=== PATIENT | male | born 1960 | race Caucasian/White ===

== ENCOUNTER 2017-09-10 21:05 | Emergency (ER) | payer MEDICARE, MEDICAID, SELFPAY ==
[2017-09-10 21:06] VITALS: BP 156/67; PULSE 71; RESP 17; TEMP 37.1; O2SAT 97; BMI 19.0
--- NOTE | 2017-09-10 22:10 | ED.VISSUMM ---
- ER Visit Summary Date of Service: 09/10/17 Chief Complaint: [] Blood in the stool History of Present Illness: The patient is a 57 M stated 2 hours ago he had a bowel movement that was solid and noticed there was some blood in the water. It was bright red. No history of diverticulosis or hemorrhoids. Last year he had a hard stool and had a similar bleeding episode that resolved on its own. His last colonoscopy was 5 years ago and was normal per patient. He does not see a hazardous material specialist. He is on Eliquis for history of coronary artery disease status post remote triple bypass. Denies any symptoms currently. He felt a little bit lightheaded when he saw the blood that went away. Physical Examination: Vital signs reviewed General: Well-nourished well-developed Head: Normocephalic atraumatic Eyes: Pupils equal round and reactive to light extraocular movements intact ENT: TMs clear no hemotympanum no trauma Neck: Nontender full range of motion Cardiovascular: Regular rate rhythm no murmurs normal S1-S2 Respiratory: No distress clear to auscultation bilaterally chest nontender Abdomen: Soft nontender nondistended normal bowel sounds no masses Rectal no external hemorrhoids. Nontender. Gross negative. Back: Nontender no CVA tenderness Extremities: Nontender active range of motion ?4 extremities no trauma. Left [id number] amputation Skin: Normal color no trauma Neuro alert oriented cranial nerves II through XII intact normal strength sensation reflexes Test Results: [] Emergency Department Course and Treatment: [] Patient given IV fluid bolus. Lab work obtained. She is normal except platelets 113. Chemistries normal except chloride 109. Coags negative. Patient given IV fluids and feels asymptomatic. No further bleeding here. The patient is refusing admission. He understands he can return. He does not want to be admitted. He wants to go home and do stool softeners and see if this resolves on its own. I think this is reasonable. He is nontoxic with a normal hemoglobin. He will get be given GI referral. Treatment Plan: [] Disposition: [] Impression: [] Hematochezia This note was generated with [employer] dictation software. It may contain incorrect words, spelling, and punctuation that were not noted in review of the chart prior to signing ED Disposition - Plan for ED Patient: Chief Complaint: GI Bleed Referrals: Marco Sawyer MD [Primary Care Provider] -
[2017-09-10 22:22] LABS: Absolute Lymphocyte Count 2.06 X10^3/ul (0.83-4.51); Absolute Neutrophil Count 7.2 X10^3/uL (2.0-7.7); Basophil# 0.02 X10^3/uL; Basophil% 0.2 % (0-1); Eosinophil# 0.04 X10^3/uL; Eosinophils% 0.4 % (0-5); Hemoglobin 15.3 g/dl (13.0-16.5); Lymphocyte # 2.06 X10^3/ul (4.0); Lymphocyte % 20.7 % (19-41); Mean Corp Hgb Conc 34.8 g/gl (32-36); Mean Corpuscular Volume 94.8 fL (80-94); Mean Platelet Vol. 10.7 fl (6.2-12.0); Monocyte# 0.64 X10^3/uL; Monocyte% 6.4 % (0-10); Neutrophil % 72.2 % (47-70); Platelet Count 113 K/mm3 (150-450); RBC Distribution Width CV 13.7 % (11.6-14.6); RBC Distribution Width SD 47.3 fl (35.1-43.9); Red Blood Count 4.64 M/mm3 (4.6-6.2)
[2017-09-10 22:26] LABS: POSITIVE COUNT NO; POSITIVE DIFFERENTIAL NO; POSITIVE MORPHOLOGY NO
[2017-09-10 22:33] LABS: Anion Gap 4 (5-15); BUN 13 mg/dL (7-18); BUN/Creat Ratio 17.5 RATIO (10-20); Calcium,Total 8.2 mg/dL (8.5-10.1); Chloride 109 mmol/L (98-107); Creatinine, Serum 0.74 mg/dL (0.70-1.30); EST Glomerular Filtration Rate 114 mL/min (>60); Est Glom Filt Rate - Afr Amer 138 mL/min (>60); Glucose 89 mg/dL (74-106); Potassium 3.9 mmol/L (3.5-5.1); Sodium Level 143 mmol/L (136-145)
[2017-09-10 22:43] LABS: International Normalized Ratio 1.1; Prothrombin Time (Protime)PT. 13.8 SECONDS (11.7-14.9)
--- NOTE | 2017-09-10 23:28 | ED.DEP ---
ED Disposition - Plan for ED Patient: Disposition: Home or Assisted Living Chief Complaint: GI Bleed Instructions: ED Hematochezia Stable Referrals: Marco Sawyer MD [Primary Care Provider] - Mau Michaud MD [STAFF PHYSICIAN] -
[2017-09-10 23:37] VITALS: PULSE 86; RESP 16; O2SAT 98
== END 2017-09-10 23:38 | disposition home or self-care (01) ==
PROVIDERS: Emergency Provider Emergency Medicine; Family Provider Family Medicine; PCP Family Medicine
DX: K92.1 Melena (principal); I25.10 Atherosclerotic heart disease of native coronary artery without angina pectoris; I10 Essential (primary) hypertension; I73.9 Peripheral vascular disease, unspecified; Z95.1 Presence of aortocoronary bypass graft; Z72.0 Tobacco use; Z79.02 Long term (current) use of antithrombotics/antiplatelets; Z79.891 Long term (current) use of opiate analgesic; Z79.899 Other long term (current) drug therapy
CPT/HCPCS: 80048; 85025; 85610; 85730; 96360; 99285; J7040; A4216

== ENCOUNTER 2017-09-11 13:00 | Outpatient (RCR) | payer MEDICARE, MEDICAID, SELFPAY ==
--- NOTE | 2017-03-29 12:57 | HP.PTEVAL ---
Patient's Visit Information CANDI NAVA is a 57 year old M referred to Physical Therapy by Marco Sawyer with a diagnosis of L AKA neuroma. Date of Evaluation: 03/29/17 Physical Therapist: SLY HurleyT, OC - Visit Plan Frequency: 3x /Week Duration: 4-6 Weeks Plan: 3x/week for 3-6. Stretch L hip flexors with roll out. Management of stump and sleeves as needed. Gradual increae WB and gait training, pregait and balance exercises. Progression to wh walker and without AD, cane as needed. Steps. 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 Had more bone cut off about three months ago and got new prosthesis last week. Just started walking on it and i using walker. Hasn't walked without AD in years. Did not WB prior to this surgery through stump. Sleep is OK. On meds for pain pecoset 10 and lyrica. 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 Has steps to enter house, scoots up steps on bottom. Hs posts but no railing. Walker will not fit on them but can get up them without scooting. No layers today because it is swollen. Lives with girlfirend, Basic AdLs I but in . Disability from arm. 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 - Pain L stump Pain Intensity (Out of 10): 7 Pain Intensity Range: 0 Comment: Ok sitting. - Objective L AKA, no drainage, healed well, one spot more laterally of scarring sticking but no redness or excessive swelling today, tissue is patent and of appropriate color. Strength in stump is 4-/5 in all direction, R LE strength 4+/5. One step with R LE easily with walker. AROM L stump flexion 110, abd 20, ext 6 degreee, ext on R LE is 8 degrees. Transfers to and fro sit and supine are I with UE. Don and doff prosthesis I with appropriate layers today(just pad and sleeve). Stand at walker I, without walker favors L but able to stand eo and ec 30 sec with mild perturbations. Ambulate with wh walker mod I, but L LE is out to side slightly, can correct with VC. Min WB through L. Ambulate 2 steps without wh walker but very cautious and hesitant. Needs Min A for balance and safety. Very short stance time on L. - Goals Goal 1:: Stand and shift weight without hesitation or assist Goal Time Frame: 4-6 Weeks Goal 2:: Ambualte with Wh walker as main mobility method without pain. Goal Time Frame: 4-6 Weeks Goal 3:: Ambulate without AD 20 steps without assist Goal 4:: Up and down one flight steps with one rail I Goal Time Frame: 4-6 Weeks - Rehabilitation Potential Physical Therapy Diagnosis: L AKA Rehabilitation Potential: Fair - Anticipated Interventions Patient/Client Instruction: Educate patient on: Condition For the Purpose of:: To decrease pain, To improve ability of physical actions for home/community/work/leisure, To improve gait and locomotor functions Therapeutic Exercise to Include: Strength training, Balance training, Flexibilty training, Gait and locomotor training For the Purpose of:: To decrease pain, To improve ability of physical actions for home/community/work/leisure, To improve gait and locomotor functions Thank you for the opportunity to evaluate your patient. For Medicare and Medicare HMO plans, please review the plan of care and approve it. It will need to be FAXED BACK to us at [phone] for Medicare purposes. Please let me know if there are questions or concerns regarding this plan of care. Physician Signature: Date:
--- NOTE | 2017-04-23 12:52 | HP.PTREVAL_ITS ---
Marco Sawyer, It has been my pleasure to treat CANDI NAVA over the last 10 visits for Yani VILLALPANDO neuroma. Please see the progress note below for an update on the physical therapy plan of care! Subjective: Getting better but not able to walk on own yet. Getting better at about 5% use of walker and the rest is WC. Still not ready to commit to more than that. Objective/Function: Walks in and out of PT with wh walker Mod I. Don prosthesis I and appropriately. Walks with wh walker Mod I, catches toe one time in 80 feet corrected byswinging stump forward more powerfully. Able to stand without holding on I. Plan Plan: 3x/week for 3 weeks for. 1. Gait with decreasing AD. 2. Standing weight shifts. 3. Wean weight adn volume onto prosthesis via home progression verbal education.(Get up to 50% at home with Wh walker. Steps. Goals Goal 1:: Stand and shift weight without hesitation or assist Goal Time Frame: 4-6 Weeks Goal Progress: Goal Met Goal 2:: Ambualte with Wh walker as main mobility method without pain. Goal Time Frame: 4-6 Weeks Goal Progress: Progressing Goal 3:: Ambulate without AD 20 steps without assist Goal Time Frame: 6-8 Weeks Goal 4:: Up and down one flight steps with one rail I Goal Time Frame: 4-6 Weeks Goal 5:: Wh walker and prosthesis at least 50% of mobility volume vs WC Goal Time Frame: 4-6 Weeks Goal Progress: NWE GOAL Anticipated Interventions Patient/Client Instruction: Educate patient on: Condition For the Purpose of:: To decrease pain, To improve ability of physical actions for home/community/work/leisure, To improve gait and locomotor functions Therapeutic Exercise to Include: Strength training, Balance training, Flexibilty training, Gait and locomotor training For the Purpose of:: To decrease pain, To improve ability of physical actions for home/community/work/leisure, To improve gait and locomotor functions Please do not hesitate to contact me at [phone] by phone or Fax: if you have questions or concerns regarding this new plan of care! Sincerely, Chaka Hunt, DPT, OC
--- NOTE | 2017-06-26 13:21 | HP.PTREVAL_ITS ---
Marco Sawyer, It has been my pleasure to treat CANDI NAVA over the last 17 visits for L AKA neuroma. Please see the progress note below for an update on the physical therapy plan of care! Subjective: Ging to lose R LE in a year or two due to PAD. That is what they found at the hospital. Got new orthotic for L and it works better. Old one was worn out. Doc does not want us to take prsothetic off, just work on gait.No scheduled doctor f/u. Prosthetic on all day except bed. Uses walker sometimes at home. Has fallen a few times. Pt was busy at the holidays and now ready to resume. Objective/Function: Needs VC and assist to trasnfer off floor with and without support of chair via R half kneel. Walks with wide BETO with wh walker I, getting good prosthetic knee bend today. Without AD is hesitant and turns slowly. steps are reciprocal with one rail using R LE. See FGA. OVERALL DOING WELL AND SEEMS TO HAVE RENEWED ATTITUDE OF MOTIVATION AFTER POOR MOTIVATION AND NO ATTENDANCE THE LAST 4 + WEEKS. Plan Plan: 3x/week for 3-6 weeks to work on steps with R with decreasing support, gait without AD(decreasing ) with narrow BETO, and transfer off floor via half kneel. WE ARE RESUMING PT AFTER A PERIOD OF ABSENCE DUE TO HOLIDAYS AND LACK OF MOTIVATION FROM PATIENT. THIS SEEMS BETTER NOW WITH NEW PROSTHESIS Goals Goal 1:: Stand and shift weight without hesitation or assist Goal Time Frame: 4-6 Weeks Goal Progress: Goal Met Goal 2:: Ambualte with Wh walker as main mobility method without pain. Goal Time Frame: 4-6 Weeks Goal Progress: Goal Met Goal 3:: Ambulate into and out of PT without AD with good gait pattern I. Goal Time Frame: 6-8 Weeks Goal Progress: NEW GOAL Goal 4:: up and down 6 steps without rail I Goal Time Frame: 4-6 Weeks Goal Progress: NEW GOAL Goal 5:: Wh walker and prosthesis at least 50% of mobility volume vs WC Goal Time Frame: 4-6 Weeks Goal Progress: NEW GOAL Goal 6:: Transfer off floor without chair support UE I easily Goal Time Frame: 4-6 Weeks Goal Progress: NEW GOAL Anticipated Interventions Patient/Client Instruction: Educate patient on: Condition For the Purpose of:: To decrease pain, To improve ability of physical actions for home/community/work/leisure, To improve gait and locomotor functions Therapeutic Exercise to Include: Strength training, Balance training, Flexibilty training, Gait and locomotor training For the Purpose of:: To decrease pain, To improve ability of physical actions for home/community/work/leisure, To improve gait and locomotor functions Please do not hesitate to contact me at [phone] by phone or Fax: if you have questions or concerns regarding this new plan of care! Sincerely, Chaka Hunt, DPT, OC
--- NOTE | 2017-07-24 17:38 | HP.PTREVAL_ITS ---
Marco Sawyer, It has been my pleasure to treat CANDI NAVA over the last 24 visits for L AKA neuroma. Please see the progress note below for an update on the physical therapy plan of care! Subjective: Had the flu for a week. Was not pretty. Did not get much of anything in. Walking at home with walk and without holding onto furniture. R calf has been painful most of the time and worse with walking. May have to have that amputated at some point. L phantom pain daily, stump is not bad. No exercises being done at home. No falls . Always feels like needs to have a hold of something at home to walk, doesn't trust legs. Wants more confidence with walker and R calf pain to get better. Objective/Function: Needs VC to ambulate with toe off on L to get prosthetic flexion, needs vc 33% of time...corrects immediately.Walks Mod I with walker but R leg tends to abd and cause wide BETO, can correct with VC. Makes same gait pattern without AD and is sBA for 200 feet today. Does 100 feet at a time limited by L calf pain and cramping. More safe without cane as he cannot use it in R hand due to dysfucntion there from previous injury. Able to ambulate ec , head turns but less stable and CGA needed. OVERALL, THE FLU HAS SET HIM BACK SOME. PT LACKS CONFIDENCE TO GET RID OF AD AND LEFT LEG ARTERIAL PROBLEMS LIMIT HIS DISTANCE. APPROPRIATE FOR CONTINUED PT FOR GAIT TRAINING. Plan Plan: 2x/week for 4 weeks... focus on narrow BETO confidence withotu AD and increasing distances as L leg pain allows. 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 Continue floor transfer. Goals Goal 1:: Tolerate FGA Goal Time Frame: 4-6 Weeks Goal Progress: NEW GOAL Goal 2:: Ambualte with Wh walker as main mobility method without pain. Goal Time Frame: 4-6 Weeks Goal Progress: Goal Met Goal 3:: Ambulate into and out of PT without AD with good gait pattern I. Goal Time Frame: 6-8 Weeks Goal Progress: Progressing Goal 4:: up and down 6 steps without rail I Goal Time Frame: 4-6 Weeks Goal Progress: Progressing Goal 5:: Wh walker and prosthesis at least 50% of mobility volume vs WC Goal Time Frame: 4-6 Weeks Goal Progress: Goal Met Goal 6:: Transfer off floor without chair support UE I easily Goal Time Frame: 4-6 Weeks Goal Progress: Progressing Anticipated Interventions Patient/Client Instruction: Educate patient on: Condition For the Purpose of:: To decrease pain, To improve ability of physical actions for home/community/work/leisure, To improve gait and locomotor functions Therapeutic Exercise to Include: Strength training, Balance training, Flexibilty training, Gait and locomotor training For the Purpose of:: To decrease pain, To improve ability of physical actions for home/community/work/leisure, To improve gait and locomotor functions Please do not hesitate to contact me at [phone] by phone or Fax: if you have questions or concerns regarding this new plan of care! Sincerely, Chaka uHnt, DPT, OC
--- NOTE | 2017-08-24 16:06 | HP.PTREVAL_ITS ---
Marco Sawyer, It has been my pleasure to treat CANDI NAVA over the last 32 visits for Yani matos. Please see the progress note below for an update on the physical therapy plan of care! Subjective: Thinks he is getting better. Did two full laps without stopping. Can slowly pick things up off floor. R leg still hurts but stretching helps. Walking short distances without AD. Need more PT for grades and outside walking. Avoids shopping. 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 Has some balance work to do as he is wobbly. Has not had any falls to the ground but feels wobbly. Sleep is good. Objective/Function: Transfer to and from floor I without chair to push on. Tolerated FGA today for the first time. Up and dwn steps with R with ail and cane Mod I. Walks with cane mod I on firm surfaces. Without AD needs SBA as he is wobbly. Plan Plan: 2x/week for 4 weeks for gait on irregular surfaces, incline/decline as able and balance with turns and challengess. Goals Goal 1:: Tolerate FGA Goal Time Frame: 4-6 Weeks Goal Progress: Goal Met Goal 2:: Ambualte with Wh walker as main mobility method without pain. Goal Time Frame: 4-6 Weeks Goal Progress: - Goal 3:: Ambulate into and out of PT without AD with good gait pattern I. Goal Time Frame: 6-8 Weeks Goal Progress: Progressing Goal 4:: up and down 6 steps without rail I Goal Time Frame: 4-6 Weeks Goal Progress: Will need rail Goal 5:: Walk with cane on grass and incline without assistance 60 feet mod I. Goal Time Frame: 4-6 Weeks Goal Progress: NEW GOAL Goal 6:: FGA to diminish fall risk. Goal Time Frame: 4-6 Weeks Goal Progress: NEW GOAL Anticipated Interventions Patient/Client Instruction: Educate patient on: Condition For the Purpose of:: To decrease pain, To improve ability of physical actions for home/community/work/leisure, To improve gait and locomotor functions Therapeutic Exercise to Include: Strength training, Balance training, Flexibilty training, Gait and locomotor training For the Purpose of:: To decrease pain, To improve ability of physical actions for home/community/work/leisure, To improve gait and locomotor functions Please do not hesitate to contact me at [phone] by phone or Fax: if you have questions or concerns regarding this new plan of care! Sincerely, Chaka Hunt, SLYT, OC
== END 2017-09-11 19:00 | disposition home or self-care (01) ==
LOC: PT 13:00
PROVIDERS: Family Provider Family Medicine; PCP Family Medicine; Visit Provider Family Medicine
DX: T87.34 Neuroma of amputation stump, left lower extremity (principal)
CPT/HCPCS: 97110; 97116; 97140; 97162; 97164; 97530; G8978; G8979

== ENCOUNTER 2017-09-23 18:25 | Emergency (ER) | payer MEDICARE, MEDICAID, SELFPAY ==
[2017-09-23 18:26] VITALS: BP 148/64; PULSE 71; RESP 16; TEMP 36.9; O2SAT 99; BMI 22.8
--- NOTE | 2017-09-23 19:39 | ED.VISSUMM ---
- ER Visit Summary Date of Service: 09/23/17 Chief Complaint: Left stump pain History of Present Illness: The patient is a 57 M 2 day history worsening left stump pain. History of AKA. States has vascular disease with this tobacco history. No history of diabetes. Had infection with initial surgery 1-1/2 years ago. Additional surgery 4 months ago at [facility]. Followed by Dr. Angelique Grijalva. Has been using a prosthesis starting 3 months ago. Saw therapy on Sunday. Denies any injuries. No fevers. No drainage. He is also on oxycodone and Lyrica states he ran out today with last dose 10 hours ago. 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 He states he takes his medications when he has pain. He lost pain management privileges last year due to being positive for marijuana. States there is redness to the area when he stands, goes away when he sits down. Physical Examination: General: Alert and oriented ?3, no acute distress HEENT: Normocephalic, atraumatic. Moist mucosa membranes Neck: supple, nontender. Cardiovascular: Regular rate and rhythm, no murmurs Respiratory: Normal breath sounds, symmetric, no distress Abdomen: Soft, nontender, nondistended Extremities: Left lower extremity: AKA. There is scarring distally, there is no drainage from the site. There is no fluctuance. There is no erythema or streaking. There is tenderness at the distal stump region around the scar. Neuro: no focal neurological deficits. Test Results: [] Emergency Department Course and Treatment: [] Treatment Plan: [] Disposition: [] Impression: [] This note was generated with [employer] dictation software. It may contain incorrect words, spelling, and punctuation that were not noted in review of the chart prior to signing ED Disposition - Plan for ED Patient: Disposition: Home or Assisted Living Chief Complaint: Lower Extremity Injury Diagnosis: Pain of left lower extremity Prescriptions: Cephalexin [Keflex] 500 mg PO Q6 #40 capsule Referrals: Marco Sawyer MD [Primary Care Provider] - 3-5 Days Additional Instructions: Discussed with your prosthesis company for reevaluation. Will cover for infection for your concerns with antibiotics. Follow-up with your doctor for continued prescriptions for pain medications.
--- NOTE | 2017-09-23 19:40 | RAD_ITS ---
STUDY: X-RAY - LEFT FEMUR REASON FOR STUDY: Male, 57 years old. Pain. TECHNIQUE: Radiological exam, femur, minimum 2 views COMPARISON: None. FINDINGS: No acute fracture or dislocation. No significant degenerative changes. 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 There is no definite focal destructive process of the bones. There are heavily calcified vascular structures and a stent in the upper medial thigh. IMPRESSION: There is no definite acute abnormality. Electronically Signed: Alcides Centeno MD at 20:02 EDT , Service support , RAD/Femur Min 2 Views
[2017-09-23] MEDS: oxyCODONE 5 MG Tablet 10 MG PO (19:42)
--- NOTE | 2017-09-23 19:47 | ED.RN ---
CALLED TO PHARMACY FOR MEDICATION.
[2017-09-23] MEDS: Pregabalin 75 MG Capsule 150 MG PO (20:05)
[2017-09-23] MEDS: Cephalexin 250 MG Capsule 500 MG PO (20:46)
== END 2017-09-23 20:46 | disposition home or self-care (01) ==
PROVIDERS: Emergency Provider Emergency Medicine; Family Provider Family Medicine; PCP Family Medicine
DX: M79.652 Pain in left thigh (principal); Z89.612 Acquired absence of left leg above knee; Z72.0 Tobacco use; Z79.02 Long term (current) use of antithrombotics/antiplatelets; Z79.891 Long term (current) use of opiate analgesic; Z79.899 Other long term (current) drug therapy
CPT/HCPCS: 73552; 99283

== ENCOUNTER 2017-12-19 14:00 | Outpatient (RCR) | payer MEDICARE, MEDICAID, SELFPAY ==
--- NOTE | 2017-10-08 12:48 | HP.PTREVAL_ITS ---
Marco Sawyer, It has been my pleasure to treat CANDI NAVA over the last 39 visits for L AKA neuroma. Please see the progress note below for an update on the physical therapy plan of care! Subjective: A couple weeks ago, wheel of wheel chair hit him on L stump. It swelled up and ggot sensitive. Given pills 2x/day. Has other medical concerns with bleeding in the rectum and is being doctor for that. Had ear infection. R leg is up and down with pain as he walks on it more. distal end of stump very sensitive and cannot bear weight. Hasn't used prosthesis in two weeks because it is too painful. Saw doctor after bumped stump and thought he had a sensitive nerve. Has been using WC or crawling on floor for last two weeks. Doctor took x ray and no infection but took meds anyway. It is slowly improving as he can move his leg better.Comfortable at rest. Objective/Function: Stump ROM is good with 10 degrees of ext hip and others WFL. Strength in stump 4+/5 abd, ext, flexion. Stump is very tender distally and very little soft tissue present at distal end of femur. Maximally tender here buit better than last week according to patient. Walks with walker 10 feet today but very difficult to BW R wrist due to fusion and pain. Did not bring prosthesis or walker today. has platform for R UE at home but did not like it so took it off his walker and has not been ambulating.No isgns of excessive redness heat or swelling in stump. OVERALL, HAS HAD A SETBACK WITH PAIN TO STUMP AND DOCTORED ACCORDINGLY BUT HAS LIMITED AND CONTINUES TO LIMIT HIS VERTICAL MOBILITY. PT APPROPRIATE TO WORK BACK TO WALKING PAIN ALLOWS. Plan Plan: 1-3x/week for 4-6 weeks to work on enusring diminishing pain to stump with proper number of layers in prosthesis and WB through walker(with platform) and weaning back to less AD. Pt feels comfortable trying more layers at home while stump continues to heal but will call if problems. Will bring layers, walker, platform and prosthesis next visit forf management and when he can walk upright for any distance will increase to 2-3x/week for gait training. Goals Goal 1:: Walk into and out of PT with cane or walker Mod I without pain Goal Time Frame: 4-6 Weeks Goal Progress: NEW GOAL Goal 2:: Ambulate in and out of PT without AD and with good gait pattern I. Goal Time Frame: 4-6 Weeks Goal Progress: setback, still approp. Goal 3:: Up and down 6 stepswithout rail I Goal Time Frame: 4-6 Weeks Goal Progress: Not apporp now Goal 4:: Walk with cane on grass and incline without AD mod I 60 feet Goal Time Frame: 4-6 Weeks Goal Progress: not prgoress, not approp Goal 5:: FGA to diminish fall risk Goal Time Frame: 4-6 Weeks Goal Progress: not progress, not approp Anticipated Interventions Patient/Client Instruction: Educate patient on: Condition For the Purpose of:: To improve ability of physical actions for home/community/ work/leisure, To improve gait and locomotor functions Functional Training to Include: Gait training Comments: transfer For the Purpose of:: To improve safety Please do not hesitate to contact me at [phone] by phone or Fax: if you have questions or concerns regarding this new plan of care! Sincerely, Chaka Hunt, DPT, OC
--- NOTE | 2017-11-20 13:30 | HP.PTREVAL_ITS ---
Marco Sawyer, It has been my pleasure to treat CANDI NAVA over the last 46 visits for Yani VILLALPANDO neuroma. Please see the progress note below for an update on the physical therapy plan of care! Subjective: Walking better. Made a full lap without stopping. Not walking much at home outside in yard. Walking at home holding onto childs with prosthesis. Will call prosthetitian to tweak and make prsothesis tighter. May need to have R foot amputated. Not sure when. Getting better with prosthesis but wants to walk outside. Currently in prosthesis all day. No AD needed in house, uses cane to get to shop. Did fall one time last night trying to sit in chair when could not see really well. Objective/Function: Walks with cane with decent gait pattern 200 feet without assistance. Walks without AD 100 feet with SBA. Not overly confident without AD and has wider BETO. Prosthesis fitting well and no pain with ambulation today. Ascends steps withotu rail but weak on R LE and Needs rail for functional safety. Saul raise on R I. Overall much better walking than initially at last recheck. In prosthesis most of day and starting to get around shop although has fallen in the shop. still appropriate to continue for gait in upper level situations dark, outdoors and dynamic balance on prosthesis. Plan Plan: 2x/week for 4 weeks for outdoor irregular surface gait, dynamic balance without AD, steps. Goals Goal 1:: Walk into and out of PT with cane or walker Mod I without pain Goal Time Frame: 4-6 Weeks Goal Progress: Goal Met Goal 2:: Ambulate in and out of PT without AD and with good gait pattern I. Goal Time Frame: 4-6 Weeks Goal Progress: 100 feet. Goal 3:: Up and down 6 stepswithout rail I Goal Time Frame: 4-6 Weeks Goal Progress: Min A Goal 4:: Walk with cane on grass and incline without AD mod I 60 feet Goal Time Frame: 4-6 Weeks Goal Progress: not yet, still approp. Goal 5:: FGA to diminish fall risk Goal Time Frame: 4-6 Weeks Goal Progress: progressing, still approp Anticipated Interventions Patient/Client Instruction: Educate patient on: Condition For the Purpose of:: To improve ability of physical actions for home/community/ work/leisure, To improve gait and locomotor functions Functional Training to Include: Gait training Comments: transfer For the Purpose of:: To improve safety Please do not hesitate to contact me at [phone] by phone or Fax: if you have questions or concerns regarding this new plan of care! Sincerely, SLY HurleyT, OC
--- NOTE | 2017-12-19 14:27 | HP.PTDCSUM_ITS ---
HP - PT D/C Summary It has been my pleasure to treat CANDI NAVA under orders from Marco Sawyer , for the diagnosis of L AKA neuroma for a total of 52 visit(s). Discharge Date: 12/19/17 Please see the following information for a summary of their discharge status. - Subjective Subjective: Slowly improving with distance. No pain really after walking. Butt gets tight at times. Gets meds this weekend adn will be good. Using cane as he does not trust R leg as it gives out at times. Circulation is poor in R foot but doc wants to leave it on as long as he can to avoid WC for the rest of his life. Prosthetic is on all day and uses cane (or furniture) at home but walker in yard. - Pain Left LE Pain Intensity (Out of 10): 0 - Overall Improvement % Improvement: 50 - Objective Objective/Function: Overall walking very well with cane R UE, R LE limits more than prosthesis. Needs to emphasize swing phase on grass but is safe. steps are with rail on L and cane adn using R LE which is very weak. - Goals Goal 1:: Walk into and out of PT with cane or walker Mod I without pain Goal Progress: Goal Met Goal 2:: Ambulate in and out of PT without AD and with good gait pattern I. Goal Progress: needs cane Goal 3:: Up and down 6 stepswithout rail I Goal Progress: needs rail 2 to R wekanes Goal 4:: Walk with cane on grass and incline without AD mod I 60 feet Goal Progress: needs rail 2 R LE weak Goal 5:: FGA to diminish fall risk Goal Progress: Progressing - Plan Plan: D/C - D/C Information Discharge Comments: Pt doing well at home adn likely at maximum functional level. R LE holds him back due to weakness adn pain from poor circulation. If there are questions or concerns regarding this patient's physical therapy, please feel free to call me at [phone]. Thank you for the referral of this patient. Sincerely, Chaka Hunt, DPT, OC
== END 2017-12-19 19:00 | disposition home or self-care (01) ==
LOC: PT 14:00
PROVIDERS: Family Provider Family Medicine; PCP Family Medicine; Visit Provider Family Medicine
DX: T87.34 Neuroma of amputation stump, left lower extremity (principal); Z98.890 Other specified postprocedural states
CPT/HCPCS: 97110; 97116; 97164; 97530

== ENCOUNTER → 2018-03-06 06:23 | Outpatient (CLI) | payer MEDICARE, MEDICAID, SELFPAY ==
--- NOTE | 2018-03-06 06:25 | ECHOD_ITS ---
Reason For Study: CAD-CABG Procedure This was a 2D Doppler, Color Flow transthoracic echocardiogram. Exam performed in department. Left Ventricle Normal LV size. Left ventricular systolic function is normal. The estimated ejection fraction is 60 %. No evidence for diastolic dysfunction. The global longitudinal strain is normal. The global longitudinal strain = -18 % (normal). No regional wall motion abnormalities noted. Right Ventricle Normal RV size. Normal systolic function. Atria Normal left atrium. Normal right atrium. Mitral Valve Mild diffuse mitral valve thickening. Mild (1+) eccentric mitral valve insufficiency. Tricuspid Valve Normal tricuspid valve. Mild tricuspid valve insufficiency. Pulmonary artery systolic pressure is 22 mmHg. Aortic Valve Mild (1+) eccentric aortic valve insufficiency. Great Vessels Normal aortic root. The pulmonary artery is normal size. Normal inferior vena cava. Pericardium/Pleural No pericardial effusion. MMode/2D Measurements & Calculations LVIDd: 4.7 cm IVSd: 1.0 cm Ao root diam: 3.3 cm LVIDs: 3.3 cm LVPWd: 1.1 cm LA dimension: 3.5 cm RVDd: 3.4 cm FS: 30.1 % LAV(MOD-bp): 55.0 ml EDV(MOD-sp4): 114.1 ml EDV(MOD-sp2): 93.2 ml LAV(MOD-bp) Indexed: 30.6 ml/m2 ESV(MOD-sp4): 44.6 ml EF(MOD-sp2): 52.7 % LAV(MOD-sp2): 56.1 ml EF(MOD-sp4): 60.9 % LAV(MOD-sp4): 50.7 ml SV(MOD-sp4): 69.5 ml SV(MOD-sp2): 49.1 ml LA A4 area: 17.8 cm2 RA A4 area: 13.9 cm2 Doppler Measurements & Calculations MV E max roberto: 82.0 cm/sec Lat Peak E' Roberto: 8.0 cm/sec Med Peak E' Robetro: 8.7 cm/sec MV A max roberto: 82.4 cm/sec E/E' lat: 10.3 E/E' med: 9.5 MV E/A: 1.00 Ao V2 max: 162.9 cm/sec AI max roberto: 407.9 cm/sec LV V1 max: 123.0 cm/sec Ao max P.6 mmHg AI max P.6 mmHg LV V1 max P.0 mmHg AI dec slope: 264.3 cm/sec2 AI P1/2t: 452.1 msec PA V2 max: 95.7 cm/sec TR max roberto: 221.5 cm/sec TR max P.6 mmHg Interpretation Summary Normal LV size. Left ventricular systolic function is normal. The estimated ejection fraction is 60 %. No evidence for diastolic dysfunction. Mild (1+) eccentric mitral valve insufficiency. Ordering Physician: Narendra Garcia MD Referring Physician: MD Silverio Marco Performed By: Mari Verma ANGELA
--- NOTE | 2018-03-06 08:55 | STRESSREP ---
Stress Test Report Pharmacologic myocardial perfusion stress test. 58-year-old man for preoperative cardiac evaluation. Patient with known coronary artery disease. Stress protocol: Resting EKG demonstrates normal sinus rhythm with a rate of 57 bpm. 0.4 mg of regadenoson was infused per usual protocol followed by rapid intravenous saline flush injection continuous EKG monitoring was performed. The patient maintained sinus rhythm throughout the recording occasional premature ventricular complex was noted. The maximum heart rate attained was 67 bpm which was 41% of maximum predicted heart rate the maximum workload was 1 metabolic equivalent. At rest there were no ST or T-wave changes noted to suggest abnormal flow reserve at peak infusion no ST or T-wave changes were noted suggest abnormal flow reserve. No clinical angina was noted. The resting blood pressure is 142/60 with a final blood pressure 140/60 mmHg. Myocardial perfusion protocol. 11.1 mCi of technetium 99m sestamibi was injected at rest. 0.4 mg of regadenoson was infused per usual protocol. At peak infusion 32.2 mCi of technetium 99 sestamibi was injected stress images were obtained stress and rest images were reconstructed and compared in the short axis vertical long horizontal long axis. Gated images were also obtained Perfusion SPECT analysis: Review of the stress images demonstrate normal uptake of tracer noted in the septum anterior wall and lateral wall. The basal inferior wall has mildly reduced perfusion on the stress images which also is persistent on the resting images. No obvious changes of reversibility are noted suggest obvious ischemia. Previous infarct is noted. Gated SPECT analysis: The gated ejection fraction is noted to be 63%. Conclusion: Normal pharmacologic myocardial perfusion stress test. Preserved ejection fraction.
== END ==
PROVIDERS: Family Provider Family Medicine; PCP Family Medicine; Referring Provider Internal Medicine Cardiovascular Disease; Visit Provider Internal Medicine Cardiovascular Disease
DX: Z01.810 Encounter for preprocedural cardiovascular examination (principal); I25.10 Atherosclerotic heart disease of native coronary artery without angina pectoris; Z95.1 Presence of aortocoronary bypass graft
CPT/HCPCS: 78452; 93017; 93306; A9500; A4216; J2785

== ENCOUNTER 2018-03-19 09:11 | Day surgery (SDC) | payer MEDICARE, MEDICAID, SELFPAY ==
--- NOTE | 2018-03-11 11:27 | RAD_ITS ---
STUDY: X-RAY CHEST REASON FOR EXAM: Male, 58 years old. Preoperative evaluation. TECHNIQUE: PA and lateral views of the chest. COMPARISON: Comparison is made with prior study dated May 11, 2017. FINDINGS: Hyperinflation. There is no demonstrated pleural abnormality. Sternal cerclage wires and vascular clips are present from a prior sternotomy and coronary artery bypass graft procedure (CABG). Normal mediastinum and jefry. Normal visualized pulmonary arteries. There is atherosclerotic calcification of the aortic arch with tortuosity. There are degenerative changes of the visualized thoracic spine. Normal visualized ribs, clavicles, and shoulders. There is no demonstrated abnormality of the visualized soft tissue structures of the upper abdomen. RAD/Chest PA and Lateral IMPRESSION: Hyperinflation. No acute abnormalities. Electronically Signed: Fer Motta MD at 12:31 EDT Tel [phone], Service support ,
[2018-03-11 12:12] LABS: Hemoglobin 15.7 g/dl (13.0-16.5); Mean Corp Hgb Conc 34.9 g/gl (32-36); Mean Corpuscular Hgb 33.1 pg (27.0-32.0); Mean Corpuscular Volume 94.9 fL (80-94); Mean Platelet Vol. 11.7 fl (6.2-12.0); Platelet Count 137 K/mm3 (150-450); RBC Distribution Width CV 14.3 % (11.6-14.6); RBC Distribution Width SD 48.1 fl (35.1-43.9); Red Blood Count 4.74 M/mm3 (4.6-6.2); White Blood Count 16.6 K/mm3 (4.4-11.0)
[2018-03-11 12:22] LABS: Scan Indicated on CBC? Y/N NO
[2018-03-11 12:36] LABS: Anion Gap 7 (5-15); BUN 13 mg/dL (7-18); BUN/Creat Ratio 16.4 RATIO (10-20); Calcium,Total 8.4 mg/dL (8.5-10.1); Chloride 108 mmol/L (98-107); Creatinine, Serum 0.79 mg/dL (0.70-1.30); EST Glomerular Filtration Rate 106 mL/min (>60); Est Glom Filt Rate - Afr Amer 128 mL/min (>60); Glucose 93 mg/dL (74-106); Potassium 4.1 mmol/L (3.5-5.1); Sodium Level 137 mmol/L (136-145)
[2018-03-19] VITALS (8 sets, daily range): BP systolic 124–161; BP diastolic 45–58; PULSE 60–85; RESP 14–16; TEMP 36.2–36.8; O2SAT 93–98; BMI 22.4
--- NOTE | 2018-03-19 11:01 | DCINST_ITS ---
You will use the following diet at home:: No restrictions Discharge Activity: May not drive while taking narcotic pain medications. Call your doctor if your incision/area has: Increased Pain/ Swelling Additional Dressing/Incision Instructions:: do not get the bridge of your nose wet. however, the day of your follow up appointment, get your nose very wet in the shower. nasal saline to both nostrils 5 times daily. sleep with head of bed elevated for several days. Allergies/Adverse Reactions: Allergies No Known Allergies Allergy (Verified 03/08/18 15:15) Medications to take at Discharge Citalopram [Celexa] 40 mg PO DAILY 09/28/14 Lisinopril [Zestril] 10 mg PO DAILY 09/28/14 Apixaban [Eliquis] 5 mg PO BID #60 tab 11/10/15 Gabapentin [Neurontin] 600 mg PO 4X/DAY #120 tab 11/10/15 Oxycodone HCl/Acetaminophen [Percocet 10-325 mg Tablet] 1 - 2 tab PO Q6H PRN PRN 09/23/17 Pregabalin [Lyrica] 150 mg PO TID 09/23/17 duloxetine 60 mg capsule,delayed release 60 mg PO QDAY 12/03/17 simvastatin 20 mg tablet 20 mg PO QPM 12/03/17 Hydrocodone/Acetaminophen [Constable 5-325 Tablet] 1 ea PO Q6H #20 tab 03/19/18 Sulfamethoxazole/Trimethoprim [Bactrim 400-80 mg Tablet] 1 ea PO BID #12 tab 03/19/18 The following prescriptions were given: Sulfamethoxazole/Trimethoprim [Bactrim 400-80 mg Tablet] 1 ea PO BID #12 tab Hydrocodone/Acetaminophen [Constable 5-325 Tablet] 1 ea PO Q6H #20 tab Primary Care Physician: Marco Sawyer MD [Primary Care Provider] - Test Results: Test results from this visit will be discussed in further detail at your follow- up appointment, if applicable. Please Follow Up With: Rodrigo Thomason MD When: sunday 03/25 - call to make appt
--- NOTE | 2018-03-19 11:03 | PCM.OPRPT ---
Problem List (1) Nasal congestion Status: Chronic (2) Hypertrophy of nasal turbinates Status: Chronic (3) Nasal septal deviation Status: Chronic (4) Nasal deformity Status: Chronic Report of Operation Date of Procedure: 03/19/18 Pre-Operative Diagnosis: 1. nasal congestion. 2. turbinate hypertrophy. 3. nasal septal deviation. 4. nasal deformity Post-Operative Diagnosis: 1. nasal congestion. 2. turbinate hypertrophy. 3. nasal septal deviation. 4. nasal deformity Surgery/Procedure Performed:: 1. open septorhinoplasty. 2. anterior nasal septal reconstruction. 3. submucous resection inferior turbinates. 4. correction internal nasal valve collapse, right and left Type of Anesthesia:: General Description of Procedure: on the day of the procedure, after appropriate informed consent was obtained, the patient was brought to the operating room and placed in supine position on the operating table. he was placed under general endotracheal anesthesia by the anesthesiologist. the endotracheal tube was secured, the eyes were taped. the table was rotated 90 degrees toward the surgeon. the nose was injected with lidocaine/epinephrine. the bilateral nasal cavities were decongested with oxymetazoline-soaked pledgets. the nose was prepped and draped in sterile fashion. an inverted V columellar incision was made with a [place] blade. these were extended to right then left marginal incisions. the left then right lower lateral cartilages were skeletonized with three point retraction and an iris scizzor. the scroll region was located on the right then left and the upper lateral cartilages were skeletonized with an iris scizzor. the medial crura were lateralized and the anterior septal angle was found. this was dissected with the bovie and a left submucoperichondrial plane was developed in the septum posteriorly to the bony/cartilaginous junction, and inferiorly to the maxillary crest. a right submucoperichondrial plane was developed in the septum posteriorly to the bony/cartilaginous junction, and inferiorly to the maxillary crest. the right and left upper lateral cartilages were disarticulated with the nasal septum using a #15 blade. a 1cm strut was maintained off of the keystone area and the remainder of the cartilaginous septum was excised with a D knife and a stacie elevator. this was harvested for future use. the head of the right and left inferior turbinates were injected with lidocaine/epinephrine. the head of the right inferior turbinate was incised with a #15 blade, dissected submucosally with a stacie elevator, reduced using the suction bovie and outfractured using a boies elevator. the head of the left inferior turbinate was incised with a #15 blade, dissected submucosally with a stacie elevator, reduced using the suction bovie and outfractured using a boies elevator. the harvested cartilage was reshapen to form an anterior septal reconstruction. this was anchored between the right upper lateral cartilage and nasal septum with 4-0 PDS suture. this was anchored to the maxillary crest with 4-0 PDS. a 1cm x 2mm internal care transition mgr graft was used between the left upper lateral cartilage and the nasal septum; this was anchored with 4-0 PDS. numerous quilting sutures were placed reapproximating the septal mucoperichondrium; several incorporate the anterior septal reconstruction. the columellar incision was closed with 7-0 vicryl and the marginal incisions with 4-0 chromic. paiz splints and a dorsal nasal splint was placed. a nasogastric tube was inserted transnasally and contents were evacuated. the table was rotated 90 degrees toward the anesthesiologist where the patient was extubated uneventfully.
[2018-03-19] MEDS: Oxymetazoline 0.05% 1 SPRAY SPRAY.BTL 15 SPRAY (11:30)
[2018-03-19] MEDS: Mupirocin Ointment 22gm Tube 1 APPLIC (12:39)
[2018-03-19] MEDS: HYDROcodone Bitartrate/Apap 5/325 Tablet PO (14:47)
== END 2018-03-19 15:19 | disposition home or self-care (01) ==
LOC: SDC 09:12 → AC 09:12
PROVIDERS: Family Provider Family Medicine; PCP Family Medicine; Referring Provider Otolaryngology; Visit Provider Otolaryngology
PROC: (CPT 20912; principal; 2018-03-19 10:30)
DX: J34.2 Deviated nasal septum (principal); J34.3 Hypertrophy of nasal turbinates; M95.0 Acquired deformity of nose; R09.81 Nasal congestion; I10 Essential (primary) hypertension; E78.5 Hyperlipidemia, unspecified; I73.9 Peripheral vascular disease, unspecified; I65.23 Occlusion and stenosis of bilateral carotid arteries; I25.10 Atherosclerotic heart disease of native coronary artery without angina pectoris; J44.9 Chronic obstructive pulmonary disease, unspecified; F41.9 Anxiety disorder, unspecified; F32.9 Major depressive disorder, single episode, unspecified; M46.96 Unspecified inflammatory spondylopathy, lumbar region; F17.200 Nicotine dependence, unspecified, uncomplicated; Z95.1 Presence of aortocoronary bypass graft; Z86.718 Personal history of other venous thrombosis and embolism; Z89.612 Acquired absence of left leg above knee; Z79.02 Long term (current) use of antithrombotics/antiplatelets; Z79.891 Long term (current) use of opiate analgesic; Z79.899 Other long term (current) drug therapy
CPT/HCPCS: 20912; 30140; 30420; 30520; 36415; 71046; 80048; 85027; J7120; J2405

== ENCOUNTER → 2018-04-12 14:09 | Outpatient (CLI) | payer MEDICARE, MEDICAID, SELFPAY ==
--- NOTE | 2018-04-12 14:16 | CT_ITS ---
HISTORY: NASAL ABSCESS TECHNIQUE: Helically acquired images were obtained of the paranasal sinuses. A radiation dose optimization technique was used for this scan. IV Contrast dosage and agent: None. COMPARISON: 02/19/2014 FINDINGS: There is symmetrical soft tissue thickening of the anterior and lower nasal septum toward the tip of the nose and this correlates with the provided history of infection. No findings of abscess by CT. Specifically, no soft tissue gas or fluid component seen. Noncontrast exam part limits evaluation. No bone destruction or osteomyelitis identified. No fracture or significant septal deviation. The nasal turbinates appear normal. The paranasal sinuses are normally developed. Minor mucosal thickening of the floor of the left maxillary sinus. The ostiomeatal units are patent bilaterally. The right side unit is more narrow than the left. The remaining paranasal sinuses appear clear. No associated orbital disease. As visualized, the mastoids and middle ear cavities are clear. CT/Sinus/Facial Bone IMPRESSION: 1. Symmetrical soft tissue thickening of the anterior and lower nasal septum which correlates with the provided history of infection and compatible with cellulitis. 2. By CT, no abscess or suspicious fluid collections 3. Left maxillary sinus minor mucosal thickening with patency of the ostiomeatal units. Individualized dose optimization techniques were used for this CT. at 0143 Reported and signed by: Raul Vines MD Electronically Signed: Raul Vines, at 1:41 EDT Tel , Service support ,
== END ==
PROVIDERS: Family Provider Family Medicine; PCP Family Medicine; Referring Provider Otolaryngology; Visit Provider Otolaryngology
DX: J32.9 Chronic sinusitis, unspecified (principal)
CPT/HCPCS: 70486

== ENCOUNTER 2018-07-01 10:41 | Inpatient (IN) | payer MEDICARE, MEDICAID, SELFPAY ==
[2018-07-01] VITALS (26 sets, daily range): BP systolic 147–192; BP diastolic 38–77; PULSE 73–98; RESP 13–34; TEMP 36.4–38.4; O2SAT 91–97; BMI 21.7; BMI 20.4
--- NOTE | 2018-07-01 11:09 | EKG12_ITS ---
Test Reason : COUGH Blood Pressure : / mmHG Vent. Rate : 078 BPM Atrial Rate : 078 BPM P-R Int : 158 ms QRS Dur : 092 ms QT Int : 388 ms P-R-T Axes : 056 066 069 degrees QTc Int : 442 ms Normal sinus rhythm Normal ECG Confirmed by VEE OVIEDO, WAI ([id number]), non linear editor RUBENS ERNST ([id number]) on 07/03/2018 1:43:49 PM Referred By: RANDY/FELIX Confirmed By:WAI BAXTER MD
--- NOTE | 2018-07-01 11:30 | ED.VISSUMM ---
- ER Visit Summary Date of Service: 07/01/18 Chief Complaint: Cough and shortness of breath History of Present Illness: The patient is a 58 M who is not a good informant. He responded no to questions asked by the nurse; he responds yes when I asked him. He endorses subjective fever with chills. He endorses palpitations. He endorses shortness of breath, productive cough. He does not know the color of the sputum. He also endorses generalized weakness. Per review of old records he has history of CVA, hypertension, hypercholesterolemia, cellulitis, bilateral carotid stenosis, peripheral arterial disease and left AKA secondary to PAD. He is status post tonsillectomy. He is scheduled for rhinoplasty. He is a smoker and admits to 1/2 pack/day. He started smoking was a teenager. Physical Examination: Vital signs are noted and blood pressure is elevated 152/57. Vital signs are otherwise unremarkable. He has not well groomed. Head is atraumatic normocephalic. Pupils are equal round reactive. Extraocular muscles are intact. TMs are pearly white with landmarks noted. Nares patent with no drainage. Posterior pharynx without erythema or exudate. Uvula is midline. There is no dysphonia or dysphasia. Trachea is midline. There is no stridor with auscultation of the neck. Heart is regular. Patient has diminished to absent breath sounds left side with fine expiratory wheezing on forced expiration only. Expiratory phase is increased. Abdomen is soft nontender. PT pulse is absent right side. Patient is status post AKA left side. Neuro exam is nonfocal. Test Results: EKG reveals a normal sinus rhythm rate 78 and the EKG is normal. GA interval normal, QRS duration normal, QT interval normal and axis normal. Chest x-ray reveals left lower lobe infiltrate. White count is 18.4 thousand with shift. There is 7% bands and 5% metamyelocytes. Electronic panel is normal. Lactate is 4.7. Light of the elevated lactate blood cultures were obtained and he was given a fluid bolus; however, by definition he does not meet sepsis criteria since he only has 1 SIRS criteria. Emergency Department Course and Treatment: Chest x-ray was obtained to assess abnormal auscultatory findings. He was treated with DuoNeb and albuterol for his wheezing. Appropriate blood work was obtained as well to evaluate for sepsis etc. Treatment Plan: Even though patient does not meet sepsis criteria since the only Sirs criteria he meets his elevated white count he was treated with fluid bolus, antibiotics and blood cultures were ordered. Patient appears ill. He is still wheezing after aerosol treatments. Will administer a dose of Solu-Medrol. Disposition: Admit to stepdown unit Impression: 1. Community-acquired pneumonia, left lower lobe 2. Lactic acidosis 3. Exacerbation of COPD with bronchospasm 4. History of CVA 5. History of hypertension 6. History of peripheral arterial disease status post left AKA This note was generated with [employer] software. It may contain incorrect words, spelling, and punctuation that were not noted in review of the chart prior to signing ED Disposition - Plan for ED Patient: Chief Complaint: Cough Referrals: Marco Sawyer MD [Primary Care Provider] -
--- NOTE | 2018-07-01 11:33 | ED.DCSUM_ITS ---
- ER Visit Summary Date of Service: 07/01/18 Chief Complaint: Cough and shortness of breath History of Present Illness: The patient is a 58 M who is not a good informant. He responded no to questions asked by the nurse; he responds yes when I asked him. He endorses subjective fever with chills. He endorses palpitations. He endorses shortness of breath, productive cough. He does not know the color of the sputum. He also endorses generalized weakness. Per review of old records he has history of CVA, hypertension, hypercholesterolemia, cellulitis, bilateral carotid stenosis, peripheral arterial disease and left AKA secondary to PAD. He is status post tonsillectomy. He is scheduled for rhinoplasty. He is a smoker and admits to 1/2 pack/day. He started smoking was a teenager. Physical Examination: Vital signs are noted and blood pressure is elevated 152/57. Vital signs are otherwise unremarkable. He has not well groomed. Head is atraumatic normocephalic. Pupils are equal round reactive. Extraocular muscles are intact. TMs are pearly white with landmarks noted. Nares patent with no drainage. Posterior pharynx without erythema or exudate. Uvula is midline. There is no dysphonia or dysphasia. Trachea is midline. There is no stridor with auscultation of the neck. Heart is regular. Patient has diminished to absent breath sounds left side with fine expiratory wheezing on forced expiration only. Expiratory phase is increased. Abdomen is soft nonte nder. PT pulse is absent right side. Patient is status post AKA left side. Neuro exam is nonfocal. Test Results: EKG reveals a normal sinus rhythm rate 78 and the EKG is normal. OH interval normal, QRS duration normal, QT interval normal and axis normal. Chest x-ray reveals left lower lobe infiltrate. White count is 18.4 thousand with shift. There is 7% bands and 5% metamyelocytes. Electronic panel is normal. Lactate is 4.7. Light of the elevated lactate blood cultures were obtained and he was given a fluid bolus; however, by definition he does not meet sepsis criteria since he only has 1 SIRS criteria. Emergency Department Course and Treatment: Chest x-ray was obtained to assess abnormal auscultatory findings. He was treated with DuoNeb and albuterol for his wheezing. Appropriate blood work was obtained as well to evaluate for sepsis etc. Treatment Plan: Even though patient does not meet sepsis criteria since the only Sirs criteria he meets his elevated white count he was treated with fluid bolus, antibiotics and blood cultures were ordered. Patient appears ill. He is still wheezing after aerosol treatments. Will administer a dose of Solu-Medrol. Disposition: Admit to stepdown unit Impression: 1. Community-acquired pneumonia, left lower lobe 2. Lactic acidosis 3. Exacerbation of COPD with bronchospasm 4. History of CVA 5. History of hypertension 6. History of peripheral arterial disease status post left AKA This note was generated with [employer] software. It may contain incorrect words, spelling, and punctuation that were not noted in review of the chart prior to signing ED Disposition - Plan for ED Patient: Chief Complaint: Cough Referrals: Marco Sawyer MD [Primary Care Provider] -
[2018-07-01] MEDS: Albuterol 2.5 MG/3 ML VIAL.NEB. INHALATION ×2 (11:46→15:50)
[2018-07-01] MEDS: Ipratropium/Albuterol Sulfate 3 ML AMPUL.NEB INHALATION ×2 (11:46→18:43)
[2018-07-01 12:23] LABS: Hematocrit 43.8 % (40-54); Hemoglobin 14.5 g/dl (13.0-16.5); Mean Corp Hgb Conc 33.1 g/gl (32-36); Mean Corpuscular Hgb 31.9 pg (27.0-32.0); Mean Corpuscular Volume 96.3 fL (80-94); Mean Platelet Vol. 11.3 fl (6.2-12.0); Platelet Count 102 K/mm3 (150-450); RBC Distribution Width CV 14.7 % (11.6-14.6); RBC Distribution Width SD 51.4 fl (35.1-43.9); Red Blood Count 4.55 M/mm3 (4.6-6.2); White Blood Count 18.4 K/mm3 (4.4-11.0)
[2018-07-01 12:25] LABS: Differential Indicated MANUAL DIFF; POSITIVE COUNT YES; POSITIVE DIFFERENTIAL NO; POSITIVE MORPHOLOGY YES
[2018-07-01 12:28] LABS: Anion Gap 9 (5-15); BUN 17 mg/dL (7-18); BUN/Creat Ratio 19.1 RATIO (10-20); Calcium,Total 8.8 mg/dL (8.5-10.1); Chloride 101 mmol/L (98-107); Creatinine, Serum 0.89 mg/dL (0.70-1.30); EST Glomerular Filtration Rate 93 mL/min (>60); Est Glom Filt Rate - Afr Amer 112 mL/min (>60); Estimated Creatinine Clearance 80.77 ml/min; Glucose 131 mg/dL (74-106); Potassium 4.1 mmol/L (3.5-5.1); Sodium Level 135 mmol/L (136-145)
--- NOTE | 2018-07-01 12:38 | RAD_ITS ---
STUDY: X-RAY CHEST REASON FOR EXAM: Male, 58 years old. Dyspnea and productive cough. TECHNIQUE: AP and lateral views of the chest. COMPARISON: Comparison is made with prior study dated March 11, 2018. FINDINGS: There is evidence of a consolidation in the posterior medial segment of the left lower lobe. Small left pleural effusion. Increased markings are also seen in the lingular segment of the left upper lobe. Sternal cerclage wires and vascular clips are present from a prior sternotomy and coronary artery bypass graft procedure (CABG). Normal mediastinum and jefry. Normal visualized pulmonary arteries. There is atherosclerotic calcification of the aortic arch with tortuosity. There is demineralization of the osseous structures. Normal visualized ribs, clavicles, and shoulders. There is no demonstrated abnormality of the visualized soft tissue structures of the upper abdomen. RAD/Chest PA and Lateral IMPRESSION: Consolidation in the posterior medial segment of the left lower lobe with a small left pleural effusion. Increased markings in the lingular segment of the left upper lobe. Electronically Signed: Fer Motta MD at 12:58 EST Tel [phone], Service support ,
[2018-07-01 12:49] LABS: Lymphocyte 7 % (19-41); Metamyelocyte 5 % (0-1); Monocyte 15 % (0-10); Neutrophil-Band 7 % (0-5); Neutrophil-Segmented 66 % (47-70); Total Cells Counted 100 (MANUAL DIFF)
[2018-07-01 12:50] LABS: Platelet Estimate SLT DEC (ADEQ); Red Cell Morphology NORM C+C NORMAL (NORM C&C)
[2018-07-01 12:51] LABS: Absolute Lymphocyte Count 1.29 X10^3/ul (0.83-4.51); Absolute Neutrophil Count 13.4 X10^3/uL (2.0-7.7)
[2018-07-01] MEDS: levoFLOXacin IV 750 MG/150 ML BAG 100 MG IV (13:12)
--- NOTE | 2018-07-01 13:36 | ED.RN ---
LACTIC 4.[address] LAB. DR PADILLA AWARE
[2018-07-01 13:37] LABS: Lactic Acid 4.2 mmol/L (0.4-2.0)
--- NOTE | 2018-07-01 13:42 | NURSING ---
DR CARR FOR DR PADILLA
--- NOTE | 2018-07-01 13:48 | NURSING ---
PCU CAP LLL, LACTIC ACIDOSIS, COPD EXAC ASHELFAH
--- NOTE | 2018-07-01 14:06 | PCM.HP.STD ---
Problem List (1) Nasal septal deviation Status: Chronic (2) Nasal deformity Status: Chronic (3) Bilateral carotid artery stenosis Status: Chronic Comment: Right > Left (4) Ischemia of right lower extremity Status: Chronic (5) Hyperlipidemia Status: Chronic (6) Peripheral vascular occlusive disease Status: Chronic (7) Atherosclerosis of coronary artery of [place] heart without angina pectoris Status: Chronic Comment: CABG x 4 UMANZOR Sequential -D1 and D2, SVG-Cx, SVG-RCA 06/17/2001 (8) H/O coronary artery bypass surgery Status: Chronic Comment: CABG x 4 UMANZOR Sequential -D1 and D2, SVG-Cx, SVG-RCA 06/17/2001 @ [facility] (9) Hypertension Status: Chronic (10) Tobacco dependence syndrome Status: Chronic History of Present Illness Date of Admission: 07/01/18 Chief Complaint: Chills, shortness of breath and cough. The patient is a 58 year old M with past medical history as mentioned above presented to the emergency room because of cough, shortness of breath and chills. According to the patient, he mentioned that his symptoms started 2 days ago with shortness of breath on minimal exertion, aggravated by minimal activity, not significantly relieved with rest, associated with cough with minimal sputum and difficulty expectorating sputum as well as chills. Also, he complained of left lateral chest pain, sharp pain, intermittent pain, 10 out of 10 severity, goes to the left back, aggravated by taking a deep breath and coughing and no relieving factors. He denied anterior chest pain, palpitation or dizziness. He denied nausea, vomiting or sweating. He denies syncope or presyncope. In the emergency department, patient was tachypneic but he was afebrile, blood pressure and heart rate are stable and his pulse ox was 96% on room air. His routine blood work was remarkable for leukocytosis with neutrophilia, otherwise normal. Lactic acid was 4.2. Chest x-ray showed left lower lobe consolidation and small pleural effusion. EKG revealed sinus rhythm without evidence of acute ischemic changes or cardiac arrhythmias. Patient started on IV fluids bolus, blood cultures to be drawn and started on IV antibiotics. He is being admitted for septic shock secondary to community-acquired pneumonia. Past Medical History Past Medical History (Chronic Problems): Chronic Problems (Last Reviewed 02/20/18 @ 14:17 by Narendra Garcia MD) Hypertrophy of nasal turbinates (Chronic) Nasal septal deviation (Chronic) Nasal deformity (Chronic) Bilateral carotid artery stenosis (Chronic) Right > Left Ischemia of right lower extremity (Chronic) Hyperlipidemia (Chronic) Peripheral vascular occlusive disease (Chronic) Atherosclerosis of coronary artery of [place] heart without angina pectoris (Chronic) CABG x 4 UMANZOR Sequential -D1 and D2, SVG-Cx, SVG-RCA 06/17/2001 H/O coronary artery bypass surgery (Chronic 06/17/01) CABG x 4 UMANZOR Sequential -D1 and D2, SVG-Cx, SVG-RCA 06/17/2001 @ [facility] Hypertension (Chronic) Tobacco dependence syndrome (Chronic) Medical History: Medical History (Last Reviewed 02/20/18 @ 14:17 by Narendra Garcia MD) Bilateral carotid artery stenosis (Chronic) I65.23 Right > Left Ischemia of right lower extremity (Chronic) I99.8 Hyperlipidemia (Chronic) E78.5 Peripheral vascular occlusive disease (Chronic) I73.9 Atherosclerosis of coronary artery of [place] heart without angina pectoris (Chronic) I25.10 CABG x 4 UMANZOR Sequential -D1 and D2, SVG-Cx, SVG-RCA 06/17/2001 Hypertension (Chronic) I10 Tobacco dependence syndrome (Chronic) F17.200 COPD (chronic obstructive pulmonary disease) J44.9 Crushing injury of arm, right S47.1XXA Crushing injury (Inactive) T14.8 Infected open wound (Inactive) T14.8XXA, L08.9 Superficial bacterial infection of skin (Inactive) L08.9, B96.89 Allergies No Known Allergies Allergy (Verified 06/25/18 13:07) Home Medications: Ambulatory Orders Medication Instructions Recorded Citalopram [Celexa] 40 mg PO DAILY 09/28/14 Lisinopril [Zestril] 10 mg PO DAILY 09/28/14 Gabapentin [Neurontin] 600 mg PO 4X/DAY #120 tab 11/10/15 Oxycodone HCl/Acetaminophen 1 - 2 tab PO Q6H PRN PRN 09/23/17 [Percocet 10-325 mg Tablet] Pregabalin [Lyrica] 150 mg PO TID 09/23/17 duloxetine 60 mg capsule,delayed 60 mg PO QDAY 12/03/17 release Apixaban [Eliquis] 5 mg PO BID 07/01/18 Aspirin [Aspir 81] 81 mg PO DAILY 07/01/18 Hydrocodone/Acetaminophen 1 each PO Q6H PRN PRN 07/01/18 [Hydrocodon-Acetaminophen 5-325] Metoprolol Tartrate [Lopressor 50 mg PO BID 07/01/18 (beta nanette)] Simvastatin 20 mg PO DAILY 07/01/18 Surgical History: Surgical History (Last Updated 07/01/18 @ 13:46 by Antoni De Santiago MD) H/O coronary artery bypass surgery (Chronic) Onset Date: 06/17/01 Z95.1 CABG x 4 UMANZOR Sequential -D1 and D2, SVG-Cx, SVG-RCA 06/17/2001 @ [facility] History of angioplasty of peripheral vessel Z98.62 History of femoropopliteal bypass Onset Date: 06/2001 Z98.890 History of left lower extremity amputation Onset Date: 11/01/15 Z89.612 Above the knee Hx of tonsillectomy (Inactive) Z90.89 hx of APLL (Inactive) Right leg Surgical History: coronary bypass surgery, - - Left above-knee amputation. Psychiatric History: Depression Lives: Spouse/ Significant Other Smoking Status: Current every day smoker Tobacco Use: Cigarettes Alcohol: None Drugs: None - *Family History Maternal Family History: Family History (Last Reviewed 02/20/18 @ 14:17 by Narendra Garcia MD) Mother Breast cancer History Items: Cancer Paternal Family History: Family History (Last Reviewed 02/20/18 @ 14:17 by Narendra Garcia MD) Mother Breast cancer History Items: No pertinent history Review of Systems Constitutional: Reports: Chills, Malaise, Weakness. Denies: Anorexia, Fever Eyes: Denies: Blurred vision, Double vision, Drainage, Redness HEENT: Denies: Difficulty Hearing, Ear Pain, Eye Pain, Nasal Congestion, Sore Throat Cardiovascular: Reports: Chest Pain. Denies: Chest Pressure, Heaviness, Light Headedness, Orthopnea, Palpitations, Syncope Respiratory: Reports: Cough, Pleuritic Pain, Shortness of Breath, Shortness of breath upon exertion, Sputum production. Denies: Hemoptysis, Wheezing Gastrointestinal: Denies: Abdominal Pain, Constipation, Diarrhea, Nausea, Vomiting Genitourinary: Denies: Dysuria, Frequency, Hematuria Musculoskeletal: Denies: Arm Pain, Back Pain, Foot Pain Skin: Denies: Dryness, Rash Neurological: Denies: Balance problems, Change in Speech, Slurred speech, Confusion, Incoordination, Numbness Psychiatric: Reports: Depression. Denies: Anxiety Endocrine: Denies: Change in Body Habitus, Polydipsia VTE Information - Inpt Only VTE Present on Admission: No VTE Mechan Device Prophylaxis: None VTE Pharm Prophylaxis ordered?: No - Physical Exam General: Alert, Oriented x3, Cooperative, - - He is in moderate pain. HEENT: Atraumatic, PERRLA, EOMI, Normocephalic Oral: Moist Mucosa, No Gingival or Mucosal Lesions/ Ulcerations Neck: Supple, No JVD, Negative Carotid Bruits, Trachea Midline, Thyroid Normal Size and Texture Lungs: No wheeze, Diminished, Rales, Rhonchi, - - Decreased breath sounds bilateral, more on the left base, coarse crackleson the left base, bilateral rhonchi. Cardiovascular: Regular rate, Regular Rhythm, Normal S1, Normal S2, No murmurs, PMI Normal Abdomen: Bowel Sounds Present, Soft, Non Tender, Non-Distended, No Hepato-splenomegaly Extremities: No clubbing, No cyanosis, No edema, - - Above left knee amputation. Skin: No rashes, No breakdown Lymphatic: No Cervical, Supraclavicular, or Inguinal Adenopathy Neurological: Cranial nerves II-XII grossly intact, Motor Exam 5/5 strength throughout Psych/Mental Status: Normal Affect, Appropriate, Alert and oriented to time, place, person, mood and affect Vital Signs Temp Pulse Resp BP Pulse Ox 98.2 F 91 24 H 152/47 H 91 07/01/18 13:44 07/01/18 13:44 07/01/18 13:44 07/01/18 13:44 07/01/18 13:44 Oxygen Delivery Method Room Air Weight: 142 lb 10.225 oz Body Mass Index (BMI) 21.7 Laboratory Tests Past 24 Hrs 07/01/18 07/01/18 07/01/18 12:00 12:00 12:55 WBC 18.4 H RBC 4.55 L Hgb 14.5 Hct 43.8 MCV 96.3 H MCH 31.9 MCHC 33.1 RDW 14.7 H RDW Differential 51.4 H Plt Count 102 L MPV 11.3 Neut % (Auto) Not Reportable Absolute Neuts (auto) 13.4 H Absolute Lymphs (auto) 1.29 Total Counted 100 Neutrophils % (Manual) 66 Band Neutrophils % 7 H Lymphocytes % (Manual) 7 L Monocytes % (Manual) 15 H Metamyelocytes % 5 H Diff Path Review May foll Platelet Estimate SLT DEC RBC Morphology NORM C+C Sodium 135 L Potassium 4.1 Chloride 101 Carbon Dioxide 25.0 Anion Gap 9 BUN 17 Creatinine 0.89 Estim Creat Clear Calc 80.77 Est GFR (MDRD) Af Amer 112 Est GFR (MDRD) Non-Af 93 BUN/Creatinine Ratio 19.1 Glucose 131 H Lactic Acid 4.2 H* Calcium 8.8 Clinical Impression(s) from Imaging Studies Chest X-Ray 07/01/18 12:38 IMPRESSION: Consolidation in the posterior medial segment of the left lower lobe with a small left pleural effusion. Increased markings in the lingular segment of the left upper lobe. Electronically Signed: Fer Motta MD at 12:58 EST Tel [phone], Service support , Assessment/Plan This is a 58 years old male patient presented to the ED because of chills, left lateral pleuritic chest pain, cough and shortness of breath and he was found to have left lower lobe consolidation and small pleural effusion likely parapneumonic effusion as well as elevated lactic acid consistent with septic shock secondary to community acquired pneumonia. #1 septic shock: It is by criteria based on elevated lactic acid above 4. Patient is afebrile but he is tachypneic and he has leukocytosis with neutrophilia. At this time, blood pressure and heart rate are stable. EKG reviewed, no acute changes. Plan: Admit to intensive care unit, critical care monitoring, blood culture, sputum culture, urinalysis, urine culture, bolus IV fluids based on protocol, repeat lactic acid in 3 hours, start IV Levaquin for pneumonia, bronchodilators, chest physiotherapy, incentive spirometer, IV morphine as needed for pleuritic chest pain, repeat CBC and BMP tomorrow morning, PT OT evaluation and treatment. #2 acute left lower lobe probably bacterial community acquired pneumonia: Chest x-ray reviewed as above. Plan: Pancultures, IV antibiotics, bronchodilators, chest physiotherapy, sputum culture, IV fluids, IV morphine as needed for pain. #3 CAD status post CABG: EKG reviewed, no acute ischemic changes. Patient denied any anterior chest pain. His pain is likely due to pleuritic chest pain. Plan to continue aspirin, statins, metoprolol and lisinopril. #4 peripheral vascular disease/status post above left knee amputation: Stable, continue aspirin, statins and Eliquis. #5 hypertension: Blood pressure stable, continue lisinopril and metoprolol. #6 hyperlipidemia: Continue statins. #7 DVT prophylaxis: Continue Eliquis. This note was generated with [employer] dictation software. It may contain incorrect words, spelling, and punctuation that were not noted in checking the note before signing. Code Visit Inpatient E&M: 44475 Init Hosp L3
--- NOTE | 2018-07-01 14:10 | HP.PCM_ITS ---
Problem List (1) Nasal septal deviation Status: Chronic (2) Nasal deformity Status: Chronic (3) Bilateral carotid artery stenosis Status: Chronic Comment: Right > Left (4) Ischemia of right lower extremity Status: Chronic (5) Hyperlipidemia Status: Chronic (6) Peripheral vascular occlusive disease Status: Chronic (7) Atherosclerosis of coronary artery of [place] heart without angina pectoris Status: Chronic Comment: CABG x 4 UMANZOR Sequential -D1 and D2, SVG-Cx, SVG-RCA 06/17/2001 (8) H/O coronary artery bypass surgery Status: Chronic Comment: CABG x 4 UMANZOR Sequential -D1 and D2, SVG-Cx, SVG-RCA 06/17/2001 @ [facility] (9) Hypertension Status: Chronic (10) Tobacco dependence syndrome Status: Chronic History of Present Illness Date of Admission: 07/01/18 Chief Complaint: Chills, shortness of breath and cough. The patient is a 58 year old M with past medical history as mentioned above presented to the emergency room because of cough, shortness of breath and chills. According to the patient, he mentioned that his symptoms started 2 days ago with shortness of breath on minimal exertion, aggravated by minimal activity, not significantly relieved with rest, associated with cough with minimal sputum and difficulty expectorating sputum as well as chills. Also, he complained of left lateral chest pain, sharp pain, intermittent pain, 10 out of 10 severity, goes to the left back, aggravated by taking a deep breath and coughing and no relieving factors. He denied anterior chest pain, palpitation or dizziness. He denied nausea, vomiting or sweating. He denies syncope or presyncope. In the emergency department, patient was tachypneic but he was afebrile, blood pressure and heart rate are stable and his pulse ox was 96% on room air. His routine blood work was remarkable for leukocytosis with neutrophilia, otherwise normal. Lactic acid was 4.2. Chest x-ray showed left lower lobe consolidation and small pleural effusion. EKG revealed sinus rhythm without evidence of acute ischemic changes or cardiac arrhythmias. Patient started on IV fluids bolus, blood cultures to be drawn and started on IV antibiotics. He is being admitted for septic shock secondary to community- acquired pneumonia. Past Medical History Past Medical History (Chronic Problems): Chronic Problems (Last Reviewed 02/20/18 @ 14:17 by Narendra Garcia MD) Hypertrophy of nasal turbinates (Chronic) Nasal septal deviation (Chronic) Nasal deformity (Chronic) Bilateral carotid artery stenosis (Chronic) Right > Left Ischemia of right lower extremity (Chronic) Hyperlipidemia (Chronic) Peripheral vascular occlusive disease (Chronic) Atherosclerosis of coronary artery of [place] heart without angina pectoris (Chronic) CABG x 4 UMANZOR Sequential -D1 and D2, SVG-Cx, SVG-RCA 06/17/2001 H/O coronary artery bypass surgery (Chronic 06/17/01) CABG x 4 UMANZOR Sequential -D1 and D2, SVG-Cx, SVG-RCA 06/17/2001 @ [facility] Hypertension (Chronic) Tobacco dependence syndrome (Chronic) Medical History: Medical History (Last Reviewed 02/20/18 @ 14:17 by Narendra Garcia MD) Bilateral carotid artery stenosis (Chronic) I65.23 Right > Left Ischemia of right lower extremity (Chronic) I99.8 Hyperlipidemia (Chronic) E78.5 Peripheral vascular occlusive disease (Chronic) I73.9 Atherosclerosis of coronary artery of [place] heart without angina pectoris (Chronic) I25.10 CABG x 4 UMANZOR Sequential -D1 and D2, SVG-Cx, SVG-RCA 06/17/2001 Hypertension (Chronic) I10 Tobacco dependence syndrome (Chronic) F17.200 COPD (chronic obstructive pulmonary disease) J44.9 Crushing injury of arm, right S47.1XXA Crushing injury (Inactive) T14.8 Infected open wound (Inactive) T14.8XXA, L08.9 Superficial bacterial infection of skin (Inactive) L08.9, B96.89 Allergies No Known Allergies Allergy (Verified 06/25/18 13:07) Home Medications: Ambulatory Orders Medication Instructions Recorded Citalopram [Celexa] 40 mg PO DAILY 09/28/14 Lisinopril [Zestril] 10 mg PO DAILY 09/28/14 Gabapentin [Neurontin] 600 mg PO 4X/DAY #120 tab 11/10/15 Oxycodone HCl/Acetaminophen 1 - 2 tab PO Q6H PRN PRN 09/23/17 [Percocet 10-325 mg Tablet] Pregabalin [Lyrica] 150 mg PO TID 09/23/17 duloxetine 60 mg capsule,delayed 60 mg PO QDAY 12/03/17 release Apixaban [Eliquis] 5 mg PO BID 07/01/18 Aspirin [Aspir 81] 81 mg PO DAILY 07/01/18 Hydrocodone/Acetaminophen 1 each PO Q6H PRN PRN 07/01/18 [Hydrocodon-Acetaminophen 5-325] Metoprolol Tartrate [Lopressor 50 mg PO BID 07/01/18 (beta nanette)] Simvastatin 20 mg PO DAILY 07/01/18 Surgical History: Surgical History (Last Updated 07/01/18 @ 13:46 by Antoni De Santiago MD) H/O coronary artery bypass surgery (Chronic) Onset Date: 06/17/01 Z95.1 CABG x 4 UMANZOR Sequential -D1 and D2, SVG-Cx, SVG-RCA 06/17/2001 @ [facility] History of angioplasty of peripheral vessel Z98.62 History of femoropopliteal bypass Onset Date: 06/2001 Z98.890 History of left lower extremity amputation Onset Date: 11/01/15 Z89.612 Above the knee Hx of tonsillectomy (Inactive) Z90.89 hx of APLL (Inactive) Right leg Surgical History: coronary bypass surgery, - - Left above-knee amputation. Psychiatric History: Depression Lives: Spouse/ Significant Other Smoking Status: Current every day smoker Tobacco Use: Cigarettes Alcohol: None Drugs: None - *Family History Maternal Family History: Family History (Last Reviewed 02/20/18 @ 14:17 by Narendra Garcia MD) Mother Breast cancer History Items: Cancer Paternal Family History: Family History (Last Reviewed 02/20/18 @ 14:17 by Narendra Garcia MD) Mother Breast cancer History Items: No pertinent history Review of Systems Constitutional: Reports: Chills, Malaise, Weakness. Denies: Anorexia, Fever Eyes: Denies: Blurred vision, Double vision, Drainage, Redness HEENT: Denies: Difficulty Hearing, Ear Pain, Eye Pain, Nasal Congestion, Sore Throat Cardiovascular: Reports: Chest Pain. Denies: Chest Pressure, Heaviness, Light Headedness, Orthopnea, Palpitations, Syncope Respiratory: Reports: Cough, Pleuritic Pain, Shortness of Breath, Shortness of breath upon exertion, Sputum production. Denies: Hemoptysis, Wheezing Gastrointestinal: Denies: Abdominal Pain, Constipation, Diarrhea, Nausea, Vomiting Genitourinary: Denies: Dysuria, Frequency, Hematuria Musculoskeletal: Denies: Arm Pain, Back Pain, Foot Pain Skin: Denies: Dryness, Rash Neurological: Denies: Balance problems, Change in Speech, Slurred speech, Confusion, Incoordination, Numbness Psychiatric: Reports: Depression. Denies: Anxiety Endocrine: Denies: Change in Body Habitus, Polydipsia VTE Information - Inpt Only VTE Present on Admission: No VTE Mechan Device Prophylaxis: None VTE Pharm Prophylaxis ordered?: No - Physical Exam General: Alert, Oriented x3, Cooperative, - - He is in moderate pain. HEENT: Atraumatic, PERRLA, EOMI, Normocephalic Oral: Moist Mucosa, No Gingival or Mucosal Lesions/ Ulcerations Neck: Supple, No JVD, Negative Carotid Bruits, Trachea Midline, Thyroid Normal Size and Texture Lungs: No wheeze, Diminished, Rales, Rhonchi, - - Decreased breath sounds bilateral, more on the left base, coarse crackleson the left base, bilateral rhonchi. Cardiovascular: Regular rate, Regular Rhythm, Normal S1, Normal S2, No murmurs, PMI Normal Abdomen: Bowel Sounds Present, Soft, Non Tender, Non-Distended, No Hepato- splenomegaly Extremities: No clubbing, No cyanosis, No edema, - - Above left knee amputation. Skin: No rashes, No breakdown Lymphatic: No Cervical, Supraclavicular, or Inguinal Adenopathy Neurological: Cranial nerves II-XII grossly intact, Motor Exam 5/5 strength throughout Psych/Mental Status: Normal Affect, Appropriate, Alert and oriented to time, place, person, mood and affect Vital Signs Temp Pulse Resp BP Pulse Ox 98.2 F 91 24 H 152/47 H 91 07/01/18 13:44 07/01/18 13:44 07/01/18 13:44 07/01/18 13:44 07/01/18 13:44 Oxygen Delivery Method Room Air Weight: 142 lb 10.225 oz Body Mass Index (BMI) 21.7 Laboratory Tests Past 24 Hrs 07/01/18 07/01/18 07/01/18 12:00 12:00 12:55 WBC 18.4 H RBC 4.55 L Hgb 14.5 Hct 43.8 MCV 96.3 H MCH 31.9 MCHC 33.1 RDW 14.7 H RDW Differential 51.4 H Plt Count 102 L MPV 11.3 Neut % (Auto) Not Reportable Absolute Neuts (auto) 13.4 H Absolute Lymphs (auto) 1.29 Total Counted 100 Neutrophils % (Manual) 66 Band Neutrophils % 7 H Lymphocytes % (Manual) 7 L Monocytes % (Manual) 15 H Metamyelocytes % 5 H Diff Path Review May foll Platelet Estimate SLT DEC RBC Morphology NORM C+C Sodium 135 L Potassium 4.1 Chloride 101 Carbon Dioxide 25.0 Anion Gap 9 BUN 17 Creatinine 0.89 Estim Creat Clear Calc 80.77 Est GFR (MDRD) Af Amer 112 Est GFR (MDRD) Non-Af 93 BUN/Creatinine Ratio 19.1 Glucose 131 H Lactic Acid 4.2 H* Calcium 8.8 Clinical Impression(s) from Imaging Studies Chest X-Ray 07/01/18 12:38 IMPRESSION: Consolidation in the posterior medial segment of the left lower lobe with a small left pleural effusion. Increased markings in the lingular segment of the left upper lobe. Electronically Signed: Fer Motta MD at 12:58 EST Tel [phone], Service support , Assessment/Plan This is a 58 years old male patient presented to the ED because of chills, left lateral pleuritic chest pain, cough and shortness of breath and he was found to have left lower lobe consolidation and small pleural effusion likely parapneumonic effusion as well as elevated lactic acid consistent with septic shock secondary to community acquired pneumonia. #1 septic shock: It is by criteria based on elevated lactic acid above 4. Patient is afebrile but he is tachypneic and he has leukocytosis with neutrophilia. At this time, blood pressure and heart rate are stable. EKG reviewed, no acute changes. Plan: Admit to intensive care unit, critical care monitoring, blood culture, sputum culture, urinalysis, urine culture, bolus IV fluids based on protocol, repeat lactic acid in 3 hours, start IV Levaquin for pneumonia, bronchodilators, chest physiotherapy, incentive spirometer, IV morphine as needed for pleuritic chest pain, repeat CBC and BMP tomorrow morning, PT OT evaluation and treatment. #2 acute left lower lobe probably bacterial community acquired pneumonia: Chest x-ray reviewed as above. Plan: Pancultures, IV antibiotics, bronchodilators, chest physiotherapy, sputum culture, IV fluids, IV morphine as needed for pain. #3 CAD status post CABG: EKG reviewed, no acute ischemic changes. Patient denied any anterior chest pain. His pain is likely due to pleuritic chest pain. Plan to continue aspirin, statins, metoprolol and lisinopril. #4 peripheral vascular disease/status post above left knee amputation: Stable, continue aspirin, statins and Eliquis. #5 hypertension: Blood pressure stable, continue lisinopril and metoprolol. #6 hyperlipidemia: Continue statins. #7 DVT prophylaxis: Continue Eliquis. This note was generated with [employer] dictation software. It may contain incorrect words, spelling, and punctuation that were not noted in checking the note before signing. Code Visit Inpatient E&M: 10123 Init Hosp L3
[2018-07-01] MEDS: MethylPREDNISolone 125 MG/2 ML Vial IV (14:12)
--- NOTE | 2018-07-01 14:12 | NURSING ---
ICU 7
[2018-07-01] MEDS: 0.9% Normal Saline 1,000 ML 1000 ML IV ×2 (14:15)
--- NOTE | 2018-07-01 15:00 | NURSING ---
Pt with large IV infiltrate CADEN upon admission to room. IV DCd.
--- NOTE | 2018-07-01 15:42 | PCM.CON.CC ---
Problem List (1) Hypertrophy of nasal turbinates Status: Chronic (2) Nasal septal deviation Status: Chronic (3) Nasal deformity Status: Chronic (4) Bilateral carotid artery stenosis Status: Chronic Comment: Right > Left (5) Ischemia of right lower extremity Status: Chronic (6) Hyperlipidemia Status: Chronic (7) Peripheral vascular occlusive disease Status: Chronic (8) Atherosclerosis of coronary artery of [place] heart without angina pectoris Status: Chronic Comment: CABG x 4 UMANZOR Sequential -D1 and D2, SVG-Cx, SVG-RCA 06/17/2001 (9) H/O coronary artery bypass surgery Status: Chronic Comment: CABG x 4 UMANZOR Sequential -D1 and D2, SVG-Cx, SVG-RCA 06/17/2001 @ [facility] (10) Hypertension Status: Chronic (11) Tobacco dependence syndrome Status: Chronic Reason for Consult Date of Consultation: 07/01/18 Reason for Consultation: Severe sepsis History of Present Illness: The patient is a 58 year old M, with past medical history listed below, who presented to [facility] on 07/01/2018 secondary to a 2-day history of cough, shortness of breath, chills and left-sided chest pain. Patient reports shortness of breath with minimal activity that is not improved significantly with rest. Patient does have a cough productive of minimal sputum and believes he has had chills over the last 24 hours. Patient states he has a sharp 10 out of 10 intermittent pain located to the left chest with radiation to the front. This is aggravated with taking a deep breath and coughing and to this point has had no relief. Patient denies any nausea, vomiting, sweating or aspiration events. On presentation to the emergency room, patient was noted to be tachypneic, but afebrile. Blood pressure and heart rate were acceptable and patient was 96% on room air. Laboratory workup showed a neutrophilia, elevated lactate at 4.2 and chest x-ray showed a left lower lobe consolidation. Patient was given IV fluids, blood cultures and initiated on IV antibiotics. Patient was admitted to the intensive care unit for further monitoring. Patient is very nondescript on his past medical history. Patient does report a long history of smoking, but to his report has never been diagnosed with COPD or asthma. Patient denies ever being admitted for breathing issues previously. Patient does not have a history of pneumonias that he is aware of. 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 Patient does have a history of a quadruple bypass and is on blood thinner secondary to hypercoagulation per his response. Patient does suffer from chronic pain at baseline. Review of systems otherwise negative x10 systems. Past Medical History Past Medical History (Chronic Problems): Chronic Problems (Last Updated 07/01/18 @ 14:13 by Antoni De Santiago MD) Hypertrophy of nasal turbinates (Chronic) Nasal septal deviation (Chronic) Nasal deformity (Chronic) Bilateral carotid artery stenosis (Chronic) Right > Left Ischemia of right lower extremity (Chronic) Hyperlipidemia (Chronic) Peripheral vascular occlusive disease (Chronic) Atherosclerosis of coronary artery of [place] heart without angina pectoris (Chronic) CABG x 4 UMANZOR Sequential -D1 and D2, SVG-Cx, SVG-RCA 06/17/2001 H/O coronary artery bypass surgery (Chronic 06/17/01) CABG x 4 UMANZOR Sequential -D1 and D2, SVG-Cx, SVG-RCA 06/17/2001 @ [facility] Hypertension (Chronic) Tobacco dependence syndrome (Chronic) Medical History: Medical History (Last Updated 07/01/18 @ 14:13 by Antoni De Santiago MD) Bilateral carotid artery stenosis (Chronic) I65.23 Right > Left Ischemia of right lower extremity (Chronic) I99.8 Hyperlipidemia (Chronic) E78.5 Peripheral vascular occlusive disease (Chronic) I73.9 Atherosclerosis of coronary artery of [place] heart without angina pectoris (Chronic) I25.10 CABG x 4 UMANZOR Sequential -D1 and D2, SVG-Cx, SVG-RCA 06/17/2001 Hypertension (Chronic) I10 Tobacco dependence syndrome (Chronic) F17.200 COPD (chronic obstructive pulmonary disease) J44.9 Crushing injury of arm, right S47.1XXA Crushing injury (Inactive) T14.8 Infected open wound (Inactive) T14.8XXA, L08.9 Superficial bacterial infection of skin (Inactive) L08.9, B96.89 Allergies No Known Allergies Allergy (Verified 06/25/18 13:07) Home Medications: Ambulatory Orders Medication Instructions Recorded Citalopram [Celexa] 40 mg PO DAILY 09/28/14 Lisinopril [Zestril] 10 mg PO DAILY 09/28/14 Gabapentin [Neurontin] 600 mg PO 4X/DAY #120 tab 11/10/15 Oxycodone HCl/Acetaminophen 1 - 2 tab PO Q6H PRN PRN 09/23/17 [Percocet 10-325 mg Tablet] Pregabalin [Lyrica] 150 mg PO TID 09/23/17 duloxetine 60 mg capsule,delayed 60 mg PO DAILY 12/03/17 release Apixaban [Eliquis] 5 mg PO BID 07/01/18 Aspirin [Aspir 81] 81 mg PO DAILY 07/01/18 Hydrocodone/Acetaminophen 1 each PO Q6H PRN PRN 07/01/18 [Hydrocodon-Acetaminophen 5-325] Metoprolol Tartrate [Lopressor 50 mg PO BID 07/01/18 (beta nanette)] Simvastatin 20 mg PO DAILY 07/01/18 Surgical History: Surgical History (Last Updated 07/01/18 @ 14:13 by Antoni De Santiago MD) H/O coronary artery bypass surgery (Chronic) Onset Date: 06/17/01 Z95.1 CABG x 4 UMANZOR Sequential -D1 and D2, SVG-Cx, SVG-RCA 06/17/2001 @ [facility] History of angioplasty of peripheral vessel Z98.62 History of femoropopliteal bypass Onset Date: 06/2001 Z98.890 History of left lower extremity amputation Onset Date: 11/01/15 Z89.612 Above the knee Hx of tonsillectomy (Inactive) Z90.89 hx of APLL (Inactive) Right leg Surgical History: coronary bypass surgery, - - Left above-knee amputation. Psychiatric History: Depression Lives: Spouse/ Significant Other Smoking Status: Current every day smoker Tobacco Use: Cigarettes Alcohol: None Drugs: None - *Family History Maternal Family History: Family History (Last Reviewed 02/20/18 @ 14:17 by Narendra Garcia MD) Mother Breast cancer History Items: Cancer Paternal Family History: Family History (Last Reviewed 02/20/18 @ 14:17 by Narendra Garcia MD) Mother Breast cancer History Items: No pertinent history Review of Systems Comment: See HPI, otherwise negative x10 systems. Objective: Chest x-ray was personally reviewed and shows a left lower lobe posterior infiltrate. - Physical Exam General: Alert, Oriented x3, Cooperative, - - Mild to moderate respiratory distress. Appears older than stated age. HEENT: Atraumatic, PERRLA, EOMI, Normocephalic, - - No scleral icterus or injection noted. Significant hamilton noted. Oral: No Gingival or Mucosal Lesions/ Ulcerations, Dry Mucosa, - - Poor dentition. Neck: Supple, No JVD, No Nodes, Trachea Midline Lungs: No rales, Diminished, Rhonchi - Left base, Wheezes - End exhalation, - - Some splinting appreciated Cardiovascular: Normal S1, Normal S2, No murmurs, Irregular Rate, No rub noted, No Gallop Abdomen: Bowel Sounds Present, Soft, Non Tender, Non-Distended Extremities: No cyanosis, No edema, Capillary Refill Less than 3 Seconds, Clubbing, - - Left AKA Skin: - - Multiple superficial ulcers and excoriations noted Musculoskeletal: No Tenderness to Palpation of Joints or Extremities Lymphatic: No Cervical, Supraclavicular, or Inguinal Adenopathy Neurological: Cranial nerves II-XII grossly intact, Neuro grossly intact Psych/Mental Status: Appropriate, Restless Vital Signs Temp Pulse Resp BP Pulse Ox 38.4 C H 88 31 H 164/51 H 95 07/01/18 14:58 07/01/18 15:15 07/01/18 15:15 07/01/18 15:15 07/01/18 15:15 Oxygen Delivery Method Room Air Weight: 60.9 kg Body Mass Index (BMI) 20.4 Laboratory Tests Past 24 Hrs 07/01/18 07/01/18 07/01/18 12:00 12:00 12:00 WBC 18.4 H RBC 4.55 L Hgb 14.5 Hct 43.8 MCV 96.3 H MCH 31.9 MCHC 33.1 RDW 14.7 H RDW Differential 51.4 H Plt Count 102 L MPV 11.3 Neut % (Auto) Not Reportable Absolute Neuts (auto) 13.4 H Absolute Lymphs (auto) 1.29 Total Counted 100 Neutrophils % (Manual) 66 Band Neutrophils % 7 H Lymphocytes % (Manual) 7 L Monocytes % (Manual) 15 H Metamyelocytes % 5 H Diff Path Review May foll Platelet Estimate SLT DEC RBC Morphology NORM C+C PT Cancelled INR Cancelled Sodium 135 L Potassium 4.1 Chloride 101 Carbon Dioxide 25.0 Anion Gap 9 BUN 17 Creatinine 0.89 Estim Creat Clear Calc 80.77 Est GFR (MDRD) Af Amer 112 Est GFR (MDRD) Non-Af 93 BUN/Creatinine Ratio 19.1 Glucose 131 H Lactic Acid Calcium 8.8 07/01/18 12:55 WBC RBC Hgb Hct MCV MCH MCHC RDW RDW Differential Plt Count MPV Neut % (Auto) Absolute Neuts (auto) Absolute Lymphs (auto) Total Counted Neutrophils % (Manual) Band Neutrophils % Lymphocytes % (Manual) Monocytes % (Manual) Metamyelocytes % Diff Path Review Platelet Estimate RBC Morphology PT INR Sodium Potassium Chloride Carbon Dioxide Anion Gap BUN Creatinine Estim Creat Clear Calc Est GFR (MDRD) Af Amer Est GFR (MDRD) Non-Af BUN/Creatinine Ratio Glucose Lactic Acid 4.2 H* Calcium Clinical Impression(s) from Imaging Studies Chest X-Ray 07/01/18 12:38 IMPRESSION: Consolidation in the posterior medial segment of the left lower lobe with a small left pleural effusion. Increased markings in the lingular segment of the left upper lobe. Electronically Signed: Fer Motta MD at 12:58 EST Tel [phone], Service support , Assessment/Plan RECOMMENDATIONS: 1. Continue bronchodilators, initiate steroid therapy 2. Aggressive pain control with pulmonary toileting 3. Agree with empiric antibiotics 4. Aggressive fluid resuscitation, repeat lactate per sepsis protocol 5. Initiate BiPAP rescue if signs of respiratory muscle fatigue 6. Possible transfer out of the intensive care unit later today IMPRESSIONS: 1. Severe sepsis secondary to left lower lobe infiltrate, presumed community-acquired pneumonia Vision with elevated lactate, but otherwise endorgan damage is minimal. Patient has been given fluid boluses. Initiated on IV Levaquin and bronchodilators. Will initiate steroid therapy for presumed COPD 2. Pleurisy Likely secondary to #1. Patient will benefit from steroid therapy. NSAIDs would be another option. Patient also has morphine for breakthrough pain. Encourage the patient for incentive spirometer to avoid other complications. Aggressive pulmonary toileting. 3. CAD status post CABG/peripheral vascular disease/left AKA/hypertension/hyperlipidemia Complicates care, management, recovery and prognosis. Likely okay to continue with baseline medications. Code Visit Inpatient E&M: 52662 Init Hosp L3
--- NOTE | 2018-07-01 15:47 | CON.PCM_ITS ---
Problem List (1) Hypertrophy of nasal turbinates Status: Chronic (2) Nasal septal deviation Status: Chronic (3) Nasal deformity Status: Chronic (4) Bilateral carotid artery stenosis Status: Chronic Comment: Right > Left (5) Ischemia of right lower extremity Status: Chronic (6) Hyperlipidemia Status: Chronic (7) Peripheral vascular occlusive disease Status: Chronic (8) Atherosclerosis of coronary artery of [place] heart without angina pectoris Status: Chronic Comment: CABG x 4 UMANZOR Sequential -D1 and D2, SVG-Cx, SVG-RCA 06/17/2001 (9) H/O coronary artery bypass surgery Status: Chronic Comment: CABG x 4 UMANZOR Sequential -D1 and D2, SVG-Cx, SVG-RCA 06/17/2001 @ [facility] (10) Hypertension Status: Chronic (11) Tobacco dependence syndrome Status: Chronic Reason for Consult Date of Consultation: 07/01/18 Reason for Consultation: Severe sepsis History of Present Illness: The patient is a 58 year old M, with past medical history listed below, who presented to [facility] on 07/01/2018 secondary to a 2-day history of cough, shortness of breath, chills and left-sided chest pain. Patient reports shortness of breath with minimal activity that is not improved significantly with rest. Patient does have a cough productive of minimal sputum and believes he has had chills over the last 24 hours. Patient states he has a sharp 10 out of 10 intermittent pain located to the left chest with radiation to the front. This is aggravated with taking a deep breath and coughing and to this point has had no relief. Patient denies any nausea, vomiting, sweating or aspiration events. On presentation to the emergency room, patient was noted to be tachypneic, but afebrile. Blood pressure and heart rate were acceptable and patient was 96% on room air. Laboratory workup showed a neutrophilia, elevated lactate at 4.2 and chest x-ray showed a left lower lobe consolidation. Patient was given IV fluids, blood cultures and initiated on IV antibiotics. Patient was admitted to the intensive care unit for further monitoring. Patient is very nondescript on his past medical history. Patient does report a long history of smoking, but to his report has never been diagnosed with COPD or asthma. Patient denies ever being admitted for breathing issues previously. Patient does not have a history of pneumonias that he is aware of. 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 Patient does have a history of a quadruple bypass and is on blood thinner secondary to hypercoagulation per his response. Patient does suffer from chronic pain at baseline. Review of systems otherwise negative x10 systems. Past Medical History Past Medical History (Chronic Problems): Chronic Problems (Last Updated 07/01/18 @ 14:13 by Antoni De Santiago MD) Hypertrophy of nasal turbinates (Chronic) Nasal septal deviation (Chronic) Nasal deformity (Chronic) Bilateral carotid artery stenosis (Chronic) Right > Left Ischemia of right lower extremity (Chronic) Hyperlipidemia (Chronic) Peripheral vascular occlusive disease (Chronic) Atherosclerosis of coronary artery of [place] heart without angina pectoris (Chronic) CABG x 4 UMANZOR Sequential -D1 and D2, SVG-Cx, SVG-RCA 06/17/2001 H/O coronary artery bypass surgery (Chronic 06/17/01) CABG x 4 UMANZOR Sequential -D1 and D2, SVG-Cx, SVG-RCA 06/17/2001 @ [facility] Hypertension (Chronic) Tobacco dependence syndrome (Chronic) Medical History: Medical History (Last Updated 07/01/18 @ 14:13 by Antoni De Santiago MD) Bilateral carotid artery stenosis (Chronic) I65.23 Right > Left Ischemia of right lower extremity (Chronic) I99.8 Hyperlipidemia (Chronic) E78.5 Peripheral vascular occlusive disease (Chronic) I73.9 Atherosclerosis of coronary artery of [place] heart without angina pectoris (Chronic) I25.10 CABG x 4 UMANZOR Sequential -D1 and D2, SVG-Cx, SVG-RCA 06/17/2001 Hypertension (Chronic) I10 Tobacco dependence syndrome (Chronic) F17.200 COPD (chronic obstructive pulmonary disease) J44.9 Crushing injury of arm, right S47.1XXA Crushing injury (Inactive) T14.8 Infected open wound (Inactive) T14.8XXA, L08.9 Superficial bacterial infection of skin (Inactive) L08.9, B96.89 Allergies No Known Allergies Allergy (Verified 06/25/18 13:07) Home Medications: Ambulatory Orders Medication Instructions Recorded Citalopram [Celexa] 40 mg PO DAILY 09/28/14 Lisinopril [Zestril] 10 mg PO DAILY 09/28/14 Gabapentin [Neurontin] 600 mg PO 4X/DAY #120 tab 11/10/15 Oxycodone HCl/Acetaminophen 1 - 2 tab PO Q6H PRN PRN 09/23/17 [Percocet 10-325 mg Tablet] Pregabalin [Lyrica] 150 mg PO TID 09/23/17 duloxetine 60 mg capsule,delayed 60 mg PO DAILY 12/03/17 release Apixaban [Eliquis] 5 mg PO BID 07/01/18 Aspirin [Aspir 81] 81 mg PO DAILY 07/01/18 Hydrocodone/Acetaminophen 1 each PO Q6H PRN PRN 07/01/18 [Hydrocodon-Acetaminophen 5-325] Metoprolol Tartrate [Lopressor 50 mg PO BID 07/01/18 (beta nanette)] Simvastatin 20 mg PO DAILY 07/01/18 Surgical History: Surgical History (Last Updated 07/01/18 @ 14:13 by Antoni De Santiago MD) H/O coronary artery bypass surgery (Chronic) Onset Date: 06/17/01 Z95.1 CABG x 4 UMANZOR Sequential -D1 and D2, SVG-Cx, SVG-RCA 06/17/2001 @ [facility] History of angioplasty of peripheral vessel Z98.62 History of femoropopliteal bypass Onset Date: 06/2001 Z98.890 History of left lower extremity amputation Onset Date: 11/01/15 Z89.612 Above the knee Hx of tonsillectomy (Inactive) Z90.89 hx of APLL (Inactive) Right leg Surgical History: coronary bypass surgery, - - Left above-knee amputation. Psychiatric History: Depression Lives: Spouse/ Significant Other Smoking Status: Current every day smoker Tobacco Use: Cigarettes Alcohol: None Drugs: None - *Family History Maternal Family History: Family History (Last Reviewed 02/20/18 @ 14:17 by Narendra Garcia MD) Mother Breast cancer History Items: Cancer Paternal Family History: Family History (Last Reviewed 02/20/18 @ 14:17 by Narendra Garcia MD) Mother Breast cancer History Items: No pertinent history Review of Systems Comment: See HPI, otherwise negative x10 systems. Objective: Chest x-ray was personally reviewed and shows a left lower lobe posterior infiltrate. - Physical Exam General: Alert, Oriented x3, Cooperative, - - Mild to moderate respiratory distress. Appears older than stated age. HEENT: Atraumatic, PERRLA, EOMI, Normocephalic, - - No scleral icterus or injection noted. Significant hamilton noted. Oral: No Gingival or Mucosal Lesions/ Ulcerations, Dry Mucosa, - - Poor dentition. Neck: Supple, No JVD, No Nodes, Trachea Midline Lungs: No rales, Diminished, Rhonchi - Left base, Wheezes - End exhalation, - - Some splinting appreciated Cardiovascular: Normal S1, Normal S2, No murmurs, Irregular Rate, No rub noted, No Gallop Abdomen: Bowel Sounds Present, Soft, Non Tender, Non-Distended Extremities: No cyanosis, No edema, Capillary Refill Less than 3 Seconds, Clubbing, - - Left AKA Skin: - - Multiple superficial ulcers and excoriations noted Musculoskeletal: No Tenderness to Palpation of Joints or Extremities Lymphatic: No Cervical, Supraclavicular, or Inguinal Adenopathy Neurological: Cranial nerves II-XII grossly intact, Neuro grossly intact Psych/Mental Status: Appropriate, Restless Vital Signs Temp Pulse Resp BP Pulse Ox 38.4 C H 88 31 H 164/51 H 95 07/01/18 14:58 07/01/18 15:15 07/01/18 15:15 07/01/18 15:15 07/01/18 15:15 Oxygen Delivery Method Room Air Weight: 60.9 kg Body Mass Index (BMI) 20.4 Laboratory Tests Past 24 Hrs 07/01/18 07/01/18 07/01/18 12:00 12:00 12:00 WBC 18.4 H RBC 4.55 L Hgb 14.5 Hct 43.8 MCV 96.3 H MCH 31.9 MCHC 33.1 RDW 14.7 H RDW Differential 51.4 H Plt Count 102 L MPV 11.3 Neut % (Auto) Not Reportable Absolute Neuts (auto) 13.4 H Absolute Lymphs (auto) 1.29 Total Counted 100 Neutrophils % (Manual) 66 Band Neutrophils % 7 H Lymphocytes % (Manual) 7 L Monocytes % (Manual) 15 H Metamyelocytes % 5 H Diff Path Review May foll Platelet Estimate SLT DEC RBC Morphology NORM C+C PT Cancelled INR Cancelled Sodium 135 L Potassium 4.1 Chloride 101 Carbon Dioxide 25.0 Anion Gap 9 BUN 17 Creatinine 0.89 Estim Creat Clear Calc 80.77 Est GFR (MDRD) Af Amer 112 Est GFR (MDRD) Non-Af 93 BUN/Creatinine Ratio 19.1 Glucose 131 H Lactic Acid Calcium 8.8 07/01/18 12:55 WBC RBC Hgb Hct MCV MCH MCHC RDW RDW Differential Plt Count MPV Neut % (Auto) Absolute Neuts (auto) Absolute Lymphs (auto) Total Counted Neutrophils % (Manual) Band Neutrophils % Lymphocytes % (Manual) Monocytes % (Manual) Metamyelocytes % Diff Path Review Platelet Estimate RBC Morphology PT INR Sodium Potassium Chloride Carbon Dioxide Anion Gap BUN Creatinine Estim Creat Clear Calc Est GFR (MDRD) Af Amer Est GFR (MDRD) Non-Af BUN/Creatinine Ratio Glucose Lactic Acid 4.2 H* Calcium Clinical Impression(s) from Imaging Studies Chest X-Ray 07/01/18 12:38 IMPRESSION: Consolidation in the posterior medial segment of the left lower lobe with a small left pleural effusion. Increased markings in the lingular segment of the left upper lobe. Electronically Signed: Fer Motta MD at 12:58 EST Tel [phone], Service support , Assessment/Plan RECOMMENDATIONS: 1. Continue bronchodilators, initiate steroid therapy 2. Aggressive pain control with pulmonary toileting 3. Agree with empiric antibiotics 4. Aggressive fluid resuscitation, repeat lactate per sepsis protocol 5. Initiate BiPAP rescue if signs of respiratory muscle fatigue 6. Possible transfer out of the intensive care unit later today IMPRESSIONS: 1. Severe sepsis secondary to left lower lobe infiltrate, presumed community-acquired pneumonia Vision with elevated lactate, but otherwise endorgan damage is minimal. Patient has been given fluid boluses. Initiated on IV Levaquin and bronchodilators. Will initiate steroid therapy for presumed COPD 2. Pleurisy Likely secondary to #1. Patient will benefit from steroid therapy. NSAIDs would be another option. Patient also has morphine for breakthrough pain. Encourage the patient for incentive spirometer to avoid other complications. Aggressive pulmonary toileting. 3. CAD status post CABG/peripheral vascular disease/left AKA/hypertension/hyperlipidemia Complicates care, management, recovery and prognosis. Likely okay to continue with baseline medications. Code Visit Inpatient E&M: 17359 Init Hosp L3
[2018-07-01] MEDS: Morphine 2 MG/ML Syringe 1 MG IV ×2 (15:51→19:46)
[2018-07-01] MEDS: 0.9% NaCl Peripheral Flush Adult/Peds IV ×2 (15:52→19:50)
[2018-07-01 16:14] LABS: International Normalized Ratio 1.6; Prothrombin Time (Protime)PT. 18.6 SECONDS (11.7-14.9)
[2018-07-01] MEDS: 0.9% Normal Saline 1,000 ML 100 ML IV ×2 (16:25→22:44)
[2018-07-01] MEDS: oxyCODONE 5 MG Tablet PO ×2 (16:28→22:43)
[2018-07-01] MEDS: Acetaminophen 325 MG Tablet 650 MG PO (16:28)
[2018-07-01 16:30] LABS: Lactic Acid 3.9 mmol/L (0.4-2.0)
[2018-07-01] MEDS: Labetalol 20 MG/4 ML Vial 10 MG IV (16:33)
[2018-07-01] MEDS: predniSONE 20 MG Tablet 40 MG PO (16:41)
[2018-07-01] MEDS: Gabapentin 600 MG Tablet PO ×2 (16:41→22:43)
[2018-07-01 17:06] LABS: Reflex Lactate? Y
[2018-07-01 19:03] LABS: Lactic Acid 4.7 mmol/L (0.4-2.0)
[2018-07-01 19:45] LABS: Reflex Lactate? Y
[2018-07-01 19:48] LABS: Bacteria 0 SEEN /hpf (None Seen); Mucous, Urine 0 SEEN /hpf (<or=2+)
[2018-07-01 20:07] LABS: Color, Urine Yellow (Yellow); Glucose, Dipstick Normal (Normal); Ketone-Dipstick Negative (Negative); Leukocyte Esterase-Dipstick Negative /ul (Negative); Nitrite-Dipstick Negative (Negative); Occult Blood-Urine 10 /ul (Negative); Protein-Dipstick 15 mg/dl (Negative); Urine Bilirubin Dipstick Negative (Negative); Urine Clarity Clear (Clear); Urine Urobilinogen Normal (Normal)
[2018-07-01 20:13] LABS: Hyaline Cast 0-5 SEEN /lpf (0-5)
[2018-07-01 20:14] LABS: Squamous Epithelial Cells - UA 0-5 SEEN /hpf (0-5)
[2018-07-01 20:16] LABS: Red Blood Cells-Urine 0-5 SEEN /hpf (0-5); White Blood Cells 0-5 SEEN /hpf (0-5)
[2018-07-01 22:17] LABS: Reflex Lactate? N
[2018-07-01] MEDS: guaiFENesin 1,200 MG Tablet 1200 MG PO (22:44)
[2018-07-01] MEDS: APIXABAN 5 MG TABLET PO (22:44)
[2018-07-01] MEDS: Pregabalin 75 MG Capsule 150 MG PO (22:44)
[2018-07-01] MEDS: Metoprolol Tartrate 50 MG Tablet PO (22:44)
[2018-07-01] MEDS: Atorvastatin Calcium 10 MG Tablet PO (22:44)
[2018-07-02] VITALS (29 sets, daily range): BP systolic 114–182; BP diastolic 34–83; PULSE 66–100; RESP 14–25; TEMP 36.2–36.6; O2SAT 94–100
[2018-07-02] MEDS: Ipratropium/Albuterol Sulfate 3 ML AMPUL.NEB INHALATION ×4 (00:40→19:06)
[2018-07-02] MEDS: oxyCODONE 5 MG Tablet PO ×3 (04:33→17:54)
[2018-07-02] MEDS: 0.9% NaCl Peripheral Flush Adult/Peds IV ×2 (04:35→18:01)
[2018-07-02 05:06] LABS: Absolute Lymphocyte Count 0.58 X10^3/ul (0.83-4.51); Absolute Neutrophil Count 8.9 X10^3/uL (2.0-7.7); Basophil# 0.01 X10^3/uL; Basophil% 0.1 % (0-1); Hematocrit 34.7 % (40-54); Hemoglobin 11.8 g/dl (13.0-16.5); Lymphocyte # 0.58 X10^3/ul (4.0); Lymphocyte % 5.8 % (19-41); Mean Corpuscular Hgb 32.3 pg (27.0-32.0); Mean Corpuscular Volume 95.1 fL (80-94); Mean Platelet Vol. 11.7 fl (6.2-12.0); Monocyte# 0.38 X10^3/uL; Monocyte% 3.8 % (0-10); Neutrophil % 89.7 % (47-70); Platelet Count 104 K/mm3 (150-450); RBC Distribution Width CV 14.7 % (11.6-14.6); RBC Distribution Width SD 48.6 fl (35.1-43.9); Red Blood Count 3.65 M/mm3 (4.6-6.2); White Blood Count 9.9 K/mm3 (4.4-11.0)
[2018-07-02 05:11] LABS: Anion Gap 7 (5-15); BUN 12 mg/dL (7-18); BUN/Creat Ratio 17.3 RATIO (10-20); Chloride 110 mmol/L (98-107); EST Glomerular Filtration Rate 123 mL/min (>60); Est Glom Filt Rate - Afr Amer 149 mL/min (>60); Estimated Creatinine Clearance 96.67 ml/min; Glucose 143 mg/dL (74-106); Potassium 5.1 mmol/L (3.5-5.1); Sodium Level 141 mmol/L (136-145)
[2018-07-02] MEDS: Pregabalin 75 MG Capsule 150 MG PO ×3 (05:14→21:09)
[2018-07-02 05:38] LABS: Differential Indicated SCAN CRITERIA MET; POSITIVE COUNT NO; POSITIVE DIFFERENTIAL YES; POSITIVE MORPHOLOGY YES
--- NOTE | 2018-07-02 07:48 | PCM.PN.INT ---
Subjective: Patient did okay overnight. Patient is requiring nasal cannula oxygen for desaturations during sleep, which is not typical for him. This morning, patient did have some mild hemoptysis, but states he feels subjectively improved compared to previous. Patient is still having significant pain with any movement, but states the pain is controlled at rest. General: Alert, Oriented x3, Cooperative, No apparent distress, - - Appears older than stated age. No conversational dyspnea noted. HEENT: Atraumatic, PERRLA, EOMI, Normocephalic, - - No scleral icterus or injection noted. Oral: Moist Mucosa, No Gingival or Mucosal Lesions/ Ulcerations, - - Poor dentition Neck: Supple, No JVD, No Nodes, Trachea Midline Lungs: No wheeze, No rales, Diminished, Rhonchi - Left posterior, - - Symmetric expansion. Cardiovascular: Regular rate, Regular Rhythm, Normal S1, Normal S2, No murmurs, No rub noted, No Gallop Abdomen: Bowel Sounds Present, Soft, Non Tender, Non-Distended Extremities: No clubbing, No cyanosis, Edema - Trace, - - AKA noted Skin: No rashes, No breakdown Musculoskeletal: No Tenderness to Palpation of Joints or Extremities Lymphatic: No Cervical, Supraclavicular, or Inguinal Adenopathy Neurological: Cranial nerves II-XII grossly intact, Neuro grossly intact, Motor Exam 5/5 strength throughout Psych/Mental Status: Alert and oriented to time, place, person, mood and affect Vital Signs Temp Pulse Resp BP Pulse Ox 36.6 C 74 19 H 156/51 H 100 07/02/18 04:00 07/02/18 06:00 07/02/18 06:00 07/02/18 06:00 07/02/18 06:00 Oxygen Flow Rate (L/min) 3 Oxygen Delivery Method Room Air Weight: 61.1 kg Body Mass Index (BMI) 20.4 Intake and Output for Last 24 Hours 06/30/18 07/01/18 07/02/18 23:59 23:59 23:59 Intake Total 3584 / 3584 1083 / 1083 Output Total 1500 / 1500 1200 / 1200 Balance 2084 / 2084 -117 / -117 Labs (Last 48 Hours) 07/01/18 07/01/18 07/01/18 12:00 12:00 12:00 WBC 18.4 H RBC 4.55 L Hgb 14.5 Hct 43.8 MCV 96.3 H MCH 31.9 MCHC 33.1 RDW 14.7 H RDW Differential 51.4 H Plt Count 102 L MPV 11.3 Immature Gran % (Auto) Neut % (Auto) Not Reportable Lymph % (Auto) [place] % (Auto) Eos % (Auto) Baso % (Auto) Absolute Neuts (auto) 13.4 H Absolute Lymphs (auto) 1.29 Total Counted 100 Neutrophils % (Manual) 66 Band Neutrophils % 7 H Lymphocytes % (Manual) 7 L Monocytes % (Manual) 15 H Metamyelocytes % 5 H Diff Path Review May foll Platelet Estimate SLT DEC RBC Morphology NORM C+C PT Cancelled INR Cancelled Sodium 135 L Potassium 4.1 Chloride 101 Carbon Dioxide 25.0 Anion Gap 9 BUN 17 Creatinine 0.89 Estim Creat Clear Calc 80.77 Est GFR (MDRD) Af Amer 112 Est GFR (MDRD) Non-Af 93 BUN/Creatinine Ratio 19.1 Glucose 131 H Lactic Acid Calcium 8.8 Urine Color Urine Clarity Urine pH Ur Specific [place] Urine Protein Urine Glucose (UA) Urine Ketones Urine Occult Blood Urine Nitrite Urine Bilirubin Urine Urobilinogen Ur Leukocyte Esterase Urine RBC Urine WBC Ur Squamous Epith Cells Urine Bacteria Hyaline Casts Urine Mucus 07/01/18 07/01/18 07/01/18 12:55 15:40 15:40 WBC RBC Hgb Hct MCV MCH MCHC RDW RDW Differential Plt Count MPV Immature Gran % (Auto) Neut % (Auto) Lymph % (Auto) [place] % (Auto) Eos % (Auto) Baso % (Auto) Absolute Neuts (auto) Absolute Lymphs (auto) Total Counted Neutrophils % (Manual) Band Neutrophils % Lymphocytes % (Manual) Monocytes % (Manual) Metamyelocytes % Diff Path Review Platelet Estimate RBC Morphology PT 18.6 H INR 1.6 Sodium Potassium Chloride Carbon Dioxide Anion Gap BUN Creatinine Estim Creat Clear Calc Est GFR (MDRD) Af Amer Est GFR (MDRD) Non-Af BUN/Creatinine Ratio Glucose Lactic Acid 4.2 H* 3.9 H Calcium Urine Color Urine Clarity Urine pH Ur Specific [place] Urine Protein Urine Glucose (UA) Urine Ketones Urine Occult Blood Urine Nitrite Urine Bilirubin Urine Urobilinogen Ur Leukocyte Esterase Urine RBC Urine WBC Ur Squamous Epith Cells Urine Bacteria Hyaline Casts Urine Mucus 07/01/18 07/01/18 07/02/18 18:25 19:30 04:25 WBC 9.9 RBC 3.65 L Hgb 11.8 L Hct 34.7 L MCV 95.1 H MCH 32.3 H MCHC 34.0 RDW 14.7 H RDW Differential 48.6 H Plt Count 104 L MPV 11.7 Immature Gran % (Auto) 0.600 Neut % (Auto) 89.7 H Lymph % (Auto) 5.8 L [place] % (Auto) 3.8 Eos % (Auto) 0.0 Baso % (Auto) 0.1 Absolute Neuts (auto) 8.9 H Absolute Lymphs (auto) 0.58 L Total Counted Not Reportable Neutrophils % (Manual) Band Neutrophils % Lymphocytes % (Manual) Monocytes % (Manual) Metamyelocytes % Diff Path Review Platelet Estimate RBC Morphology PT INR Sodium Potassium Chloride Carbon Dioxide Anion Gap BUN Creatinine Estim Creat Clear Calc Est GFR (MDRD) Af Amer Est GFR (MDRD) Non-Af BUN/Creatinine Ratio Glucose Lactic Acid 4.7 H* Calcium Urine Color Yellow Urine Clarity Clear Urine pH 6.0 Ur Specific [place] 1.010 Urine Protein 15 H Urine Glucose (UA) Normal Urine Ketones Negative Urine Occult Blood 10 H Urine Nitrite Negative Urine Bilirubin Negative Urine Urobilinogen Normal Ur Leukocyte Esterase Negative Urine RBC 0-5 SEEN Urine WBC 0-5 SEEN Ur Squamous Epith Cells 0-5 SEEN Urine Bacteria 0 SEEN Hyaline Casts 0-5 SEEN Urine Mucus 0 SEEN 07/02/18 04:25 WBC RBC Hgb Hct MCV MCH MCHC RDW RDW Differential Plt Count MPV Immature Gran % (Auto) Neut % (Auto) Lymph % (Auto) [place] % (Auto) Eos % (Auto) Baso % (Auto) Absolute Neuts (auto) Absolute Lymphs (auto) Total Counted Neutrophils % (Manual) Band Neutrophils % Lymphocytes % (Manual) Monocytes % (Manual) Metamyelocytes % Diff Path Review Platelet Estimate RBC Morphology PT INR Sodium 141 Potassium 5.1 Chloride 110 H Carbon Dioxide 24.0 Anion Gap 7 BUN 12 Creatinine 0.70 Estim Creat Clear Calc 96.67 Est GFR (MDRD) Af Amer 149 Est GFR (MDRD) Non-Af 123 BUN/Creatinine Ratio 17.3 Glucose 143 H Lactic Acid Calcium 8.0 L Urine Color Urine Clarity Urine pH Ur Specific [place] Urine Protein Urine Glucose (UA) Urine Ketones Urine Occult Blood Urine Nitrite Urine Bilirubin Urine Urobilinogen Ur Leukocyte Esterase Urine RBC Urine WBC Ur Squamous Epith Cells Urine Bacteria Hyaline Casts Urine Mucus Microbiology 07/01/18 16:00 Sputum, Expectorated/Coughed Gram Stain - Preliminary Clinical Impression(s) from Imaging Studies Chest X-Ray 07/01/18 12:38 IMPRESSION: Consolidation in the posterior medial segment of the left lower lobe with a small left pleural effusion. Increased markings in the lingular segment of the left upper lobe. Electronically Signed: Fer Motta MD at 12:58 EST Tel [phone], Service support , Medical Necessity - Tobacco Use Smoking Status: Current every day smoker Tobacco Use: Cigarettes Assessment/Plan RECOMMENDATIONS: 1. Continue bronchodilators and steroid therapy 2. Aggressive pain control with pulmonary toileting 3. Agree with empiric antibiotics 4. Aggressive fluid resuscitation 5. Initiate BiPAP rescue if signs of respiratory muscle fatigue 6. Possible transfer out of the intensive care unit later today IMPRESSIONS: 1. Severe sepsis secondary to left lower lobe infiltrate, presumed community-acquired pneumonia Patient with elevated lactate, but otherwise endorgan damage is minimal. Patient has been given fluid boluses. Initiated on IV Levaquin, steroids and bronchodilators. Patient has had some mild hemoptysis this morning, but this would be expected given anticoagulation and dense infiltrate. Will attempt to continue with anticoagulation for now as long as hemoptysis is minimal. Wean oxygen as tolerated. 2. Pleurisy Likely secondary to #1. Patient will benefit from steroid therapy. NSAIDs would be another option. Patient also has morphine for breakthrough pain. Encourage the patient for incentive spirometer to avoid other complications. Aggressive pulmonary toileting. 3. CAD status post CABG/peripheral vascular disease/left AKA/hypertension/hyperlipidemia Complicates care, management, recovery and prognosis. Likely okay to continue with baseline medications. Code Visit Inpatient E&M: 79807 [facility] Hosp L3
[2018-07-02] MEDS: 0.9% Normal Saline 1,000 ML 100 ML IV ×2 (08:38→18:03)
[2018-07-02] MEDS: predniSONE 20 MG Tablet 40 MG PO (08:39)
[2018-07-02] MEDS: Aspirin E.C. 81 MG Tablet PO (08:39)
--- NOTE | 2018-07-02 09:19 | PCM.PN.HOSP ---
Subjective: Patient seen and examined. He was admitted with a complaint of cough, shortness of breath and chills of 2 days duration with associated mild sputum production. He had assisted left-sided chest pain which was pleuritic in nature. Chest x-ray done showed left lower lobe consolidation lactic acid was 12.2. He was admitted and is being managed for septic shock due to community-acquired pneumonia. Patient has no complaints and feels well. He still coughing and had mild hemoptysis this morning. He denies any fever or chills still admits to pleuritic chest pain. He denies any abdominal pain, nausea vomiting or diarrhea. Review of systems otherwise negative. Labs and vitals reviewed. Vitals/I&O's: Vital Signs Temp Pulse Resp BP Pulse Ox 98 F 80 19 H 156/51 H 100 07/02/18 04:00 07/02/18 07:16 07/02/18 06:00 07/02/18 06:00 07/02/18 06:00 Oxygen Flow Rate (L/min) 3 Oxygen Delivery Method Room Air Weight: 134 lb 11.239 oz Body Mass Index (BMI) 20.4 Intake and Output for Last 24 Hours 06/30/18 07/01/18 07/02/18 23:59 23:59 23:59 Intake Total 3584 / 3584 1083 / 1083 Output Total 1500 / 1500 1200 / 1200 Balance 2083 / 2083 -117 / -117 General: Alert, Oriented x3, Cooperative, No apparent distress HEENT: Atraumatic, PERRLA, EOMI, Normocephalic Oral: Moist Mucosa Neck: Supple, No JVD, Negative Carotid Bruits Lungs: - - Harsh, Bronchial breath sounds in the left lower lung field with few crackles in the right lower lung field. Cardiovascular: Regular rate, Regular Rhythm, Normal S1, Normal S2, No murmurs Abdomen: Bowel Sounds Present, Soft, Non Tender, Non-Distended, No Hepato-splenomegaly Extremities: No clubbing, No cyanosis, No edema, Capillary Refill Less than 3 Seconds, - - Left above-knee amputation. Skin: No rashes, No breakdown Musculoskeletal: No Tenderness to Palpation of Joints or Extremities Lymphatic: No Cervical, Supraclavicular, or Inguinal Adenopathy Neurological: Cranial nerves II-XII grossly intact, Neuro grossly intact, Motor Exam 5/5 strength throughout Psych/Mental Status: Normal Affect, Appropriate, Alert and oriented to time, place, person, mood and affect Microbiology Past 72 Hours 07/01/18 16:00 Sputum, Expectorated/Coughed Gram Stain - Final Laboratory Results 07/01/18 12:00: WBC 18.4 H, RBC 4.55 L, Hgb 14.5, Hct 43.8, MCV 96.3 H, MCH 31.9, MCHC 33.1, RDW 14.7 H, RDW Differential 51.4 H, Plt Count 102 L, MPV 11.3, Neut % (Auto) Not Reportable, Absolute Neuts (auto) 13.4 H, Absolute Lymphs (auto) 1.29, Total Counted 100, Neutrophils % (Manual) 66, Band Neutrophils % 7 H, Lymphocytes % (Manual) 7 L, Monocytes % (Manual) 15 H, Metamyelocytes % 5 H, Diff Path Review October, Platelet Estimate SLT DEC, RBC Morphology NORM C+C 07/01/18 12:00: Sodium 135 L, Potassium 4.1, Chloride 101, Carbon Dioxide 25.0, Anion Gap 9, BUN 17, Creatinine 0.89, Estim Creat Clear Calc 80.77, Est GFR (MDRD) Af Amer 112, Est GFR (MDRD) Non-Af 93, BUN/Creatinine Ratio 19.1, Glucose 131 H, Calcium 8.8 07/01/18 12:00: PT Cancelled, INR Cancelled 07/01/18 12:55: Lactic Acid 4.2 H* 07/01/18 15:40: Lactic Acid 3.9 H 07/01/18 15:40: PT 18.6 H, INR 1.6 07/01/18 18:25: Lactic Acid 4.7 H* 07/01/18 19:30: Urine Color Yellow, Urine Clarity Clear, Urine pH 6.0, Ur Specific [place] 1.010, Urine Protein 15 H, Urine Glucose (UA) Normal, Urine Ketones Negative, Urine Occult Blood 10 H, Urine Nitrite Negative, Urine Bilirubin Negative, Urine Urobilinogen Normal, Ur Leukocyte Esterase Negative, Urine RBC 0-5 SEEN, Urine WBC 0-5 SEEN, Ur Squamous Epith Cells 0-5 SEEN, Urine Bacteria 0 SEEN, Hyaline Casts 0-5 SEEN, Urine Mucus 0 SEEN 07/02/18 04:25: WBC 9.9, RBC 3.65 L, Hgb 11.8 L, Hct 34.7 L, MCV 95.1 H, MCH 32.3 H, MCHC 34.0, RDW 14.7 H, RDW Differential 48.6 H, Plt Count 104 L, MPV 11.7, Immature Gran % (Auto) 0.600, Neut % (Auto) 89.7 H, Lymph % (Auto) 5.8 L, [place] % (Auto) 3.8, Eos % (Auto) 0.0, Baso % (Auto) 0.1, Absolute Neuts (auto) 8.9 H, Absolute Lymphs (auto) 0.58 L, Total Counted Not Reportable 07/02/18 04:25: Sodium 141, Potassium 5.1, Chloride 110 H, Carbon Dioxide 24.0, Anion Gap 7, BUN 12, Creatinine 0.70, Estim Creat Clear Calc 96.67, Est GFR (MDRD) Af Amer 149, Est GFR (MDRD) Non-Af 123, BUN/Creatinine Ratio 17.3, Glucose 143 H, Calcium 8.0 L Current Medications Acetaminophen (Tylenol) 650 mg PO Q6H PRN PRN PRN Reason: Fever, headache, pain Last Admin: 07/01/18 16:28 Dose: 650 mg Albuterol Sulfate (Ventolin Aerosols) 2.5 mg INHALATION Q2H PRN PRN PRN Reason: SOB &/OR WHEEZING Last Admin: 07/01/18 15:50 Dose: 2.5 mg Albuterol/Ipratropium (Duoneb) 3 ml INHALATION Q6H.RT [facility] Last Admin: 07/02/18 07:25 Dose: 3 ml Apixaban (Eliquis) 5 mg PO BID [facility] Last Admin: 07/01/18 22:44 Dose: 5 mg Aspirin (Ecotrin) 81 mg PO DAILY@0800 [facility] Last Admin: 07/02/18 08:39 Dose: 81 mg Atorvastatin Calcium (Lipitor) 10 mg PO QHS [facility] Last Admin: 07/01/18 22:44 Dose: 10 mg Citalopram Hydrobromide (Celexa) 40 mg PO DAILY [facility] Duloxetine HCl (Cymbalta) 60 mg PO DAILY [facility] Gabapentin (Neurontin) 600 mg PO 4X/DAY [facility] Last Admin: 07/01/18 22:43 Dose: 600 mg Guaifenesin (Mucinex) 1,200 mg PO BID [facility] Last Admin: 07/01/18 22:44 Dose: 1,200 mg Sodium Chloride () 1,000 mls @ 100 mls/hr IV .Q10H [facility] Last Admin: 07/02/18 08:38 Dose: 100 mls/hr Levofloxacin (Levaquin Iv) 750 mg in 150 mls @ 100 mls/hr IV Q24 [facility] Lisinopril (Zestril) 10 mg PO DAILY [facility] Magnesium Hydroxide (Milk Of Magnesia) 30 ml PO DAILY PRN PRN PRN Reason: Constipation Metoprolol Tartrate (Lopressor (Beta Kayla)) 50 mg PO BID [facility] Last Admin: 07/01/18 22:44 Dose: 50 mg Morphine Sulfate () 1 mg IV Q3H PRN PRN PRN Reason: SEVERE PAIN (6-10/10) Last Admin: 07/01/18 19:46 Dose: 1 mg Nicotine (Nicoderm Cq (Pbkc)) 21 mg TRANSDERM. DAILY [facility] Ondansetron HCl (Zofran) 4 mg IV Q6H PRN PRN PRN Reason: NAUSEA/VOMITING Oxycodone HCl (Oxyir) 5 mg PO Q6H PRN PRN PRN Reason: SEVERE PAIN (6-10/10) Last Admin: 07/02/18 04:33 Dose: 5 mg Prednisone () 40 mg PO DAILY@0800 [facility] Last Admin: 07/02/18 08:39 Dose: 40 mg Pregabalin (Lyrica) 150 mg PO TID [facility] Last Admin: 07/02/18 05:14 Dose: 150 mg Sodium Chloride () 5 - 15 ml IV UD PRN PRN Reason: SALINE FLUSH Last Admin: 07/02/18 04:35 Dose: 15 ml Medical Necessity - Tobacco Use Smoking Status: Current every day smoker Tobacco Use: Cigarettes Assessment/Plan 1. Severe sepsis due to community acquired pneumonia Criteria for severe sepsis on admission was tachypnea and elevated white cell count as well as lactic acid of 4.2 on admission. He feels much better today. Shortness of breath is improving though he still has left-sided pleuritic chest pain. Chest x-ray showed left lower lobe consolidation and small pleural effusion. Cell count is trended down to 9.9. On IV Levaquin and breathing treatments. Blood cultures pending. Sputum Gram stain showed 4+ gram-positive cocci and 1+ gram-positive rods with 2+ white blood cells. Respiratory cultures pending. Medical Center Representative on board. 2. Community-acquired pneumonia: As under 1. 3. Lactic acidosis: Lactic acid was 4.2 on admission, initially trended down slightly but trended up again to 4.7. Likely due to severe sepsis from community-acquired pneumonia. Will hydrate with IV fluids and trend lactic acid. 4. CAD status post CABG: On aspirin, statin, metoprolol and lisinopril. 5. PAD: Status post left above-knee amputation. On aspirin, statins and Eliquis. 6. Hypertension: Lisinopril and metoprolol. Blood pressure controlled for age. 7. Hyperlipidemia: Statins. DVT prophylaxis: On Eliquis Code Visit Inpatient E&M: 64980 [facility] Hosp L3
--- NOTE | 2018-07-02 09:23 | PN_ITS ---
Subjective: Patient seen and examined. He was admitted with a complaint of cough, shortness of breath and chills of 2 days duration with associated mild sputum production. He had assisted left-sided chest pain which was pleuritic in nature. Chest x- ray done showed left lower lobe consolidation lactic acid was 12.2. He was admitted and is being managed for septic shock due to community-acquired pneumonia. Patient has no complaints and feels well. He still coughing and had mild hemoptysis this morning. He denies any fever or chills still admits to pl euritic chest pain. He denies any abdominal pain, nausea vomiting or diarrhea. Review of systems otherwise negative. Labs and vitals reviewed. Vitals/I&O's: Vital Signs Temp Pulse Resp BP Pulse Ox 98 F 80 19 H 156/51 H 100 07/02/18 04:00 07/02/18 07:16 07/02/18 06:00 07/02/18 06:00 07/02/18 06:00 Oxygen Flow Rate (L/min) 3 Oxygen Delivery Method Room Air Weight: 134 lb 11.239 oz Body Mass Index (BMI) 20.4 Intake and Output for Last 24 Hours 06/30/18 07/01/18 07/02/18 23:59 23:59 23:59 Intake Total 3584 / 3584 1083 / 1083 Output Total 1500 / 1500 1200 / 1200 Balance 2083 / 2083 -117 / -117 General: Alert, Oriented x3, Cooperative, No apparent distress HEENT: Atraumatic, PERRLA, EOMI, Normocephalic Oral: Moist Mucosa Neck: Supple, No JVD, Negative Carotid Bruits Lungs: - - Harsh, Bronchial breath sounds in the left lower lung field with few crackles in the right lower lung field. Cardiovascular: Regular rate, Regular Rhythm, Normal S1, Normal S2, No murmurs Abdomen: Bowel Sounds Present, Soft, Non Tender, Non-Distended, No Hepato- splenomegaly Extremities: No clubbing, No cyanosis, No edema, Capillary Refill Less than 3 Seconds, - - Left above-knee amputation. Skin: No rashes, No breakdown Musculoskeletal: No Tenderness to Palpation of Joints or Extremities Lymphatic: No Cervical, Supraclavicular, or Inguinal Adenopathy Neurological: Cranial nerves II-XII grossly intact, Neuro grossly intact, Motor Exam 5/5 strength throughout Psych/Mental Status: Normal Affect, Appropriate, Alert and oriented to time, place, person, mood and affect Microbiology Past 72 Hours 07/01/18 16:00 Sputum, Expectorated/Coughed Gram Stain - Final Laboratory Results 07/01/18 12:00: WBC 18.4 H, RBC 4.55 L, Hgb 14.5, Hct 43.8, MCV 96.3 H, MCH 31.9, MCHC 33.1, RDW 14.7 H, RDW Differential 51.4 H, Plt Count 102 L, MPV 11.3, Neut % (Auto) Not Reportable, Absolute Neuts (auto) 13.4 H, Absolute Lymphs (auto) 1.29, Total Counted 100, Neutrophils % (Manual) 66, Band Neutrophils % 7 H, Lymphocytes % (Manual) 7 L, Monocytes % (Manual) 15 H, Metamyelocytes % 5 H, Diff Path Review October, Platelet Estimate SLT DEC, RBC Morphology NORM C+C 07/01/18 12:00: Sodium 135 L, Potassium 4.1, Chloride 101, Carbon Dioxide 25.0, Anion Gap 9, BUN 17, Creatinine 0.89, Estim Creat Clear Calc 80.77, Est GFR (MDRD) Af Amer 112, Est GFR (MDRD) Non-Af 93, BUN/Creatinine Ratio 19.1, Glucose 131 H, Calcium 8.8 07/01/18 12:00: PT Cancelled, INR Cancelled 07/01/18 12:55: Lactic Acid 4.2 H* 07/01/18 15:40: Lactic Acid 3.9 H 07/01/18 15:40: PT 18.6 H, INR 1.6 07/01/18 18:25: Lactic Acid 4.7 H* 07/01/18 19:30: Urine Color Yellow, Urine Clarity Clear, Urine pH 6.0, Ur Specific [place] 1.010, Urine Protein 15 H, Urine Glucose (UA) Normal, Urine K etones Negative, Urine Occult Blood 10 H, Urine Nitrite Negative, Urine Bilirubin Negative, Urine Urobilinogen Normal, Ur Leukocyte Esterase Negative, Urine RBC 0-5 SEEN, Urine WBC 0-5 SEEN, Ur Squamous Epith Cells 0-5 SEEN, Urine Bacteria 0 SEEN, Hyaline Casts 0-5 SEEN, Urine Mucus 0 SEEN 07/02/18 04:25: WBC 9.9, RBC 3.65 L, Hgb 11.8 L, Hct 34.7 L, MCV 95.1 H, MCH 32.3 H, MCHC 34.0, RDW 14.7 H, RDW Differential 48.6 H, Plt Count 104 L, MPV 11.7, Immature Gran % (Auto) 0.600, Neut % (Auto) 89.7 H, Lymph % (Auto) 5.8 L, [place] % (Auto) 3.8, Eos % (Auto) 0.0, Baso % (Auto) 0.1, Absolute Neuts (auto) 8.9 H, Absolute Lymphs (auto) 0.58 L, Total Counted Not Reportable 07/02/18 04:25: Sodium 141, Potassium 5.1, Chloride 110 H, Carbon Dioxide 24.0, Anion Gap 7, BUN 12, Creatinine 0.70, Estim Creat Clear Calc 96.67, Est GFR (MDRD) Af Amer 149, Est GFR (MDRD) Non-Af 123, BUN/Creatinine Ratio 17.3, Glucose 143 H, Calcium 8.0 L Current Medications Acetaminophen (Tylenol) 650 mg PO Q6H PRN PRN PRN Reason: Fever, headache, pain Last Admin: 07/01/18 16:28 Dose: 650 mg Albuterol Sulfate (Ventolin Aerosols) 2.5 mg INHALATION Q2H PRN PRN PRN Reason: SOB &/OR WHEEZING Last Admin: 07/01/18 15:50 Dose: 2.5 mg Albuterol/Ipratropium (Duoneb) 3 ml INHALATION Q6H.RT [facility] Last Admin: 07/02/18 07:25 Dose: 3 ml Apixaban (Eliquis) 5 mg PO BID [facility] Last Admin: 07/01/18 22:44 Dose: 5 mg Aspirin (Ecotrin) 81 mg PO DAILY@0800 [facility] Last Admin: 07/02/18 08:39 Dose: 81 mg Atorvastatin Calcium (Lipitor) 10 mg PO QHS [facility] Last Admin: 07/01/18 22:44 Dose: 10 mg Citalopram Hydrobromide (Celexa) 40 mg PO DAILY [facility] Duloxetine HCl (Cymbalta) 60 mg PO DAILY [facility] Gabapentin (Neurontin) 600 mg PO 4X/DAY [facility] Last Admin: 07/01/18 22:43 Dose: 600 mg Guaifenesin (Mucinex) 1,200 mg PO BID [facility] Last Admin: 07/01/18 22:44 Dose: 1,200 mg Sodium Chloride () 1,000 mls @ 100 mls/hr IV .Q10H [facility] Last Admin: 07/02/18 08:38 Dose: 100 mls/hr Levofloxacin (Levaquin Iv) 750 mg in 150 mls @ 100 mls/hr IV Q24 [facility] Lisinopril (Zestril) 10 mg PO DAILY [facility] Magnesium Hydroxide (Milk Of Magnesia) 30 ml PO DAILY PRN PRN PRN Reason: Constipation Metoprolol Tartrate (Lopressor (Beta Kayla)) 50 mg PO BID [facility] Last Admin: 07/01/18 22:44 Dose: 50 mg Morphine Sulfate () 1 mg IV Q3H PRN PRN PRN Reason: SEVERE PAIN (6-10/10) Last Admin: 07/01/18 19:46 Dose: 1 mg Nicotine (Nicoderm Cq (Pbkc)) 21 mg TRANSDERM. DAILY [facility] Ondansetron HCl (Zofran) 4 mg IV Q6H PRN PRN PRN Reason: NAUSEA/VOMITING Oxycodone HCl (Oxyir) 5 mg PO Q6H PRN PRN PRN Reason: SEVERE PAIN (6-10/10) Last Admin: 07/02/18 04:33 Dose: 5 mg Prednisone () 40 mg PO DAILY@0800 [facility] Last Admin: 07/02/18 08:39 Dose: 40 mg Pregabalin (Lyrica) 150 mg PO TID [facility] Last Admin: 07/02/18 05:14 Dose: 150 mg Sodium Chloride () 5 - 15 ml IV UD PRN PRN Reason: SALINE FLUSH Last Admin: 07/02/18 04:35 Dose: 15 ml Medical Necessity - Tobacco Use Smoking Status: Current every day smoker Tobacco Use: Cigarettes Assessment/Plan 1. Severe sepsis due to community acquired pneumonia * Criteria for severe sepsis on admission was tachypnea and elevated white cell count as well as lactic acid of 4.2 on admission. * He feels much better today. Shortness of breath is improving though he still has left-sided pleuritic chest pain. * Chest x-ray showed left lower lobe consolidation and small pleural effusion. * Cell count is trended down to 9.9. * On IV Levaquin and breathing treatments. * Blood cultures pending. * Sputum Gram stain showed 4+ gram-positive cocci and 1+ gram-positive rods with 2+ white blood cells. Respiratory cultures pending. * [employer] on board. 2. Community-acquired pneumonia: As under 1. 3. Lactic acidosis: * Lactic acid was 4.2 on admission, initially trended down slightly but trended up again to 4.7. * Likely due to severe sepsis from community-acquired pneumonia. * Will hydrate with IV fluids and trend lactic acid. * 4. CAD status post CABG: On aspirin, statin, metoprolol and lisinopril. 5. PAD: Status post left above-knee amputation. On aspirin, statins and Eliquis. 6. Hypertension: Lisinopril and metoprolol. Blood pressure controlled for age. 7. Hyperlipidemia: Statins. DVT prophylaxis: On Eliquis Code Visit Inpatient E&M: 74909 Subs Hosp L3
[2018-07-02] MEDS: Citalopram 20 MG Tablet 40 MG PO (09:53)
[2018-07-02] MEDS: DULoxetine Hcl 60 MG Capsule PO (09:53)
[2018-07-02] MEDS: Gabapentin 600 MG Tablet PO ×4 (09:53→21:09)
[2018-07-02] MEDS: guaiFENesin 1,200 MG Tablet 1200 MG PO ×2 (09:53→21:09)
[2018-07-02] MEDS: Lisinopril 10 MG Tablet PO (09:53)
[2018-07-02] MEDS: Metoprolol Tartrate 50 MG Tablet PO ×2 (09:53→21:09)
[2018-07-02] MEDS: APIXABAN 5 MG TABLET PO ×2 (09:54→21:10)
[2018-07-02] MEDS: levoFLOXacin IV 750 MG/150 ML BAG 100 MG IV (09:55)
[2018-07-02 10:40] LABS: Pathologist Review Reviewed
--- NOTE | 2018-07-02 14:12 | CHAPLAIN ---
Type of Pastoral Visit _x__ Initial Visit ___ Follow-up Visit ___ On-call Visit ___ General Patient Visit ___ Spiritual Assessment ___ Family Conference ___ Bereavement ___ Rapid Response ___ Code Blue ___ Other (describe below) Pastoral Care Referral From _x__ Patient ___ Family ___ Nurse ___ Physician ___ Paving Machine Operator ___ Brim Pouncing Machine Operator ___ Other (describe below) Sacrament/Intervention _x__ Active listening ___ Anointing ___ Islam ___ Bereavement ___ Communion _x__ [place] exploration ___ _x__ Life review _x__ Prayer ___ Reconciliation ___ Sacrament of Sick _x__ Supportive presence ___ Wedding ___ Other (describe below) Pastoral Comments comment by patient God is not listening
--- NOTE | 2018-07-02 14:18 | CASEMGMT ---
RN CM Assessment Presentation: presented to ER with shortness of breath and chills. CAP. PCP: Dr. Sawyer Preferred Pharmacy: [facility] Insurance: [facility] Prescription Benefit: yes LNOK: Komal Ibrahim, SO Living Arrangements: lives in one story home independently. Transportation: Drives intermittently. DME/HHC: cane, prosthetic leg. DC PLAN: Home on discharge
[2018-07-02 15:01] LABS: Lactic Acid 1.8 mmol/L (0.4-2.0)
[2018-07-02] MEDS: Labetalol 20 MG/4 ML Vial 10 MG IV (16:17)
[2018-07-02] MEDS: Acetaminophen 325 MG Tablet 650 MG PO (17:54)
[2018-07-02] MEDS: Atorvastatin Calcium 10 MG Tablet PO (21:09)
[2018-07-03] VITALS (15 sets, daily range): BP systolic 140–179; BP diastolic 64–76; PULSE 62–83; RESP 16–18; TEMP 36.2–36.6; O2SAT 93–97
[2018-07-03] MEDS: oxyCODONE 5 MG Tablet PO ×3 (03:27→21:15)
[2018-07-03] MEDS: 0.9% Normal Saline 1,000 ML 100 ML IV (04:35)
[2018-07-03] MEDS: Pregabalin 75 MG Capsule 150 MG PO ×3 (05:05→21:14)
[2018-07-03 06:24] LABS: Absolute Lymphocyte Count 1.03 X10^3/ul (0.83-4.51); Absolute Neutrophil Count 9.7 X10^3/uL (2.0-7.7); Basophil# 0.01 X10^3/uL; Basophil% 0.1 % (0-1); Hematocrit 31.6 % (40-54); Lymphocyte # 1.03 X10^3/ul (4.0); Lymphocyte % 9.1 % (19-41); Mean Corp Hgb Conc 34.8 g/gl (32-36); Mean Corpuscular Hgb 32.4 pg (27.0-32.0); Mean Corpuscular Volume 92.9 fL (80-94); Mean Platelet Vol. 11.2 fl (6.2-12.0); Monocyte# 0.62 X10^3/uL; Monocyte% 5.5 % (0-10); Neutrophil # 9.67 X10^3/uL (2.7-7.7); Neutrophil % 84.9 % (47-70); Platelet Count 83 K/mm3 (150-450); White Blood Count 11.4 K/mm3 (4.4-11.0)
[2018-07-03 06:33] LABS: Anion Gap 8 (5-15); BUN 13 mg/dL (7-18); BUN/Creat Ratio 25.5 RATIO (10-20); Calcium,Total 7.9 mg/dL (8.5-10.1); Chloride 112 mmol/L (98-107); Creatinine, Serum 0.51 mg/dL (0.70-1.30); EST Glomerular Filtration Rate 176 mL/min (>60); Est Glom Filt Rate - Afr Amer 213 mL/min (>60); Estimated Creatinine Clearance 134.42 ml/min; Glucose 82 mg/dL (74-106); Potassium 3.4 mmol/L (3.5-5.1); Sodium Level 143 mmol/L (136-145)
[2018-07-03 06:36] LABS: POSITIVE COUNT NO; POSITIVE DIFFERENTIAL NO; POSITIVE MORPHOLOGY NO
[2018-07-03] MEDS: Ipratropium/Albuterol Sulfate 3 ML AMPUL.NEB INHALATION ×3 (07:36→19:53)
--- NOTE | 2018-07-03 10:43 | PCM.PROGNOTE ---
Subjective: Patient transferred out of the intensive care unit yesterday. Patient appears to be doing well. Patient reports chest pain is improved compared to previous. Patient saturating 97% on room air. Patient does continue to report dyspnea on exertion. - Physical Exam General: Alert, Oriented x3, Cooperative, No apparent distress, - - No conversational dyspnea. Appears older than stated age. HEENT: Atraumatic, PERRLA, EOMI, Normocephalic Oral: Moist Mucosa, No Gingival or Mucosal Lesions/ Ulcerations, - - Poor dentition Neck: Supple, No JVD, No Nodes, Trachea Midline Lungs: No rhonchi, Diminished - Left base, Wheezes - Sporadic Cardiovascular: Regular rate, Regular Rhythm, Normal S1, Normal S2, No murmurs, No rub noted, No Gallop Abdomen: Bowel Sounds Present, Soft, Non Tender, Non-Distended Extremities: No cyanosis, No edema, Capillary Refill Less than 3 Seconds, Clubbing Skin: No rashes, No breakdown Musculoskeletal: No Tenderness to Palpation of Joints or Extremities Lymphatic: No Cervical, Supraclavicular, or Inguinal Adenopathy Neurological: Cranial nerves II-XII grossly intact, Neuro grossly intact, Motor Exam 5/5 strength throughout Psych/Mental Status: Alert and oriented to time, place, person, mood and affect Vital Signs Temp Pulse Resp BP Pulse Ox 36.6 C 78 18 179/76 H 96 07/03/18 10:41 07/03/18 10:41 07/03/18 10:41 07/03/18 10:41 07/03/18 10:41 Oxygen Flow Rate (L/min) 3 Oxygen Delivery Method Room Air Weight: 61.7 kg Body Mass Index (BMI) 20.4 Intake and Output for Last 24 Hours 07/01/18 07/02/18 07/03/18 23:59 23:59 23:59 Intake Total 3584 / 3584 2715 / 2715 1441 / 1441 Output Total 1500 / 1500 2625 / 2625 1400 / 1400 Balance 2084 / 2084 90 / 90 41 / 41 Microbiology Past 72 Hours 07/01/18 19:30 Urine Culture - Final Urine, Clean Catch Mixed Gram Positive Organisms 07/01/18 16:00 Gram Stain - Final Sputum, Expectorated/Coughed Respiratory Culture - Final Streptococcus pneumoniae Laboratory Tests Past 24 Hrs 07/02/18 07/03/1807/03/19 14:20 05:45 05:45 WBC 11.4 H RBC 3.40 L Hgb 11.0 L Hct 31.6 L MCV 92.9 MCH 32.4 H MCHC 34.8 RDW 14.0 RDW Differential 46.0 H Plt Count 83 L MPV 11.2 Immature Gran % (Auto) 0.400 Neut % (Auto) 84.9 H Lymph % (Auto) 9.1 L [place] % (Auto) 5.5 Eos % (Auto) 0.0 Baso % (Auto) 0.1 Absolute Neuts (auto) 9.7 H Absolute Lymphs (auto) 1.03 Total Counted Not Reportable Sodium 143 Potassium 3.4 L Chloride 112 H Carbon Dioxide 23.0 Anion Gap 8 BUN 13 Creatinine 0.51 L Estim Creat Clear Calc 134.42 Est GFR (MDRD) Af Amer 213 Est GFR (MDRD) Non-Af 176 BUN/Creatinine Ratio 25.5 H Glucose 82 Lactic Acid 1.8 Calcium 7.9 L Medical Necessity - Tobacco Use Smoking Status: Current every day smoker Tobacco Use: Cigarettes Assessment/Plan RECOMMENDATIONS: 1. Continue bronchodilators and steroid therapy 2. Aggressive pain control with pulmonary toileting 3. Transition to amoxicillin, okay to wean steroids over the next 12-14 days. 4. Walking oximetry prior to discharge 5. Follow-up with nurse practitioner 2 weeks after discharge 6. Potential discharge later today IMPRESSIONS: 1. Severe sepsis secondary to left lower lobe infiltrate, presumed community-acquired pneumonia Patient responding very well to current therapy. Patient saturating well on room air. Patient's mobility is somewhat limited secondary to history of AKA, but would require a walking oximetry prior to discharge. Patient should have an outpatient pulmonary function test and repeat imaging to evaluate for possible mass underneath the dense pneumonia. Defer to hospitalist, but patient may be able to be discharged later today. 2. Pleurisy Likely secondary to #1. Patient will benefit from steroid therapy. NSAIDs would be another option. Patient also has morphine for breakthrough pain. Encourage the patient for incentive spirometer to avoid other complications. Aggressive pulmonary toileting. 3. CAD status post CABG/peripheral vascular disease/left AKA/hypertension/hyperlipidemia Complicates care, management, recovery and prognosis. Likely okay to continue with baseline medications. Code Visit Inpatient E&M: 56960 Subs Hosp L2
[2018-07-03] MEDS: Citalopram 20 MG Tablet 40 MG PO (10:44)
[2018-07-03] MEDS: Aspirin E.C. 81 MG Tablet PO (10:44)
[2018-07-03] MEDS: AMOXICILLIN 500 MG CAPSULE PO ×3 (10:44→21:14)
[2018-07-03] MEDS: Metoprolol Tartrate 50 MG Tablet PO ×2 (10:44→21:14)
[2018-07-03] MEDS: Gabapentin 600 MG Tablet PO ×4 (10:44→21:14)
[2018-07-03] MEDS: DULoxetine Hcl 60 MG Capsule PO (10:44)
[2018-07-03] MEDS: Lisinopril 10 MG Tablet PO ×2 (10:44→13:31)
[2018-07-03] MEDS: APIXABAN 5 MG TABLET PO ×2 (10:45→21:15)
[2018-07-03] MEDS: guaiFENesin 1,200 MG Tablet 1200 MG PO ×2 (10:45→21:14)
[2018-07-03] MEDS: predniSONE 20 MG Tablet 40 MG PO (10:47)
--- NOTE | 2018-07-03 13:07 | PCM.PN.HOSP ---
Subjective: Patient seen and examined. He feels much better today. Shortness of breath has improved significantly though he states he does feel a bit short of breath when he ambulates. He has been weaned off of oxygen. He states cough is improving and he is coughing up more sputum which makes his chest feel better. Left-sided pleuritic chest pain is also improved. Review of systems otherwise negative. Labs and vitals reviewed. Patient does not want to go home today because he states his girlfriend who he lives with is going to pull out her teeth in [place] and so she would not be able to pick him up as he does not know what time her appointment will be over. Vitals/I&O's: Vital Signs Temp Pulse Resp BP Pulse Ox 97.8 F 74 18 179/76 H 96 07/03/18 10:41 07/03/18 10:44 07/03/18 10:41 07/03/18 10:41 07/03/18 10:41 Oxygen Flow Rate (L/min) 3 Oxygen Delivery Method Room Air Weight: 136 lb 0.403 oz Body Mass Index (BMI) 20.4 Intake and Output for Last 24 Hours 07/01/18 07/02/18 07/03/18 23:59 23:59 23:59 Intake Total 3584 / 3584 2715 / 2715 1441 / 1441 Output Total 1500 / 1500 2625 / 2625 1400 / 1400 Balance 2084 / 2084 90 / 90 41 / 41 General: Alert, Oriented x3, Cooperative, No apparent distress HEENT: Atraumatic, PERRLA, EOMI, Normocephalic Oral: Moist Mucosa Neck: Supple, No JVD, Negative Carotid Bruits Lungs: - - lungs are clear to auscultation. on room air and saturating well Cardiovascular: Regular rate, Regular Rhythm, Normal S1, Normal S2, No murmurs Abdomen: Bowel Sounds Present, Soft, Non Tender, Non-Distended, No Hepato-splenomegaly Extremities: No clubbing, No cyanosis, No edema, Capillary Refill Less than 3 Seconds, - - Left above-knee amputation. Skin: No rashes, No breakdown Musculoskeletal: No Tenderness to Palpation of Joints or Extremities Lymphatic: No Cervical, Supraclavicular, or Inguinal Adenopathy Neurological: Cranial nerves II-XII grossly intact, Neuro grossly intact, Motor Exam 5/5 strength throughout Psych/Mental Status: Normal Affect, Appropriate, Alert and oriented to time, place, person, mood and affect Microbiology Past 72 Hours 07/01/18 19:30 Urine, Clean Catch Urine Culture - Final Mixed Gram Positive Organisms 07/01/18 16:00 Sputum, Expectorated/Coughed Gram Stain - Final 07/01/18 16:00 Sputum, Expectorated/Coughed Respiratory Culture - Final Streptococcus pneumoniae Laboratory Results 07/02/18 14:20: Lactic Acid 1.8 07/03/18 05:45: WBC 11.4 H, RBC 3.40 L, Hgb 11.0 L, Hct 31.6 L, MCV 92.9, MCH 32.4 H, MCHC 34.8, RDW 14.0, RDW Differential 46.0 H, Plt Count 83 L, MPV 11.2, Immature Gran % (Auto) 0.400, Neut % (Auto) 84.9 H, Lymph % (Auto) 9.1 L, [place] % (Auto) 5.5, Eos % (Auto) 0.0, Baso % (Auto) 0.1, Absolute Neuts (auto) 9.7 H, Absolute Lymphs (auto) 1.03, Total Counted Not Reportable 07/03/18 05:45: Sodium 143, Potassium 3.4 L, Chloride 112 H, Carbon Dioxide 23.0, Anion Gap 8, BUN 13, Creatinine 0.51 L, Estim Creat Clear Calc 134.42, Est GFR (MDRD) Af Amer 213, Est GFR (MDRD) Non-Af 176, BUN/Creatinine Ratio 25.5 H, Glucose 82, Calcium 7.9 L Diagnostic Data Chest X-Ray 07/01/18 12:38 IMPRESSION: Consolidation in the posterior medial segment of the left lower lobe with a small left pleural effusion. Increased markings in the lingular segment of the left upper lobe. Electronically Signed: Fer Motta MD at 12:58 EST Tel [phone], Service support , Current Medications Acetaminophen (Tylenol) 650 mg PO Q6H PRN PRN PRN Reason: Fever, headache, pain Last Admin: 07/02/18 17:54 Dose: 650 mg Albuterol Sulfate (Ventolin Aerosols) 2.5 mg INHALATION Q2H PRN PRN PRN Reason: SOB &/OR WHEEZING Last Admin: 07/01/18 15:50 Dose: 2.5 mg Albuterol/Ipratropium (Duoneb) 3 ml INHALATION Q6H.RT [facility] Last Admin: 07/03/18 07:36 Dose: 3 ml Amoxicillin (Amoxil) 500 mg PO Q8 [facility] Stop: 07/10/18 22:01 Apixaban (Eliquis) 5 mg PO BID [facility] Last Admin: 07/03/18 10:45 Dose: 5 mg Aspirin (Ecotrin) 81 mg PO DAILY@0800 [facility] Last Admin: 07/03/18 10:44 Dose: 81 mg Atorvastatin Calcium (Lipitor) 10 mg PO QHS [facility] Last Admin: 07/02/18 21:09 Dose: 10 mg Citalopram Hydrobromide (Celexa) 40 mg PO DAILY [facility] Last Admin: 07/03/18 10:44 Dose: 40 mg Duloxetine HCl (Cymbalta) 60 mg PO DAILY [facility] Last Admin: 07/03/18 10:44 Dose: 60 mg Gabapentin (Neurontin) 600 mg PO 4X/DAY [facility] Last Admin: 07/03/18 10:44 Dose: 600 mg Guaifenesin (Mucinex) 1,200 mg PO BID [facility] Last Admin: 07/03/18 10:45 Dose: 1,200 mg Labetalol HCl (Trandate) 10 mg IV Q6H PRN PRN PRN Reason: BLOOD PRESSURE ELEVATION Last Admin: 07/02/18 16:17 Dose: 10 mg Lisinopril (Zestril) 10 mg PO DAILY [facility] Last Admin: 07/03/18 10:44 Dose: 10 mg Magnesium Hydroxide (Milk Of Magnesia) 30 ml PO DAILY PRN PRN PRN Reason: Constipation Metoprolol Tartrate (Lopressor (Beta Kayla)) 50 mg PO BID [facility] Last Admin: 07/03/18 10:44 Dose: 50 mg Morphine Sulfate () 1 mg IV Q3H PRN PRN PRN Reason: SEVERE PAIN (6-10/10) Last Admin: 07/01/18 19:46 Dose: 1 mg Nicotine (Nicoderm Cq (Pbkc)) 21 mg TRANSDERM. DAILY [facility] Last Admin: 07/02/18 09:53 Dose: 21 mg Ondansetron HCl (Zofran) 4 mg IV Q6H PRN PRN PRN Reason: NAUSEA/VOMITING Oxycodone HCl (Oxyir) 5 mg PO Q6H PRN PRN PRN Reason: SEVERE PAIN (6-10/10) Last Admin: 07/03/18 03:27 Dose: 5 mg Prednisone () 40 mg PO DAILY@0800 [facility] Last Admin: 07/03/18 10:47 Dose: 40 mg Pregabalin (Lyrica) 150 mg PO TID [facility] Last Admin: 07/03/18 05:05 Dose: 150 mg Sodium Chloride () 5 - 15 ml IV UD PRN PRN Reason: SALINE FLUSH Last Admin: 07/02/18 18:01 Dose: 10 ml Medical Necessity - Tobacco Use Smoking Status: Current every day smoker Tobacco Use: Cigarettes Assessment/Plan 1. Severe sepsis due to community acquired pneumonia resolving. leucocytosis is 11.4 today IV levaquin transitioned to PO augmentin. sputum cultured strep pneumoniae blood culture still pending. on PO steroids, which are likely contributing to the elevated white cell count 2. Community-acquired pneumonia: As under 1. 3. Lactic acidosis: resolved. peaked at 4.7, but came down to 1.8. 4. Hypokalemia: K is 3.4. Will replace and monitor 5. CAD status post CABG: On aspirin, statin, metoprolol and lisinopril. 6. PAD: Status post left above-knee amputation. On aspirin, statins and Eliquis. 7. Hypertension: BP poorly controlled. BP in 170s and 180s systolic. Will increase lisinopril from 10mg daily to 20mg daily. Will continue metoprolol 50mg bid. IV hydralazine prn. 8. Hyperlipidemia: on statins. DVT prophylaxis: On Eliquis Code Visit Inpatient E&M: 60300 Subs Hosp L2
--- NOTE | 2018-07-03 13:17 | PN_ITS ---
Subjective: Patient seen and examined. He feels much better today. Shortness of breath has improved significantly though he states he does feel a bit short of breath when he ambulates. He has been weaned off of oxygen. He states cough is improving and he is coughing up more sputum which makes his chest feel better. Left-sided pleuritic chest pain is also improved. Review of systems otherwise negative. Labs and vitals reviewed. Patient does not want to go home today because he states his girlfriend who he lives with is going to pull out her teeth in [place] and so she would not be able to pick him up as he does not know what time her appointment will be over. Vitals/I&O's: Vital Signs Temp Pulse Resp BP Pulse Ox 97.8 F 74 18 179/76 H 96 07/03/18 10:41 07/03/18 10:44 07/03/18 10:41 07/03/18 10:41 07/03/18 10:41 Oxygen Flow Rate (L/min) 3 Oxygen Delivery Method Room Air Weight: 136 lb 0.403 oz Body Mass Index (BMI) 20.4 Intake and Output for Last 24 Hours 07/01/18 07/02/18 07/03/18 23:59 23:59 23:59 Intake Total 3584 / 3584 2715 / 2715 1441 / 1441 Output Total 1500 / 1500 2625 / 2625 1400 / 1400 Balance 2084 / 2084 90 / 90 41 / 41 General: Alert, Oriented x3, Cooperative, No apparent distress HEENT: Atraumatic, PERRLA, EOMI, Normocephalic Oral: Moist Mucosa Neck: Supple, No JVD, Negative Carotid Bruits Lungs: - - lungs are clear to auscultation. on room air and saturating well Cardiovascular: Regular rate, Regular Rhythm, Normal S1, Normal S2, No murmurs Abdomen: Bowel Sounds Present, Soft, Non Tender, Non-Distended, No Hepato- splenomegaly Extremities: No clubbing, No cyanosis, No edema, Capillary Refill Less than 3 Seconds, - - Left above-knee amputation. Skin: No rashes, No breakdown Musculoskeletal: No Tenderness to Palpation of Joints or Extremities Lymphatic: No Cervical, Supraclavicular, or Inguinal Adenopathy Neurological: Cranial nerves II-XII grossly intact, Neuro grossly intact, Motor Exam 5/5 strength throughout Psych/Mental Status: Normal Affect, Appropriate, Alert and oriented to time, place, person, mood and affect Microbiology Past 72 Hours 07/01/18 19:30 Urine, Clean Catch Urine Culture - Final Mixed Gram Positive Organisms 07/01/18 16:00 Sputum, Expectorated/Coughed Gram Stain - Final 07/01/18 16:00 Sputum, Expectorated/Coughed Respiratory Culture - Final Streptococcus pneumoniae Laboratory Results 07/02/18 14:20: Lactic Acid 1.8 07/03/18 05:45: WBC 11.4 H, RBC 3.40 L, Hgb 11.0 L, Hct 31.6 L, MCV 92.9, MCH 32.4 H, MCHC 34.8, RDW 14.0, RDW Differential 46.0 H, Plt Count 83 L, MPV 11.2, Immature Gran % (Auto) 0.400, Neut % (Auto) 84.9 H, Lymph % (Auto) 9.1 L, [place] % (Auto) 5.5, Eos % (Auto) 0.0, Baso % (Auto) 0.1, Absolute Neuts (auto) 9.7 H, Absolute Lymphs (auto) 1.03, Total Counted Not Reportable 07/03/18 05:45: Sodium 143, Potassium 3.4 L, Chloride 112 H, Carbon Dioxide 23.0, Anion Gap 8, BUN 13, Creatinine 0.51 L, Estim Creat Clear Calc 134.42, Est GFR (MDRD) Af Amer 213, Est GFR (MDRD) Non-Af 176, BUN/Creatinine Ratio 25.5 H, Glucose 82, Calcium 7.9 L Diagnostic Data Chest X-Ray 07/01/18 12:38 IMPRESSION: Consolidation in the posterior medial segment of the left lower lobe with a small left pleural effusion. Increased markings in the lingular segment of the left upper lobe. Electronically Signed: Fer Motta MD at 12:58 EST Tel [phone], Service support , Current Medications Acetaminophen (Tylenol) 650 mg PO Q6H PRN PRN PRN Reason: Fever, headache, pain Last Admin: 07/02/18 17:54 Dose: 650 mg Albuterol Sulfate (Ventolin Aerosols) 2.5 mg INHALATION Q2H PRN PRN PRN Reason: SOB &/OR WHEEZING Last Admin: 07/01/18 15:50 Dose: 2.5 mg Albuterol/Ipratropium (Duoneb) 3 ml INHALATION Q6H.RT [facility] Last Admin: 07/03/18 07:36 Dose: 3 ml Amoxicillin (Amoxil) 500 mg PO Q8 [facility] Stop: 07/10/18 22:01 Apixaban (Eliquis) 5 mg PO BID [facility] Last Admin: 07/03/18 10:45 Dose: 5 mg Aspirin (Ecotrin) 81 mg PO DAILY@0800 [facility] Last Admin: 07/03/18 10:44 Dose: 81 mg Atorvastatin Calcium (Lipitor) 10 mg PO QHS [facility] Last Admin: 07/02/18 21:09 Dose: 10 mg Citalopram Hydrobromide (Celexa) 40 mg PO DAILY [facility] Last Admin: 07/03/18 10:44 Dose: 40 mg Duloxetine HCl (Cymbalta) 60 mg PO DAILY [facility] Last Admin: 07/03/18 10:44 Dose: 60 mg Gabapentin (Neurontin) 600 mg PO 4X/DAY [facility] Last Admin: 07/03/18 10:44 Dose: 600 mg Guaifenesin (Mucinex) 1,200 mg PO BID [facility] Last Admin: 07/03/18 10:45 Dose: 1,200 mg Labetalol HCl (Trandate) 10 mg IV Q6H PRN PRN PRN Reason: BLOOD PRESSURE ELEVATION Last Admin: 07/02/18 16:17 Dose: 10 mg Lisinopril (Zestril) 10 mg PO DAILY [facility] Last Admin: 07/03/18 10:44 Dose: 10 mg Magnesium Hydroxide (Milk Of Magnesia) 30 ml PO DAILY PRN PRN PRN Reason: Constipation Metoprolol Tartrate (Lopressor (Beta Kayla)) 50 mg PO BID [facility] Last Admin: 07/03/18 10:44 Dose: 50 mg Morphine Sulfate () 1 mg IV Q3H PRN PRN PRN Reason: SEVERE PAIN (6-10/10) Last Admin: 07/01/18 19:46 Dose: 1 mg Nicotine (Nicoderm Cq (Pbkc)) 21 mg TRANSDERM. DAILY [facility] Last Admin: 07/02/18 09:53 Dose: 21 mg Ondansetron HCl (Zofran) 4 mg IV Q6H PRN PRN PRN Reason: NAUSEA/VOMITING Oxycodone HCl (Oxyir) 5 mg PO Q6H PRN PRN PRN Reason: SEVERE PAIN (6-10/10) Last Admin: 07/03/18 03:27 Dose: 5 mg Prednisone () 40 mg PO DAILY@0800 [facility] Last Admin: 07/03/18 10:47 Dose: 40 mg Pregabalin (Lyrica) 150 mg PO TID [facility] Last Admin: 07/03/18 05:05 Dose: 150 mg Sodium Chloride () 5 - 15 ml IV UD PRN PRN Reason: SALINE FLUSH Last Admin: 07/02/18 18:01 Dose: 10 ml Medical Necessity - Tobacco Use Smoking Status: Current every day smoker Tobacco Use: Cigarettes Assessment/Plan 1. Severe sepsis due to community acquired pneumonia * resolving. * leucocytosis is 11.4 today * IV levaquin transitioned to PO augmentin. * sputum cultured strep pneumoniae * blood culture still pending. * on PO steroids, which are likely contributing to the elevated white cell count * 2. Community-acquired pneumonia: As under 1. 3. Lactic acidosis: resolved. peaked at 4.7, but came down to 1.8. * 4. Hypokalemia: K is 3.4. Will replace and monitor 5. CAD status post CABG: On aspirin, statin, metoprolol and lisinopril. 6. PAD: Status post left above-knee amputation. On aspirin, statins and Eliquis. 7. Hypertension: * BP poorly controlled. * BP in 170s and 180s systolic. * Will increase lisinopril from 10mg daily to 20mg daily. * Will continue metoprolol 50mg bid. IV hydralazine prn. * 8. Hyperlipidemia: on statins. DVT prophylaxis: On Eliquis Code Visit Inpatient E&M: 05472 Subs Hosp L2
[2018-07-03] MEDS: Atorvastatin Calcium 10 MG Tablet PO (21:15)
[2018-07-04] VITALS (14 sets, daily range): BP systolic 152–176; BP diastolic 49–70; PULSE 62–78; RESP 16–20; TEMP 36.6–36.8; O2SAT 78–98
[2018-07-04] MEDS: Ipratropium/Albuterol Sulfate 3 ML AMPUL.NEB INHALATION ×2 (00:58→07:20)
[2018-07-04] MEDS: Labetalol 20 MG/4 ML Vial 10 MG IV (02:59)
[2018-07-04] MEDS: 0.9% NaCl Peripheral Flush Adult/Peds IV ×2 (03:01→05:24)
[2018-07-04] MEDS: AMOXICILLIN 500 MG CAPSULE PO ×2 (05:15→12:48)
[2018-07-04] MEDS: Pregabalin 75 MG Capsule 150 MG PO ×2 (05:15→12:48)
[2018-07-04] MEDS: hydrALAZINE 20 MG/ML Vial 10 MG IV (05:24)
[2018-07-04 06:14] LABS: Absolute Lymphocyte Count 1.51 X10^3/ul (0.83-4.51); Absolute Neutrophil Count 9.4 X10^3/uL (2.0-7.7); Basophil# 0.01 X10^3/uL; Basophil% 0.1 % (0-1); Eosinophil# 0.01 X10^3/uL; Eosinophils% 0.1 % (0-5); Hematocrit 34.2 % (40-54); Hemoglobin 11.8 g/dl (13.0-16.5); Lymphocyte # 1.51 X10^3/ul (4.0); Lymphocyte % 12.9 % (19-41); Mean Corp Hgb Conc 34.5 g/gl (32-36); Mean Corpuscular Hgb 32.4 pg (27.0-32.0); Mean Platelet Vol. 11.1 fl (6.2-12.0); Neutrophil # 9.39 X10^3/uL (2.7-7.7); Neutrophil % 80.5 % (47-70); Platelet Count 96 K/mm3 (150-450); RBC Distribution Width CV 14.4 % (11.6-14.6); RBC Distribution Width SD 47.3 fl (35.1-43.9); Red Blood Count 3.64 M/mm3 (4.6-6.2); White Blood Count 11.7 K/mm3 (4.4-11.0)
[2018-07-04 06:21] LABS: POSITIVE COUNT NO; POSITIVE DIFFERENTIAL NO; POSITIVE MORPHOLOGY NO
[2018-07-04 06:40] LABS: Anion Gap 9 (5-15); BUN 11 mg/dL (7-18); Calcium,Total 8.1 mg/dL (8.5-10.1); Chloride 112 mmol/L (98-107); Creatinine, Serum 0.58 mg/dL (0.70-1.30); EST Glomerular Filtration Rate 152 mL/min (>60); Est Glom Filt Rate - Afr Amer 184 mL/min (>60); Estimated Creatinine Clearance 117.43 ml/min; Glucose 84 mg/dL (74-106); Potassium 3.2 mmol/L (3.5-5.1); Sodium Level 144 mmol/L (136-145)
--- NOTE | 2018-07-04 07:45 | PN_ITS ---
Subjective: Patient did well overnight. Patient feels subjectively improved compared to previous. Patient states the chest pain continues to improve. Patient still had some dyspnea on exertion with therapy yesterday, but overall feels that it is improving. No hemoptysis has been reported. - Physical Exam General: Alert, Oriented x3, Cooperative, No apparent distress, - - Appears older than stated age. Speaking in full sentences. HEENT: Atraumatic, PERRLA, EOMI, Normocephalic, - - No scleral icterus or injection noted. Oral: Moist Mucosa, No Gingival or Mucosal Lesions/ Ulcerations Neck: Supple, No JVD, No Nodes, Trachea Midline Lungs: No rhonchi, No wheeze, No rales, Diminished - Left base, - - Symmetric expansion. No dullness to percussion. Cardiovascular: Regular rate, Regular Rhythm, Normal S1, Normal S2, No murmurs, No rub noted, No Gallop Abdomen: Bowel Sounds Present, Soft, Non Tender, Non-Distended Extremities: No cyanosis, No edema, Capillary Refill Less than 3 Seconds, Clubbing Skin: No rashes, No breakdown Musculoskeletal: No Tenderness to Palpation of Joints or Extremities Lymphatic: No Cervical, Supraclavicular, or Inguinal Adenopathy Neurological: Cranial nerves II-XII grossly intact, Neuro grossly intact, Motor Exam 5/5 strength throughout Psych/Mental Status: Alert and oriented to time, place, person, mood and affect Vital Signs Temp Pulse Resp BP Pulse Ox 36.8 C 72 18 172/49 H 95 07/04/18 05:11 07/04/18 05:24 07/04/18 05:11 07/04/18 05:24 07/04/18 05:11 Oxygen Flow Rate (L/min) 3 Oxygen Delivery Method Room Air Weight: 61.3 kg Body Mass Index (BMI) 20.4 Intake and Output for Last 24 Hours 07/02/18 07/03/18 07/04/18 23:59 23:59 23:59 Intake Total 2715 / 2715 3898 / 3898 480 / 480 Output Total 2625 / 2625 3425 / 3425 2700 / 2700 Balance 90 / 90 473 / 473 -2220 / -2220 Microbiology Past 72 Hours 07/01/18 14:05 Blood Culture - Preliminary Blood Culture (Wb) - Anticubital Left No growth in 48 hours. 01/21/19 14:00 Blood Culture - Preliminary Blood Culture (Wb) - Left Wrist No growth in 48 hours. 07/01/18 19:30 Urine Culture - Final Urine, Clean Catch Mixed Gram Positive Organisms 07/01/18 16:00 Gram Stain - Final Sputum, Expectorated/Coughed Respiratory Culture - Final Streptococcus pneumoniae Laboratory Tests Past 24 Hrs 07/04/18 07/04/18 05:50 05:50 WBC 11.7 H RBC 3.64 L Hgb 11.8 L Hct 34.2 L MCV 94.0 MCH 32.4 H MCHC 34.5 RDW 14.4 RDW Differential 47.3 H Plt Count 96 L MPV 11.1 Immature Gran % (Auto) 0.400 Neut % (Auto) 80.5 H Lymph % (Auto) 12.9 L [place] % (Auto) 6.0 Eos % (Auto) 0.1 Baso % (Auto) 0.1 Absolute Neuts (auto) 9.4 H Absolute Lymphs (auto) 1.51 Total Counted Not Reportable Sodium 144 Potassium 3.2 L Chloride 112 H Carbon Dioxide 23.0 Anion Gap 9 BUN 11 Creatinine 0.58 L Estim Creat Clear Calc 117.43 Est GFR (MDRD) Af Amer 184 Est GFR (MDRD) Non-Af 152 BUN/Creatinine Ratio 19.0 Glucose 84 Calcium 8.1 L Medical Necessity - Tobacco Use Smoking Status: Current every day smoker Tobacco Use: Cigarettes Assessment/Plan RECOMMENDATIONS: 1. Continue bronchodilators and steroid therapy 2. Aggressive pain control with pulmonary toileting 3. Transition to amoxicillin, okay to wean steroids over the next 12-14 days. 4. Walking oximetry prior to discharge 5. Follow-up with nurse practitioner 2 weeks after discharge 6. Potential discharge later today IMPRESSIONS: 1. Severe sepsis secondary to left lower lobe infiltrate, presumed community-acquired pneumonia Patient responding very well to current therapy. Patient saturating well on room air. Patient's mobility is somewhat limited secondary to history of AKA, but patient does have a prosthesis that he uses at baseline. Will obtain a walking oximetry prior to discharge. Patient should have an outpatient pulmonary function test and repeat imaging to evaluate for possible mass underneath the dense pneumonia. Defer to hospitalist, but patient may be able to be discharged later today. 2. Pleurisy Continues to improve. Likely secondary to #1. Patient will benefit from steroid therapy. NSAIDs would be another option. Encourage the patient for incentive spirometer to avoid other complications. Aggressive pulmonary toileting. 3. CAD status post CABG/peripheral vascular disease/left AKA/hypertension/hyperlipidemia Complicates care, management, recovery and prognosis. Likely okay to continue with baseline medications. Code Visit Inpatient E&M: 53140 Subs Hosp L2
[2018-07-04] MEDS: guaiFENesin 1,200 MG Tablet 1200 MG PO (08:27)
[2018-07-04] MEDS: Metoprolol Tartrate 50 MG Tablet PO (08:27)
[2018-07-04] MEDS: Lisinopril 20 MG Tablet PO (08:27)
[2018-07-04] MEDS: Gabapentin 600 MG Tablet PO ×2 (08:28→12:48)
[2018-07-04] MEDS: Citalopram 20 MG Tablet 40 MG PO (08:28)
[2018-07-04] MEDS: DULoxetine Hcl 60 MG Capsule PO (08:28)
[2018-07-04] MEDS: predniSONE 20 MG Tablet 40 MG PO (08:28)
[2018-07-04] MEDS: Aspirin E.C. 81 MG Tablet PO (08:28)
[2018-07-04] MEDS: APIXABAN 5 MG TABLET PO (08:28)
[2018-07-04] MEDS: oxyCODONE 5 MG Tablet PO (08:37)
[2018-07-04] MEDS: Acetaminophen 325 MG Tablet 650 MG PO (08:38)
--- NOTE | 2018-07-04 10:33 | DCINST_ITS ---
You will use the following diet at home:: Cardiac Your food should be the consistency of: Regular Your liquids should be the consistency of: Regular/Thin Discharge Activity: Return to Normal Activity Weight Bearing Status: Weight bearing as tolerated Call your doctor if you observe: Fever of 101 or Higher, Shortness of breath Instructions: Discharge Instructions for Pneumonia Additional Instructions: use oxygen for shortness of breath. Allergies/Adverse Reactions: Allergies No Known Allergies Allergy (Verified 06/25/18 13:07) Medications to take at Discharge Citalopram [Celexa] 40 mg PO DAILY 09/28/14 Lisinopril [Zestril] 10 mg PO DAILY 09/28/14 Gabapentin [Neurontin] 600 mg PO 4X/DAY #120 tab 11/10/15 Oxycodone HCl/Acetaminophen [Percocet 10-325 mg Tablet] 1 - 2 tab PO Q6H PRN PRN 09/23/17 Pregabalin [Lyrica] 150 mg PO TID 09/23/17 duloxetine 60 mg capsule,delayed release 60 mg PO DAILY 12/03/17 Apixaban [Eliquis] 5 mg PO BID 07/01/18 Aspirin [Aspir 81] 81 mg PO DAILY 07/01/18 Hydrocodone/Acetaminophen [Hydrocodon-Acetaminophen 5-325] 1 each PO Q6H PRN PRN 07/01/18 Metoprolol Tartrate [Lopressor (beta nanette)] 50 mg PO BID 07/01/18 Simvastatin 20 mg PO DAILY 07/01/18 Albuterol IH (ProAir) [Proair Hfa] 1 - 2 puff INHALATION Q4H PRN PRN #1 inhaler 07/04/18 Amoxicillin [Amoxil] 500 mg PO Q8 #21 capsule 07/04/18 Guaifenesin [Mucinex] 1,200 mg PO BID #30 tablet 07/04/18 MethylPREDNISolone DosePak [Medrol DosePak] 4 mg PO UD #1 box 07/04/18 The following prescriptions were given: Albuterol IH (ProAir) [Proair Hfa] 1 - 2 puff INHALATION Q4H PRN PRN #1 inhaler PRN Reason: Shortness Of Breath Amoxicillin [Amoxil] 500 mg PO Q8 #21 capsule MethylPREDNISolone DosePak [Medrol DosePak] 4 mg PO UD #1 box Guaifenesin [Mucinex] 1,200 mg PO BID #30 tablet Primary Care Physician: Marco Sawyer MD [Primary Care Provider] - Test Results: Test results from this visit will be discussed in further detail at your follow- up appointment, if applicable.
--- NOTE | 2018-07-04 10:33 | DS.PCM_ITS ---
Discharge Date and Diagnosis Date of Admission: 07/01/18 Date of Discharge: 07/04/18 - Primary Discharge Diagnosis severe sepsis community acquired pneumonia lactic acidosis hypokalemia - Secondary Discharge Diagnosis Chronic Problems (Last Updated 07/01/18 @ 14:13 by Antoni De Santiago MD) Hypertrophy of nasal turbinates (Chronic) Nasal septal deviation (Chronic) Nasal deformity (Chronic) Bilateral carotid artery stenosis (Chronic) Right > Left Ischemia of right lower extremity (Chronic) Hyperlipidemia (Chronic) Peripheral vascular occlusive disease (Chronic) Atherosclerosis of coronary artery of [place] heart without angina pectoris (Chronic) CABG x 4 UMAZNOR Sequential -D1 and D2, SVG-Cx, SVG-RCA 06/17/2001 H/O coronary artery bypass surgery (Chronic 06/17/01) CABG x 4 UMANZOR Sequential -D1 and D2, SVG-Cx, SVG-RCA 06/17/2001 @ [facility] Hypertension (Chronic) Tobacco dependence syndrome (Chronic) Hospital Course and Treatment Imaging Results: Diagnostic Data Chest X-Ray 07/01/18 12:38 IMPRESSION: Consolidation in the posterior medial segment of the left lower lobe with a small left pleural effusion. Increased markings in the lingular segment of the left upper lobe. Electronically Signed: Fer Motta MD at 12:58 EST Tel [phone], Service support , critical care- Dr Collier Operations: None Procedures: None Summary of Care Provided: The patient is a 58 year old M with a PMH of CAD s/p CABG, hypertension, PAD, s/p LLE AKA. He was admitted with a complaint of cough, shortness of breath and chills of 2 days duration. Cough was productive, with associated left sided pleuritic chest pain. Lactic acid was 4.2. CXR showed left lower lobe consolidation and small pleural effusion. EKG showed no acute ST changes. He was admitted initially managed for septic shock due to community-acquired pneumonia. However he was not hypotensive and so did not meet the criteria for septic shock; he was managed for severe sepsis due to community-acquired pneumonia. He was started on IV Levaquin. He was initially admitted to the ICU and critical care was consulted. Leukocytosis resolved and sputum cultured strep pneumonia. He was transitioned to p.o. Augmentin. Lactic acidosis resolved and hyperkalemia also resolved. Patient remained stable. He was discharged home on 07/04/2018 with a prescription for p.o. Augmentin. He was also given a prescription for Medrol Dosepak and albuterol inhaler. Ambulatory pulse ox prior to discharge showed the patient desaturated to 78% on room air and therefore qualified for oxygen. He was discharged home with home oxygen of 2L. He is to follow-up with his primary care doctor. Patient seen and examined prior to discharge. He had no complaints and felt well. He did say that he felt mildly short of breath with exertion. He denied any fever chills, cough or chest pain, abdominal pain, diarrhea or vomiting. Review of systems was otherwise negative. Labs and vitals reviewed. Home meds reviewed and reconciled. o/e: Vital Signs Height 5 ft 8 in Weight: 135 lb 2.294 oz Weight in Pounds 135.1 lbs Pulse Ox [AMBULATION with 96 Oxygen] Pulse Ox [AMBULATING on Room 78 Air] Pulse Ox [At REST on Room Air] 95 Pulse Ox 96 Temperature 97.9 F Pulse Rate 78 Respiratory Rate 18 Blood Pressure [BP] 148/55 Blood Pressure 152/68 Blood Pressure Position [BP] Semi-Fowlers Blood Pressure Position Sitting [] General: Alert, Oriented x3, Cooperative, No apparent distress HEENT: Atraumatic, PERRLA, EOMI, Normocephalic Oral: Moist Mucosa Neck: Supple, No JVD, Negative Carotid Bruits Lungs: - - lungs are clear to auscultation. Cardiovascular: Regular rate, Regular Rhythm, Normal S1, Normal S2, No murmurs Abdomen: Bowel Sounds Present, Soft, Non Tender, Non-Distended, No Hepato- splenomegaly Extremities: No clubbing, No cyanosis, No edema, Capillary Refill Less than 3 Seconds, - - Left above-knee amputation. Skin: No rashes, No breakdown Musculoskeletal: No Tenderness to Palpation of Joints or Extremities Lymphatic: No Cervical, Supraclavicular, or Inguinal Adenopathy Neurological: Cranial nerves II-XII grossly intact, Neuro grossly intact, Motor Exam 5/5 strength throughout Psych/Mental Status: Normal Affect, Appropriate, Alert and oriented to time, place, person, mood and affect Plan as described above. - Physical Exam Vital Signs Temp Pulse Resp BP Pulse Ox 97.9 F 73 18 155/70 H 95 07/04/18 08:25 07/04/18 08:27 07/04/18 08:25 07/04/18 08:27 07/04/18 10:16 Oxygen Flow Rate (L/min) 3 Oxygen Delivery Method Room Air Weight: 135 lb 2.294 oz Body Mass Index (BMI) 20.4 Intake and Output for Last 24 Hours 07/02/18 07/03/18 07/04/18 23:59 23:59 23:59 Intake Total 2715 / 2715 3898 / 3898 480 / 480 Output Total 2625 / 2625 3425 / 3425 2700 / 2700 Balance 90 / 90 473 / 473 -2220 / -2220 Microbiology Past 72 Hours 07/01/18 14:05 Blood Culture - Preliminary Blood Culture (Wb) - Anticubital Left No growth in 48 hours. 07/01/18 14:00 Blood Culture - Preliminary Blood Culture (Wb) - Left Wrist No growth in 48 hours. 07/01/18 19:30 Urine Culture - Final Urine, Clean Catch Mixed Gram Positive Organisms 07/01/18 16:00 Gram Stain - Final Sputum, Expectorated/Coughed Respiratory Culture - Final Streptococcus pneumoniae Laboratory Tests Past 24 Hrs 07/04/18 07/04/18 05:50 05:50 WBC 11.7 H RBC 3.64 L Hgb 11.8 L Hct 34.2 L MCV 94.0 MCH 32.4 H MCHC 34.5 RDW 14.4 RDW Differential 47.3 H Plt Count 96 L MPV 11.1 Immature Gran % (Auto) 0.400 Neut % (Auto) 80.5 H Lymph % (Auto) 12.9 L Cottle % (Auto) 6.0 Eos % (Auto) 0.1 Baso % (Auto) 0.1 Absolute Neuts (auto) 9.4 H Absolute Lymphs (auto) 1.51 Total Counted Not Reportable Sodium 144 Potassium 3.2 L Chloride 112 H Carbon Dioxide 23.0 Anion Gap 9 BUN 11 Creatinine 0.58 L Estim Creat Clear Calc 117.43 Est GFR (MDRD) Af Amer 184 Est GFR (MDRD) Non-Af 152 BUN/Creatinine Ratio 19.0 Glucose 84 Calcium 8.1 L Discharge Diet: Low fat/ Low Cholesterol Discharge Activity: Return to Normal Activity Weight Bearing Status: Weight bearing as tolerated Call your doctor if you observe: Fever of 101 or Higher, Shortness of breath Home Medications: Medications to take at Discharge Citalopram [Celexa] 40 mg PO DAILY 09/28/14 Lisinopril [Zestril] 10 mg PO DAILY 09/28/14 Gabapentin [Neurontin] 600 mg PO 4X/DAY #120 tab 11/10/15 Oxycodone HCl/Acetaminophen [Percocet 10-325 mg Tablet] 1 - 2 tab PO Q6H PRN PRN 09/23/17 Pregabalin [Lyrica] 150 mg PO TID 09/23/17 duloxetine 60 mg capsule,delayed release 60 mg PO DAILY 12/03/17 Apixaban [Eliquis] 5 mg PO BID 07/01/18 Aspirin [Aspir 81] 81 mg PO DAILY 07/01/18 Hydrocodone/Acetaminophen [Hydrocodon-Acetaminophen 5-325] 1 each PO Q6H PRN PRN 07/01/18 Metoprolol Tartrate [Lopressor (beta nanette)] 50 mg PO BID 07/01/18 Simvastatin 20 mg PO DAILY 07/01/18 Albuterol IH (ProAir) [Proair Hfa] 1 - 2 puff INHALATION Q4H PRN PRN #1 inhaler 07/04/18 Amoxicillin [Amoxil] 500 mg PO Q8 #21 capsule 07/04/18 Guaifenesin [Mucinex] 1,200 mg PO BID #30 tablet 07/04/18 MethylPREDNISolone DosePak [Medrol DosePak] 4 mg PO UD #1 box 07/04/18 Following Prescrptions Were Given to Patient: Albuterol IH (ProAir) [Proair Hfa] 1 - 2 puff INHALATION Q4H PRN PRN #1 inhaler PRN Reason: Shortness Of Breath Amoxicillin [Amoxil] 500 mg PO Q8 #21 capsule MethylPREDNISolone DosePak [Medrol DosePak] 4 mg PO UD #1 box Guaifenesin [Mucinex] 1,200 mg PO BID #30 tablet Primary Care Physician: Marco Sawyer MD [Primary Care Provider] - Please follow up with your Primary Care Physician in: one week Patient Instructions: Discharge Instructions for Pneumonia Disposition: Home Minutes spent on discharge:: 40 Patient Condition:: Stable Medical Necessity - Tobacco Use Smoking Status: Current every day smoker Tobacco Use: Cigarettes Meaningful Use Info Meaningful Use Diagnoses (Choose all that apply): None applicable Code Visit Inpatient E&M: 62012 Disch Hosp
--- NOTE | 2018-07-04 11:05 | CASEMGMT ---
Addendum entered by Azalea Fuentes 07/04/18 11:17: Per April pharmacist, pt states he is unable to cover any amount of co-pay for meds at this time. Call to [facility] to verify if there are any co-pays for pt's meds at this time. Per April at [facility], the Mucinex is not covered and cost is $26.49. She also states that the medrol pack is $3.40, amoxicillin is $2.17, and the the albuterol has no co-pay. Per April, the Rx coverage they have for pt is [employer] [facility]. She states that pt does not have Rx coverage through his [facility]. Brown KENNEDY aware of all, voices understanding. Pt also informed April ALEXANDER that he needs a ride home and Mallika, lightning rod erector, aware, voices understanding. Julia ALEXANDER CM Original Note: Per April ALEXANDER, pt does qualify for home oxygen at this time. Pt states no preference for DME company at this time and referral faxed to [facility] at this time. Pt is informed about home oxygen set up and voices understanding. Pt voices no further questions/concerns at this time. Call to [facility] to notify of referral sent, voice understanding. Julia ALEXANDER CM
--- NOTE | 2018-07-04 11:07 | PHA.DC.COU ---
Pharmacy Services has performed discharge medication counseling for this patient. The patient was counseled on the following discharge medications and changes in medications for homegoing review. AMOXICILLIN 500M CAPSULE PO TID X21 DOSES MEDROL DOSEPAK: USE DIRECTED The Reason for Use, instructions for use, and potential side effects were reviewed for all new medications. The patient's questions regarding all of their medications were answered. The patient demonstrated some understanding but would benefit from further education and reinforcement.
--- NOTE | 2018-07-05 14:55 | CASEMGMT ---
CATHERINE CM DC PHONE CALL DC DATE: 07/04/18 DC Disposition: Home LACE/STRATA: 04/13 Attempted call to home, no answer. Rita WINNN RN ACM
--- OUTSIDE RECORDS SUMMARY | 2018-09-02 22:38 | XMS RPT_ITS ---
:1960 Author Organization OHIP Support Name Relationship Address Phone D Unavailable Unavailable Unavailable NEGIN FAUSTO Unavailable [address] + [place] [address] D Unavailable Unavailable Unavailable NEGIN FAUSTO Unavailable [address] + [place] [address] D Unavailable Unavailable Unavailable NEGIN FAUSTO Unavailable [address] + [place] [address] D Unavailable Unavailable Unavailable NEGIN, FAUSTO Unavailable [address] + [place] [address] D Unavailable Unavailable Unavailable NEGNI FAUSTO Unavailable [address] + [place] [address] D Unavailable Unavailable Unavailable NEGIN, FAUSTO Unavailable [address] + [place] [address] D Unavailable Unavailable Unavailable NEGIN, FAUSTO Unavailable [address] + [place] [address] D Unavailable Unavailable Unavailable NEGIN, FAUSTO Unavailable [address] + [place] [address] D Unavailable Unavailable Unavailable NEGIN FAUSTO Unavailable [address] + [place] [address] D Unavailable Unavailable Unavailable NEGIN FAUSTO Unavailable [address] + [place] [address] D Unavailable Unavailable Unavailable NEGIN, FAUSTO Unavailable [address] + [place] [address] D Unavailable Unavailable Unavailable NEGIN, FAUSTO Unavailable [address] + [place] [address] NONE Unavailable Unavailable Unavailable NONE Unavailable Unavailable Unavailable D Unavailable Unavailable Unavailable NEGIN, FAUSTO Unavailable [address] + [place] [address] D Unavailable Unavailable Unavailable FAUSTO KAM Unavailable [address] + [place] [address] D Unavailable Unavailable Unavailable FAUSTO KAM Unavailable [address] + [place] [address] [address] + [place] [address] D Unavailable Unavailable Unavailable D Unavailable Unavailable Unavailable FAUSTO KAM Unavailable [address] + [place] [address] D Unavailable Unavailable Unavailable FAUSTO KAM Unavailable [address] + [place] [address] [address] Un[address] + [place] [address] D Unavailable Unavailable Unavailable FAUSTO KAM Unavailable [address] + [place] [address] [address] Un[address] + [place] [address] D Unavailable Unavailable Unavailable FAUSTO KAM Unavailable [address] + [place] [address] CA[address] REN Un[address] + [place] [address] D Unavailable Unavailable Unavailable FAUSTO KAM Unavailable [address] + [place] [address] [address] + [place] [address] D Unavailable Unavailable Unavailable FAUSTO KAM Unavailable [address] + [place] [address] [address] + [place] [address] D Unavailable Unavailable Unavailable SARABIAENA Unavailable [address] + [place] [address] [address] + [place] [address] D Unavailable Unavailable Unavailable SARABIAENA Unavailable [address] + [place] [address] [address] + [place] [address] D Unavailable Unavailable Unavailable NEGIN FAUSTO Unavailable [address] + [place] [address] [address] Un[address] + [place] [address] D Unavailable Unavailable Unavailable NEGIN, FAUSTO Unavailable [address] + [place] [address] CA[address] REN Un[address] + [place] [address] Care Team Providers Name Role Phone SILVERIO GUALLPA, DR. ESPOSITO Primary Care Unavailable LORI MOHAMUD DO Attending Unavailable Rodrigo Thomason Attending Unavailable Rodrigo Thomason Referring Unavailable [facility] Vaibhav Primary Care Unavailable [facility] Primary Care Unavailable Ashelfah, Ghasem Admitting Unavailable Nando, Kamaljit Consulting Unavailable Koram, Sheba Akua Attending Unavailable Ashelfah, Ghasem Admitting Unavailable Ashelfah, Ghasem Attending Unavailable [facility] Primary Care Unavailable Ashelfah, Ghasem Consulting Unavailable Ashelfah, Ghasem Admitting Unavailable Kamaljit Collier Attending Unavailable [facility] Primary Care Unavailable Nando, Kamaljit Consulting Unavailable Ashelfah, Ghasem Consulting Unavailable Ashelfah, Ghasem Admitting Unavailable Koram, Sheba Akua Attending Unavailable [facility] Care Unavailable Kamaljit Collier Consulting Unavailable Koram, Sheba Akua Consulting Unavailable Vaibhav Sawyer Attending Unavailable [facility] Care Unavailable [facility] Primary Care Unavailable Gera Bergeron Attending Unavailable Vaibhav Sawyer Attending Unavailable Vaibhav Sawyer Referring Unavailable [facility] Primary Care Unavailable Ashelfah, Ghasem Admitting Unavailable Kamaljit Collier Attending Unavailable [facility] Unavailable Nando, Kamaljit Consulting Unavailable Koram, Sheba Akua Consulting Unavailable Ashelfah, Ghasem Admitting Unavailable Koram, Sheba Akua Attending Unavailable [facility] Unavailable Nando, Kamaljit Consulting Unavailable Koram, Sheba Akua Consulting Unavailable Ashelfah, Ghasem Admitting Unavailable Nando Kamaljit Attending Unavailable [facility] Primary Care Unavailable Nando, Kamaljit Consulting Unavailable Koram, Sheba Akua Consulting Unavailable Ashelfah, Ghasem Admitting Unavailable Koram, Sheba Akua Attending Unavailable [place], Vaibhav Primary Care Unavailable Nando, Kamaljit Consulting Unavailable Koram, Sheba Akua Consulting Unavailable Ashelfbonifacio, Ghasem Admitting Unavailable Nando, Kamaljit Attending Unavailable [place], Vaibhav Primary Care Unavailable Nando, Kamaljit Consulting Unavailable Koram, Sheba Akua Consulting Unavailable [place], Vaibhav Primary Care Unavailable Goldy Cline Attending Unavailable Cebul, Jose Carlos Attending Unavailable THORPE, YADIRA Referring Unavailable Cebul Jose Carlos Attending Unavailable Elderbro[place], Vaibhav Referring Unavailable [place], Vaibhav Primary Care Unavailable Jose, Narendra Attending Unavailable [place], Vaibhav Referring Unavailable Jose, [place] Attending Unavailable [place], Vaibhav Referring Unavailable KilnerJamesYadi Attending Unavailable Kilner Yadi Attending Unavailable Jose, [place] Attending Unavailable Elderbrock, Vaibhav Referring Unavailable [place], Vaibhav Primary Care Unavailable Jose, [place] Attending Unavailable Jose, Narendra Referring Unavailable [place], Vaibhav Primary Care Unavailable Jayden Thomasone Attending Unavailable Solitarioann, Rodrigo Referring Unavailable [place], Vaibhav Primary Care Unavailable Jose, [place] Attending Unavailable Jose, Narendra Referring Unavailable Elder[place], Vaibhav Primary Care Unavailable Jose, Narendra Consulting Unavailable Wartmann, Rodrigo Attending Unavailable Warwinsomeann, Rodrigo Referring Unavailable [place], Vaibhav Primary Care Unavailable ELDERVAIBHAV WATSON D Attending Unavailable VAIBHAV SAWYER Attending Unavailable PODLOGARIRASEMA (WIRE STRAIGHTENING MACHINE OPERATOR) Attending Unavailable PODLOGAR, IRASEMA (WIRE STRAIGHTENING MACHINE OPERATOR) Referring Unavailable THORPEYADIRA (FIELD RADIO TECHNICIAN) Attending Unavailable PODLOGAR, IRASEMA (WIRE STRAIGHTENING MACHINE OPERATOR) Referring Unavailable THORPEYADIRA (FIELD RADIO TECHNICIAN) Referring Unavailable YANNI GIBSON (FIELD RADIO TECHNICIAN) Attending Unavailable ELDERVAIBHAV WATSON Referring Unavailable MERRILL CALZADA (WIRE STRAIGHTENING MACHINE OPERATOR) Attending Unavailable YANNI GIBSON (FIELD RADIO TECHNICIAN) Referring Unavailable ELDERBROCKVAIBHAV Referring Unavailable ELDERBROCKVAIBHAV Attending Unavailable GENOVEVA MORILLO Attending Unavailable Vaibhav Sawyer Referring Unavailable EldergirmackVaibhav Primary Care Unavailable PROBLEMS PROBLEMS DATE TYPE CONDITION / CODE ATTENDING STATUS SOURCE 03/19/2018 Unknown R09.81 - Nasal Wartmann, Active [place] congestion / [facility] Community R09.81(ICD-10) Hospital Repository 06/02/2015 Active Hyperlipidemia, NA Active [facility] unspecified / Clinic Main E78.5(ICD-10) [place] Repository 03/11/2018 Active Elevated white blood NA Active [facility] cell count, Clinic Main unspecified / [place] D72.829(ICD-10) Repository 04/19/2018 Unknown I65.23 - Occlusion Jose, Narendra Active [place] and stenosis of Community bilateral carotid Hospital arteries / Repository I65.23(ICD-10) 04/19/2018 Unknown Z01.810 - Encounter Jose, [place] Active [place] for preprocedural [facility] cardiovascular Hospital examination / Repository Z01.810(ICD-10) 04/19/2018 Unknown I99.8 - Other Jose, [place] Active [place] disorder of [facility] circulatory system / Hospital I99.8(ICD-10) Repository 04/19/2018 Unknown E78.5 - Jose, Narendra Active [place] Hyperlipidemia, Community unspecified / Hospital E78.5(ICD-10) Repository 04/19/2018 Unknown I73.9 - Peripheral Jose, [place] Active [place] vascular disease, Community unspecified / Hospital I73.9(ICD-10) Repository 04/19/2018 Unknown I25.10 - Jose, Narendra Active [place] Atherosclerotic heart Community disease of [facility] coronary artery Repository without angina pectoris / I25.10(ICD-10) 04/19/2018 Unknown Z95.1 - Presence of Jose, [place] Active [place] aortocoronary bypass Community graft / Z95.1(ICD-10) Hospital Repository 04/19/2018 Unknown F17.200 - Nicotine Jose, Narendra Active [place] dependence, Community unspecified, Hospital uncomplicated / Repository F17.200(ICD-10) 04/19/2018 Unknown I10 - Essential Jose, [place] Active [place] (primary) Community hypertension / Hospital I10(ICD-10) Repository 01/19/2018 Active Hemorrhage of anus NA Active [facility] and rectum / Clinic Main K62.5(ICD-10) [place] Repository 12/20/2017 Unknown T87.34 - Neuroma of [place], Active [place] amputation stump, Vaibhav [facility] left lower extremity Hospital / T87.34(ICD-10) Repository 11/02/2017 Active Right upper quadrant NA Active [facility] pain / R10.11(ICD-10) Clinic Main [place] Repository 11/02/2017 Active Left upper quadrant NA Active [facility] pain / R10.12(ICD-10) [facility] Main [place] Repository 11/02/2017 Active Change in bowel habit NA Active [facility] / R19.4(ICD-10) [facility] Main [place] Repository 10/08/2017 Active Melena / NA Active [facility] K92.1(ICD-10) [facility] Main [place] Repository 09/14/2017 Unknown K92.1 - Melena / Shundry, Active [place] K92.1(ICD-10) [facility] Repository PROCEDURES PROCEDURES No Procedure Records FoundRESULTS RESULTS DISCHARGE SUMMARY Observed: 07/04/2018 Status: F Source: [place] 2:42 PM [facility] REPOSITORY [facility] Medical Records Department [address] [place] [address] Discharge Summary 07/04/18 1033 MR#: [id number] Acct: [id number] Name: HANNAH NAVA Rep #: [id number] : 1960 58 From: Sheba Shafer MD PCP: Silverio OVIEDO,Vaibhav Status: DIS IN Y Location: [place] [address] Discharge Date and Diagnosis Date of Admission: 07/01/18 Date of Discharge: 07/04/18 - Primary Discharge Diagnosis severe sepsis community acquired pneumonia lactic acidosis hypokalemia - Secondary Discharge Diagnosis Chronic Problems (Last Updated 07/01/18 @ 14:13 by Antoni De Santiago MD) Hypertrophy of nasal turbinates (Chronic) Nasal septal deviation (Chronic) Nasal deformity (Chronic) Bilateral carotid artery stenosis (Chronic) Right > Left Ischemia of right lower extremity (Chronic) Hyperlipidemia (Chronic) Peripheral vascular occlusive disease (Chronic) Atherosclerosis of coronary artery of [place] heart without angina pectoris (Chronic) CABG x 4 UMANZOR Sequential -D1 and D2, SVG-Cx, SVG-RCA 06/17/2001 H/O coronary artery bypass surgery (Chronic 06/17/01) CABG x 4 UMANZOR Sequential -D1 and D2, SVG-Cx, SVG-RCA 06/17/2001 @ [facility] Hypertension (Chronic) Tobacco dependence syndrome (Chronic) Hospital Course and Treatment Imaging Results: Diagnostic Data Chest X-Ray 07/01/18 12:38 IMPRESSION: Consolidation in the posterior medial segment of the left lower lobe with a small left pleural effusion. Increased markings in the lingular segment of the left upper lobe. Electronically Signed: Fer Motta MD at 12:58 EST Tel [phone], Service support , critical care- Dr Collier Operations: None Procedures: None Summary of Care Provided: The patient is a 58 year old M with a PMH of CAD s/p CABG, hypertension, PAD, s/p LLE AKA. He was admitted with a complaint of cough, shortness of breath and chills of 2 days duration. Cough was productive, with associated left sided pleuritic chest pain. Lactic acid was 4.2. CXR showed left lower lobe consolidation and small pleural effusion. EKG showed no acute ST changes. He was admitted initially managed for septic shock due to community-acquired pneumonia. However he was not hypotensive and so did not meet the criteria for septic shock; he was managed for severe sepsis due to community-acquired pneumonia. He was started on IV Levaquin. He was initially admitted to the ICU and critical care was consulted. Leukocytosis resolved and sputum cultured strep pneumonia. He was transitioned to p.o. Augmentin. Lactic acidosis resolved and hyperkalemia also resolved. Patient remained stable. He was discharged home on 07/04/2018 with a prescription for p.o. Augmentin. He was also given a prescription for Medrol Dosepak and albuterol inhaler. Ambulatory pulse ox prior to discharge showed the patient desaturated to 78% on room air and therefore qualified for oxygen. He was discharged home with home oxygen of 2L. He is to follow-up with his primary care doctor. Patient seen and examined prior to discharge. He had no complaints and felt well. He did say that he felt mildly short of breath with exertion. He denied any fever chills, cough or chest pain, abdominal pain, diarrhea or vomiting. Review of systems was otherwise negative. Labs and vitals reviewed. Home meds reviewed and reconciled. o/e: Vital Signs Height 5 ft 8 in [] General: Alert, Oriented x3, Cooperative, No apparent distress HEENT: Atraumatic, PERRLA, EOMI, Normocephalic Oral: Moist Mucosa Neck: Supple, No JVD, Negative Carotid Bruits Lungs: - - lungs are clear to auscultation. Cardiovascular: Regular rate, Regular Rhythm, Normal S1, Normal S2, No murmurs Abdomen: Bowel Sounds Present, Soft, Non Tender, Non-Distended, No Hepato-splenomegaly Extremities: No clubbing, No cyanosis, No edema, Capillary Refill Less than 3 Seconds, - - Left above-knee amputation. Skin: No rashes, No breakdown Musculoskeletal: No Tenderness to Palpation of Joints or Extremities Lymphatic: No Cervical, Supraclavicular, or Inguinal Adenopathy Neurological: Cranial nerves II-XII grossly intact, Neuro grossly intact, Motor Exam 5/5 strength throughout Psych/Mental Status: Normal Affect, Appropriate, Alert and oriented to time, place, person, mood and affect Plan as described above. - Physical Exam Vital Signs Temp Pulse Resp BP Pulse Ox 97.9 F 73 18 155/70 H 95 07/04/18 08:25 07/04/18 08:27 07/04/18 08:25 07/04/18 08:27 07/04/18 10:16 Oxygen Flow Rate (L/min) 3 Oxygen Delivery Method Room Air Weight: 135 lb 2.294 oz Body Mass Index (BMI) 20.4 Intake and Output for Last 24 Hours Intake Total 2715 / 2715 3898 / 3898 480 / 480 Output Total 2625 / 2625 3425 / 3425 2700 / 2700 Balance 90 / 90 473 / 473 -2220 / -2220 Microbiology Past 72 Hours 07/01/18 14:05 Blood Culture - Preliminary Laboratory Tests Past 24 Hrs WBC 11.7 H RBC 3.64 L Hgb 11.8 L Hct 34.2 L MCV 94.0 MCH 32.4 H MCHC 34.5 RDW 14.4 Discharge Diet: Low fat/ Low Cholesterol Discharge Activity: Return to Normal Activity Weight Bearing Status: Weight bearing as tolerated Call your doctor if you observe: Fever of 101 or Higher, Shortness of breath Home Medications: Medications to take at Discharge Citalopram [Celexa] 40 mg PO DAILY 09/28/14 Lisinopril [Zestril] 10 mg PO DAILY 09/28/14 Gabapentin [Neurontin] 600 mg PO 4X/DAY #120 tab 11/10/15 Oxycodone HCl/Acetaminophen [Percocet 10-325 mg Tablet] 1 - 2 tab PO Q6H PRN PRN 09/23/17 Pregabalin [Lyrica] 150 mg PO TID 09/23/17 duloxetine 60 mg capsule,delayed release 60 mg PO DAILY 12/03/17 Apixaban [Eliquis] 5 mg PO BID 07/01/18 Aspirin [Aspir 81] 81 mg PO DAILY 07/01/18 Hydrocodone/Acetaminophen [Hydrocodon-Acetaminophen 5-325] 1 each PO Q6H PRN PRN 07/01/18 Metoprolol Tartrate [Lopressor (beta nanette)] 50 mg PO BID 07/01/18 Simvastatin 20 mg PO DAILY 07/01/18 Albuterol IH (ProAir) [Proair Hfa] 1 - 2 puff INHALATION Q4H PRN PRN #1 inhaler 07/04/18 Amoxicillin [Amoxil] 500 mg PO Q8 #21 capsule 07/04/18 Guaifenesin [Mucinex] 1,200 mg PO BID #30 tablet 07/04/18 MethylPREDNISolone DosePak [Medrol DosePak] 4 mg PO UD #1 box 07/04/18 Following Prescrptions Were Given to Patient: Albuterol IH (ProAir) [Proair Hfa] 1 - 2 puff INHALATION Q4H PRN PRN #1 inhaler PRN Reason: Shortness Of Breath Amoxicillin [Amoxil] 500 mg PO Q8 #21 capsule MethylPREDNISolone DosePak [Medrol DosePak] 4 mg PO UD #1 box Guaifenesin [Mucinex] 1,200 mg PO BID #30 tablet Primary Care Physician: Vaibhav Sawyer MD [Primary Care Provider] - Please follow up with your Primary Care Physician in: one week Patient Instructions: Discharge Instructions for Pneumonia Disposition: Home Minutes spent on discharge:: 40 Patient Condition:: Stable Medical Necessity - Tobacco Use Smoking Status: Current every day smoker Tobacco Use: Cigarettes Meaningful Use Info Meaningful Use Diagnoses (Choose all that apply): None applicable Code Visit Inpatient E AND M: 23503 Disch Hosp 07/04/18 1442 <Electronically signed by Sheba Shafer MD> Date Sheba Shafer MD Cosigner Signature (if applicable): Date CC: Vaibhav Sawyer MD; Sheba Shafer MD Signed DISCHARGE INSTRUCTION Observed: 07/04/2018 Status: F Source: [place] 2:41 PM [facility] REPOSITORY [facility] Medical Records Department [address] [place] [address] Instructions for Home/Discharge Instructions 07/04/18 1031 MR#: [id number] Acct: [id number] Name: HANNAH NAVA Rep #: [id number] : 1960 58 From: Sheba Shafer MD PCP: Vaibhav Sawyer MD Status: DIS IN ADDENDUM by Sheba Shafer MD on 07/04/18 at 1441 follow up with PCP in 1-2 weeks 07/04/18 1441 Date Sheba Shafer MD cc: Kamaljit Collier MD; Vaibhav Sawyer MD * Signed You will use the following diet at home:: Cardiac Your food should be the consistency of: Regular Your liquids should be the consistency of: Regular/Thin Discharge Activity: Return to Normal Activity Weight Bearing Status: Weight bearing as tolerated Call your doctor if you observe: Fever of 101 or Higher, Shortness of breath Instructions: Discharge Instructions for Pneumonia Additional Instructions: use oxygen for shortness of breath. Allergies/Adverse Reactions: Allergies No Known Allergies Allergy (Verified 06/25/18 13:07) Medications to take at Discharge Citalopram [Celexa] 40 mg PO DAILY 09/28/14 Lisinopril [Zestril] 10 mg PO DAILY 09/28/14 Gabapentin [Neurontin] 600 mg PO 4X/DAY #120 tab 11/10/15 Oxycodone HCl/Acetaminophen [Percocet 10-325 mg Tablet] 1 - 2 tab PO Q6H PRN PRN 09/23/17 Pregabalin [Lyrica] 150 mg PO TID 09/23/17 duloxetine 60 mg capsule,delayed release 60 mg PO DAILY 12/03/17 Apixaban [Eliquis] 5 mg PO BID 07/01/18 Aspirin [Aspir 81] 81 mg PO DAILY 07/01/18 Hydrocodone/Acetaminophen [Hydrocodon-Acetaminophen 5-325] 1 each PO Q6H PRN PRN 07/01/18 Metoprolol Tartrate [Lopressor (beta nanette)] 50 mg PO BID 07/01/18 Simvastatin 20 mg PO DAILY 07/01/18 Albuterol IH (ProAir) [Proair Hfa] 1 - 2 puff INHALATION Q4H PRN PRN #1 inhaler 07/04/18 Amoxicillin [Amoxil] 500 mg PO Q8 #21 capsule 07/04/18 Guaifenesin [Mucinex] 1,200 mg PO BID #30 tablet 07/04/18 MethylPREDNISolone DosePak [Medrol DosePak] 4 mg PO UD #1 box 07/04/18 The following prescriptions were given: Albuterol IH (ProAir) [Proair Hfa] 1 - 2 puff INHALATION Q4H PRN PRN #1 inhaler PRN Reason: Shortness Of Breath Amoxicillin [Amoxil] 500 mg PO Q8 #21 capsule MethylPREDNISolone DosePak [Medrol DosePak] 4 mg PO UD #1 box Guaifenesin [Mucinex] 1,200 mg PO BID #30 tablet Primary Care Physician: Vaibhav Sawyer MD [Primary Care Provider] - Test Results: Test results from this visit will be discussed in further detail at your follow-up appointment, if applicable. 07/04/18 1033 <Electronically signed by Sheba Shafer MD> Date Sheba Shafer MD CC: Kamaljit Collier MD; Vaibhav Sawyer MD Signed CBC W/DIFF, AUTOMATED Collected: 07/04/2018 Status: F Source: [place] 5:50 AM [facility] REPOSITORY TYPE CODE TESTS RESULT OUT OF RANGE REFERENCE UNITS LAB L100.1000 4.4-11.0 K/mm3 High WBC 11.7 LAB L100.1200 4.6-6.2 M/mm3 Low RBC 3.64 LAB L100.1300 13.0-16.5 g/dl Low HGB 11.8 LAB L100.1400 40-54 % Low HCT 34.2 LAB L100.1500 80-94 fL Normal MCV 94.0 LAB L100.1600 27.0-32.0 pg High MCH 32.4 LAB L100.1700 32-36 g/gl Normal MCHC 34.5 LAB L100.1810 11.6-14.6 % Normal RDW CV 14.4 LAB L100.1820 35.1-43.9 fl High RDW SD 47.3 LAB L100.1900 150-450 K/mm3 Low PLT 96 LAB L100.2000 6.2-12.0 fl Normal MPV 11.1 LAB L100.2100 47-70 % High NEUT% 80.5 LAB L100.2200 19-41 % Low LY% 12.9 LAB L100.2300 0-10 % Normal MONO% 6.0 LAB L100.2400 0-5 % Normal EO% 0.1 LAB L100.2500 0-1 % Normal BASO% 0.1 LAB L100.2550 0.0-0.9 % Normal IM GRAN % 0.400 Result Comment: IG% - Immature Granulocytes (promyelocytes, myelocytes and metamyelocytes) > 1% indicates that a LEFT SHIFT is Present. LAB L100.2620 2.0-7.7 X10 3/uL High Absolute Neut 9.4 LAB L100.2720 0.83-4.51 X10 3/ul Normal Absolute Lymph 1.51 Performed By: #### L100.0100 #### [facility] [address] [facility] [place], [address] BASIC METABOLIC Collected: 07/04/2018 Status: F Source: [place] PROFILE ([facility]) 5:50 AM [facility] REPOSITORY TYPE CODE TESTS RESULT OUT OF RANGE REFERENCE UNITS LAB L501.0100 74-106 mg/dL Normal GLU 84 Result Comment: Please note revised GLUCOSE reference range effective 2017. LAB L501.1000 7-18 mg/dL Normal BUN 11 LAB L501.1100 0.70-1.30 mg/dL Low CREAT,SERUM 0.58 Result Comment: The validity of the calculated GFR AND GFRAA in patients over 70 years has not been determined. Clinical correlation is essential. LAB L501.1110 >60 mL/min Normal EST GFR 152 Result Comment: Non- GFR Calc LAB L501.1115 >60 mL/min Normal EST GFR - AA 184 Result Comment: GFR Calc LAB L501.1255 ml/min Normal Estimated CRCL 117.43 LAB L501.1300 10-20 RATIO BUN/CRE Normal 19.0 LAB L501.2200 8.5-10 mg/dL Low .1 CA 8.1 LAB L501.5300 136-14 mmol/L 5 NA Normal 144 LAB L501.5600 3.5-5. mmol/L Low 1 K 3.2 LAB L501.5900 98-107 mmol/L High CL 112 LAB L501.6100 21.0-3 mmol/L 2.0 CO2 Normal 23.0 LAB L501.6200 5-15 GAP Normal 9 Performed By: #### L500.2500 #### [facility] [address] [facility] [place], [address] 12 LEAD ELECTROCARDIOGRAM Observed: 07/03/2018 Status: F Source: [place] 1:44 PM [facility] REPOSITORY [facility] Cardiovascular Services [address] [place] [address] 12 Lead EKG 07/01/18 1143 MR#: [id number] Acct: [id number] Name: HANNAH NAVA Rep #: [id number] : 1960 58 From: Miguelito Her MD Attending Dr: Sheba Shafer MD Status: ADM IN Ordering Dr: Neo Saldivar MD Date: 07/01/18 Location: [facility] Sex: M C Admitted: 07/01/18 Test Reason : COUGH Blood Pressure : / mmHG Vent. Rate : 078 BPM Atrial Rate : 078 BPM P-R Int : 158 ms QRS Dur : 092 ms QT Int : 388 ms P-R-T Axes : 056 066 069 degrees QTc Int : 442 ms Normal sinus rhythm Normal ECG Confirmed by VEE OVIEDO, MIGUELITO ([id number]), art editor RUBENS ERNST ([id number]) on 07/03/2018 1:43:49 PM Referred By: RANDY/FELIX Confirmed By:MIGUELITO HER MD 07/03/18 1343 Date Miguelito Her MD CC: Vaibhav Sawyer MD; Sheba Shafer MD; Neo Saldivar MD Signed BASIC METABOLIC Collected: 07/03/2018 Status: F Source: [place] PROFILE (BMP) 5:45 AM [facility] REPOSITORY TYPE CODE TESTS RESULT OUT OF RANGE REFERENCE UNITS LAB L501.0100 74-106 mg/dL Normal GLU 82 Result Comment: Please note revised GLUCOSE reference range effective 2017. LAB L501.1000 7-18 mg/dL Normal BUN 13 LAB L501.1100 0.70-1.30 mg/dL Low CREAT,SERUM 0.51 Result Comment: The validity of the calculated GFR AND GFRAA in patients over 70 years has not been determined. Clinical correlation is essential. LAB L501.1110 >60 mL/min Normal EST GFR 176 Result Comment: Non- GFR Calc LAB L501.1115 >60 mL/min Normal EST GFR - AA 213 Result Comment: GFR Calc LAB L501.1255 ml/min Normal Estimated CRCL 134.42 LAB L501.1300 10-20 RATIO High BUN/CRE 25.5 LAB L501.2200 8.5-10 mg/dL Low .1 CA 7.9 LAB L501.5300 136-14 mmol/L 5 NA Normal 143 LAB L501.5600 3.5-5. mmol/L Low 1 K 3.4 LAB L501.5900 98-107 mmol/L High CL 112 LAB L501.6100 21.0-3 mmol/L 2.0 CO2 Normal 23.0 LAB L501.6200 5-15 GAP Normal 8 Performed By: #### L500.2500 #### [facility] [address] [place] [place], [address] CBC W/DIFF, AUTOMATED Collected: 07/03/2018 Status: F Source: RICKI 5:45 AM [facility] REPOSITORY TYPE CODE TESTS RESULT OUT OF RANGE REFERENCE UNITS LAB L100.1000 4.4-11.0 K/mm3 High WBC 11.4 LAB L100.1200 4.6-6.2 M/mm3 Low RBC 3.40 LAB L100.1300 13.0-16.5 g/dl Low HGB 11.0 LAB L100.1400 40-54 % Low HCT 31.6 LAB L100.1500 80-94 fL Normal MCV 92.9 LAB L100.1600 27.0-32.0 pg High MCH 32.4 LAB L100.1700 32-36 g/gl Normal MCHC 34.8 LAB L100.1810 11.6-14.6 % Normal RDW CV 14.0 LAB L100.1820 35.1-43.9 fl High RDW SD 46.0 LAB L100.1900 150-450 K/mm3 Low PLT 83 LAB L100.2000 6.2-12.0 fl Normal MPV 11.2 LAB L100.2100 47-70 % High NEUT% 84.9 LAB L100.2200 19-41 % Low LY% 9.1 LAB L100.2300 0-10 % Normal MONO% 5.5 LAB L100.2400 0-5 % Normal EO% 0.0 LAB L100.2500 0-1 % Normal BASO% 0.1 LAB L100.2550 0.0-0.9 % Normal IM GRAN % 0.400 Result Comment: IG% - Immature Granulocytes (promyelocytes, myelocytes and metamyelocytes) > 1% indicates that a LEFT SHIFT is Present. LAB L100.2620 2.0-7.7 X10 3/uL High Absolute Neut 9.7 LAB L100.2720 0.83-4.51 X10 3/ul Normal Absolute Lymph 1.03 Performed By: #### L100.0100 #### [facility] [address], [place], [id number] LACTIC ACID Collected: 07/02/2018 Status: F Source: RICKI 2:20 PM [facility] REPOSITORY Order Comment: Yes/No query for Sepsis Lactate Rule Y TYPE CODE TESTS RESULT OUT OF RANGE REFERENCE UNITS LAB L503.6005 0.4-2.0 mmol/L Normal LACTIC ACID 1.8 Performed By: #### L503.6005 #### [facility] [address] [place], [address] CONSULTATION Observed: 07/02/2018 Status: F Source: [place] 5:57 AM [facility] REPOSITORY [facility] Medical Records Department [address] [place] [address] Consultation 07/01/18 1542 MR#: [id number] Acct: [id number] Name: HANNAH NAVA Rep #: [id number] : 1960 58 From: Kamaljit Collier MD PCP: Vaibhav Sawyer MD Status: ADM IN Y Location: ICU ICU-1 Problem List (1) Hypertrophy of nasal turbinates Status: Chronic (2) Nasal septal deviation Status: Chronic (3) Nasal deformity Status: Chronic (4) Bilateral carotid artery stenosis Status: Chronic Comment: Right > Left (5) Ischemia of right lower extremity Status: Chronic (6) Hyperlipidemia Status: Chronic (7) Peripheral vascular occlusive disease Status: Chronic (8) Atherosclerosis of coronary artery of [place] heart without angina pectoris Status: Chronic Comment: CABG x 4 UMANZOR Sequential -D1 and D2, SVG-Cx, SVG-RCA 06/17/2001 (9) H/O coronary artery bypass surgery Status: Chronic Comment: CABG x 4 UMANZOR Sequential -D1 and D2, SVG-Cx, SVG-RCA 06/17/2001 @ [facility] (10) Hypertension Status: Chronic (11) Tobacco dependence syndrome Status: Chronic Reason for Consult Date of Consultation: 07/01/18 Reason for Consultation: Severe sepsis History of Present Illness: The patient is a 58 year old M, with past medical history listed below, who presented to [facility] on 07/01/2018 secondary to a 2-day history of cough, shortness of breath, chills and left-sided chest pain. Patient reports shortness of breath with minimal activity that is not improved significantly with rest. Patient does have a cough productive of minimal sputum and believes he has had chills over the last 24 hours. Patient states he has a sharp 10 out of 10 intermittent pain located to the left chest with radiation to the front. This is aggravated with taking a deep breath and coughing and to this point has had no relief. Patient denies any nausea, vomiting, sweating or aspiration events. On presentation to the emergency room, patient was noted to be tachypneic, but afebrile. Blood pressure and heart rate were acceptable and patient was 96% on room air. Laboratory workup showed a neutrophilia, elevated lactate at 4.2 and chest x- ray showed a left lower lobe consolidation. Patient was given IV fluids, blood cultures and initiated on IV antibiotics. Patient was admitted to the intensive care unit for further monitoring. Patient is very nondescript on his past medical history. Patient does report a long history of smoking, but to his report has never been diagnosed with COPD or asthma. Patient denies ever being admitted for breathing issues previously. Patient does not have a history of pneumonias that he is aware of. 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 Patient does have a history of a quadruple bypass and is on blood thinner secondary to hypercoagulation per his response. Patient does suffer from chronic pain at baseline. Review of systems otherwise negative x10 systems. Past Medical History Past Medical History (Chronic Problems): Chronic Problems (Last Updated 07/01/18 @ 14:13 by Antoni De Santiago MD) Hypertrophy of nasal turbinates (Chronic) Nasal septal deviation (Chronic) Nasal deformity (Chronic) Bilateral carotid artery stenosis (Chronic) Right > Left Ischemia of right lower extremity (Chronic) Hyperlipidemia (Chronic) Peripheral vascular occlusive disease (Chronic) Atherosclerosis of coronary artery of [place] heart without angina pectoris (Chronic) CABG x 4 UMAZNOR Sequential -D1 and D2, SVG-Cx, SVG-RCA 06/17/2001 H/O coronary artery bypass surgery (Chronic 06/17/01) CABG x 4 UMANZOR Sequential -D1 and D2, SVG-Cx, SVG-RCA 06/17/2001 @ [facility] Hypertension (Chronic) Tobacco dependence syndrome (Chronic) Medical History: Medical History (Last Updated 07/01/18 @ 14:13 by Antoni De Santiago MD) Bilateral carotid artery stenosis (Chronic) I65.23 Right > Left Ischemia of right lower extremity (Chronic) I99.8 Hyperlipidemia (Chronic) E78.5 Peripheral vascular occlusive disease (Chronic) I73.9 Atherosclerosis of coronary artery of [place] heart without angina pectoris (Chronic) I25.10 CABG x 4 UMANZOR Sequential -D1 and D2, SVG-Cx, SVG-RCA 06/17/2001 Hypertension (Chronic) I10 Tobacco dependence syndrome (Chronic) F17.200 COPD (chronic obstructive pulmonary disease) J44.9 Crushing injury of arm, right S47.1XXA Crushing injury (Inactive) T14.8 Infected open wound (Inactive) T14.8XXA, L08.9 Superficial bacterial infection of skin (Inactive) L08.9, B96.89 Allergies No Known Allergies Allergy (Verified 06/25/18 13:07) Home Medications: Ambulatory Orders Medication Instructions Recorded Citalopram [Celexa] 40 mg PO DAILY 09/28/14 Lisinopril [Zestril] 10 mg PO DAILY 09/28/14 Surgical History: Surgical History (Last Updated 07/01/18 @ 14:13 by Antoni De Santiago MD) H/O coronary artery bypass surgery (Chronic) Onset Date: 06/17/01 Z95.1 CABG x 4 UMANZOR Sequential -D1 and D2, SVG-Cx, SVG-RCA 06/17/2001 @ [facility] History of angioplasty of peripheral vessel Z98.62 History of femoropopliteal bypass Onset Date: 06/2001 Z98.890 History of left lower extremity amputation Onset Date: 11/01/15 Z89.612 Above the knee Hx of tonsillectomy (Inactive) Z90.89 hx of APLL (Inactive) Right leg Surgical History: coronary bypass surgery, - - Left above- knee amputation. Psychiatric History: Depression Lives: Spouse/ Significant Other Smoking Status: Current every day smoker Tobacco Use: Cigarettes Alcohol: None Drugs: None - *Family History Maternal Family History: Family History (Last Reviewed 02/20/18 @ 14:17 by Narendra Garcia MD) Mother Breast cancer History Items: Cancer Paternal Family History: Family History (Last Reviewed 02/20/18 @ 14:17 by Narendra Garcia MD) Mother Breast cancer History Items: No pertinent history Review of Systems Comment: See HPI, otherwise negative x10 systems. Objective: Chest x-ray was personally reviewed and shows a left lower lobe posterior infiltrate. - Physical Exam General: Alert, Oriented x3, Cooperative, - - Mild to moderate respiratory distress. Appears older than stated age. HEENT: Atraumatic, PERRLA, EOMI, Normocephalic, - - No scleral icterus or injection noted. Significant hamilton noted. Oral: No Gingival or Mucosal Lesions/ Ulcerations, Dry Mucosa, - - Poor dentition. Neck: Supple, No JVD, No Nodes, Trachea Midline Lungs: No rales, Diminished, Rhonchi - Left base, Wheezes - End exhalation, - - Some splinting appreciated Cardiovascular: Normal S1, Normal S2, No murmurs, Irregular Rate, No rub noted, No Gallop Abdomen: Bowel Sounds Present, Soft, Non Tender, Non-Distended Extremities: No cyanosis, No edema, Capillary Refill Less than 3 Seconds, Clubbing, - - Left AKA Skin: - - Multiple superficial ulcers and excoriations noted Musculoskeletal: No Tenderness to Palpation of Joints or Extremities Lymphatic: No Cervical, Supraclavicular, or Inguinal Adenopathy Neurological: Cranial nerves II-XII grossly intact, Neuro grossly intact Psych/Mental Status: Appropriate, Restless Vital Signs Temp Pulse Resp BP Pulse Ox 38.4 C H 88 31 H 164/51 H 95 07/01/18 14:58 07/01/18 15:15 07/01/18 15:15 07/01/18 15:15 07/01/18 15:15 Oxygen Delivery Method Room Air Weight: 60.9 kg Body Mass Index (BMI) 20.4 Laboratory Tests Past 24 Hrs WBC 18.4 H RBC 4.55 L Hgb 14.5 Hct 43.8 MCV 96.3 H MCH 31.9 MCHC 33.1 WBC Clinical Impression(s) from Imaging Studies Chest X-Ray 07/01/18 12:38 IMPRESSION: Consolidation in the posterior medial segment of the left lower lobe with a small left pleural effusion. Increased markings in the lingular segment of the left upper lobe. Electronically Signed: Fer Motta MD at 12:58 EST Tel [phone], Service support , Assessment/Plan RECOMMENDATIONS: 1. Continue bronchodilators, initiate steroid therapy 2. Aggressive pain control with pulmonary toileting 3. Agree with empiric antibiotics 4. Aggressive fluid resuscitation, repeat lactate per sepsis protocol 5. Initiate BiPAP rescue if signs of respiratory muscle fatigue 6. Possible transfer out of the intensive care unit later today IMPRESSIONS: 1. Severe sepsis secondary to left lower lobe infiltrate, presumed community-acquired pneumonia Vision with elevated lactate, but otherwise endorgan damage is minimal. Patient has been given fluid boluses. Initiated on IV Levaquin and bronchodilators. Will initiate steroid therapy for presumed COPD 2. Pleurisy Likely secondary to #1. Patient will benefit from steroid therapy. NSAIDs would be another option. Patient also has morphine for breakthrough pain. Encourage the patient for incentive spirometer to avoid other complications. Aggressive pulmonary toileting. 3. CAD status post CABG/peripheral vascular disease/left AKA/hypertension/hyperlipidemia Complicates care, management, recovery and prognosis. Likely okay to continue with baseline medications. Code Visit Inpatient E AND M: 10068 Init Hosp L3 07/02/18 0557 <Electronically signed by Kamaljit Collier MD> Date Kamaljit Collier MD Cosigner Signature (if applicable): Date CC: Kamaljit Collier MD; Vaibhav Sawyer MD Signed BASIC METABOLIC Collected: 07/02/2018 Status: F Source: RICKI PROFILE (BMP) 4:25 AM [facility] REPOSITORY TYPE CODE TESTS RESULT OUT OF RANGE REFERENCE UNITS LAB L501.0100 74-106 mg/dL High GLU 143 Result Comment: Fasting Glucose result greater than or equal to 126 mg/dL suggests DIABETES MELLITUS per A.D.A. criteria. Please note revised GLUCOSE reference range effective 2017. LAB L501.1000 7-18 mg/dL Normal BUN 12 LAB L501.1100 0.70-1.30 mg/dL Normal CREAT,SERUM 0.70 Result Comment: The validity of the calculated GFR AND GFRAA in patients over 70 years has not been determined. Clinical correlation is essential. LAB L501.1110 >60 mL/min Normal EST GFR 123 Result Comment: Non- GFR Calc LAB L501.1115 >60 mL/min Normal EST GFR - AA 149 Result Comment: GFR Calc LAB L501.1255 ml/min Normal Estimated CRCL 96.67 LAB L501.1300 10-20 RATIO Normal BUN/CRE 17.3 LAB L501.2200 8.5-10 mg/dL Low .1 CA 8.0 LAB L501.5300 136-14 mmol/L Normal 5 NA 141 LAB L501.5600 3.5-5. mmol/L Normal 1 K 5.1 Result Comment: Moderate Hemolysis, Result may be falsely increased. LAB L501.5900 98-107 mmol/L High CL 110 LAB L501.6100 21.0-32.0 mmol/L Normal CO2 24.0 LAB L501.6200 5-15 Normal 7 GAP Performed By: #### L500.2500 #### [facility] [address] [place], [address] CBC W/DIFF, AUTOMATED Collected: 07/02/2018 Status: F Source: [place] 4:25 AM [facility] [place] REPOSITORY TYPE CODE TESTS RESULT OUT OF RANGE REFERENCE UNITS LAB L100.1000 4.4-11.0 K/mm3 Normal WBC 9.9 LAB L100.1200 4.6-6.2 M/mm3 Low RBC 3.65 LAB L100.1300 13.0-16.5 g/dl Low HGB 11.8 LAB L100.1400 40-54 % Low HCT 34.7 LAB L100.1500 80-94 fL High MCV 95.1 LAB L100.1600 27.0-32.0 pg High MCH 32.3 LAB L100.1700 32-36 g/gl Normal MCHC 34.0 LAB L100.1810 11.6-14.6 % High RDW CV 14.7 LAB L100.1820 35.1-43.9 fl High RDW SD 48.6 LAB L100.1900 150-450 K/mm3 Low PLT 104 LAB L100.2000 6.2-12.0 fl Normal MPV 11.7 LAB L100.2100 47-70 % High NEUT% 89.7 LAB L100.2200 19-41 % Low LY% 5.8 LAB L100.2300 0-10 % Normal MONO% 3.8 LAB L100.2400 0-5 % Normal EO% 0.0 LAB L100.2500 0-1 % Normal BASO% 0.1 LAB L100.2550 0.0-0.9 % Normal IM GRAN % 0.600 Result Comment: IG% - Immature Granulocytes (promyelocytes, myelocytes and metamyelocytes) > 1% indicates that a LEFT SHIFT is Present. LAB L100.2620 2.0-7.7 X10 3/uL High Absolute Neut 8.9 LAB L100.2720 0.83-4.51 X10 3/ul Low Absolute Lymph 0.58 Performed By: #### L100.0100 #### [facility] [address] [place], [place], [address] URINALYSIS, COMPLETE Collected: 07/01/2018 Status: F Source: [place] 7:30 PM [facility] REPOSITORY Order Comment: How was Urine Obtained? CLEAN CATCH TYPE CODE TESTS RESULT OUT OF RANGE REFERENCE UNITS LAB L400.3000 Yellow COLOR Normal Yellow LAB L400.3050 Clear Normal CLARITY Clear LAB L400.3200 Normal mg/dl Normal GLUCOSE, UR Normal LAB L400.3300 Negative mg/dL Normal BILIRUBIN URINE Negative LAB L400.3400 Negative mg/dl Normal KETONE UR Negative LAB L400.3465 1.002-1.030 Normal SP.GR. DIPSTX 1.010 LAB L400.3550 5.0 - 8.0 pH UR Normal 6.0 LAB L400.3600 Negative mg/dl High PROT 15 DIPSTX LAB L400.3700 Normal mg/dl Normal UROBILI Normal LAB L400.3750 Negative Normal NITRITE UR Negative LAB L400.3780 Negative /ul High 10 OCCULT BLOOD-UR LAB L400.3800 Negative /ul LEUK Normal ESTERASE Negative LAB L400.4050 0-5 /hpf WBC Normal 0-5 SEEN LAB L400.4100 0-5 /hpf Normal RBC-UA 0-5 SEEN LAB L400.4150 0-5 /hpf SQUAM Normal EPI 0-5 SEEN LAB L400.4300 None Seen /hpf 0 Normal BACTERIA SEEN LAB L400.4350 <or=2+ /hpf 0 Normal MUCUS, URINE SEEN LAB L400.4400 0-5 /lpf Normal HYALINE CAST 0-5 SEEN Performed By: #### L400.0001 #### [facility] [address] [place], [address] Observed: 07/01/2018 Status: F Source: RICKI CULTURE, URINE 7:30 PM [facility] REPOSITORY Urine Culture Below infection level. ORGANISM 1: Mixed Gram Positive Organisms [place] Count <1000 MIX CULTURE Mixed contaminants. Submit a new specimen if indicated. Performed By: #### M100.0650 #### [facility] [address] [facility] [place], [address] LACTIC ACID Collected: 07/01/2018 Status: F Source: RICKI 6:25 PM [facility] REPOSITORY Order Comment: Yes/No query for Sepsis Lactate Rule Y TYPE CODE TESTS RESULT OUT OF REFERENCE UNITS RANGE LAB L503.6005 0.4-2.0 mmol/L High alert LACTIC ACID 4.7 Result Comment: Critical Result(s) Called Don SPENCER at: 19:03:50 07/01/2018 by: SUSIE CARLTON Performed By: #### L503.6005 #### [facility] [address] [place], [address] Observed: 07/01/2018 Status: F Source: RICKI CULTURE, SPUTUM 4:00 PM [facility] REPOSITORY Gram Stain Acceptable Specimen? Yes (<25 Epithelial cells per/lpf) Gram Stain 4+ Gram positive cocci 1+ Gram positive rods 2+ White Blood Cells Resp. Culture ORGANISM 1: Streptococcus pneumoniae Amount Growth 3+ Streptococcus pneumoniae: REACTION Cefotaxime (MENINGITIS) $ <=0.12 S (meningitis)Ceftriaxone $ <=0.12 S Clindamycin $$ <=0.25 S Erythromycin $ <=0.12 S Levofloxacin $ 1 S Moxifloxicin *NF 0.12 S Tetracycline NF <=0.25 S Trimethoprim/Sulfametho $ <=10 S Vancomycin $ 0.5 S (NF) indicates non-formulary drug at [facility]. Approval by Infectious Disease Specialist required before non-formulary drugs may be ordered and/or dispensed. * CLSI guidelines does not recommend testing of cephalosporins. This interpretation is deduced from Beta-lactam/penicillin results. Performed By: #### M100.0800 #### [facility] [address] [place], [address] PROTHROMBIN TIME W/INR Collected: 07/01/2018 Status: F Source: [place] 3:40 PM [facility] REPOSITORY Order Comment: REDRAW. PREVIOUS SPECIMEN REJECTED DUE TO HEMOLYSIS. 07/01/18 1534 TYPE CODE TESTS RESULT OUT OF RANGE REFERENCE UNITS LAB L300.4150 11.7-14.9 SECONDS High PROTIME 18.6 LAB L300.4200 Normal INR 1.6 Performed By: #### L300.3900 #### [facility] [address] [place], [address] LACTIC ACID Collected: 07/01/2018 Status: F Source: [place] 3:40 PM [facility] REPOSITORY Order Comment: Yes/No query for Sepsis Lactate Rule Y TYPE CODE TESTS RESULT OUT OF REFERENCE UNITS RANGE LAB L503.6005 0.4-2.0 mmol/L High LACTIC ACID 3.9 Result Comment: Critical Result(s) Called Becka MCKEON at: 16:30:45 07/01/2018 by: SUSIE CARLTON Performed By: #### L503.6005 #### [facility] [address] [facility] [place], [address] HISTORY AND PHYSICAL Observed: 07/01/2018 Status: F Source: [place] EXAM 2:18 PM [facility] REPOSITORY [facility] Medical Records Department [address] [place] [address] History and Physical 07/01/18 1406 MR#: [id number] Acct: [id number] Name: HANNAH NAVA Rep #: [id number] : 1960 58 From: Antoni De Santiago MD PCP: Vaibhav Sawyer MD Status: ADM IN Y Location: ICU ICU07-1 Problem List (1) Nasal septal deviation Status: Chronic (2) Nasal deformity Status: Chronic (3) Bilateral carotid artery stenosis Status: Chronic Comment: Right > Left (4) Ischemia of right lower extremity Status: Chronic (5) Hyperlipidemia Status: Chronic (6) Peripheral vascular occlusive disease Status: Chronic (7) Atherosclerosis of coronary artery of [place] heart without angina pectoris Status: Chronic Comment: CABG x 4 UMANZOR Sequential -D1 and D2, SVG-Cx, SVG-RCA 06/17/2001 (8) H/O coronary artery bypass surgery Status: Chronic Comment: CABG x 4 UMANZOR Sequential -D1 and D2, SVG-Cx, SVG-RCA 06/17/2001 @ [facility] (9) Hypertension Status: Chronic (10) Tobacco dependence syndrome Status: Chronic History of Present Illness Date of Admission: 07/01/18 Chief Complaint: Chills, shortness of breath and cough. The patient is a 58 year old M with past medical history as mentioned above presented to the emergency room because of cough, shortness of breath and chills. According to the patient, he mentioned that his symptoms started 2 days ago with shortness of breath on minimal exertion, aggravated by minimal activity, not significantly relieved with rest, associated with cough with minimal sputum and difficulty expectorating sputum as well as chills. Also, he complained of left lateral chest pain, sharp pain, intermittent pain, 10 out of 10 severity, goes to the left back, aggravated by taking a deep breath and coughing and no relieving factors. He denied anterior chest pain, palpitation or dizziness. He denied nausea, vomiting or sweating. He denies syncope or presyncope. In the emergency department, patient was tachypneic but he was afebrile, blood pressure and heart rate are stable and his pulse ox was 96% on room air. His routine blood work was remarkable for leukocytosis with neutrophilia, otherwise normal. Lactic acid was 4.2. Chest x-ray showed left lower lobe consolidation and small pleural effusion. EKG revealed sinus rhythm without evidence of acute ischemic changes or cardiac arrhythmias. Patient started on IV fluids bolus, blood cultures to be drawn and started on IV antibiotics. He is being admitted for septic shock secondary to community- acquired pneumonia. Past Medical History Past Medical History (Chronic Problems): Chronic Problems (Last Reviewed 02/20/18 @ 14:17 by Narendra Garcia MD) Hypertrophy of nasal turbinates (Chronic) Nasal septal deviation (Chronic) Nasal deformity (Chronic) Bilateral carotid artery stenosis (Chronic) Right > Left Ischemia of right lower extremity (Chronic) Hyperlipidemia (Chronic) Peripheral vascular occlusive disease (Chronic) Atherosclerosis of coronary artery of [place] heart without angina pectoris (Chronic) CABG x 4 UMANZOR Sequential -D1 and D2, SVG-Cx, SVG-RCA 06/17/2001 H/O coronary artery bypass surgery (Chronic 06/17/01) CABG x 4 UMANZOR Sequential -D1 and D2, SVG-Cx, SVG-RCA 06/17/2001 @ [facility] Hypertension (Chronic) Tobacco dependence syndrome (Chronic) Medical History: Medical History (Last Reviewed 02/20/18 @ 14:17 by Narendra Garcia MD) Bilateral carotid artery stenosis (Chronic) I65.23 Right > Left Ischemia of right lower extremity (Chronic) I99.8 Hyperlipidemia (Chronic) E78.5 Peripheral vascular occlusive disease (Chronic) I73.9 Atherosclerosis of coronary artery of [place] heart without angina pectoris (Chronic) I25.10 CABG x 4 UMANZOR Sequential -D1 and D2, SVG-Cx, SVG-RCA 06/17/2001 Hypertension (Chronic) I10 Tobacco dependence syndrome (Chronic) F17.200 COPD (chronic obstructive pulmonary disease) J44.9 Crushing injury of arm, right S47.1XXA Crushing injury (Inactive) T14.8 Infected open wound (Inactive) T14.8XXA, L08.9 Superficial bacterial infection of skin (Inactive) L08.9, B96.89 Allergies No Known Allergies Allergy (Verified 06/25/18 13:07) Home Medications: Ambulatory Orders Medication Instructions Recorded Citalopram [Celexa] 40 mg PO DAILY 09/28/14 Lisinopril [Zestril] 10 mg PO DAILY 09/28/14 Surgical History: Surgical History (Last Updated 07/01/18 @ 13:46 by Antoni De Santiago MD) H/O coronary artery bypass surgery (Chronic) Onset Date: 06/17/01 Z95.1 CABG x 4 UMANZOR Sequential -D1 and D2, SVG-Cx, SVG-RCA 06/17/2001 @ [facility] History of angioplasty of peripheral vessel Z98.62 History of femoropopliteal bypass Onset Date: 06/2001 Z98.890 History of left lower extremity amputation Onset Date: 11/01/15 Z89.612 Above the knee Hx of tonsillectomy (Inactive) Z90.89 hx of APLL (Inactive) Right leg Surgical History: coronary bypass surgery, - - Left above- knee amputation. Psychiatric History: Depression Lives: Spouse/ Significant Other Smoking Status: Current every day smoker Tobacco Use: Cigarettes Alcohol: None Drugs: None - *Family History Maternal Family History: Family History (Last Reviewed 02/20/18 @ 14:17 by Narendra Garcia MD) Mother Breast cancer History Items: Cancer Paternal Family History: Family History (Last Reviewed 02/20/18 @ 14:17 by Narendra Garcia MD) Mother Breast cancer History Items: No pertinent history Review of Systems Constitutional: Reports: Chills, Malaise, Weakness. Denies: Anorexia, Fever Eyes: Denies: Blurred vision, Double vision, Drainage, Redness HEENT: Denies: Difficulty Hearing, Ear Pain, Eye Pain, Nasal Congestion, Sore Throat Cardiovascular: Reports: Chest Pain. Denies: Chest Pressure, Heaviness, Light Headedness, Orthopnea, Palpitations, Syncope Respiratory: Reports: Cough, Pleuritic Pain, Shortness of Breath, Shortness of breath upon exertion, Sputum production. Denies: Hemoptysis, Wheezing Gastrointestinal: Denies: Abdominal Pain, Constipation, Diarrhea, Nausea, Vomiting Genitourinary: Denies: Dysuria, Frequency, Hematuria Musculoskeletal: Denies: Arm Pain, Back Pain, Foot Pain Skin: Denies: Dryness, Rash Neurological: Denies: Balance problems, Change in Speech, Slurred speech, Confusion, Incoordination, Numbness Psychiatric: Reports: Depression. Denies: Anxiety Endocrine: Denies: Change in Body Habitus, Polydipsia VTE Information - Inpt Only VTE Present on Admission: No VTE Mechan Device Prophylaxis: None VTE Pharm Prophylaxis ordered?: No - Physical Exam General: Alert, Oriented x3, Cooperative, - - He is in moderate pain. HEENT: Atraumatic, PERRLA, EOMI, Normocephalic Oral: Moist Mucosa, No Gingival or Mucosal Lesions/ Ulcerations Neck: Supple, No JVD, Negative Carotid Bruits, Trachea Midline, Thyroid Normal Size and Texture Lungs: No wheeze, Diminished, Rales, Rhonchi, - - Decreased breath sounds bilateral, more on the left base, coarse crackleson the left base, bilateral rhonchi. Cardiovascular: Regular rate, Regular Rhythm, Normal S1, Normal S2, No murmurs, PMI Normal Abdomen: Bowel Sounds Present, Soft, Non Tender, Non-Distended, No Hepato-splenomegaly Extremities: No clubbing, No cyanosis, No edema, - - Above left knee amputation. Skin: No rashes, No breakdown Lymphatic: No Cervical, Supraclavicular, or Inguinal Adenopathy Neurological: Cranial nerves II-XII grossly intact, Motor Exam 5/5 strength throughout Psych/Mental Status: Normal Affect, Appropriate, Alert and oriented to time, place, person, mood and affect Vital Signs Temp Pulse Resp BP Pulse Ox 98.2 F 91 24 H 152/47 H 91 07/01/18 13:44 07/01/18 13:44 07/01/18 13:44 07/01/18 13:44 07/01/18 13:44 Oxygen Delivery Method Room Air Weight: 142 lb 10.225 oz Body Mass Index (BMI) 21.7 Laboratory Tests Past 24 Hrs WBC 18.4 H RBC 4.55 L Hgb 14.5 Hct 43.8 MCV 96.3 H Clinical Impression(s) from Imaging Studies Chest X-Ray 07/01/18 12:38 IMPRESSION: Consolidation in the posterior medial segment of the left lower lobe with a small left pleural effusion. Increased markings in the lingular segment of the left upper lobe. Electronically Signed: Fer Motta MD at 12:58 EST Tel [phone], Service support , Assessment/Plan This is a 58 years old male patient presented to the ED because of chills, left lateral pleuritic chest pain, cough and shortness of breath and he was found to have left lower lobe consolidation and small pleural effusion likely parapneumonic effusion as well as elevated lactic acid consistent with septic shock secondary to community acquired pneumonia. #1 septic shock: It is by criteria based on elevated lactic acid above 4. Patient is afebrile but he is tachypneic and he has leukocytosis with neutrophilia. At this time, blood pressure and heart rate are stable. EKG reviewed, no acute changes. Plan: Admit to intensive care unit, critical care monitoring, blood culture, sputum culture, urinalysis, urine culture, bolus IV fluids based on protocol, repeat lactic acid in 3 hours, start IV Levaquin for pneumonia, bronchodilators, chest physiotherapy, incentive spirometer, IV morphine as needed for pleuritic chest pain, repeat CBC and BMP tomorrow morning, PT OT evaluation and treatment. #2 acute left lower lobe probably bacterial community acquired pneumonia: Chest x-ray reviewed as above. Plan: Pancultures, IV antibiotics, bronchodilators, chest physiotherapy, sputum culture, IV fluids, IV morphine as needed for pain. #3 CAD status post CABG: EKG reviewed, no acute ischemic changes. Patient denied any anterior chest pain. His pain is likely due to pleuritic chest pain. Plan to continue aspirin, statins, metoprolol and lisinopril. #4 peripheral vascular disease/status post above left knee amputation: Stable, continue aspirin, statins and Eliquis. #5 hypertension: Blood pressure stable, continue lisinopril and metoprolol. #6 hyperlipidemia: Continue statins. #7 DVT prophylaxis: Continue Eliquis. This note was generated with [employer] software. It may contain incorrect words, spelling, and punctuation that were not noted in checking the note before signing. Code Visit Inpatient E AND M: [id number] Init Hosp L3 07/01/18 1418 <Electronically signed by Antoni De Santiago MD> Date Antoni De Santiago MD Cosigner Signature: Date (if applicable) CC: Antoni De Santiago; Vaibhav Sawyer MD Signed Observed: 07/01/2018 Status: F Source: [place] CULTURE, BLOOD (WB) 2:05 PM [facility] REPOSITORY BC No growth in 5 days. Performed By: #### M200.1000 #### [facility] [place], [address] Observed: 07/01/2018 Status: F Source: [place]ICK[place] CULTURE, BLOOD (WB) 2:00 PM [facility] REPOSITORY No growth in 5 days. Performed By: #### M200.1000 #### [facility] [address] [place], [address] EMERGENCY DEPARTMENT Observed: 07/01/2018 Status: F Source: [place] SUMMARY 1:50 PM [facility] REPOSITORY [facility] Medical Records Department [address] [place] [address] Emergency Department Summary 07/01/18 1130 MR#: [id number] Acct: [id number] Name: HANNAH NAVA Rep #: [id number] : 1960 58 From: Neo Saldivar MD PCP: Vaibhav Sawyer MD Status: REG ER ADDENDUM by Neo Saldivar MD on 07/01/18 at 1349 I was informed by nurse that he is now breathing greater than 20 times a minute. I personally reexamined the patient at 1345 and his respiratory rate is 34. Since he now has 2 Sirs criteria and a lactate of 4.7 he has septic shock. Patient will be admitted to ICU and not stepdown unit. CC time: 33 minutes 07/01/18 1350 Date Neo Saldivar MD cc: Vaibhav Sawyer MD * Signed - ER Visit Summary Date of Service: 07/01/18 Chief Complaint: Cough and shortness of breath History of Present Illness: The patient is a 58 M who is not a good informant. He responded no to questions asked by the nurse; he responds yes when I asked him. He endorses subjective fever with chills. He endorses palpitations. He endorses shortness of breath, productive cough. He does not know the color of the sputum. He also endorses generalized weakness. Per review of old records he has history of CVA, hypertension, hypercholesterolemia, cellulitis, bilateral carotid stenosis, peripheral arterial disease and left AKA secondary to PAD. He is status post tonsillectomy. He is scheduled for rhinoplasty. He is a smoker and admits to 1/2 pack/day. He started smoking was a teenager. Physical Examination: Vital signs are noted and blood pressure is elevated 152/57. Vital signs are otherwise unremarkable. He has not well groomed. Head is atraumatic normocephalic. Pupils are equal round reactive. Extraocular muscles are intact. TMs are pearly white with landmarks noted. Nares patent with no drainage. Posterior pharynx without erythema or exudate. Uvula is midline. There is no dysphonia or dysphasia. Trachea is midline. There is no stridor with auscultation of the neck. Heart is regular. Patient has diminished to absent breath sounds left side with fine expiratory wheezing on forced expiration only. Expiratory phase is increased. Abdomen is soft nontender. PT pulse is absent right side. Patient is status post AKA left side. Neuro exam is nonfocal. Test Results: EKG reveals a normal sinus rhythm rate 78 and the EKG is normal. SD interval normal, QRS duration normal, QT interval normal and axis normal. Chest x-ray reveals left lower lobe infiltrate. White count is 18.4 thousand with shift. There is 7% bands and 5% metamyelocytes. Electronic panel is normal. Lactate is 4.7. Light of the elevated lactate blood cultures were obtained and he was given a fluid bolus; however, by definition he does not meet sepsis criteria since he only has 1 SIRS criteria. Emergency Department Course and Treatment: Chest x-ray was obtained to assess abnormal auscultatory findings. He was treated with DuoNeb and albuterol for his wheezing. Appropriate blood work was obtained as well to evaluate for sepsis etc. Treatment Plan: Even though patient does not meet sepsis criteria since the only Sirs criteria he meets his elevated white count he was treated with fluid bolus, antibiotics and blood cultures were ordered. Patient appears ill. He is still wheezing after aerosol treatments. Will administer a dose of Solu-Medrol. Disposition: Admit to stepdown unit Impression: 1. Community-acquired pneumonia, left lower lobe 2. Lactic acidosis 3. Exacerbation of COPD with bronchospasm 4. History of CVA 5. History of hypertension 6. History of peripheral arterial disease status post left AKA This note was generated with [employer] software. It may contain incorrect words, spelling, and punctuation that were not noted in review of the chart prior to signing ED Disposition - Plan for ED Patient: Chief Complaint: Cough Referrals: Vaibhav Sawyer MD [Primary Care Provider] - What to do if you have Problems For any increased pain, shortness of breath, bleeding, nausea or vomiting, chest pain, or any unexpected problems, contact your Primary Care Provider. Call [facility] ([phone]) or report to the closest Emergency Room. Call 911 if necessary. 07/01/18 1344 <Electronically signed by Neo Saldivar MD> Date Neo Saldivar MD Cosigner Signature (If Indicated): Date CC: Vaibhav Sawyer MD LACTIC ACID Collected: 07/01/2018 Status: F Source: [place] 12:55 PM [facility] REPOSITORY Order Comment: Yes/No query for Sepsis Lactate Rule Y TYPE CODE TESTS RESULT OUT OF REFERENCE UNITS RANGE LAB L503.6005 0.4-2.0 mmol/L High alert LACTIC ACID 4.2 Result Comment: Critical Result(s) Called at: 13:38:11 07/01/2018 by: Jessica Gambino to Patricia Performed By: #### L503.6005 #### [facility] [address] [place], [address] CBC W/DIFF, AUTOMATED Collected: 07/01/2018 Status: C Source: [place] 12:00 PM [facility] REPOSITORY TYPE CODE TESTS RESULT OUT OF RANGE REFERENCE UNITS LAB L100.1000 4.4-11.0 K/mm3 High WBC 18.4 LAB L100.1200 4.6-6.2 M/mm3 Low RBC 4.55 LAB L100.1300 13.0-16.5 g/dl Normal HGB 14.5 LAB L100.1400 40-54 % Normal HCT 43.8 LAB L100.1500 80-94 fL High MCV 96.3 LAB L100.1600 27.0-32.0 pg Normal MCH 31.9 LAB L100.1700 32-36 g/gl Normal MCHC 33.1 LAB L100.1810 11.6-14.6 % High RDW CV 14.7 LAB L100.1820 35.1-43.9 fl High RDW SD 51.4 LAB L100.1900 150-450 K/mm3 Low PLT 102 LAB L100.2000 6.2-12.0 fl Normal MPV 11.3 LAB L100.3100 MANUAL DIFF Normal CELLS COUNTED 100 LAB L100.3200 47-70 % 66 Normal SEGS LAB L100.3300 0-5 % High 7 BAND LAB L100.3400 0-1 % High 5 META LAB L100.3800 19-41 % Low 7 LYMPH LAB L100.3900 0-10 % High 15 MONOCYTE LAB L100.5500 ADEQ Normal PLT EST SLT DEC LAB L100.7000 NORM C AND C NORMAL Normal RED CELL MORPH NORM C+C LAB L100.2620 2.0-7.7 X10 3/uL High Absolute Neut 13.4 LAB L100.2720 0.83-4.51 X10 3/ul Normal Absolute Lymph 1.29 LAB L100.9900 Normal PATH REV Reviewed Result Comment: Mild Thrombocytopenia. Neutrophilic leukocytosis with slight left shift. Clinical correlation suggested. Danie Jasso D.O. 07/02/18 AMENDED REPORT 07/02/18 1039 PATH REV previously reported as: October mike Performed By: #### L100.0100 #### [facility] [address] [place], [address] BASIC METABOLIC Collected: 07/01/2018 Status: F Source: [place] PROFILE ([facility]) 12:00 PM [facility] REPOSITORY TYPE CODE TESTS RESULT OUT OF RANGE REFERENCE UNITS LAB L501.0100 74-106 mg/dL High GLU 131 Result Comment: Fasting Glucose result greater than or equal to 126 mg/dL suggests DIABETES MELLITUS per A.D.A. criteria. Please note revised GLUCOSE reference range effective 2017. LAB L501.1000 7-18 mg/dL Normal BUN 17 LAB L501.1100 0.70-1.30 mg/dL Normal CREAT,SERUM 0.89 Result Comment: The validity of the calculated GFR AND GFRAA in patients over 70 years has not been determined. Clinical correlation is essential. LAB L501.1110 >60 mL/min Normal EST GFR 93 Result Comment: Non- GFR Calc LAB L501.1115 >60 mL/min Normal EST GFR - AA 112 Result Comment: GFR Calc LAB L501.1255 ml/min Normal Estimated CRCL 80.77 LAB L501.1300 10-20 RATIO Normal BUN/CRE 19.1 LAB L501.2200 8.5-10 mg/dL Normal .1 CA 8.8 LAB L501.5300 136-14 mmol/L Low 5 NA 135 LAB L501.5600 3.5-5. mmol/L Normal 1 K 4.1 Result Comment: Moderate Hemolysis, Result may be falsely increased. LAB L501.5900 98-107 mmol/L Normal CL 101 LAB L501.6100 21.0-32.0 mmol/L Normal CO2 25.0 LAB L501.6200 5-15 Normal 9 GAP Performed By: #### L500.2500 #### [facility] [address] [place], [address] CHEST PA AND LATERAL Observed: 07/01/2018 Status: F Source: [place] 11:10 AM [facility] REPOSITORY [facility] Imaging Services [address] [place] [address] Chest PA and Lateral MR#: [id number] Acct: [id number] Name: HANNAH NAVA Rep #: [id number] : 1960 M 58 From: Fer Motta MD PCP: Silverio OVIEDO,Vaibhav Status: REG ER Study: Chest PA and Lateral Date of Exam: 07/01/18 Exam# [id number] Ordering Dr: Neo Saldivar MD STUDY: X-RAY CHEST REASON FOR EXAM: Male, 58 years old. Dyspnea and productive cough. TECHNIQUE: AP and lateral views of the chest. COMPARISON: Comparison is made with prior study dated March 11, 2018. FINDINGS: There is evidence of a consolidation in the posterior medial segment of the left lower lobe. Small left pleural effusion. Increased markings are also seen in the lingular segment of the left upper lobe. Sternal cerclage wires and vascular clips are present from a prior sternotomy and coronary artery bypass graft procedure (CABG). Normal mediastinum and jefry. Normal visualized pulmonary arteries. There is atherosclerotic calcification of the aortic arch with tortuosity. There is demineralization of the osseous structures. Normal visualized ribs, clavicles, and shoulders. There is no demonstrated abnormality of the visualized soft tissue structures of the upper abdomen. RAD/Chest PA and Lateral IMPRESSION: Consolidation in the posterior medial segment of the left lower lobe with a small left pleural effusion. Increased markings in the lingular segment of the left upper lobe. Electronically Signed: Fer Motta MD at 12:58 EST Tel [phone], Service support , CC: Vaibhav Sawyer MD; Neo Saldivar MD Clerk: Signed SINUS/FACIAL BONE Observed: 04/12/2018 Status: F Source: [place] 2:16 PM [facility] REPOSITORY [facility] Imaging Services [address] [place] [address] Sinus/Facial Bone MR#: [id number] Acct: [id number] Name: HANNAH NAVA Rep #: [id number] : 1960 M 58 From: Raul Vines MD PCP: Vaibhav Sawyer MD Status: REG CLI Study: Sinus/Facial Bone Date of Exam: 04/12/18 Exam# [id number] Ordering Dr: Rodrigo Thomason MD HISTORY: NASAL ABSCESS TECHNIQUE: Helically acquired images were obtained of the paranasal sinuses. A radiation dose optimization technique was used for this scan. IV Contrast dosage and agent: None. COMPARISON: 02/19/2014 FINDINGS: There is symmetrical soft tissue thickening of the anterior and lower nasal septum toward the tip of the nose and this correlates with the provided history of infection. No findings of abscess by CT. Specifically, no soft tissue gas or fluid component seen. Noncontrast exam part limits evaluation. No bone destruction or osteomyelitis identified. No fracture or significant septal deviation. The nasal turbinates appear normal. The paranasal sinuses are normally developed. Minor mucosal thickening of the floor of the left maxillary sinus. The ostiomeatal units are patent bilaterally. The right side unit is more narrow than the left. The remaining paranasal sinuses appear clear. No associated orbital disease. As visualized, the mastoids and middle ear cavities are clear. CT/Sinus/Facial Bone IMPRESSION: 1. Symmetrical soft tissue thickening of the anterior and lower nasal septum which correlates with the provided history of infection and compatible with cellulitis. 2. By CT, no abscess or suspicious fluid collections 3. Left maxillary sinus minor mucosal thickening with patency of the ostiomeatal units. Individualized dose optimization techniques were used for this CT. at 0143 Reported and signed by: Raul Vines MD Electronically Signed: Raul Vines, at 1:41 EDT Tel , Service support , CC: Jeet Thomason MD; Vaibhav Sawyer MD Clerk: Signed PROGRESS Observed: 04/10/2018 Status: COMPLETED Source: [place] 8:06 AM [facility] REPOSITORY HNO ID: [id number] Author: Vaibhav Sawyer Service: (none) Author Type: Physician Type: Progress Notes Filed: 04/10/2018 9:37 AM Note Text: Chief Complaint Patient presents with: Recheck HPI Todd Nava is a 58 year old male who presents here today for a medication follow up. Pt needs refills on controlled medications. Pain - Continues to have phantom pain from amputation below the knee. Notes that weather makes his arthritis pain worse and uncontrolled. Wishes it was warm outside. During OV pt states he needs refills on pain medications. Admits that he takes his medication when he feels his pain, notes that the pharmacy doesn't like that. Currently taking Percocet 10-325 mg, written for 1 tab po every 6 hours and Lyrica 150 mg 2 caps po bid. Feels that the Lyrica is changing and he will weigh the powder and its never the same and feels that he he's getting ripped off, the Pharmacy and the insurance companies. Has days where the medication works and other times he will take it and it doesn't work. Depression - Currently taking Cymbalta 60 mg once daily and Celexa 20 mg 2 tabs po once daily. HTN - Denies checking BP at home. Denies any symptoms of chest pain, sob or dizziness. On regimen of Lisinopril 10 mg once daily. Nose - Had nasal surgery done few weeks ago at [facility] by Rciki CHOI. Looks better, but still has discomfort and not able to breathe out of it. Setup to have an US done. Would like to have a flu shot. Past medical history, appointments, medications, allergies reviewed. Previous Medical History PAST MEDICAL HISTORY Diagnosis Date - Above knee amputation of left lower extremity (HCC) - Atherosclerosis of coronary artery 10/30/2008 4 V CABG in 2000: done at [facility] Seeing Dr. Garcia as of 12-17 - Atherosclerotic heart disease of [place] coronary artery without angina pectoris 10/27/2015 - Chronic obstructive pulmonary disease, unspecified ([facility]) 10/27/2015 - Coronary atherosclerosis of unspecified type of vessel, [place] or graft CABG 2000; follows with Dr Garcia - Crushing injury of right hand 1992 - Embolism and thrombosis of arteries of lower extremity ([facility]) 08/04/2009 444.22 EMBOLISM AND THROMBOSIS OF ARTERIES OF L - HTN (hypertension) - Hyperlipidemia 10/30/2008 - Lower limb ischemia 05/11/2017 - Marijuana use NO CONTROLLED SUBSTANCES See visit 09/27. - Neuropathic pain 04/25/2016 - Nicotine dependence, cigarettes, uncomplicated 10/27/2015 - Other peripheral vascular disease(443.89) Multiple bypass procedures - Peripheral vascular disease ([facility]) 04/17/2005 - Phantom limb syndrome ([facility]) 04/25/2016 - Premature atrial contractions 05/12/2017 - Presence of aortocoronary bypass graft 10/27/2015 - Pure hypercholesterolemia - Status post above knee amputation of left lower extremity (HCC) 01/26/2016 - Tobacco dependence syndrome 01/17/2017 - Tobacco use disorder 10/30/2008 Half a pack a day as of 12-17 Previous Surgical History PAST SURGICAL HISTORY Procedure Laterality Date - ARTERY X-RAYS, ARM/LEG 05/17/05 - BALLN ANGIOPLASTY PERC,FEM-POP 11/02/05 - BALLN ANGIOPLASTY PERC,FEM-POP 11/02/05 - BALLN ANGIOPLASTY PERC,FEM-POP 06/12/06 - BALLN ANGIOPLASTY PERC,ILIAC 06/12/06 - CABG, ARTERY-VEIN, FOUR 2000 CABG, quadruple grafts - CONTRAST X-RAY EXAM OF AORTA 05/17/05 - Left vqxsp-pug-kifa to enpaj-aer-pftd popliteal artery bypass with arm vein. 08/02/2009 - PAST SURGICAL HISTORY OF Left 01/2017 Revision left leg amputation - PAST SURGICAL HISTORY OF N/A 03/2018 Nasal surgery - PLACE CATH SUBSUBSELECT ART,ABD/PEL 05/17/05 - PLACE CATH SUBSUBSELECT ART,ABD/PEL 11/02/05 - PLACE CATH SUBSUBSELECT ART,ABD/PEL 06/12/06 - REVASCULARIZATION ILIAC ARTERY ANGIOP 1ST VSL 07-21-10 BILAT LEGS - REVASCULARIZATION ILIAC ARTERY ANGIOP 1ST VSL 07/05/12 R-EIA - REVASCULARIZATION ILIAC ARTERY ANGIOP 1ST VSL 11-18-14 LEFT - REVSC OPN/PRG FEM/POP W/ANGIOPLASTY [facility] 07-21-10 LEFT LEG - REVSC OPN/PRG FEM/POP W/ANGIOPLASTY [facility] 07/05/12 L-SFA - REVSC OPN/PRQ FEM/POP W/STNT/ANGIOP VS 07-30-12 left - REVSC OPN/PRQ FEM/POP W/STNT/ANGIOP VSL 11-18-14 RIGHT - REVSC OPN/PRQ TIB/[place] W/ANGIOPLASTY [facility] 08-03-10 LEFT - REVSC OPN/PRQ TIB/[place] W/ANGIOPLASTY [facility] 07-30-12 left - REVSC OPN/PRQ TIB/[place] W/ANGIOPLASTY [facility] 08-03-10 LEFT - REVSC OPN/PRQ TIB/MAR[place] W/ANGIOPLASTY [facility] 07-30-12 left Family History FAMILY HISTORY Problem Relation Age of Onset - Breast Cancer Mother - Stroke Maternal Grandfather - Coronary Artery Disease Maternal Uncle - Stroke Paternal Grandfather - other (Other) Brother crib - Heart Paternal Grandmother heart attacks - other (pneumonia) Brother as an infant Patient Allergies ALLERGIES Allergen Reactions - Morphine Hives Pt states that he's not allergic to Morphine Current Medications Current Outpatient Prescriptions on File Prior to Visit: oxyCODONE-acetaminophen (PERCOCET 10) 10-325 mg tablet Take 1 tablet by mouth every 6 hours as needed for up to 30 days.Earliest Fill Date: 03/20/18 pregabalin (LYRICA) 150 mg capsule Take 2 capsules by mouth twice daily for 90 days. ELIQUIS 5 mg tab(s) Take 1 tablet by mouth twice daily. polyethylene glycol 3350 (MIRALAX, GLYCOLAX) 17 gram/dose powder Take 17 g by mouth once daily. Take one (1) capful in 8oz of liquid each day. DULoxetine (CYMBALTA) 60 mg capsule Take 1 capsule by mouth once daily. fluticasone (FLONASE) 50 mcg/actuation nasal spray Use 2 Sprays in each nostril once daily. Rinse mouth after use. lisinopril (ZESTRIL, PRINIVIL) 10 mg tablet Take 1 tablet by mouth once daily. simvastatin (ZOCOR) 20 mg tablet Take 1 tablet by mouth once daily. citalopram (CELEXA) 20 mg tablet Take 2 tablets by mouth once daily. ASPIRIN 81 MG TAB Take one(1) tablet daily. No current facility-administered medications on file prior to visit. Social History Social History Marital status: Spouse name: Years of education: Number of children: Social History Main Topics Smoking status: Current Every Day Smoker Packs/day: 0.50 Years: 20.00 Types: Cigarettes Start date: 12/06/1975 Smokeless tobacco: Former User Types: Snuff Alcohol use: Yes 6.0 oz/week Comment: previously heavy drinker Drug use: No Sexual activity: No Other Topics Concern No BLOOD TRANSFUSIONS No CAFFEINE No OCCUPATIONAL EXPOSURE No HOBBY HAZARD No SLEEP CONCERN No STRESS CONCERN No WEIGHT CONCERN No DIET No BACK CARE No EXERCISE No BIKE HELMET No SEAT BELT No SELF EXAMS No EXAM: BP 138/68 (BP Site: Left Arm, BP Position: Sitting, BP Cuff Size: Regular Adult) Pulse 68 Resp 16 Wt 65 kg (143 lb 3.2 oz) BMI 21.77 kg/m? General Appearance: Well appearing, alert, in no acute distress, well-hydrated, well nourished.. Lungs: Lungs clear to auscultation. No wheezing, rhonchi, rales. Heart: RRR without murmur, gallop, or rubs. No ectopy. Health Maintenance List HEPATITIS C SCREENING due on 2002 INFLUENZA(1) due on 02/09/2018 STATIN MED ADHERENCE due on 04/11/2018 ANNUAL PCP TEAM CHRONIC DISEASE VISIT due on 01/23/2019 BP CONTROLLED (<130/80) due on 01/23/2019 LDL CHOLESTEROL due on 03/11/2019 DIABETES SCREEN due on 03/11/2021 COLORECTAL CANCER SCREENING,SEE MODIFIER due on 11/09/2021 LIPID SCREEN due on 03/11/2023 DTAP,TDAP,TD(2 - Td) due on 10/09/2027 PROSTATE CANCER SCREENING DISCUSSION Completed ONE PNEUMOVAX PRIOR TO AGE 65 Completed Data reviewed Appointment on 03/11/2018 Component Date Value - Protein, Total 03/11/2018 6.5 - Albumin 03/11/2018 4.1 - Calcium 03/11/2018 9.0 - Bilirubin, Total 03/11/2018 0.3 - Alkaline Phosphatase 03/11/2018 70 - AST 03/11/2018 18 - Glucose 03/11/2018 101* - BUN 03/11/2018 14 - Creatinine 03/11/2018 0.66* - Sodium 03/11/2018 139 - Potassium 03/11/2018 4.1 - Chloride 03/11/2018 104 - CO2 03/11/2018 20* - Anion Gap 03/11/2018 15 - ALT 03/11/2018 13 - eGFR- 03/11/2018 >60 - eGFR-All Other Races 03/11/2018 >60 - Cholesterol, Total 03/11/2018 114 - Triglyceride 03/11/2018 121 - HDL Cholesterol 03/11/2018 32* - LDL Cholesterol 03/11/2018 58 - Non HDL Cholesterol 03/11/2018 82 - Fasting Time 03/11/2018 12 - VLDL Cholesterol 03/11/2018 24 - TC:HDL Ratio 03/11/2018 3.56 - LDL:HDL Ratio 03/11/2018 1.81 - WBC 03/11/2018 15.40* - RBC 03/11/2018 4.48 - Hemoglobin 03/11/2018 14.7 - Hematocrit 03/11/2018 44.0 - MCV 03/11/2018 98.2 - MCH 03/11/2018 32.8 - MCHC 03/11/2018 33.4 - RDW-CV 03/11/2018 14.3 - Platelet Count 03/11/2018 138* - MPV 03/11/2018 12.1 - Neut% 03/11/2018 81.2 - Abs Neut (ANC) 03/11/2018 12.49* - Lymph% 03/11/2018 11.2 - Abs Lymph 03/11/2018 1.73 - Cochran% 03/11/2018 7.0 - Abs Cochran 03/11/2018 1.08* - Eosin% 03/11/2018 0.3 - Abs Eosin 03/11/2018 0.05 - Baso% 03/11/2018 0.3 - Abs Baso 03/11/2018 0.05 - Nucleated Reds 03/11/2018 0.0 - Absolute nRBC 03/11/2018 <0.01 - Diff Type 03/11/2018 Auto Diff ASSESSMENT/PLAN: 1. Phantom limb syndrome (HCC) - ICD9: 353.6, ICD10: G54.7 (primary diagnosis) - Continue current medication regimen. 2. Status post above knee amputation of left lower extremity (HCC) - ICD9: V49.76, ICD10: Z89.612 - Continue current medication regimen. 3. Neuroma of amputation stump, left lower extremity (HCC) - ICD9: 997.61, ICD10: T87.34 - Continue current medication regimen. - OXYCODONE-ACETAMINOPHEN 10 MG-325 MG TABLET - PREGABALIN 150 MG CAPSULE 4. Neuropathic pain - ICD9: 729.2, ICD10: M79.2 - Continue current medication regimen. 5. Hyperlipidemia, unspecified hyperlipidemia type - ICD9: 272.4, ICD10: E78.5 - good control - Continue current medication. 6. Embolism and thrombosis of arteries of lower extremity (HCC) - ICD9: 444.22, ICD10: I74.3 - Continue current medication regimen. 7. Depression, unspecified depression type - ICD9: 311, ICD10: F32.9 - Stable - Continue current medication regimen. 8. Need for vaccination - ICD9: V05.9, ICD10: Z23 - INFLUENZA VACCINE QUADRIVALENT AGE 3 YRS PLUS + IM 3 mo f/u I agree with the Chief Complaint, ROS, and Past Histories independently gathered by the clinical operator command support systems and the remaining scribed note accurately describes my personal service to the patient. Vaibhav Sawyer MD The documentation for this note was completed by Olga Newberry Ma acting as scribe for Vaibhav Sawyer MD. April 10, 2018 8:24 AM. 58 year old male here for INACTIVATED INFLUENZA VACCINE. [id number] Season Patient is identified by name and date of : Yes [] CONTRAINDICATIONS color enhanced section Age less than 6 months? No Allergy to eggs, chicken, chicken feathers, or chicken dander? No Allergy to thimerosal (a preservative) or formaldehyde, gelatin? No History of severe reaction to any vaccine component or a previous dose of influenza vaccination? No History of Guillain-Trenton Syndrome within 6 weeks after a previous influenza vaccine? No Patient is not moderately or severely ill? No Current temperature greater or equal to 100.4F? No History of Bone Marrow Transplant prior 6 months or solid organ transplant in the past 3 months ? No History of fainting after a prior injection or medical procedure? No- ? If patient has fainted in the past, the CDC recommends sitting or lying down for 15 minutes after the vaccination. [] VERIFICATION color enhanced section Was the answer Yes for any of the above contraindications? No contraindications present. Acceptable to proceed with vaccine. Patient/guardian agrees the above answers are true to the best of their knowledge? Yes Flu vaccine information sheet given? Yes See immunization activity in [facility] for details of immunizations adminstered today. Patient age: [age] year old For The Flu Season 6-35 months old: Fluzone 0.25 ml - IM (Preservative Free) 3 years of age: Fluzone 0.5 ml - IM (Preservative Free) 3 years and older: Fluzone 0.5 ml- IM-(with Preservatives) 65+ years old: 2-49 years old Fluzone High-Dose 0.5 ml - IM (Preservative Free) FLUMIST- intranasal REMEMBER: If patient is less than 9 years of age and this is the first vaccine of Influenza to be received in any flu season, they should receive a second dose in one months time. CNOV Observed: 04/10/2018 Status: COMPLETED Source: [place] 8:00 AM [facility] REPOSITORY Office Visit (FAMPWS) TODD NAVA ([id number]) 1960 M Date Time Provider Department 04/10/18 8:00 AM [facility] During your visit today, we recorded the following information about you: Pulse Respiration Blood pressure Weight 68/minute 16/minute 138/68 65 kg Vaibhav Sawyer MD 04/10/2018 9:37 AM Signed Chief Complaint Patient presents with: Recheck HPI Todd Nava is a 58 year old male who presents here today for a medication follow up. Pt needs refills on controlled medications. Pain - Continues to have phantom pain from amputation below the knee. Notes that weather makes his arthritis pain worse and uncontrolled. Wishes it was warm outside. During OV pt states he needs refills on pain medications. Admits that he takes his medication when he feels his pain, notes that the pharmacy doesn't like that. Currently taking Percocet 10-325 mg, written for 1 tab po every 6 hours and Lyrica 150 mg 2 caps po bid. Feels that the Lyrica is changing and he will weigh the powder and its never the same and feels that he he's getting ripped off, the Pharmacy and the insurance companies. Has days where the medication works and other times he will take it and it doesn't work. Depression - Currently taking Cymbalta 60 mg once daily and Celexa 20 mg 2 tabs po once daily. HTN - Denies checking BP at home. Denies any symptoms of chest pain, sob or dizziness. On regimen of Lisinopril 10 mg once daily. Nose - Had nasal surgery done few weeks ago at [facility] by [facility]. Looks better, but still has discomfort and not able to breathe out of it. Setup to have an US done. Would like to have a flu shot. Past medical history, appointments, medications, allergies reviewed. Previous Medical History PAST MEDICAL HISTORY Diagnosis Date - Above knee amputation of left lower extremity (HCC) - Atherosclerosis of coronary artery 10/30/2008 4 V CABG in 2000: done at [facility] Seeing Dr. Garcia as of 12-17 - Atherosclerotic heart disease of [place] coronary artery without angina pectoris 10/27/2015 - Chronic obstructive pulmonary disease, unspecified (HCC) 10/27/2015 - Coronary atherosclerosis of unspecified type of vessel, [place] or graft CABG 2000; follows with Dr Garcia - Crushing injury of right hand 1992 - Embolism and thrombosis of arteries of lower extremity (HCC) 08/04/2009 444.22 EMBOLISM AND THROMBOSIS OF ARTERIES OF L - HTN (hypertension) - Hyperlipidemia 10/30/2008 - Lower limb ischemia 05/11/2017 - Marijuana use NO CONTROLLED SUBSTANCES See visit 09/27. 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 08/02/2009 - PAST SURGICAL HISTORY OF Left 01/2017 Revision left leg amputation - PAST SURGICAL HISTORY OF N/A 03/2018 Nasal surgery - PLACE CATH SUBSUBSELECT ART,ABD/PEL 05/17/05 - PLACE CATH SUBSUBSELECT ART,ABD/PEL 11/02/05 - PLACE CATH SUBSUBSELECT ART,ABD/PEL 06/12/06 - REVASCULARIZATION ILIAC ARTERY ANGIOP 1ST VSL 07-21-10 BILAT LEGS - REVASCULARIZATION ILIAC ARTERY ANGIOP 1ST VSL 07/05/12 R-EIA - REVASCULARIZATION ILIAC ARTERY ANGIOP 1ST VSL 11-18-14 LEFT - REVSC OPN/PRG FEM/POP W/ANGIOPLASTY UNI 07-21-10 LEFT LEG - REVSC OPN/PRG FEM/POP W/ANGIOPLASTY UNI 07/05/12 L-SFA - REVSC OPN/PRQ FEM/POP W/STNT/ANGIOP VSL 07-30-12 left - REVSC OPN/PRQ FEM/POP W/STNT/ANGIOP VSL 11-18-14 RIGHT - REVSC OPN/PRQ TIB/MARLEY W/ANGIOPLASTY UNI 08-03-10 LEFT - REVSC OPN/PRQ TIB/MARLEY W/ANGIOPLASTY UNI 07-30-12 left - REVSC OPN/PRQ TIB/MARLEY W/ANGIOPLASTY UNI EA VSL 08-03-10 LEFT - REVSC OPN/PRQ TIB/MARLEY W/ANGIOPLASTY UNI EA VSL 07-30-12 left Family History FAMILY HISTORY Problem Relation Age of Onset - Breast Cancer Mother - Stroke Maternal Grandfather - Coronary Artery Disease Maternal Uncle - Stroke Paternal Grandfather - other (Other) Brother crib - Heart Paternal Grandmother heart attacks - other (pneumonia) Brother as an infant Patient Allergies ALLERGIES Allergen Reactions - Morphine Hives Pt states that he's not allergic to Morphine Current Medications Current Outpatient Prescriptions on File Prior to Visit: oxyCODONE-acetaminophen (PERCOCET 10) 10-325 mg tablet Take 1 tablet by mouth every 6 hours as needed for up to 30 days.Earliest Fill Date: 03/20/18 pregabalin (LYRICA) 150 mg capsule Take 2 capsules by mouth twice daily for 90 days. ELIQUIS 5 mg tab(s) Take 1 tablet by mouth twice daily. polyethylene glycol 3350 (MIRALAX, GLYCOLAX) 17 gram/dose powder Take 17 g by mouth once daily. Take one (1) capful in 8oz of liquid each day. DULoxetine (CYMBALTA) 60 mg capsule Take 1 capsule by mouth once daily. fluticasone (FLONASE) 50 mcg/actuation nasal spray Use 2 Sprays in each nostril once daily. Rinse mouth after use. lisinopril (ZESTRIL, PRINIVIL) 10 mg tablet Take 1 tablet by mouth once daily. simvastatin (ZOCOR) 20 mg tablet Take 1 tablet by mouth once daily. citalopram (CELEXA) 20 mg tablet Take 2 tablets by mouth once daily. ASPIRIN 81 MG TAB Take one(1) tablet daily. No current facility-administered medications on file prior to visit. Social History Social History Marital status: Spouse name: Years of education: Number of children: Social History Main Topics Smoking status: Current Every Day Smoker Packs/day: 0.50 Years: 20.00 Types: Cigarettes Start date: 12/06/1975 Smokeless tobacco: Former User Types: Snuff Alcohol use: Yes 6.0 oz/week Comment: previously heavy drinker Drug use: No Sexual activity: No Other Topics Concern No BLOOD TRANSFUSIONS No CAFFEINE No OCCUPATIONAL EXPOSURE No HOBBY HAZARD No SLEEP CONCERN No STRESS CONCERN No WEIGHT CONCERN No DIET No BACK CARE No EXERCISE No BIKE HELMET No SEAT BELT No SELF EXAMS No EXAM: BP 138/68 (BP Site: Left Arm, BP Position: Sitting, BP Cuff Size: Regular Adult) Pulse 68 Resp 16 Wt 65 kg (143 lb 3.2 oz) BMI 21.77 kg/m? General Appearance: Well appearing, alert, in no acute distress, well-hydrated, well nourished.. Lungs: Lungs clear to auscultation. No wheezing, rhonchi, rales. Heart: RRR without murmur, gallop, or rubs. No ectopy. Health Maintenance List HEPATITIS C SCREENING due on 2002 INFLUENZA(1) due on 02/09/2018 STATIN MED ADHERENCE due on 04/11/2018 ANNUAL PCP TEAM CHRONIC DISEASE VISIT due on 01/23/2019 BP CONTROLLED (<130/80) due on 01/23/2019 LDL CHOLESTEROL due on 03/11/2019 DIABETES SCREEN due on 03/11/2021 COLORECTAL CANCER SCREENING,SEE MODIFIER due on 11/09/2021 LIPID SCREEN due on 03/11/2023 DTAP,TDAP,TD(2 - Td) due on 10/09/2027 PROSTATE CANCER SCREENING DISCUSSION Completed ONE PNEUMOVAX PRIOR TO AGE 65 Completed Data reviewed Appointment on 03/11/2018 Component Date Value - Protein, Total 03/11/2018 6.5 - Albumin 03/11/2018 4.1 - Calcium 03/11/2018 9.0 - Bilirubin, Total 03/11/2018 0.3 - Alkaline Phosphatase 03/11/2018 70 - AST 03/11/2018 18 - Glucose 03/11/2018 101* - BUN 03/11/2018 14 - Creatinine 03/11/2018 0.66* - Sodium 03/11/2018 139 - Potassium 03/11/2018 4.1 - Chloride 03/11/2018 104 - CO2 03/11/2018 20* - Anion Gap 03/11/2018 15 - ALT 03/11/2018 13 - eGFR- 03/11/2018 >60 - eGFR-All Other Races 03/11/2018 >60 - Cholesterol, Total 03/11/2018 114 - Triglyceride 03/11/2018 121 - HDL Cholesterol 03/11/2018 32* - LDL Cholesterol 03/11/2018 58 - Non HDL Cholesterol 03/11/2018 82 - Fasting Time 03/11/2018 12 - VLDL Cholesterol 03/11/2018 24 - TC:HDL Ratio 03/11/2018 3.56 - LDL:HDL Ratio 03/11/2018 1.81 - WBC 03/11/2018 15.40* - RBC 03/11/2018 4.48 - Hemoglobin 03/11/2018 14.7 - Hematocrit 03/11/2018 44.0 - MCV 03/11/2018 98.2 - MCH 03/11/2018 32.8 - MCHC 03/11/2018 33.4 - RDW-CV 03/11/2018 14.3 - Platelet Count 03/11/2018 138* - MPV 03/11/2018 12.1 - Neut% 03/11/2018 81.2 - Abs Neut (ANC) 03/11/2018 12.49* - Lymph% 03/11/2018 11.2 - Abs Lymph 03/11/2018 1.73 - Cochran% 03/11/2018 7.0 - Abs Cochran 03/11/2018 1.08* - Eosin% 03/11/2018 0.3 - Abs Eosin 03/11/2018 0.05 - Baso% 03/11/2018 0.3 - Abs Baso 03/11/2018 0.05 - Nucleated Reds 03/11/2018 0.0 - Absolute nRBC 03/11/2018 <0.01 - Diff Type 03/11/2018 Auto Diff ASSESSMENT/PLAN: 1. Phantom limb syndrome (HCC) - ICD9: 353.6, ICD10: G54.7 (primary diagnosis) - Continue current medication regimen. 2. Status post above knee amputation of left lower extremity (HCC) - ICD9: V49.76, ICD10: Z89.612 - Continue current medication regimen. 3. Neuroma of amputation stump, left lower extremity (HCC) - ICD9: 997.61, ICD10: T87.34 - Continue current medication regimen. - OXYCODONE-ACETAMINOPHEN 10 MG-325 MG TABLET - PREGABALIN 150 MG CAPSULE 4. Neuropathic pain - ICD9: 729.2, ICD10: M79.2 - Continue current medication regimen. 5. Hyperlipidemia, unspecified hyperlipidemia type - ICD9: 272.4, ICD10: E78.5 - good control - Continue current medication. 6. Embolism and thrombosis of arteries of lower extremity (HCC) - ICD9: 444.22, ICD10: I74.3 - Continue current medication regimen. 7. Depression, unspecified depression type - ICD9: 311, ICD10: F32.9 - Stable - Continue current medication regimen. 8. Need for vaccination - ICD9: V05.9, ICD10: Z23 - INFLUENZA VACCINE QUADRIVALENT AGE 3 YRS PLUS + IM 3 mo f/u I agree with the Chief Complaint, ROS, and Past Histories independently gathered by the clinical operator command support systems and the remaining scribed note accurately describes my personal service to the patient. Vaibhav Sawyer MD The documentation for this note was completed by Olga Newberry Ma acting as scribe for Vaibhav Sawyer MD. April 10, 2018 8:24 AM. 58 year old male here for INACTIVATED INFLUENZA VACCINE. [id number] Season Patient is identified by name and date of : Yes [] CONTRAINDICATIONS color enhanced section Age less than 6 months? No Allergy to eggs, chicken, chicken feathers, or chicken dander? No Allergy to thimerosal (a preservative) or formaldehyde, gelatin? No History of severe reaction to any vaccine component or a previous dose of influenza vaccination? No History of Guillain-Trenton Syndrome within 6 weeks after a previous influenza vaccine? No Patient is not moderately or severely ill? No Current temperature greater or equal to 100.4F? No History of Bone Marrow Transplant prior 6 months or solid organ transplant in the past 3 months ? No History of fainting after a prior injection or medical procedure? No- ? If patient has fainted in the past, the CDC recommends sitting or lying down for 15 minutes after the vaccination. [] VERIFICATION color enhanced section Was the answer Yes for any of the above contraindications? No contraindications present. Acceptable to proceed with vaccine. Patient/guardian agrees the above answers are true to the best of their knowledge? Yes Flu vaccine information sheet given? Yes See immunization activity in [facility] for details of immunizations adminstered today. Patient age: [age] year old For The [id number] Flu Season 6-35 months old: Fluzone 0.25 ml - IM (Preservative Free) 3 years of age: Fluzone 0.5 ml - IM (Preservative Free) 3 years and older: Fluzone 0.5 ml- IM-(with Preservatives) 65+ years old: 2-49 years old Fluzone High-Dose 0.5 ml - IM (Preservative Free) FLUMIST- intranasal REMEMBER: If patient is less than 9 years of age and this is the first vaccine of Influenza to be received in any flu season, they should receive a second dose in one months time. Referring Provider: SELF [[id number]] Allergies As of Date: 04/10/2018 Noted Allergy Reaction MORPHINE 11/18/2014 4 - Hives Comments: Pt states that he's not allergic to Morphine Date Reviewed: 04/10/2018 Reviewed by: Olga Newberry Ma - Fully Assessed Reason for Visit: Recheck [92] Imm/Inj [58] Cmt: Flu Vaccine Reason For Visit History Recorded Primary Visit Diagnosis:Phantom limb syndrome (HCC) [G54.7] Other Visit Diagnoses:Status post above knee amputation of left lower extremity (HCC) [Z89.612] Neuroma of amputation stump, left lower extremity (HCC) [T87.34] Neuropathic pain [M79.2] Hyperlipidemia, unspecified hyperlipidemia type [E78.5] Embolism and thrombosis of arteries of lower extremity (HCC) [I74.3] Depression, unspecified depression type [F32.9] Need for vaccination [Z23] Hypertension, unspecified type [I10] Order(s):[START ON 04/19/2018] oxyCODONE-acetaminophen (PERCOCET 10) 10-325 mg tabletTake 1 tablet by mouth every 6 hours as needed for up to 30 days. Earliest Fill Date: 04/19/18Disp: 120 tabletRfl: 0 [START ON 04/17/2018] pregabalin (LYRICA) 150 mg capsuleTake 2 capsules by mouth twice daily for 90 days.Disp: 120 capsuleRfl: 2 INFLUENZA VACCINE QUADRIVALENT AGE 3 YRS PLUS + IM [[id number]] Order #: [id number] Prescriptions as of 04/10/2018 Sig: OXYCODONE-ACETAMINOPHEN 10 MG* Take 1 tablet by mouth every * PREGABALIN 150 MG CAPSULE Take 2 capsules by mouth twic* ELIQUIS 5 MG TABLET Take 1 tablet by mouth twice * POLYETHYLENE GLYCOL 3350 17 G* Take 17 g by mouth once daily* DULOXETINE 60 MG CAPSULE,ANA* Take 1 capsule by mouth once * FLUTICASONE 50 MCG/ACTUATION * Use 2 Sprays in each nostril * LISINOPRIL 10 MG TABLET Take 1 tablet by mouth once d* SIMVASTATIN 20 MG TABLET Take 1 tablet by mouth once d* CITALOPRAM 20 MG TABLET Take 2 tablets by mouth once * ASPIRIN 81 MG TABLET Take one(1) tablet daily. Problem List As Of Date 04/10/2018 Noted Resolved Peripheral vascular disease (HCC) [I73.9] INVALID FOR* Tobacco Use Disorder [F17.200] INVALID FOR* More... Atherosclerosis of coronary artery [I25.10] INVALID FOR* More... Hyperlipidemia [E78.5] INVALID FOR* Embolism and Thrombosis of Arteries of Lower Ex*INVALID FOR* More... 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] INVALID FOR* Multiple excoriations [T07.XXXA] INVALID FOR* Neurodermatitis [L28.0] INVALID FOR* Neurotic excoriations [L98.1] INVALID FOR* Pruritus [L29.9] INVALID FOR* Folliculitis [L73.9] INVALID FOR* R/O Insect bites [W57.XXXA] INVALID FOR* Mite infestation [B88.9] INVALID FOR* Postinflammatory skin changes [R23.4] INVALID FOR* Dizzy [R42] INVALID FOR* Occlusion and stenosis of carotid artery withou*INVALID FOR* Depression [F32.9] INVALID FOR* Status post above knee amputation of left lower*INVALID FOR* Phantom limb syndrome (HCC) [G54.7] INVALID FOR* Neuropathic pain [M79.2] INVALID FOR* Neuroma of amputation stump, left lower extremi*INVALID FOR* Atherosclerosis of other type of bypass graft(s*INVALID FOR* Atherosclerotic heart disease of [place] coronar*INVALID FOR* Benign hypertension [I10] INVALID FOR* Chronic obstructive pulmonary disease, unspecif*INVALID FOR* Chronic total occlusion of artery of the extrem*INVALID FOR* CAFL (chronic airflow limitation) (HCC) [J44.9] INVALID FOR* Crushing injury [T14.8XXA] INVALID FOR* Dyslipidemia [E78.5] INVALID FOR* Enlarged prostate without lower urinary tract s*INVALID FOR* Nicotine dependence, cigarettes, uncomplicated *INVALID FOR* Paresthesia of skin [R20.2] INVALID FOR* Personal history of other venous thrombosis and*INVALID FOR* Presence of aortocoronary bypass graft [Z95.1] INVALID FOR* Tobacco dependence syndrome [F17.200] INVALID FOR* Lower limb ischemia [I99.8] INVALID FOR* Premature atrial contractions [I49.1] INVALID FOR* Ischemia of extremity [I99.8] INVALID FOR* More... Prescriptions ordered this encounter Disp Refills Start End OXYCODONE-ACETAMINOPHEN 10 MG-325 MG* 120 * 0 04/19/2018 05/19/2018 Class: Print RX Route: ORAL Sig: Take 1 tablet by mouth every 6 hours as needed for up to 30 days. Earliest Fill Date: 04/19/18 PREGABALIN 150 MG CAPSULE 120 * 2 04/17/2018 07/16/2018 Class: Print RX Route: ORAL Sig: Take 2 capsules by mouth twice daily for 90 days. Medications Discontinued During This Encounter oxyCODONE-acetaminophen (PERCOCET 10* 120 * 0 03/20/2018 04/10/2018 Class: Print RX Route: ORAL Sig: Take 1 tablet by mouth every 6 hours as needed for up to 30 days. Earliest Fill Date: 03/20/18 Disc: Reason for discontinue is not on file. pregabalin (LYRICA) 150 mg capsule 120 * 2 02/18/2018 04/10/2018 Class: Call Rx Route: ORAL Sig: Take 2 capsules by mouth twice daily for 90 days. Disc: Reason for discontinue is not on file. Disposition: Return in about 3 months (around 07/11/2018). Follow-up and Disposition History Recorded Encounter Status:Closed by VAIBHAV SAWYER MD on 04/10/18 OPERATIVE REPORT Observed: 03/19/2018 Status: F Source: [place] 1:14 PM [facility] [place] REPOSITORY [facility] Medical Records Department [address] [place] [id number] Operative Report 03/19/18 1103 MR#: [id number] Acct: [id number] Name: HANNAH NAVA Rep #: [id number] : [id number] 58 From: Rodrigo Thomason MD PCP: Vaibhav Sawyer MD Status: [facility] Y Location: [place] [address] Problem List (1) Nasal congestion Status: Chronic (2) Hypertrophy of nasal turbinates Status: Chronic (3) Nasal septal deviation Status: Chronic (4) Nasal deformity Status: Chronic Report of Operation Date of Procedure: 03/19/18 Pre-Operative Diagnosis: 1. nasal congestion. 2. turbinate hypertrophy. 3. nasal septal deviation. 4. nasal deformity Post-Operative Diagnosis: 1. nasal congestion. 2. turbinate hypertrophy. 3. nasal septal deviation. 4. nasal deformity Surgery/Procedure Performed:: 1. open septorhinoplasty. 2. anterior nasal septal reconstruction. 3. submucous resection inferior turbinates. 4. correction internal nasal valve collapse, right and left Type of Anesthesia:: General Description of Procedure: on the day of the procedure, after appropriate informed consent was obtained, the patient was brought to the operating room and placed in supine position on the operating table. he was placed under general endotracheal anesthesia by the anesthesiologist. the endotracheal tube was secured, the eyes were taped. the table was rotated 90 degrees toward the surgeon. the nose was injected with lidocaine/epinephrine. the bilateral nasal cavities were decongested with oxymetazoline-soaked pledgets. the nose was prepped and draped in sterile fashion. an inverted V columellar incision was made with a stillaguamish blade. these were extended to right then left marginal incisions. the left then right lower lateral cartilages were skeletonized with three point retraction and an iris scizzor. the scroll region was located on the right then left and the upper lateral cartilages were skeletonized with an iris scizzor. the medial crura were lateralized and the anterior septal angle was found. this was dissected with the bovie and a left submucoperichondrial plane was developed in the septum posteriorly to the bony/cartilaginous junction, and inferiorly to the maxillary crest. a right submucoperichondrial plane was developed in the septum posteriorly to the bony/cartilaginous junction, and inferiorly to the maxillary crest. the right and left upper lateral cartilages were disarticulated with the nasal septum using a #15 blade. a 1cm strut was maintained off of the keystone area and the remainder of the cartilaginous septum was excised with a D knife and a stacie elevator. this was harvested for future use. the head of the right and left inferior turbinates were injected with lidocaine/epinephrine. the head of the right inferior turbinate was incised with a #15 blade, dissected submucosally with a stacie elevator, reduced using the suction bovie and outfractured using a boies elevator. the head of the left inferior turbinate was incised with a #15 blade, dissected submucosally with a stacie elevator, reduced using the suction bovie and outfractured using a boies elevator. the harvested cartilage was reshapen to form an anterior septal reconstruction. this was anchored between the right upper lateral cartilage and nasal septum with 4-0 PDS suture. this was anchored to the maxillary crest with 4-0 PDS. a 1cm x 2mm internal electrical prospecting supervisor graft was used between the left upper lateral cartilage and the nasal septum; this was anchored with 4-0 PDS. numerous quilting sutures were placed reapproximating the septal mucoperichondrium; several incorporate the anterior septal reconstruction. the columellar incision was closed with 7-0 vicryl and the marginal incisions with 4-0 chromic. paiz splints and a dorsal nasal splint was placed. a nasogastric tube was inserted transnasally and contents were evacuated. the table was rotated 90 degrees toward the anesthesiologist where the patient was extubated uneventfully. 03/19/18 1314 <Electronically signed by Rodrigo Thomason MD> Date Rodrigo Thomason MD CC: Jeet Thomason MD; Vaibhav Sawyer MD Signed DISCHARGE INSTRUCTION Observed: 03/19/2018 Status: F Source: [place] 11:01 AM [facility] Medical Records Department [address] [place] [address] Instructions for Home/Discharge Instructions 03/19/18 1059 MR#: [id number] Acct: [id number] Name: HANNAH NAVA Rep #: [id number] : 1960 58 From: Rodrigo Thomason MD PCP: Vaibhav Sawyer MD Status: REG [facility] You will use the following diet at home:: No restrictions Discharge Activity: May not drive while taking narcotic pain medications. Call your doctor if your incision/area has: Increased Pain/ Swelling Additional Dressing/Incision Instructions:: do not get the bridge of your nose wet. however, the day of your follow up appointment, get your nose very wet in the shower. nasal saline to both nostrils 5 times daily. sleep with head of bed elevated for several days. Allergies/Adverse Reactions: Allergies No Known Allergies Allergy (Verified 03/08/18 15:15) Medications to take at Discharge Citalopram [Celexa] 40 mg PO DAILY 09/28/14 Lisinopril [Zestril] 10 mg PO DAILY 09/28/14 Apixaban [Eliquis] 5 mg PO BID #60 tab 11/10/15 Gabapentin [Neurontin] 600 mg PO 4X/DAY #120 tab 11/10/15 Oxycodone HCl/Acetaminophen [Percocet 10-325 mg Tablet] 1 - 2 tab PO Q6H PRN PRN 09/23/17 Pregabalin [Lyrica] 150 mg PO TID 09/23/17 duloxetine 60 mg capsule,delayed release 60 mg PO QDAY 12/03/17 simvastatin 20 mg tablet 20 mg PO QPM 12/03/17 Hydrocodone/Acetaminophen [Chelsea 5-325 Tablet] 1 ea PO Q6H #20 tab 03/19/18 Sulfamethoxazole/Trimethoprim [Bactrim 400-80 mg Tablet] 1 ea PO BID #12 tab 03/19/18 The following prescriptions were given: Sulfamethoxazole/Trimethoprim [Bactrim 400-80 mg Tablet] 1 ea PO BID #12 tab Hydrocodone/Acetaminophen [Chelsea 5-325 Tablet] 1 ea PO Q6H #20 tab Primary Care Physician: Vaibhav Sawyer MD [Primary Care Provider] - Test Results: Test results from this visit will be discussed in further detail at your follow-up appointment, if applicable. Please Follow Up With: Rodrigo Thomason MD When: sunday 03/25 - call to make appt 03/19/18 1101 <Electronically signed by Rodrigo Thomason MD> Date Rodrigo Thomason MD CC: Vaibhav Sawyer MD PROGRESS Observed: 03/18/2018 Status: COMPLETED Source: [place] 2:[address] [facility] REPOSITORY O ID: [id number] Author: (Rn) Nayana Smith RN Service: (none) Author Type: Registered Nurse Type: Progress Notes Filed: 03/18/2018 2:25 PM Note Text: PRIMARY CARE COORDINATION DISCHARGE Provider Action/FYI Patient discharged from [facility] Patient met goals of overdue labs PCP follow up scheduled for 04/25/18. No care gaps. Patient has been identified by name and date of : Yes Patient discharged from Primary Care Coordination: YES Goals met Appointment adherence (PCP and specialists) over 6-12 month period Diagnostic/laboratory/screening adherence over 6-12 month period Patient demonstrates ability to set and achieve healthcare self-management goals Demonstrates engagement through active participation in self-care Patient knowledgeable and confident in contacting Health Care Providers for questions or concerns: YES Reinforced with patient and/or caregiver that Primary Care Coordination may be reinitiated if a change in status warrants navigation readmission: Not applicable Disposition: Follow up with PCP Care Team Tab - End: YES Connie Bravo RN., BSN [employer] [place] Observed: 03/18/2018 Status: COMPLETED Source: [place] 12:00 AM [facility] REPOSITORY Patient Outreach (FAMPWS) TODD NAVA ([id number]) 1960 M Date Time Provider Department 03/18/18 PAMELA QUINTANA (RN)ADONISWS During your visit today, we recorded the following information about you: Pamela Smith RN, RN 03/18/2018 2:25 PM Signed PRIMARY CARE COORDINATION DISCHARGE Provider Action/FYI Patient discharged from [facility] Patient met goals of overdue labs PCP follow up scheduled for 04/25/18. No care gaps. Patient has been identified by name and date of : Yes Patient discharged from Primary Care Coordination: YES Goals met Appointment adherence (PCP and specialists) over 6-12 month period Diagnostic/laboratory/screening adherence over 6-12 month period Patient demonstrates ability to set and achieve healthcare self-management goals Demonstrates engagement through active participation in self-care Patient knowledgeable and confident in contacting Health Care Providers for questions or concerns: YES Reinforced with patient and/or caregiver that Primary Care Coordination may be reinitiated if a change in status warrants navigation readmission: Not applicable Disposition: Follow up with PCP Care Team Tab - End: YES Connie Bravo RN., BSN [employer] Assembler Allergies As of Date: 03/18/2018 Noted Allergy Reaction MORPHINE 11/18/2014 4 - Hives Date Reviewed: 01/23/2018 Reviewed by: Merrill Calzada - Fully 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] Prescriptions as of 03/18/2018 Sig: PREGABALIN 150 MG CAPSULE Take 2 capsules by mouth twic* OXYCODONE-ACETAMINOPHEN 10 MG* Take 1 tablet by mouth every * ELIQUIS 5 MG TABLET Take 1 tablet by mouth twice * POLYETHYLENE GLYCOL 3350 17 G* Take 17 g by mouth once daily* DULOXETINE 60 MG CAPSULE,ANA* Take 1 capsule by mouth once * FLUTICASONE 50 MCG/ACTUATION * Use 2 Sprays in each nostril * LISINOPRIL 10 MG TABLET Take 1 tablet by mouth once d* SIMVASTATIN 20 MG TABLET Take 1 tablet by mouth once d* CITALOPRAM 20 MG TABLET Take 2 tablets by mouth once * ASPIRIN 81 MG TABLET Take one(1) tablet daily. Problem List As Of Date 03/18/2018 Noted Resolved Peripheral vascular disease (HCC) [I73.9] INVALID FOR* Tobacco Use Disorder [F17.200] INVALID FOR* More... Atherosclerosis of coronary artery [I25.10] INVALID FOR* More... Hyperlipidemia [E78.5] INVALID FOR* Embolism and Thrombosis of Arteries of Lower Ex*INVALID FOR* More... 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] INVALID FOR* Multiple excoriations [T07.XXXA] INVALID FOR* Neurodermatitis [L28.0] INVALID FOR* Neurotic excoriations [L98.1] INVALID FOR* Pruritus [L29.9] INVALID FOR* Folliculitis [L73.9] INVALID FOR* R/O Insect bites [W57.XXXA] INVALID FOR* Mite infestation [B88.9] INVALID FOR* Postinflammatory skin changes [R23.4] INVALID FOR* Dizzy [R42] INVALID FOR* Occlusion and stenosis of carotid artery withou*INVALID FOR* Depression [F32.9] INVALID FOR* Status post above knee amputation of left lower*INVALID FOR* Phantom limb syndrome (HCC) [G54.7] INVALID FOR* Neuropathic pain [M79.2] INVALID FOR* Neuroma of amputation stump, left lower extremi*INVALID FOR* Atherosclerosis of other type of bypass graft(s*INVALID FOR* Atherosclerotic heart disease of [place] coronar*INVALID FOR* Benign hypertension [I10] INVALID FOR* Chronic obstructive pulmonary disease, unspecif*INVALID FOR* Chronic total occlusion of artery of the extrem*INVALID FOR* CAFL (chronic airflow limitation) (HCC) [J44.9] INVALID FOR* Crushing injury [T14.8XXA] INVALID FOR* Dyslipidemia [E78.5] INVALID FOR* Enlarged prostate without lower urinary tract s*INVALID FOR* Nicotine dependence, cigarettes, uncomplicated *INVALID FOR* Paresthesia of skin [R20.2] INVALID FOR* Personal history of other venous thrombosis and*INVALID FOR* Presence of aortocoronary bypass graft [Z95.1] INVALID FOR* Tobacco dependence syndrome [F17.200] INVALID FOR* Lower limb ischemia [I99.8] INVALID FOR* Premature atrial contractions [I49.1] INVALID FOR* Ischemia of extremity [I99.8] INVALID FOR* More... Encounter Status:Closed by PAMELA QUINTANA on 03/18/18 CHEST PA AND LATERAL Observed: 03/11/2018 Status: F Source: [place] 11:27 AM [facility] REPOSITORY [facility] Imaging Services [address] [place] [address] Chest PA and Lateral MR#: [id number] Acct: [id number] Name: HANNAH NAVA Rep #: [id number] : 1960 M 58 From: Fer Motta MD PCP: Silverio OVIEDO,Vaibhav Status: PRE [facility] Study: Chest PA and Lateral Date of Exam: 03/11/18 Exam# [id number] Ordering Dr: Rodrigo Thomason MD STUDY: X-RAY CHEST REASON FOR EXAM: Male, 58 years old. Preoperative evaluation. TECHNIQUE: PA and lateral views of the chest. COMPARISON: Comparison is made with prior study dated May 11, 2017. FINDINGS: Hyperinflation. There is no demonstrated pleural abnormality. Sternal cerclage wires and vascular clips are present from a prior sternotomy and coronary artery bypass graft procedure (CABG). Normal mediastinum and jefry. Normal visualized pulmonary arteries. There is atherosclerotic calcification of the aortic arch with tortuosity. There are degenerative changes of the visualized thoracic spine. Normal visualized ribs, clavicles, and shoulders. There is no demonstrated abnormality of the visualized soft tissue structures of the upper abdomen. RAD/Chest PA and Lateral IMPRESSION: Hyperinflation. No acute abnormalities. Electronically Signed: Fer Motta MD at 12:31 EDT Tel [phone], Service support , CC: Jeet Thomason MD; Vaibhav Sawyer MD Clerk: Signed CBC-COMPLETE BLOOD CNT Collected: 03/11/2018 Status: F Source: [place] NO DIFF 11:07 AM [facility] REPOSITORY TYPE CODE TESTS RESULT OUT OF RANGE REFERENCE UNITS LAB L100.1000 4.4-11.0 K/mm3 High WBC 16.6 LAB L100.1200 4.6-6.2 M/mm3 Normal RBC 4.74 LAB L100.1300 13.0-16.5 g/dl Normal HGB 15.7 LAB L100.1400 40-54 % Normal HCT 45.0 LAB L100.1500 80-94 fL High MCV 94.9 LAB L100.1600 27.0-32.0 pg High MCH 33.1 LAB L100.1700 32-36 g/gl Normal MCHC 34.9 LAB L100.1810 11.6-14.6 % Normal RDW CV 14.3 LAB L100.1820 35.1-43.9 fl High RDW SD 48.1 LAB L100.1900 150-450 K/mm3 Low PLT 137 LAB L100.2000 6.2-12.0 fl Normal MPV 11.7 Performed By: #### L100.0500 #### [facility] [place], [address] BASIC METABOLIC Collected: 03/11/2018 Status: F Source: [place] PROFILE (BMP) 11:07 AM [facility] REPOSITORY TYPE CODE TESTS RESULT OUT OF RANGE REFERENCE UNITS LAB L501.0100 74-106 mg/dL Normal GLU 93 Result Comment: Please note revised GLUCOSE reference range effective 2017. LAB L501.1000 7-18 mg/dL Normal BUN 13 LAB L501.1100 0.70-1.30 mg/dL Normal CREAT,SERUM 0.79 Result Comment: The validity of the calculated GFR AND GFRAA in patients over 70 years has not been determined. Clinical correlation is essential. LAB L501.1110 >60 mL/min Normal EST GFR 106 Result Comment: Non- GFR Calc LAB L501.1115 >60 mL/min Normal EST GFR - AA 128 Result Comment: GFR Calc LAB L501.1300 10-20 RATIO Normal BUN/CRE 16.4 LAB L501.2200 8.5-10.1 mg/dL Low CA 8.4 LAB L501.5300 136-145 mmol/L NA Normal 137 LAB L501.5600 3.5-5.1 mmol/L K Normal 4.1 LAB L501.5900 98-107 mmol/L High CL 108 LAB L501.6100 21.0-32.0 mmol/L Normal CO2 22.0 LAB L501.6200 5-15 Normal GAP 7 Performed By: #### L500.2500 #### [facility] [address] [place], [address] CBC AND DIFFERENTIAL Collected: 03/11/2018 Status: F Source: [place] 10:40 AM [facility] REPOSITORY TYPE CODE TESTS RESULT OUT OF REFERENCE UNITS RANGE LAB WBC 3.70-11.00 k/uL WBC High 15.40 LAB RBC 4.20-6.00 m/uL RBC 4.48 LAB HGB 13.0-17.0 g/dL Hemoglobin 14.7 LAB HCT 39.0-51.0 % Hematocrit 44.0 LAB MCV 80.0-100.0 fL MCV 98.2 LAB MCH 26.0-34.0 pG MCH 32.8 LAB MCHC 30.5-36.0 g/dL MCHC 33.4 LAB RDWCV 11.5-15.0 % RDW-CV 14.3 LAB PLTCT 150-400 k/uL Low Platelet Count 138 LAB MPV 9.0-12.7 fL MPV 12.1 LAB ANEUT % Neut% 81.2 LAB AANEUT 1.45-7.50 k/uL Abs Neut High 12.49 LAB ALYMP % Lymph% 11.2 LAB AALYMP 1.00-4.00 k/uL Abs Lymph 1.73 LAB AMONO % Cochran% 7.0 LAB AAMONO <0.87 k/uL Abs Cochran High 1.08 LAB AEOS % Eosin% 0.3 LAB AAEOS <0.46 k/uL Abs Eosin 0.05 LAB ABASO % Baso% 0.3 LAB AABASO <0.11 k/uL Abs Baso 0.05 LAB AUNRBC 0 /100 WBC NRBCs 0.0 LAB ABNRBC <0.01 k/uL Absolute nRBC <0.01 LAB DTYP DTYPE Auto Diff Performed By: #### CBCDIF, CMP, LIPB #### [facility] [address] [place], [place] [address] COMP METABOLIC PANEL Collected: 03/11/2018 Status: F Source: [place] 10:[address] [facility] REPOSITORY TYPE CODE TESTS RESULT OUT OF REFERENCE UNITS RANGE LAB TP 6.3-8.0 g/dL Protein, Total 6.5 LAB ALB 3.9-4.9 g/dL Albumin 4.1 LAB CA 8.5-10.2 mg/dL Calcium, Total 9.0 LAB TBIL 0.2-1.3 mg/dL Bilirubin, Total 0.3 LAB ALKP 38-113 U/L Alkaline Phosphatase 70 LAB AST 14-40 U/L AST 18 LAB GLU 74-99 mg/dL Glucose High 101 Result Comment: The [place] Diabetes Association (ADA) provides guidance for cutoff values for fasting glucose and random glucose. The ADA defines fasting as no caloric intake for at least 8 hours. Fas ting plasma glucose results between 100 to 125 mg/dL indicate increased risk for diabetes (prediabetes). Fasting plasma glucose results greater than or equal to 126 mg/dL meet the criteria for diagnosis of diabetes. In the absence of unequivocal hyperglycemia, results should be confirmed by repeat testing. In a patient with classic symptoms of hyperglycemia or hyperglycemic crisis, random plasma glucose results greater than or equal to 200 mg/dL meet the criteria for diagnosis of diabetes. Reference: Standards of Medical Care in Diabetes 2016, [place] Diabetes Association. Diabetes Care. 2016.39(Suppl 1). LAB BUN 9-24 mg/dL BUN 14 LAB CRET 0.73-1.22 mg/dL Creatinine Low 0.66 LAB NA 136-144 mmol/L Sodium 139 LAB K 3.7-5.1 mmol/L Potassium 4.1 LAB CL 97-105 mmol/L Chloride 104 LAB CO2 22-30 mmol/L CO2 Low 20 LAB AGAP 9-18 mmol/L Anion Gap 15 LAB ALT 10-54 U/L ALT 13 LAB GFRAA eGFR- Amer. >60 LAB GFRNAA . eGFR-All Other Races >60 Result Comment: eGFR (Estimated GFR) Units of measure: mL/min/1.73 meters squared eGFR is derived from the reexpressed MDRD Study equation using the following parameters: serum creatinine, age, gender and race. The creatinine assay has been calibrated to be traceable to IDMS. An eGFR <60 mL/min/1.73m2 for >3 months is consistent with chronic kidney disease. Refer to KDOQI guidelines for clinical interpretation. In patients with unstable renal function, e.g. those with acute kidney injury, the eGFR may not accurately reflect actual GFR. Performed By: #### CBCDIF, CMP, LIPB #### [facility] [address] [place], [place] [address] LIPID PANEL, BASIC Collected: 03/11/2018 Status: F Source: [place] 10:[address] [facility] REPOSITORY TYPE CODE TESTS RESULT OUT OF REFERENCE UNITS RANGE LAB CHOL <200 mg/dL Cholesterol 114 Result Comment: <200 mg/dL, Desirable 200-239 mg/dL, Borderline high >239 mg/dL, High LAB TRIGLY <150 mg/dL Triglyceride 121 Result Comment: <150 mg/dL, Normal 150-199 mg/dL, Borderline high 200-499 mg/dL, High >499 mg/dL, Very high LAB HDL >39 mg/dL HDL-Cholesterol Low 32 Result Comment: 40-59 mg/dL, Acceptable >59 mg/dL, High: Negative risk factor for coronary heart disease <40 mg/dL, Low: Positive risk factor for coronary heart disease LAB LDL <100 mg/dL LDL-Cholesterol 58 Result Comment: <100 mg/dL, Optimal 100-129 mg/dL, Near optimal/above optimal 130-159 mg/dL, Borderline high 160-189 mg/dL, High >189 mg/dL, Very high Secondary prevention optimal LDL Cholesterol levels are recommended to be < 70 mg/dL LAB NONHDL <130 mg/dL Non HDL Cholesterol 82 Result Comment: <130 mg/dL, Optimal 130-159 mg/dL, Near optimal/above optimal 160-189 mg/dL, Borderline high 190-219 mg/dL, High >219 mg/dL, Very high Secondary prevention optimal non HDL Cholesterol levels are recommended to be < 100 mg/dL LAB FT hrs Fasting Time 12 LAB VLDL <30 mg/dL VLDL Cholesterol 24 LAB TCHDL <5.10 TC:HDL Ratio 3.56 LAB LDLHDL <2.54 LDL:HDL Ratio 1.81 Result Comment: Reference: 1. National Cholesterol Education Program ATP III Guideline At-A-Glance Quick Desk Reference: National Heart, Lung, and Blood [place]. National Institutes of Health. 2001: NIH Publication No. 01-3305. 2. An International Atherosclerosis Society position paper: global recommendations for the management of dyslipidemia: executive summary, Atherosclerosis. 2014: 232(2):410-413. Performed By: #### CBCDIF, CMP, LIPB #### [facility] [address] [place], [place] [address] ECHOCARDIOGRAM COMPLETE Observed: 03/06/2018 Status: F Source: [place] 1:03 PM [facility] REPOSITORY [facility] Cardiovascular Services [address] [place] [address] Echo Complete 03/06/18 0855 MR#: [id number] Acct: [id number] Name: HANNAH NAVA Rep #: [id number] : 1960 58 From: Narendra Garcia MD Attending Dr: Narendra Garcia MD Status: REG CLI Ordering Dr: Narendra Garcia MD Date: 03/06/18 Location: [facility] Sex: M C Admitted: Reason For Study: CAD-CABG Procedure This was a 2D Doppler, Color Flow transthoracic echocardiogram. Exam performed in department. Left Ventricle Normal LV size. Left ventricular systolic function is normal. The estimated ejection fraction is 60 %. No evidence for diastolic dysfunction. The global longitudinal strain is normal. The global longitudinal strain = -18 % (normal). No regional wall motion abnormalities noted. Right Ventricle Normal RV size. Normal systolic function. Atria Normal left atrium. Normal right atrium. Mitral Valve Mild diffuse mitral valve thickening. Mild (1+) eccentric mitral valve insufficiency. Tricuspid Valve Normal tricuspid valve. Mild tricuspid valve insufficiency. Pulmonary artery systolic pressure is 22 mmHg. Aortic Valve Mild (1+) eccentric aortic valve insufficiency. Great Vessels Normal aortic root. The pulmonary artery is normal size. Normal inferior vena cava. Pericardium/Pleural No pericardial effusion. MMode/2D Measurements AND Calculations LVIDd: 4.7 cm IVSd: 1.0 cm Ao root diam: 3.3 cm LVIDs: 3.3 cm LVPWd: 1.1 cm LA dimension: 3.5 cm RVDd: 3.4 cm FS: 30.1 % LAV(MOD-bp): 55.0 ml EDV(MOD-sp4): 114.1 ml EDV(MOD-sp2): 93.2 ml LAV(MOD-bp) Indexed: 30.6 ml/m2 ESV(MOD-sp4): 44.6 ml EF(MOD-sp2): 52.7 % LAV(MOD-sp2): 56.1 ml EF(MOD-sp4): 60.9 % LAV(MOD-sp4): 50.7 ml SV(MOD-sp4): 69.5 ml SV(MOD-sp2): 49.1 ml LA A4 area: 17.8 cm2 RA A4 area: 13.9 cm2 Doppler Measurements AND Calculations MV E max candice: 82.0 cm/sec Lat Peak E' Candice: 8.0 cm/sec Med Peak E' Candice: 8.7 cm/sec MV A max candice: 82.4 cm/sec E/E' lat: 10.3 E/E' med: 9.5 MV E/A: 1.00 Ao V2 max: 162.9 cm/sec AI max candice: 407.9 cm/sec LV V1 max: 123.0 cm/sec Ao max P.6 mmHg AI max P.6 mmHg LV V1 max P.0 mmHg AI dec slope: 264.3 cm/sec2 AI P1/2t: 452.1 msec PA V2 max: 95.7 cm/sec TR max candice: 221.5 cm/sec TR max P.6 mmHg Interpretation Summary Normal LV size. Left ventricular systolic function is normal. The estimated ejection fraction is 60 %. No evidence for diastolic dysfunction. Mild (1+) eccentric mitral valve insufficiency. Ordering Physician: Narendra Garcia MD Referring Physician: MD Vaibhav Sawyer Performed By: Mari Verma, ANGELA 03/06/18 1302 Date Narendra Garcia MD CC: Narendra Garcia MD; Vaibhav Sawyer MD Date Dictated: 03/06/1855 Date Transcribed: 03/06/181301 Clerk: Signed PROGRESS Observed: 03/06/2018 Status: COMPLETED Source: [place] 9:25 AM [facility] REPOSITORY [facility] ID: [id number] Author: Connie Liang Ma Service: (none) Author Type: (none) Type: Progress Notes Filed: 03/06/2018 9:27 AM Note Text: POPULATION HEALTH RN ADMISSIONS QUICKNOTE Provider Action/FYI: None Patient identified by name and . -Advise patient of fasting labs - Left detailed message on patient's voice mail to have lipid panel and chemistry panel drawn. Thank you, Connie Liang [facility] Population Health Shipmaster O Project [id number] STRESS REPORT Observed: 03/06/2018 Status: F Source: [place] 8:58 AM [facility] REPOSITORY [facility] Cardiovascular Services [address] [place] [address] MR#: [id number] Acct: [id number] Name: BRANDYHANNAH L Rep #: [id number] : 1960 58 From: Narendra Garcia MD Primary Care: Vaibhav Sawyer MD Status: REG CLI Ordering Dr: Sex: M C Stress Test Report Pharmacologic myocardial perfusion stress test. 58-year-old man for preoperative cardiac evaluation. Patient with known coronary artery disease. Stress protocol: Resting EKG demonstrates normal sinus rhythm with a rate of 57 bpm. 0.4 mg of regadenoson was infused per usual protocol followed by rapid intravenous saline flush injection continuous EKG monitoring was performed. The patient maintained sinus rhythm throughout the recording occasional premature ventricular complex was noted. The maximum heart rate attained was 67 bpm which was 41% of maximum predicted heart rate the maximum workload was 1 metabolic equivalent. At rest there were no ST or T-wave changes noted to suggest abnormal flow reserve at peak infusion no ST or T-wave changes were noted suggest abnormal flow reserve. No clinical angina was noted. The resting blood pressure is 142/60 with a final blood pressure 140/60 mmHg. Myocardial perfusion protocol. 11.1 mCi of technetium 99m sestamibi was injected at rest. 0.4 mg of regadenoson was infused per usual protocol. At peak infusion 32.2 mCi of technetium 99 sestamibi was injected stress images were obtained stress and rest images were reconstructed and compared in the short axis vertical long horizontal long axis. Gated images were also obtained Perfusion SPECT analysis: Review of the stress images demonstrate normal uptake of tracer noted in the septum anterior wall and lateral wall. The basal inferior wall has mildly reduced perfusion on the stress images which also is persistent on the resting images. No obvious changes of reversibility are noted suggest obvious ischemia. Previous infarct is noted. Gated SPECT analysis: The gated ejection fraction is noted to be 63%. Conclusion: Normal pharmacologic myocardial perfusion stress test. Preserved ejection fraction. 03/06/18857 <Electronically signed by Narendra Garcia MD> Date Narendra Garcia MD CC: Narendra Garcia MD; Vaibhav Sawyer MD Date Dictated: 03/06/18854 Date Transcribed: 03/06/18854 Clerk: CO Signed PROGRESS Observed: 02/27/2018 Status: COMPLETED Source: [place] 4:06 PM [facility] REPOSITORY HNO ID: [id number] Author: (Rn) Nayana Smith RN Service: (none) Author Type: Registered Nurse Type: Progress Notes Filed: 02/27/2018 4:10 PM Note Text: PRIMARY CARE COORDINATION QUICK NOTE Provider Action/FYI PCC chart review: Care Gap: Overdue LDL Future order in Epic. Last LDL 09/15/14 PHMA; Please have patient have LDL fasting drawn PRIMARY CARE COORDINATION OUTREACH PLAN: [facility] short term to close care gaps Patient identified by name and date . Connie Bravo RN., BSN [employer] PROGRESS Observed: 02/22/2018 Status: COMPLETED Source: [place] 12:52 PM [facility] REPOSITORY HNO ID: [id number] Author: Connie Liang Ma Service: (none) Author Type: (none) Type: Progress Notes Filed: 02/27/2018 4:10 PM Note Text: PRIMARY CARE COORDINATION CHART REVIEW Patient identified for Care Coordination from: [facility] Last PCP office visit: 09/25/2017 Next OV: 04/25/18 Vaibhav Sawyer MD CHRONIC DX: CAD HTN Hyperlipidemia Smoker COPD CARE GAPS: LDL Cholesterol Overdue UTILIZATION WITHIN THE LAST 12 MONTHS: ? ED: None ? HOSPITAL: 05/11/17-05/16/17 [facility] - Ischemia of extremity ? SNF: None PRIMARY CARE COORDINATION OUTREACH PLAN: Will defer to PCC for review. Connie Liang Ma CNPTOUTREACH Observed: 02/22/2018 Status: COMPLETED Source: [place] 12:00 AM [facility] REPOSITORY Patient Outreach (FAMPWS) TODD NAVA ([id number]) 1960 M Date Time Provider Department 02/22/18 CONNIE LIANG (ELISA) FAMPWS During your visit today, we recorded the following information about you: Connie Liang Ma 02/27/2018 4:10 PM Signed PRIMARY CARE COORDINATION CHART REVIEW Patient identified for Care Coordination from: [facility] Last PCP office visit: 09/25/2017 Next OV: 04/25/18 Vaibhav Sawyer MD CHRONIC DX: CAD HTN Hyperlipidemia Smoker COPD CARE GAPS: LDL Cholesterol Overdue UTILIZATION WITHIN THE LAST 12 MONTHS: ? ED: None ? HOSPITAL: 05/11/17-05/16/17 [facility] - Ischemia of extremity ? SNF: None PRIMARY CARE COORDINATION OUTREACH PLAN: Will defer to PCC for review. Connie Smith, RN, RN 02/27/2018 4:10 PM Signed PRIMARY CARE COORDINATION QUICK NOTE Provider Action/FYI PCC chart review: Care Gap: Overdue LDL Future order in Epic. Last LDL 09/15/14 PHDE; Please have patient have LDL fasting drawn PRIMARY CARE COORDINATION OUTREACH PLAN: [facility] short term to close care gaps Patient identified by name and date . Connie Bravo RN., BSN [employer] Connie Liang Ma 03/06/2018 9:27 AM Signed [facility] RN ADMISSIONS QUICKNOTE Provider Action/FYI: None Patient identified by name and . -Advise patient of fasting labs - Left detailed message on patient's voice mail to have lipid panel and chemistry panel drawn. Thank you, Connie Liang [facility] Population Health [employer] [facility] Project [phone] Allergies As of Date: 02/22/2018 Noted Allergy Reaction MORPHINE 11/18/2014 4 - Hives Date Reviewed: 01/23/2018 Reviewed by: Merrill ([facility]) Umer - Fully Assessed Reason for Visit: [employer]- Other [[id number]] Cmt: ACO Prescriptions as of 02/22/2018 Sig: PREGABALIN 150 MG CAPSULE Take 2 capsules by mouth twic* OXYCODONE-ACETAMINOPHEN 10 MG* Take 1 tablet by mouth every * ELIQUIS 5 MG TABLET Take 1 tablet by mouth twice * POLYETHYLENE GLYCOL 3350 17 G* Take 17 g by mouth once daily* DULOXETINE 60 MG CAPSULE,ANA* Take 1 capsule by mouth once * FLUTICASONE 50 MCG/ACTUATION * Use 2 Sprays in each nostril * LISINOPRIL 10 MG TABLET Take 1 tablet by mouth once d* SIMVASTATIN 20 MG TABLET Take 1 tablet by mouth once d* CITALOPRAM 20 MG TABLET Take 2 tablets by mouth once * ASPIRIN 81 MG TABLET Take one(1) tablet daily. Problem List As Of Date 02/22/2018 Noted Resolved Peripheral vascular disease (HCC) [I73.9] INVALID FOR* Tobacco Use Disorder [F17.200] INVALID FOR* More... Atherosclerosis of coronary artery [I25.10] INVALID FOR* More... Hyperlipidemia [E78.5] INVALID FOR* Embolism and Thrombosis of Arteries of Lower Ex*INVALID FOR* More... 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] INVALID FOR* Multiple excoriations [T07.XXXA] INVALID FOR* Neurodermatitis [L28.0] INVALID FOR* Neurotic excoriations [L98.1] INVALID FOR* Pruritus [L29.9] INVALID FOR* Folliculitis [L73.9] INVALID FOR* R/O Insect bites [W57.XXXA] INVALID FOR* Mite infestation [B88.9] INVALID FOR* Postinflammatory skin changes [R23.4] INVALID FOR* Dizzy [R42] INVALID FOR* Occlusion and stenosis of carotid artery withou*INVALID FOR* Depression [F32.9] INVALID FOR* Status post above knee amputation of left lower*INVALID FOR* Phantom limb syndrome (HCC) [G54.7] INVALID FOR* Neuropathic pain [M79.2] INVALID FOR* Neuroma of amputation stump, left lower extremi*INVALID FOR* Atherosclerosis of other type of bypass graft(s*INVALID FOR* Atherosclerotic heart disease of [place] coronar*INVALID FOR* Benign hypertension [I10] INVALID FOR* Chronic obstructive pulmonary disease, unspecif*INVALID FOR* Chronic total occlusion of artery of the extrem*INVALID FOR* CAFL (chronic airflow limitation) (HCC) [J44.9] INVALID FOR* Crushing injury [T14.8XXA] INVALID FOR* Dyslipidemia [E78.5] INVALID FOR* Enlarged prostate without lower urinary tract s*INVALID FOR* Nicotine dependence, cigarettes, uncomplicated *INVALID FOR* Paresthesia of skin [R20.2] INVALID FOR* Personal history of other venous thrombosis and*INVALID FOR* Presence of aortocoronary bypass graft [Z95.1] INVALID FOR* Tobacco dependence syndrome [F17.200] INVALID FOR* Lower limb ischemia [I99.8] INVALID FOR* Premature atrial contractions [I49.1] INVALID FOR* Ischemia of extremity [I99.8] INVALID FOR* More... Encounter Status:Closed by PAMELA QUINTANA on 02/27/18 CARDIOLOGY VISIT Observed: 02/20/2018 Status: F Source: [place] RE[place] 2:26 PM [facility] REPOSITORY [facility] [address] [place] [address] OFFICE VISIT Date of Service: 02/20/18 MR#: [id number] Acct: [id number] Name: TODD NAVA Rep #: [id number] : 1960 Provider: Narendra Garcia MD Age/Sex: 58/M Location: [facility] Status: Signed HPI HPI Chief Complaint: Initial visit and preoperative evaluation. Details: TODD NAVA, is a 58 M who presents to the office today for an initial visit. He is a gentleman who had seen previously and has a known history of hypertension, hyperlipidemia, tobacco abuse, peripheral vascular disease as well as coronary bypass surgery in 2001. He had a left internal mammary artery sequential to the first and second diagonal vessels, saphenous vein graft to circumflex artery and saphenous vein graft to right coronary artery. He was lost a cardiac follow-up but says that he has not had any cardiac issues. He denies any neck arm or jaw discomfort suggest angina no dizziness or diaphoresis no near syncope or syncope. He tells me that he is in need of a rhinoplasty as well as a septoplasty. He was therefore asked to come for preoperative evaluation. He has also had a left lower leg amputation and has a prosthesis. You do remember that he previously had a right femoral-popliteal bypass graft and a left femoral-popliteal bypass graft. He has been compliant with his medications. His physical exam demonstrates clear lung curiel regular rate and rhythm and no pedal edema. An electrocardiogram from May 2017 demonstrated normal sinus rhythm with rate of 66 bpm. Intake Vital Signs02/20/18 Height 5 ft 8 in 02/20/18 Weight: 148 lb 02/20/18 Body Mass Index (BMI) 22.5 02/20/18 Blood Pressure 144/58 02/20/18 Respiratory Rate 18 02/20/18 Pulse Rate 66 Intake Visit Reasons: ENT REFD FOR PREOP/RS FROM 8-29 Allergies No Known Allergies Allergy (Verified 12/03/17 15:32) Medications Citalopram [Celexa] 40 mg PO DAILY 09/28/14 [History Confirmed 02/20/18] Lisinopril [Zestril] 10 mg PO DAILY 09/28/14 [History Confirmed 02/20/18] Apixaban [Eliquis] 5 mg PO BID #60 tab 11/10/15 [Rx Confirmed 02/20/18] Gabapentin [Neurontin] 600 mg PO 4X/DAY #120 tab 11/10/15 [Rx Confirmed 02/20/18] Oxycodone HCl/Acetaminophen [Percocet 10-325 mg Tablet] 1 - 2 tab PO Q6H PRN PRN 09/23/17 [History Confirmed 02/20/18] Pregabalin [Lyrica] 150 mg PO TID 09/23/17 [History Confirmed 02/20/18] duloxetine 60 mg capsule,delayed release 60 mg PO QDAY 12/03/17 [History Confirmed 02/20/18] simvastatin 20 mg tablet 20 mg PO QPM 12/03/17 [History Confirmed 02/20/18] PFSH Medical History Bilateral carotid artery stenosis (Chronic) Ischemia of right lower extremity (Chronic) Hyperlipidemia (Chronic) Peripheral vascular occlusive disease (Chronic) Atherosclerosis of coronary artery of [place] heart without angina pectoris (Chronic) Hypertension (Chronic) Tobacco dependence syndrome (Chronic) COPD (chronic obstructive pulmonary disease) (Chronic) Crushing injury of arm, right (Chronic) Crushing injury (Resolved) Infected open wound (Inactive) Superficial bacterial infection of skin (Inactive) Surgical History H/O coronary artery bypass surgery (Resolved 06/17/01) History of angioplasty of peripheral vessel (Resolved) History of femoropopliteal bypass (Resolved 06/2001) History of left lower extremity amputation (Resolved 11/01/15) Hx of tonsillectomy (Resolved) hx of APLL (Resolved) Family History Mother Breast cancer Social History Smoking Status: Current every day smoker second hand exposure: Yes alcohol intake: current alcohol intake frequency: holidays/special occasions only substance use type: does not use caffeine: Yes what type of physical activity do you participate in: none frequency: does not exercise seatbelt use: always ROS Const Const: Negative for fatigue, weakness, difficulty sleeping, frequent falls, excessive sweating or headache(s) Eyes Eyes: Negative for loss of peripheral vision, transient loss of vision, blurry vision, tunnel vision or double vision ENT ENT: Negative for headache(s), dizziness, Nosebleed/epistaxis or balance problems Cardio Chest Pain: No Palpitations: No Edema: None Muscle aches with walking: Right (RLE pain with ambulation) Resp Respiratory: Positive for SOB with activity; negative for SOB at rest, SOB orthopnea\SOB lying down, paroxysmal nocturnal dyspnea or Cough GI GI: Negative nausea, heartburn, black,tarry stools or vomiting : Negative for hematuria Musc Musc: Negative for balance problems, muscle aches/ myalgia, muscle weakness or joint pain Skin Skin: Negative non-healing lesions, unusual bruising or rash Neuro Neuro: Negative for weakness, frequent falls, headache(s), blurry vision, double vision, dizziness, lightheadedness, orthostatic symptoms, near syncope, syncope or lack of coordination [place] Hematologic/Lymphatic: Negative for easy bruising or easy bleeding Endo Endo: Negative for fatigue, excessive sweating or increased thirst/drinking Psych Psych: Negative for anxiety or depression Allergy Allergy/Immunology: Negative for hives, Negative for rash Cardiology Exam Const Appearance: cooperative, healthy appearing, well developed, well groomed and no acute distress Nutritional Appearance: well nourished and average body habitus Orientation: alert, awake and oriented x3 Head Head: normal to inspection, normocephalic and atraumatic Ears: hearing grossly normal bilaterally and external ears normal Nose: external nose normal, nasal mucous membranes and turbinates normal, nares normal, septum normal, no nasal discharge Face and Sinus: face symmetric Mouth: oral mucosae normal, tongue normal, oropharynx normal and moist mucous membranes Teeth and gingiva: dentition normal Throat: posterior oropharynx normal, tonsils normal and uvula midline Eyes General: appearance normal, both eyes and all related structures Eyelids: eyelids normal Conjunctivae: conjunctivae normal Pupils: PERRL, normal by confrontation and accommodation normal EOM: EOM intact bilaterally Neck Neck: normal visual inspection, trachea midline and no JVD JVD: +5 Carotids: normal carotid upstroke and bounding pulses Chest Chest inspection: normal inspection of the chest, symmetric chest movement and normal respiratory effort Auscultation: Bilateral: Clear to Auscultation Cardio Palpation: normal PMI Rate: regular rate Rhythm: regular rhythm Heart sounds: S1 normal, S2 normal and normal, physiologic split S2; negative rub, gallop or murmur GI GI: normal to inspection, soft, no hepatosplenomegaly and bowel sounds present Neuro General: alert, awake, oriented x3, no focal sensory deficit, gait normal and moves all extremities Skin Skin: no rashes or lesions noted Extremities Pulses: Normal: Right Femoral Pulse, Left Femoral Pulse, Right Dorsalis Pedis Pulse, Left Dorsalis Pedis Pulse, Right Posterior Tibial Pulse, Left Posterior Tibial Pulse, Right Radial Pulse, Left Radial Pulse Lower Extremity Edema: None: Bilateral Musculoskel Musculoskeletal: No joint tenderness prosthetic left leg Psych Psychological: normal affect Assessment AND Plan 1. Preop cardiovascular exam Z01.810 Plan In terms of his preoperative cardia vascular exam he appears to be doing clinically well with no obvious angina. I would recommend however that we obtain an echocardiogram to assess his left ventricular function as well as a pharmacologic myocardial perfusion stress test as his bypass grafts are over 16 years old. Depending on the findings further recommendations will be made. Orders Orders: 2. Hypertension I10 Plan He does have a history of hypertension but his blood pressures appear to have been fairly well controlled on the current medical therapy he is on an milligrams of lisinopril which will be continued. Orders Orders: 3. H/O coronary artery bypass surgery Z95.1 CABG x 4 UMANZOR Sequential -D1 and D2, SVG-Cx, SVG-RCA 06/17/2001 @ [facility] Plan He does have a history of coronary to bypass surgery the details of which are noted above. He will remain on his current medications including his statin. The status of this will be evaluated with stress testing. Thank you for allowing me to participate in the care of your patient. Please don't hesitate to call if any issues arise Orders Orders: Plan Detail Other Orders Orders: Follow Up 6 Months (zeyadr) Coding Level of Care Code Off vis,new,level 4 Diagnoses Preop cardiovascular exam Z01.810 Hypertension I10 H/O coronary artery bypass surgery Z95.1 Coding Level of Care Code Off vis,new,level 4 Diagnoses Preop cardiovascular exam Z01.810 Hypertension I10 H/O coronary artery bypass surgery Z95.1 02/20/18 1426 <Electronically signed by Narendra Garcia MD> Date Narendra Garcia MD Cosigner Signature: Date (if applicable) CC: Vaibhav Sawyer MD 12 LEAD EKG PERFORMED Observed: 02/20/2018 Status: F Source: [place] [facility] 2:01 PM [facility] REPOSITORY [facility] [address] [place] [address] 12 Lead EKG performed by [facility] 02/20/18 1400 MR#: [id number] Acct: [id number] Name: HANNAH NAVA Rep #: [id number] : 1960 58 From: Narendra Garcia MD Attending Dr: Narendra Garcia MD Status: DEP AMB Ordering Dr: Narendra Garcia MD Date: 02/20/18 Location: [facility] Sex: M C Admitted: BMS/12 Lead EKG performed by [facility] ECG Report Interpretation Sinus Rhythm WITHIN NORMAL LIMITSElectronically signed on 05/15/2018 at 16:27 by Narendra Garcia [employer] Version [id number] 05/15/18 1631 Date Narendra Garcia MD CC: Vaibhav Sawyer MD Date Dictated: 02/20/18 1400 Date Transcribed: 02/20/181399 Clerk: CO Signed URINALYSIS WITH Collected: 01/23/2018 Status: F Source: [facility] 12:46 PM CLINIC [facility] REPOSITORY TYPE CODE TESTS RESULT OUT OF REFERENCE UNITS RANGE LAB UCOL Yellow Color Yellow LAB [facility] Clear Clarity Clear LAB UGLUC Negative mg/dL Glucose, Urine Negative LAB UBIL Negative Bilirubin, Urine Negative LAB UKET Negative Ketones, Urine Negative LAB USPG 1.005-1.030 Specific [place], Ur 1.005 LAB UHGB Negative Hemoglobin/Blood, Negative Ur LAB UPH 4.5-8.0 pH 6.0 LAB UPROT Negative mg/dL Protein, Urine Negative LAB UUROB Normal Urobilinogen Normal LAB UNITR Negative Nitrites Negative LAB ULKEST Negative Leukest Negative LAB UCOM Comments SEE COMMENT Result Comment: N/A LAB UMCOM Urine SEE Agustin Comment COMMENT Result Comment: N/A LAB UWBC 0-5 /HPF WBC 0-5 LAB URBC 0-3 /HPF RBC 0-3 Performed By: #### UAWMIC #### [facility] [address] [place], [place] [address] QUANT PAIN PANEL, Collected: 01/23/2018 Status: F Source: [facility] 12:[address] [facility] REPOSITORY TYPE CODE TESTS RESULT OUT OF REFERENCE UNITS RANGE LAB UQCANN <16 ng/mL <16 Cannabinoid, Urine Result Comment: Tetrahydrocannabinol carboxylic acid (THCA) is a metabolite of fqrgl-0-uwdhxaunecgzwvbhumqy which is the main active component of marijuana. LAB UQBNZL <24 ng/mL Benzoylecognine, Ur <24 Result Comment: Benzoylecognine is a metabolite of cocaine. LAB UQACMR <5 ng/mL 6-Acetylmorphine, Ur <5 Result Comment: 6-BELLA (6-monoacetylmorphine, also known as 6-acetylmorphine) is a unique metabolite of heroin. Presence of 6-BELLA indicates use of heroin. 6-BELLA is further metabolized to morphine and absence of 6-BELLA does not rule out the use of heroin. LAB UQAMPH <5 ng/mL Amphetamine, Urine <5 LAB UQMAMP <8 ng/mL Methamphetamine, Ur <8 LAB UQBUPR <20 ng/mL Buprenorphine, Ur <20 LAB UQNBUP <20 ng/mL Norbuprenorphine, Ur <20 Result Comment: Norbuprenorphine is the primary active metabolite of buprenorphine. LAB UQMTHD <16 ng/mL Methadone, Urine <16 LAB UQEDDP <6 ng/mL EDDP, Urine <6 Result Comment: EDDP is a metabolite of methadone. LAB UQTRAM <25 ng/mL Tramadol, Urine <25 LAB UQDTRM <20 ng/mL Desmethyltramadol <20 ,Ur Result Comment: Desmethyltramadol is a metabolite of tramadol. LAB UQFNTL <6 ng/mL Fentanyl, Urine <6 LAB UQNFTL <6 ng/mL Norfentanyl, Urine <6 Result Comment: Norfentanyl is a metabolite of fentanyl. LAB UQCODE <11 ng/mL Codeine, Urine <11 LAB UQMORP <10 ng/mL Morphine, Urine <10 Result Comment: Morphine is a metabolite of codeine and heroin. LAB UQDCDN <5 ng/mL Dihydrocodeine, Ur <5 LAB UQHCOD <8 ng/mL Hydrocodone, Urine <8 Result Comment: Hydrocodone is a metabolite of dihydrocodeine. LAB UQOXYC <10 ng/mL Oxycodone, High Urine 682 Result Comment: Oxycodone is not a recognized metabolite of other opiates and its presence indicates use of an oxycodone containing drug. Oxycodone is metabolized to oxymorphone. LAB UQHMOR <5 ng/mL Hydromorphone, Ur <5 Result Comment: Hydromorphone is a metabolite of hydrocodone. LAB UQOXYM <5 ng/mL Oxymorphone, High Urine 132 Result Comment: Oxymorphone may arise from oxymorphone containing drugs or by metabolism of oxycodone. LAB UQCREA 46.8-314.5 mg/dL 18.9 Low Creatinine, Urine LAB UQPH 4.5-8.0 pH, 5.8 Urine LAB UQSPGR 1.002-1.030 Specific 1.003 [place],Ur LAB UQOXID <200 mg/L 39 Oxidants, Urine LAB SVNI01 <51 mg/L <50 NITRITES,URINE LAB SVCH01 <50 mg/L <10 CHROMATE,URINE LAB SVSQ01 QUALITY,URINE Specimen quality results within acceptable limits. LAB UQNOTE Note This test is for Medical use only. Result Comment: This test was developed and its performance characteristics determined by [facility] [place] [facility] It has not been cleared or approved by the FDA. -[facility] is regulated under CLIA as qualified to perform high-complexity testing. This test is used for clinical purposes. It should not be regarded as investigational or for research. Performed By: #### UQNTPP #### [facility] [address] [place], [place] [address] CNOV Observed: 01/23/2018 Status: COMPLETED Source: [place] 11:00 AM [facility] REPOSITORY Office Visit (FAMPWS) TODD NAVA ([id number]) 1960 M Date Time Provider Department 01/23/18 11:00 AM MERRILL CALZADA ([facility] During your visit today, we recorded the following information about you: Temperature Pulse Blood pressure Weight 96.9 degrees 68/minute 128/60 66.7 kg Merrill Calzada APRN.CNP 01/23/2018 11:09 AM Signed Chief Complaint Patient presents with: Refill Request HPI Todd Nava is a 58 year old male who presents here today for Above Complaints. Patient presents to the office for medication follow up. Patient is taking Percocet for chronic lower back pain, left phantom pain from his left AKA. Pain is constant. According to note from surgeon, if the patient was continuing to have pain, he would refer to PCP for pain management. No fevers or chills. No chest pain, shortness of breath. Was given Flonase for complaints of right ear congestion. Used for 3 months, did have some improvement at times but is persisting. Has muffled hearing. Would like a referral to ENT. Waiting to hear back from Dr. Sandoval to set up a colonoscopy. He is due for it and has been having some blood in his stools on occasions. His urine sample from a recent visit with Yanni Gibson showed the microscopic blood present. He denies seeing any blood in his urine. No dysuria. He is currently on Eliquis and daily aspirin. Current everyday smoker. Past medical history, appointments, medications, allergies reviewed. Previous Medical History PAST MEDICAL HISTORY Diagnosis Date - Above knee amputation of left lower extremity (HCC) - Atherosclerosis of coronary artery 10/30/2008 4 V CABG in 2000: done at [facility] Seeing Dr. Garcia as of 12-17 - Atherosclerotic heart disease of [place] coronary artery without angina pectoris 10/27/2015 - Chronic obstructive pulmonary disease, unspecified (HCC) 10/27/2015 - Coronary atherosclerosis of unspecified type of vessel, [place] or graft CABG 2000; follows with Dr Garcia - Crushing injury of right hand 1992 - Embolism and thrombosis of arteries of lower extremity (HCC) 08/04/2009 444.22 EMBOLISM AND THROMBOSIS OF ARTERIES OF L - HTN (hypertension) - Hyperlipidemia 10/30/2008 - Lower limb ischemia 05/11/2017 - Marijuana use NO CONTROLLED SUBSTANCES See visit 09/27. - Neuropathic pain 04/25/2016 - Nicotine dependence, cigarettes, uncomplicated 10/27/2015 - Other peripheral vascular disease(443.89) Multiple bypass procedures - Peripheral vascular disease (HCC) 04/17/2005 - Phantom limb syndrome (HCC) 04/25/2016 - Premature atrial contractions 05/12/2017 - Presence of aortocoronary bypass graft 10/27/2015 - Pure hypercholesterolemia - Status post above knee amputation of left lower extremity (HCC) 01/26/2016 - Tobacco dependence syndrome 01/17/2017 - Tobacco use disorder 10/30/2008 Half a pack a day as of 12-17 Previous Surgical History PAST SURGICAL HISTORY Procedure Laterality Date - ARTERY X-RAYS, ARM/LEG 05/17/05 - BALLN ANGIOPLASTY PERC,FEM-POP 11/02/05 - BALLN ANGIOPLASTY PERC,FEM-POP 11/02/05 - BALLN ANGIOPLASTY PERC,FEM-POP 06/12/06 - BALLN ANGIOPLASTY PERC,ILIAC 06/12/06 - CABG, ARTERY-VEIN, FOUR 2000 CABG, quadruple grafts - CONTRAST X-RAY EXAM OF AORTA 05/17/05 - Left vlfla-oyd-gjya to ifven-rgc-scra popliteal artery bypass with arm vein. 08/02/2009 - PAST SURGICAL HISTORY OF Left 01/2017 Revision left leg amputation - PLACE CATH SUBSUBSELECT ART,ABD/PEL 05/17/05 - PLACE CATH SUBSUBSELECT ART,ABD/PEL 11/02/05 - PLACE CATH SUBSUBSELECT ART,ABD/PEL 06/12/06 - REVASCULARIZATION ILIAC ARTERY ANGIOP 1ST VSL 07-21-10 BILAT LEGS - REVASCULARIZATION ILIAC ARTERY ANGIOP 1ST VSL 07/05/12 R-EIA - REVASCULARIZATION ILIAC ARTERY ANGIOP 1ST VSL 11-18-14 LEFT - REVSC OPN/PRG FEM/POP W/ANGIOPLASTY UNI 07-21-10 LEFT LEG - REVSC OPN/PRG FEM/POP W/ANGIOPLASTY UNI 07/05/12 L-SFA - REVSC OPN/PRQ FEM/POP W/STNT/ANGIOP SM VSL 07-30-12 left - REVSC OPN/PRQ FEM/POP W/STNT/ANGIOP SM VSL 11-18-14 RIGHT - REVSC OPN/PRQ TIB/MARLEY W/ANGIOPLASTY UNI 08-03-10 LEFT - REVSC OPN/PRQ TIB/MARLEY W/ANGIOPLASTY UNI 07-30-12 left - REVSC OPN/PRQ TIB/MARLEY W/ANGIOPLASTY UNI EA VSL 08-03-10 LEFT - REVSC OPN/PRQ TIB/MARLEY W/ANGIOPLASTY UNI EA VSL 07-30-12 left Family History FAMILY HISTORY Problem Relation Age of Onset - Breast Cancer Mother - Stroke Maternal Grandfather - Coronary Artery Disease Maternal Uncle - Stroke Paternal Grandfather - other (Other) Brother crib - Heart Paternal Grandmother heart attacks - other (pneumonia) Brother as an Patient Allergies ALLERGIES Allergen Reactions - Morphine Hives Current Medications Current Outpatient Prescriptions on File Prior to Visit: ELIQUIS 5 mg tab(s) Take 1 tablet by mouth twice daily. oxyCODONE-acetaminophen (PERCOCET 10) 10-325 mg tablet Take 1 tablet by mouth every 6 hours as needed for up to 30 days.Earliest Fill Date: 12/17/17 pregabalin (LYRICA) 150 mg capsule Take 2 capsules by mouth twice daily for 90 days. polyethylene glycol 3350 (MIRALAX, GLYCOLAX) 17 gram/dose powder Take 17 g by mouth once daily. Take one (1) capful in 8oz of liquid each day. DULoxetine (CYMBALTA) 60 mg capsule Take 1 capsule by mouth once daily. fluticasone (FLONASE) 50 mcg/actuation nasal spray Use 2 Sprays in each nostril once daily. Rinse mouth after use. lisinopril (ZESTRIL, PRINIVIL) 10 mg tablet Take 1 tablet by mouth once daily. simvastatin (ZOCOR) 20 mg tablet Take 1 tablet by mouth once daily. citalopram (CELEXA) 20 mg tablet Take 2 tablets by mouth once daily. ASPIRIN 81 MG TAB Take one(1) tablet daily. No current facility-administered medications on file prior to visit. Social History Social History Marital status: Spouse name: Years of education: Number of children: Social History Main Topics Smoking status: Current Every Day Smoker Packs/day: 0.50 Years: 20.00 Types: Cigarettes Start date: 12/06/1975 Smokeless tobacco: Former User Types: Snuff Alcohol use: Yes 6.0 oz/week Comment: previously heavy drinker Drug use: No Sexual activity: No Other Topics Concern No BLOOD TRANSFUSIONS No CAFFEINE No OCCUPATIONAL EXPOSURE No HOBBY HAZARD No SLEEP CONCERN No STRESS CONCERN No WEIGHT CONCERN No DIET No BACK CARE No EXERCISE No BIKE HELMET No SEAT BELT No SELF EXAMS No REVIEW OF SYSTEMS: as above ? Reviewed relevant PMHx, PSHx, Social Hx, current medications and allergies. EXAM: BP 128/60 Pulse 68 Temp 36.1 ?C (96.9 ?F) (Tympanic) Wt 66.7 kg (147 lb) BMI 22.35 kg/m? General Appearance: Well appearing, alert, in no acute distress, well-hydrated, well nourished.. Head: Normocephalic, no masses, lesions, tenderness or abnormalities. Ears: External ears normal, canals clear. Nose/Sinuses: Nares normal, septum midline, mucosa normal, no drainage or sinus tenderness. Oropharynx: Lips, mucosa, and tongue normal, teeth and gums normal, oropharynx normal. Lungs: Lungs clear to auscultation. No wheezing, rhonchi, rales. Heart: RRR without murmur, gallop, or rubs. No ectopy. Extremities: Positive findings: Left AKA present. . Health Maintenance List BLOOD PRESSURE CONTROLLED due on 01/04/1976 HEPATITIS C SCREENING due on 2002 LDL CHOLESTEROL due on 09/26/2015 INFLUENZA(1) due on 02/09/2018 STATIN MED ADHERENCE due on 02/09/2018 ANNUAL PCP TEAM CHRONIC DISEASE VISIT due on 10/08/2018 LIPID SCREEN due on 09/26/2019 DIABETES SCREEN due on 05/16/2020 COLORECTAL CANCER SCREENING,SEE MODIFIER due on 11/09/2021 DTAP,TDAP,TD(2 - Td) due on 10/09/2027 PROSTATE CANCER SCREENING DISCUSSION Completed ONE PNEUMOVAX PRIOR TO AGE 65 Completed Data reviewed Component Latest Ref Rng AND Units 01/19/2018 Color Yellow Yellow Clarity Clear Clear Glucose, Urine Negative mg/dL Negative Bilirubin, Urine Negative Negative Ketones, Urine Negative Negative Specific [place], Ur 1.005 - 1.030 1.012 Hemoglobin/Blood,Ur Negative 1+ (A) pH, Urine 4.5 - 8.0 6.0 Protein, Urine Negative mg/dL Negative Urobilinogen Normal Normal Nitrites Negative Negative Leukest Negative Negative Comments SEE COMMENT Urine Agustin Comment SEE COMMENT WBC, Urine 0 - 5 /HPF 0-5 RBC, Urine 0 - 3 /HPF 3-5 (A) ASSESSMENT/PLAN: 1. Neuroma of amputation stump, left lower extremity (HCC) - ICD9: 997.61, ICD10: T87.34 (primary diagnosis) - Continue current use of Percocet as prescribed. - OXYCODONE-ACETAMINOPHEN 10 MG-325 MG TABLET PDMP website checked and validated. All prescriptions have been APPROPRIATELY filled. No suspicious activity was identified. 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 Phantom limb syndrome (HCC) - ICD9: 353.6, ICD10: G54.7 - See #1 3. Medication monitoring encounter - ICD9: V58.83, ICD10: Z51.81 - Controlled substance agreement signed. - PAIN PANEL, UR QUANT 4. Eustachian tube dysfunction, right - ICD9: 381.81, ICD10: H69.81 - Continue Flonase, patient requesting ENT referral. - CONSULT TO ENT 5. Decreased hearing of right ear - ICD9: 389.9, ICD10: H91.91 - See #4 - CONSULT TO ENT 6. Microscopic hematuria - ICD9: 599.72, ICD10: R31.29 - We will repeat urine today, if still showing blood present, consider urology as he is at high risk with current smoking status. - URINALYSIS WITH MICROSCOPIC Follow up in 3 months. Sooner if needed. LUIS Lai APRN.CNP 01/23/2018 11:02 AM Signed Jose Carlos Sandoval M.D. [facility] [address] [facility] [address] [place] [address] Referring Provider: YANNI GIBSON (KHOI) [[id number]] Allergies As of Date: 01/23/2018 Noted Allergy Reaction MORPHINE 11/18/2014 4 - Hives Date Reviewed: 01/23/2018 Reviewed by: Merrill (Khoi) Umer - Fully Assessed Reason for Visit: Refill Request [94] Primary Visit Diagnosis:Neuroma of amputation stump, left lower extremity (HCC) [T87.34] Other Visit Diagnoses:Phantom limb syndrome (HCC) [G54.7] Medication monitoring encounter [Z51.81] Eustachian tube dysfunction, right [H69.81] Decreased hearing of right ear [H91.91] Microscopic hematuria [R31.29] Order(s):oxyCODONE-acetaminophen (PERCOCET 10) 10-325 mg tabletTake 1 tablet by mouth every 6 hours as needed for up to 30 days. Earliest Fill Date: 01/23/18Disp: 120 tabletRfl: 0 PAIN PANEL, UR QUANT [SQUQNTPP] Order #: [id number] CONSULT TO ENT [9008] Order #: [id number]: 1 URINALYSIS WITH MICROSCOPIC [SQUAWMIC] Order #: [id number] Prescriptions as of 01/23/2018 Sig: ELIQUIS 5 MG TABLET Take 1 tablet by mouth twice * PREGABALIN 150 MG CAPSULE Take 2 capsules by mouth twic* POLYETHYLENE GLYCOL 3350 17 G* Take 17 g by mouth once daily* DULOXETINE 60 MG CAPSULE,ANA* Take 1 capsule by mouth once * FLUTICASONE 50 MCG/ACTUATION * Use 2 Sprays in each nostril * LISINOPRIL 10 MG TABLET Take 1 tablet by mouth once d* SIMVASTATIN 20 MG TABLET Take 1 tablet by mouth once d* CITALOPRAM 20 MG TABLET Take 2 tablets by mouth once * ASPIRIN 81 MG TABLET Take one(1) tablet daily. OXYCODONE-ACETAMINOPHEN 10 MG* Take 1 tablet by mouth every * Problem List As Of Date 01/23/2018 Noted Resolved Peripheral vascular disease (HCC) [I73.9] INVALID FOR* Tobacco Use Disorder [F17.200] INVALID FOR* More... Atherosclerosis of coronary artery [I25.10] INVALID FOR* More... Hyperlipidemia [E78.5] INVALID FOR* Embolism and Thrombosis of Arteries of Lower Ex*INVALID FOR* More... 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] INVALID FOR* Multiple excoriations [T07.XXXA] INVALID FOR* Neurodermatitis [L28.0] INVALID FOR* Neurotic excoriations [L98.1] INVALID FOR* Pruritus [L29.9] INVALID FOR* Folliculitis [L73.9] INVALID FOR* R/O Insect bites [W57.XXXA] INVALID FOR* Mite infestation [B88.9] INVALID FOR* Postinflammatory skin changes [R23.4] INVALID FOR* Dizzy [R42] INVALID FOR* Occlusion and stenosis of carotid artery withou*INVALID FOR* Depression [F32.9] INVALID FOR* Status post above knee amputation of left lower*INVALID FOR* Phantom limb syndrome (HCC) [G54.7] INVALID FOR* Neuropathic pain [M79.2] INVALID FOR* Neuroma of amputation stump, left lower extremi*INVALID FOR* Atherosclerosis of other type of bypass graft(s*INVALID FOR* Atherosclerotic heart disease of [place] coronar*INVALID FOR* Benign hypertension [I10] INVALID FOR* Chronic obstructive pulmonary disease, unspecif*INVALID FOR* Chronic total occlusion of artery of the extrem*INVALID FOR* CAFL (chronic airflow limitation) (HCC) [J44.9] INVALID FOR* Crushing injury [T14.8XXA] INVALID FOR* Dyslipidemia [E78.5] INVALID FOR* Enlarged prostate without lower urinary tract s*INVALID FOR* Nicotine dependence, cigarettes, uncomplicated *INVALID FOR* Paresthesia of skin [R20.2] INVALID FOR* Personal history of other venous thrombosis and*INVALID FOR* Presence of aortocoronary bypass graft [Z95.1] INVALID FOR* Tobacco dependence syndrome [F17.200] INVALID FOR* Lower limb ischemia [I99.8] INVALID FOR* Premature atrial contractions [I49.1] INVALID FOR* Ischemia of extremity [I99.8] INVALID FOR* More... Other instructions from your clinician: Jose Carlos Sandoval M.D. [facility] [address] [facility] [address] [place], [place] [id number] Prescriptions ordered this encounter Disp Refills Start End OXYCODONE-ACETAMINOPHEN 10 MG-325 MG* 120 * 0 01/23/2018 02/22/2018 Class: Print RX Route: ORAL Sig: Take 1 tablet by mouth every 6 hours as needed for up to 30 days. Earliest Fill Date: 01/23/18 Medications Discontinued During This Encounter oxyCODONE-acetaminophen (PERCOCET 10* 120 * 0 12/17/2017 01/23/2018 Class: Print RX Route: ORAL Sig: Take 1 tablet by mouth every 6 hours as needed for up to 30 days. Earliest Fill Date: 12/17/17 Disc: Reason for discontinue is not on file. Disposition: Return in about 3 months (around 04/25/2018) for Pain follow up . Follow-up and Disposition History Recorded Letter Text [facility], [address] [place] [address] Controlled Substance Agreement GOAL The purpose of this Agreement is to prevent misunderstandings about certain medicines you will be taking for pain management. It will help both you and your doctor to comply with laws regarding controlled pharmaceuticals. I understand that this Agreement is essential to the trust and confidence necessary in a doctor/patient relationship and that my doctor undertakes to treat me based on this Agreement. AGREEMENT I, . Todd Nava, understand that if I break this Agreement, my doctor will stop prescribing these pain-control medicines. In this case, my doctor will taper off the medicine over a period of several days, as necessary, to avoid withdrawal symptoms. A drug-dependence treatment program may be recommended. In certain cases, you may be terminated as a patient. 1. I will communicate fully with my doctor about the character and intensity of my pain, its effect on my daily life, and how well the medicine is helping to relieve the pain. 2. I will not use any illegal controlled substances, including marijuana, cocaine, etc. Random urine and/or serum toxicology screens may be requested; this testing may be unannounced and occur at any time. I agree that I will submit to a blood or urine test if requested by my doctor to determine my compliance with my program of pain control medicine. 3. I will not share, sell or trade my medication with anyone. 4. I will not attempt to obtain any controlled substance from any other doctor, other than a covering physician. 5. I will safeguard my pain medicine from loss or theft. Lost or stolen medicines may not be replaced. 6. I agree that refills of my prescriptions for pain medicine will be made only at the time of an office visit or during regular office hours. No refills will be available on evenings or weekends. 7. I authorize the doctor and my pharmacy to cooperate fully with any city, state or federal law enforcement agency, including this state's Board of Pharmacy, in the investigation of any possible misuse, sale, or other diversion of my medication. I authorize my doctor to provide a copy of this Agreement to my pharmacy. I agree to waive any applicable privilege or right of privacy or confidentiality with respect to these authorizations. Pharmacy: Location: Phone number: 8. I agree that I will use my medicine at a rate no greater than the prescribed rate and that use of my medicine at a greater rate may result in my being without medication for a period of time. 9. If legal authorities have questions concerning treatment, for example, if a patient were obtaining medications at several pharmacies, all confidentiality is waived and the authorities may be given full access to the [facility] Records of narcotic administration. 10. I agree to follow these guidelines and they have been fully explained to me. All of my questions and concerns regarding treatment have been answered. A copy of this document has been given to me. Patient: Date: January 23, 2018 Todd Nava [id number] Physician: Date: January 23, 2018 Merrill Calzada APRN.CNP Encounter Status:Closed by MERRILL CALZADA CNP on 01/23/18 PROGRESS Observed: 01/23/2018 Status: COMPLETED Source: [place] 10:[address] [facility] [place] REPOSITORY HNO ID: [id number] Author: Merrill (Khoi) Umer Service: (none) Author Type: Nurse Practitioner Type: Progress Notes Filed: 01/23/2018 11:09 AM Note Text: Chief Complaint Patient presents with: Refill Request HPI Todd Nava is a 58 year old male who presents here today for Above Complaints. Patient presents to the office for medication follow up. Patient is taking Percocet for chronic lower back pain, left phantom pain from his left AKA. Pain is constant. According to note from surgeon, if the patient was continuing to have pain, he would refer to PCP for pain management. No fevers or chills. No chest pain, shortness of breath. Was given Flonase for complaints of right ear congestion. Used for 3 months, did have some improvement at times but is persisting. Has muffled hearing. Would like a referral to ENT. Waiting to hear back from Dr. Sandoval to set up a colonoscopy. He is due for it and has been having some blood in his stools on occasions. His urine sample from a recent visit with Yanni Gibson showed the microscopic blood present. He denies seeing any blood in his urine. No dysuria. He is currently on Eliquis and daily aspirin. Current everyday smoker. Past medical history, appointments, medications, allergies reviewed. Previous Medical History PAST MEDICAL HISTORY Diagnosis Date - Above knee amputation of left lower extremity (HCC) - Atherosclerosis of coronary artery 10/30/2008 4 V CABG in 2000: done at [facility] Seeing Dr. Garcia as of 12-17 - Atherosclerotic heart disease of [place] coronary artery without angina pectoris 10/27/2015 - Chronic obstructive pulmonary disease, unspecified (HCC) 10/27/2015 - Coronary atherosclerosis of unspecified type of vessel, [place] or graft CABG 2000; follows with Dr Garcia - Crushing injury of right hand 1992 - Embolism and thrombosis of arteries of lower extremity (HCC) 08/04/2009 444.22 EMBOLISM AND THROMBOSIS OF ARTERIES OF L - HTN (hypertension) - Hyperlipidemia 10/30/2008 - Lower limb ischemia 05/11/2017 - Marijuana use NO CONTROLLED SUBSTANCES See visit 09/27. - Neuropathic pain 04/25/2016 - Nicotine dependence, cigarettes, uncomplicated 10/27/2015 - Other peripheral vascular disease(443.89) Multiple bypass procedures - Peripheral vascular disease (HCC) 04/17/2005 - Phantom limb syndrome ([facility]) 04/25/2016 - Premature atrial contractions 05/12/2017 - Presence of aortocoronary bypass graft 10/27/2015 - Pure hypercholesterolemia - Status post above knee amputation of left lower extremity ([facility]) 01/26/2016 - Tobacco dependence syndrome 01/17/2017 - Tobacco use disorder 10/30/2008 Half a pack a day as of 12-17 Previous Surgical History PAST SURGICAL HISTORY Procedure Laterality Date - ARTERY X-RAYS, ARM/LEG 05/17/05 - BALLN ANGIOPLASTY PERC,FEM-POP 11/02/05 - BALLN ANGIOPLASTY PERC,FEM-POP 11/02/05 - BALLN ANGIOPLASTY PERC,FEM-POP 06/12/06 - BALLN ANGIOPLASTY PERC,ILIAC 06/12/06 - CABG, ARTERY-VEIN, FOUR 2000 CABG, quadruple grafts - CONTRAST X-RAY EXAM OF AORTA 05/17/05 - Left yyrrx-omh-trig to jjzpn-tcl-falr popliteal artery bypass with arm vein. 08/02/2009 - PAST SURGICAL HISTORY OF Left 01/2017 Revision left leg amputation - PLACE CATH SUBSUBSELECT ART,ABD/PEL 05/17/05 - PLACE CATH SUBSUBSELECT ART,ABD/PEL 11/02/05 - PLACE CATH SUBSUBSELECT ART,ABD/PEL 06/12/06 - REVASCULARIZATION ILIAC ARTERY ANGIOP 1ST VSL 07-21-10 BILAT LEGS - REVASCULARIZATION ILIAC ARTERY ANGIOP 1ST VSL 07/05/12 R-EIA - REVASCULARIZATION ILIAC ARTERY ANGIOP 1ST VSL 11-18-14 LEFT - REVSC OPN/PRG FEM/POP W/ANGIOPLASTY UNI 07-21-10 LEFT LEG - REVSC OPN/PRG FEM/POP W/ANGIOPLASTY UNI 07/05/12 L-SFA - REVSC OPN/PRQ FEM/POP W/STNT/ANGIOP SM VSL 07-30-12 left - REVSC OPN/PRQ FEM/POP W/STNT/ANGIOP SM VSL 11-18-14 RIGHT - REVSC OPN/PRQ TIB/MARLEY W/ANGIOPLASTY UNI 08-03-10 LEFT - REVSC OPN/PRQ TIB/MARLEY W/ANGIOPLASTY UNI 07-30-12 left - REVSC OPN/PRQ TIB/MARLEY W/ANGIOPLASTY UNI EA VSL 08-03-10 LEFT - REVSC OPN/PRQ TIB/MARLEY W/ANGIOPLASTY UNI EA VSL 07-30-12 left Family History FAMILY HISTORY Problem Relation Age of Onset - Breast Cancer Mother - Stroke Maternal Grandfather - Coronary Artery Disease Maternal Uncle - Stroke Paternal Grandfather - other (Other) Brother crib - Heart Paternal Grandmother heart attacks - other (pneumonia) Brother as an Patient Allergies ALLERGIES Allergen Reactions - Morphine Hives Current Medications Current Outpatient Prescriptions on File Prior to Visit: ELIQUIS 5 mg tab(s) Take 1 tablet by mouth twice daily. oxyCODONE-acetaminophen (PERCOCET 10) 10-325 mg tablet Take 1 tablet by mouth every 6 hours as needed for up to 30 days.Earliest Fill Date: 12/17/17 pregabalin (LYRICA) 150 mg capsule Take 2 capsules by mouth twice daily for 90 days. polyethylene glycol 3350 (MIRALAX, GLYCOLAX) 17 gram/dose powder Take 17 g by mouth once daily. Take one (1) capful in 8oz of liquid each day. DULoxetine (CYMBALTA) 60 mg capsule Take 1 capsule by mouth once daily. fluticasone (FLONASE) 50 mcg/actuation nasal spray Use 2 Sprays in each nostril once daily. Rinse mouth after use. lisinopril (ZESTRIL, PRINIVIL) 10 mg tablet Take 1 tablet by mouth once daily. simvastatin (ZOCOR) 20 mg tablet Take 1 tablet by mouth once daily. citalopram (CELEXA) 20 mg tablet Take 2 tablets by mouth once daily. ASPIRIN 81 MG TAB Take one(1) tablet daily. No current facility-administered medications on file prior to visit. Social History Social History Marital status: Spouse name: Years of education: Number of children: Social History Main Topics Smoking status: Current Every Day Smoker Packs/day: 0.50 Years: 20.00 Types: Cigarettes Start date: 12/06/1975 Smokeless tobacco: Former User Types: Snuff Alcohol use: Yes 6.0 oz/week Comment: previously heavy drinker Drug use: No Sexual activity: No Other Topics Concern No BLOOD TRANSFUSIONS No CAFFEINE No OCCUPATIONAL EXPOSURE No HOBBY HAZARD No SLEEP CONCERN No STRESS CONCERN No WEIGHT CONCERN No DIET No BACK CARE No EXERCISE No BIKE HELMET No SEAT BELT No SELF EXAMS No REVIEW OF SYSTEMS: as above ? Reviewed relevant PMHx, PSHx, Social Hx, current medications and allergies. EXAM: BP 128/60 Pulse 68 Temp 36.1 ?C (96.9 ?F) (Tympanic) Wt 66.7 kg (147 lb) BMI 22.35 kg/m? General Appearance: Well appearing, alert, in no acute distress, well-hydrated, well nourished.. Head: Normocephalic, no masses, lesions, tenderness or abnormalities. Ears: External ears normal, canals clear. Nose/Sinuses: Nares normal, septum midline, mucosa normal, no drainage or sinus tenderness. Oropharynx: Lips, mucosa, and tongue normal, teeth and gums normal, oropharynx normal. Lungs: Lungs clear to auscultation. No wheezing, rhonchi, rales. Heart: RRR without murmur, gallop, or rubs. No ectopy. Extremities: Positive findings: Left AKA present. . Health Maintenance List BLOOD PRESSURE CONTROLLED due on 01/04/1976 HEPATITIS C SCREENING due on 2002 LDL CHOLESTEROL due on 09/26/2015 INFLUENZA(1) due on 02/09/2018 STATIN MED ADHERENCE due on 02/09/2018 ANNUAL PCP TEAM CHRONIC DISEASE VISIT due on 10/08/2018 LIPID SCREEN due on 09/26/2019 DIABETES SCREEN due on 05/16/2020 COLORECTAL CANCER SCREENING,SEE MODIFIER due on 11/09/2021 DTAP,TDAP,TD(2 - Td) due on 10/09/2027 PROSTATE CANCER SCREENING DISCUSSION Completed ONE PNEUMOVAX PRIOR TO AGE 65 Completed Data reviewed Component Latest Ref Rng AND Units 01/19/2018 Color Yellow Yellow Clarity Clear Clear Glucose, Urine Negative mg/dL Negative Bilirubin, Urine Negative Negative Ketones, Urine Negative Negative Specific [place], Ur 1.005 - 1.030 1.012 Hemoglobin/Blood,Ur Negative 1+ (A) pH, Urine 4.5 - 8.0 6.0 Protein, Urine Negative mg/dL Negative Urobilinogen Normal Normal Nitrites Negative Negative Leukest Negative Negative Comments SEE COMMENT Urine Agustin Comment SEE COMMENT WBC, Urine 0 - 5 /HPF 0-5 RBC, Urine 0 - 3 /HPF 3-5 (A) ASSESSMENT/PLAN: 1. Neuroma of amputation stump, left lower extremity (HCC) - ICD9: 997.61, ICD10: T87.34 (primary diagnosis) - Continue current use of Percocet as prescribed. - OXYCODONE-ACETAMINOPHEN 10 MG-325 MG TABLET PDMP website checked and validated. All prescriptions have been APPROPRIATELY filled. No suspicious activity was identified. 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 Phantom limb syndrome (HCC) - ICD9: 353.6, ICD10: G54.7 - See #1 3. Medication monitoring encounter - ICD9: V58.83, ICD10: Z51.81 - Controlled substance agreement signed. - PAIN PANEL, UR QUANT 4. Eustachian tube dysfunction, right - ICD9: 381.81, ICD10: H69.81 - Continue Flonase, patient requesting ENT referral. - CONSULT TO ENT 5. Decreased hearing of right ear - ICD9: 389.9, ICD10: H91.91 - See #4 - CONSULT TO ENT 6. Microscopic hematuria - ICD9: 599.72, ICD10: R31.29 - We will repeat urine today, if still showing blood present, consider urology as he is at high risk with current smoking status. - URINALYSIS WITH MICROSCOPIC Follow up in 3 months. Sooner if needed. Merrill Calzada APRN.WIRE STRAIGHTENING MACHINE OPERATOR URINALYSIS WITH Collected: 01/19/2018 Status: F Source: [place] MICROSCOPIC 9:[address] [facility] REPOSITORY TYPE CODE TESTS RESULT OUT OF RANGE REFERENCE UNITS LAB UCOL Yellow Color Yellow LAB [facility] Clear Clarity Clear LAB UGLUC Negative mg/dL Glucose, Urine Negative LAB UBIL Negative Bilirubin, Urine Negative LAB UKET Negative Ketones, Urine Negative LAB USPG 1.005-1.030 Specific [place], Ur 1.012 LAB UHGB Negative Abnormal Hemoglobin/Blood, 1+ Alert Ur LAB UPH 4.5-8.0 pH 6.0 LAB UPROT Negative mg/dL Protein, Urine Negative LAB UUROB Normal Urobilinogen Normal LAB UNITR Negative Nitrites Negative LAB ULKEST Negative Leukest Negative LAB UCOM Comments SEE COMMENT Result Comment: N/A LAB UMCOM Urine SEE Agustin Comment COMMENT Result Comment: N/A LAB UWBC 0-5 /HPF WBC 0-5 LAB URBC 0-3 /HPF Abnormal Alert RBC 3-5 Performed By: #### UAWMIC #### [facility] [address] [place], [place] [address] CNOV Observed: 01/19/2018 Status: COMPLETED Source: [place] 8:00 AM [facility] REPOSITORY Office Visit (INTMWS) TODD NAVA ([id number]) 1960 M Date Time Provider Department 01/19/18 8:00 AM YANNI GIBSON ([facility]) INTMWS During your visit today, we recorded the following information about you: Pulse Respiration Blood pressure Weight 92/minute 20/minute 136/64 65.8 kg Yanni Gibson APRN.KHOI 01/19/2018 8:53 AM Signed HPI Todd Lomeli Brandy is a 58 year old male who presents with complaint of Rectal bleeding that started last week for 3 episodes and has since stopped. He has had this before. This current episode happened in the course of having a BM. He noted bright red blood in the toilet. He has minor abdominal discomfort with out pain. All of these have since resolved. He did nothing for the problem. He says he had some hard stools around the time of the events. Chart review shows this is something that he has had in the past. Last visit with pcp 08/2017. Seen by GI 11/01/17. Last colon 2011, due for repeat 2017. did this and he would like to continue with if possible. ROS: No dizziness, sob, chest pain, and is generally feeling himself No changes in appetite and stools now normal. The ROS is otherwise negative. The patient's pmh, medications, allergies, and past visits are reviewed. ACTIVE PROBLEM LIST Peripheral Vascular Disease (Hcc) Tobacco Use Disorder Atherosclerosis of Coronary Artery Hyperlipidemia Embolism and Thrombosis of Arteries of Lower Extremity (Hcc) Arthritis Pelvic Pain Abdominal Pain, Unspecified Site Pyoderma, Unspecified Prurigo Nodularis Multiple Excoriations Neurodermatitis Neurotic Excoriations Pruritus Folliculitis R/O Insect bites Mite Infestation Postinflammatory Skin Changes Dizzy Occlusion and Stenosis of Carotid Artery Without Mention of Cerebral Infarction Depression Status Post Above Knee Amputation of Left Lower Extremity (Hcc) Phantom Limb Syndrome ([facility]) Neuropathic Pain Neuroma of Amputation Stump, Left Lower Extremity ([facility]) Atherosclerosis of Other Type of Bypass Graft(s) of The Extremities With Rest Pain, Left Leg ([facility]) Atherosclerotic Heart Disease of [place] Coronary Artery Without Angina Pectoris Benign Hypertension Chronic Obstructive Pulmonary Disease, Unspecified (Hcc) Chronic Total Occlusion of Artery of The Extremities ([facility]) Cafl (Chronic Airflow Limitation) ([facility]) Crushing Injury Dyslipidemia Enlarged Prostate Without Lower Urinary Tract Symptoms (Luts) Nicotine Dependence, Cigarettes, Uncomplicated Paresthesia of Skin Personal History of Other Venous Thrombosis and Embolism Presence of Aortocoronary Bypass Graft Tobacco Dependence Syndrome Lower Limb Ischemia Premature Atrial Contractions Ischemia of Extremity PHYSICAL EXAM: BP 136/64 Pulse 92 Resp 20 Wt 65.8 kg (145 lb) BMI 22.05 kg/m? General appearance: alert, cooperative, pleasant, in no acute distress - has has AK left amputee, having prosthesis Head: Normocephalic Eyes: conjunctiva/corneas normal Heart: regular rate and rhythm Lungs: clear to auscultation, without rales or wheeze, good air exchange Abdomen: Soft, BS+, Mild tenderness left upper adomen, no HSM, no mass, rebound. Rectal exam: No mass, brown liquid stool, hemoccult negative. ASSESSMENT/PLAN: 1. Bright red rectal bleeding - ICD9: 569.3, ICD10: K62.5 (primary diagnosis) No active bleeding today. Will update labs, refer for colon and arrange short term follow up with pcp to review labs and confirm his colon referral. We did fax this order to [facility] as patient requested to perform. - HEMOCCULT SINGLE B/O - CONSULT TO GENERAL SURGERY - CBC + DIFF - COMP METABOLIC PANEL - URINALYSIS WITH MICROSCOPIC 2. Generalized abdominal pain - ICD9: 789.07, ICD10: R10.84 Mild, tenderness, no acute pain. Monitor. A late concern was a need for refill of his percocet. I will arrange to have pcp fill as I am only here for acute visit today. Patient verb understanding. Yanni Gibson, SERGIO.WIRE STRAIGHTENING MACHINE OPERATOR Referring Provider: SELF [200] Allergies As of Date: 01/19/2018 Noted Allergy Reaction MORPHINE 11/18/2014 4 - Hives Date Reviewed: 01/19/2018 Reviewed by: Elizabeth Camacho LPN - Fully Assessed Reason for Visit: Rectal Problem [93] Primary Visit Diagnosis:Bright red rectal bleeding [K62.5] Other Visit Diagnosis:Generalized abdominal pain [R10.84] Order(s):HEMOCCULT SINGLE B/O [8350174] Order #: [id number] CONSULT TO GENERAL SURGERY [9011] Order #: [id number]: 1 CBC + DIFF [SQCBCDIF] Order #: [id number] FUTURE COMP METABOLIC PANEL [SQCMP] Order #: [id number] FUTURE URINALYSIS WITH MICROSCOPIC [SQUAWMIC] Order #: [id number] FUTURE Prescriptions as of 01/19/2018 Sig: ELIQUIS 5 MG TABLET Take 1 tablet by mouth twice * PREGABALIN 150 MG CAPSULE Take 2 capsules by mouth twic* POLYETHYLENE GLYCOL 3350 17 G* Take 17 g by mouth once daily* DULOXETINE 60 MG CAPSULE,ANA* Take 1 capsule by mouth once * FLUTICASONE 50 MCG/ACTUATION * Use 2 Sprays in each nostril * LISINOPRIL 10 MG TABLET Take 1 tablet by mouth once d* SIMVASTATIN 20 MG TABLET Take 1 tablet by mouth once d* CITALOPRAM 20 MG TABLET Take 2 tablets by mouth once * ASPIRIN 81 MG TABLET Take one(1) tablet daily. OXYCODONE-ACETAMINOPHEN 10 MG* Take 1 tablet by mouth every * Problem List As Of Date 01/19/2018 Noted Resolved Peripheral vascular disease (HCC) [I73.9] INVALID FOR* Tobacco Use Disorder [F17.200] INVALID FOR* More... Atherosclerosis of coronary artery [I25.10] INVALID FOR* More... Hyperlipidemia [E78.5] INVALID FOR* Embolism and Thrombosis of Arteries of Lower Ex*INVALID FOR* More... 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] INVALID FOR* Multiple excoriations [T07.XXXA] INVALID FOR* Neurodermatitis [L28.0] INVALID FOR* Neurotic excoriations [L98.1] INVALID FOR* Pruritus [L29.9] INVALID FOR* Folliculitis [L73.9] INVALID FOR* R/O Insect bites [W57.XXXA] INVALID FOR* Mite infestation [B88.9] INVALID FOR* Postinflammatory skin changes [R23.4] INVALID FOR* Dizzy [R42] INVALID FOR* Occlusion and stenosis of carotid artery withou*INVALID FOR* Depression [F32.9] INVALID FOR* Status post above knee amputation of left lower*INVALID FOR* Phantom limb syndrome (HCC) [G54.7] INVALID FOR* Neuropathic pain [M79.2] INVALID FOR* Neuroma of amputation stump, left lower extremi*INVALID FOR* Atherosclerosis of other type of bypass graft(s*INVALID FOR* Atherosclerotic heart disease of [place] coronar*INVALID FOR* Benign hypertension [I10] INVALID FOR* Chronic obstructive pulmonary disease, unspecif*INVALID FOR* Chronic total occlusion of artery of the extrem*INVALID FOR* CAFL (chronic airflow limitation) (HCC) [J44.9] INVALID FOR* Crushing injury [T14.8XXA] INVALID FOR* Dyslipidemia [E78.5] INVALID FOR* Enlarged prostate without lower urinary tract s*INVALID FOR* Nicotine dependence, cigarettes, uncomplicated *INVALID FOR* Paresthesia of skin [R20.2] INVALID FOR* Personal history of other venous thrombosis and*INVALID FOR* Presence of aortocoronary bypass graft [Z95.1] INVALID FOR* Tobacco dependence syndrome [F17.200] INVALID FOR* Lower limb ischemia [I99.8] INVALID FOR* Premature atrial contractions [I49.1] INVALID FOR* Ischemia of extremity [I99.8] INVALID FOR* More... Encounter Status:Closed by YANNI GIBSON CNP on 01/19/18 PROGRESS Observed: 01/19/2018 Status: COMPLETED Source: [place] 7:32 AM [facility] REPOSITORY O ID: [id number] Author: Yanni Gibson Service: (none) Author Type: Nurse Practitioner Type: Progress Notes Filed: 01/19/2018 8:53 AM Note Text: HPI Todd Nava is a 58 year old male who presents with complaint of Rectal bleeding that started last week for 3 episodes and has since stopped. He has had this before. This current episode happened in the course of having a BM. He noted bright red blood in the toilet. He has minor abdominal discomfort with out pain. All of these have since resolved. He did nothing for the problem. He says he had some hard stools around the time of the events. Chart review shows this is something that he has had in the past. Last visit with pcp 08/2017. Seen by GI 11/01/17. Last colon 2011, due for repeat 2016. did this and he would like to continue with if possible. ROS: No dizziness, sob, chest pain, and is generally feeling himself No changes in appetite and stools now normal. The ROS is otherwise negative. The patient's pmh, medications, allergies, and past visits are reviewed. ACTIVE PROBLEM LIST Peripheral Vascular Disease (Hcc) Tobacco Use Disorder Atherosclerosis of Coronary Artery Hyperlipidemia Embolism and Thrombosis of Arteries of Lower Extremity (Hcc) Arthritis Pelvic Pain Abdominal Pain, Unspecified Site Pyoderma, Unspecified Prurigo Nodularis Multiple Excoriations Neurodermatitis Neurotic Excoriations Pruritus Folliculitis R/O Insect bites Mite Infestation Postinflammatory Skin Changes Dizzy Occlusion and Stenosis of Carotid Artery Without Mention of Cerebral Infarction Depression Status Post Above Knee Amputation of Left Lower Extremity (Hcc) Phantom Limb Syndrome (Hcc) Neuropathic Pain Neuroma of Amputation Stump, Left Lower Extremity (Hcc) Atherosclerosis of Other Type of Bypass Graft(s) of The Extremities With Rest Pain, Left Leg (Hcc) Atherosclerotic Heart Disease of [place] Coronary Artery Without Angina Pectoris Benign Hypertension Chronic Obstructive Pulmonary Disease, Unspecified (Hcc) Chronic 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 General appearance: alert, cooperative, pleasant, in no acute distress - has has AK left amputee, having prosthesis Head: Normocephalic Eyes: conjunctiva/corneas normal Heart: regular rate and rhythm Lungs: clear to auscultation, without rales or wheeze, good air exchange Abdomen: Soft, BS+, Mild tenderness left upper adomen, no HSM, no mass, rebound. Rectal exam: No mass, brown liquid stool, hemoccult negative. ASSESSMENT/PLAN: 1. Bright red rectal bleeding - ICD9: 569.3, ICD10: K62.5 (primary diagnosis) No active bleeding today. Will update labs, refer for colon and arrange short term follow up with pcp to review labs and confirm his colon referral. We did fax this order to [facility] as patient requested to perform. - HEMOCCULT SINGLE B/O - CONSULT TO GENERAL SURGERY - CBC + DIFF - COMP METABOLIC PANEL - URINALYSIS WITH MICROSCOPIC 2. Generalized abdominal pain - ICD9: 789.07, ICD10: R10.84 Mild, tenderness, no acute pain. Monitor. A late concern was a need for refill of his percocet. I will arrange to have pcp fill as I am only here for acute visit today. Patient verb understanding. Yanni Gibson, SERGIO.WIRE STRAIGHTENING MACHINE OPERATOR PT D/C SUMMARY (1) Observed: 12/20/2017 Status: F Source: [place] 9:17 AM [facility] REPOSITORY [facility] [address] [place] [address] Fax REHABILITATION SERVICES DISCHARGE SUMMARY MR#: [id number] Acct: [id number] Name: TODD NAVA Rep #: [id number] : 1960 57 From: Chaka Hunt DPT, OCS, CSCS Referring Dr.: Vaibhav Sawyer MD Status: REG RCR Insurance: MEDICARE PART A B MEDICAID [place] - PT D/C Summary It has been my pleasure to treat TODD NAVA under orders from Vaibhav Sawyer, for the diagnosis of L AKA neuroma for a total of 52 visit(s). Discharge Date: 12/19/17 Please see the following information for a summary of their discharge status. - Subjective Subjective: Slowly improving with distance. No pain really after walking. Butt gets tight at times. Gets meds this weekend adn will be good. Using cane as he does not trust R leg as it gives out at times. Circulation is poor in R foot but doc wants to leave it on as long as he can to avoid WC for the rest of his life. Prosthetic is on all day and uses cane (or furniture) at home but walker in yard. - Pain Left LE Pain Intensity (Out of 10): 0 - Overall Improvement % Improvement: 50 - Objective Objective/Function: Overall walking very well with cane R UE, R LE limits more than prosthesis. Needs to emphasize swing phase on grass but is safe. steps are with rail on L and cane adn using R LE which is very weak. - Goals Goal 1:: Walk into and out of PT with cane or walker Mod I without pain Goal Progress: Goal Met Goal 2:: Ambulate in and out of PT without AD and with good gait pattern I. Goal Progress: needs cane Goal 3:: Up and down 6 stepswithout rail I Goal Progress: needs rail 2 to R wekanes Goal 4:: Walk with cane on grass and incline without AD mod I 60 feet Goal Progress: needs rail 2 R LE weak Goal 5:: FGA to diminish fall risk Goal Progress: Progressing - Plan Plan: D/C - D/C Information Discharge Comments: Pt doing well at home adn likely at maximum functional level. R LE holds him back due to weakness adn pain from poor circulation. If there are questions or concerns regarding this patient's physical therapy, please feel free to call me at [phone]. Thank you for the referral of this patient. Sincerely, Chaka Hunt, SOL[place], OC <Electronically signed by Chaka Hunt DPT, OCS, CSCS> 12/20/17 0917 CC: Vaibhav Sawyer MD EBG Signed SURGERY VISIT REPORT Observed: 12/03/2017 Status: F Source: [place] 5:33 PM [facility] REPOSITORY [facility] [address] [place] [address] OFFICE VISIT Date of Service: 12/03/17 MR#: [id number] Acct: [id number] Name: TODD NAVA Rep #: [id number] : 1960 Provider: Jose Carlos Sandoval MD Age/Sex: 57/M Location: [facility] Status: Signed Intake Vital Signs12/03/17 Height 5 ft 8 in 12/03/17 Weight: 150 lb Intake Visit Reasons: RECTAL BLEED Die Engraver Required: No Is patient in pain?: Yes (Right foot) Pain scale (1-10): 2 Allergies No Known Allergies Allergy (Verified 12/03/17 15:32) Medications Citalopram [Celexa] 40 mg PO DAILY 09/28/14 [History Confirmed 12/03/17] Lisinopril [Zestril] 10 mg PO DAILY 09/28/14 [History Confirmed 12/03/17] Apixaban [Eliquis] 5 mg PO BID #60 tab 11/10/15 [Rx Confirmed 12/03/17] Gabapentin [Neurontin] 600 mg PO 4X/DAY #120 tab 11/10/15 [Rx Confirmed 09/23/17] Oxycodone HCl/Acetaminophen [Percocet 10-325 mg Tablet] 1 - 2 tab PO Q6H PRN PRN 09/23/17 [History Confirmed 12/03/17] Pregabalin [Lyrica] 150 mg PO TID 09/23/17 [History Confirmed 12/03/17] duloxetine 60 mg capsule,delayed release 60 mg PO QDAY 12/03/17 [History Confirmed 12/03/17] fluticasone 50 mcg/actuation nasal spray,suspension 2 spray INTRANASAL QDAY 12/03/17 [History Confirmed 12/03/17] simvastatin 20 mg tablet 20 mg PO QPM 12/03/17 [History Confirmed 12/03/17] PFSH Medical History Lower limb ischemia (Acute) Hypertension (Chronic) Medical management (Acute) COPD (chronic obstructive pulmonary disease) (Acute) CAD (coronary artery disease) (Chronic) Tobacco dependence syndrome (Chronic) PVD (peripheral vascular disease) (Chronic) Dyslipidemia (Chronic) Crushing injury (Chronic) Superficial bacterial infection of skin (Acute) Infected open wound (Acute) Benign hypertension (Chronic) Surgical History hx of APLL (Acute) Hx of tonsillectomy (Acute) Hx of CABG (Acute) Status post above knee amputation of left lower extremity (Acute) Social History Smoking Status: Current every day smoker second hand exposure: Yes alcohol intake: current alcohol intake frequency: holidays/special occasions only substance use type: does not use caffeine: Yes what type of physical activity do you participate in: none frequency: does not exercise seatbelt use: always HPI HPI HPI: TODD NAVA, is a 57 M who presents to the office today for discussion regarding peripheral vascular occlusive disease involving his right lower extremity. This appointment was scheduled as one to discuss rectal bleeding. The patient states that he had some brief rectal bleeding in this discussion is not for that. He states that that issue has stopped. I have assisted the patient very remotely with bilateral lower extremity femoral-popliteal bypasses. It is of note that most recently over the past several years his vascular care has been converted to Dr. Mariia Knutson at [facility] in [place]. The patient complains of pain of his right foot. By his report he has had a left above-knee amputation with actual more recent revision due to he thinks nonhealing may be infection. The most recent intervention that we have access to includes May 15, 2017 a right lower extremity arteriogram performed by Dr. Knutson. The right lower extremity demonstrates a patent right iliac stent with some calcific disease in the right common femoral and profundofemoral and a widely patent bypass graft from the right common femoral to below-knee popliteal. There is a patent peroneal artery at the level of the foot and distal reconstitution to the posterior tibial artery. There were not felt to be any additional areas that could be addressed at that setting. The patient ostensibly is here because he has pain in the right foot when he walks. Claims that his foot has been colder than normal. He states that he was seen by a therapist who advised him to have the foot amputated and that the patient could then walk on bilateral lower extremity prostheses. This would include the left above-knee prosthesis and I suppose a right below-knee prosthesis. It is of note that the patient is a lifelong cigarette smoker. Despite multiple physician attempts the patient has failed to make any attempt to cease his tobacco use. The patient also has multiple areas of excoriation involving bilateral lower extremities and bilateral upper extremities. The patient blames upon his medication Eliquis but these issues have been present for a prolonged period of time as well and likely are related to self-induced picking. Of side note is that most recent colonoscopy was November 10, 2011 but at no point during this discussion was at entertained. The patient presents here adamant that I would proceed with a right below-knee amputation so that he could walk comfortably ROS General General: Yes weight change; no appetite, fatigue, colon cancer, breast cancer or weakness HEENT HEENT: No difficulty swallowing, eye injury, eye surgery, swollen glands or hoarseness Endo Endocrine: No thyroid disease, diabetes mellitus, thyroid cancer, Hair loss, heat intolerance or cold intolerance Skin Skin: Yes rash and changing moles Musc Musculoskeletal: Yes back problems and arthritis; no rheumatoid arthritis, gout or joint pain Cardio Cardiovascular: Yes heart disease and high blood pressure; no murmur, pacemaker, atrial fibrillation, heart attack, heart stent, palpitations, shortness of breat with exertion or chest pain Psych Psychiatric: No depression, anxiety or hearing voices Resp Respiratory: No shortness of breath, No sleep apnea, No cough, No COPD, No asthma, No emphysema, No wheezing Gastro Gastrointestinal: No abdominal pain, No nausea or vomiting, No diarrhea, No constipation, Yes blood in stool, No acid reflux, No hemorrhoids, No ulcers, No gallbladder problem, Yes black,tarry stools [place] Hematologic: Yes blood thinners, Yes blood disorders, No bleeding, No anemia, No blood clots Neuro Neurologic: No system reviewed and no additional complaints, except as docu, No as per HPI, No abnormal walking, No abnormal hearing, No abnormal movements, No abnormal speech, No behavioral changes, No burning sensations, No confusion, No seizure-like activity, No unsteadiness, No dizziness, No localized weakness, No frequent falls, No headache(s), No lack of coordination, No loss of vision, No memory loss, Yes numbness, No other visual disturbances, No radiating pain, No restless legs, No sensory deficit, No fainting, Yes tingling, No tremor(s), No weakness, No other Exam Const General: other (Much much older than stated age), disheveled HENMT Head: normal to inspection Chest Other: Increased anterior posterior diameter Resp Other: Bibasilar scattered rales Cardio Rate: regular rate Rhythm: regular rhythm Heart Sounds: no murmurs Other: Nonpalpable right radial with deformity of the hand 2+ bilateral brachials with evidence of superficial vein harvesting left upper extremity 2+ carotids no bruits 2+ femorals Left above-knee amputation 2+ right popliteal GI Other: Soft, nontender Extrem Other: Right foot is pink. Slightly diminished capillary refill. Adequate venous filling identified. No open ulcerations. Multiple superficial excoriations bilateral lower and upper extremities Assessment AND Plan Problems 1. Lower limb ischemia I99.8 Plan Clearly this 57-year-old gentleman has peripheral vascular occlusive disease. His right lower extremity bypass graft is patent. He has distal small vessel disease. He has had a left above-knee amputation. He has multiple areas of excoriation of bilateral upper and lower extremities. This problem has plagued him for an extensive period of time and likely is self-induced excoriations although he is currently blaming it on Eliquis. The patient is a lifelong cigarette smoker and has no intent unceasing The patient is convinced that if he were to have the right leg amputated that he would be more comfortable and able to walk on bilateral lower extremity prostheses. I have explained to the patient that at least I am likely no therapists could predict for him the possibility of walking on bilateral lower extremity prostheses particularly in light that the left lower extremity is an above-knee prosthesis. The right foot currently is viable. He has multiple open sores placing him at risk for significant wound infection. He has no interest in stopping his tobacco. I am not in favor of proceeding with any type of major amputation of the right lower extremity and I suggested to him that I would not perform this procedure for him. He has had an opportunity to ask and have questions answered. I recommend ongoing maximization of his medical care. Cc: Dr. Vaibhav Sandoval M.D., F.A.C.S. Medications Discontinued: calcium carbonate Discontinued Reason: Pt500 mg (2.5 x 200 mg calcium (500 mg)) PO Q4H no longer taking PRN PRN HEARTBURN OR INDIGESTION Coding Level of Care Code Off vis,est,level 3 Diagnoses Lower limb ischemia I99.8 Time Spent (min) 30 12/03/17 0103 <Electronically signed by Jose Carlos Sandoval MD> Date Jose Carlos Sandoval MD Cosigner Signature: Date (if applicable) CC: Vaibhav Sawyer MD PROGRESS Observed: 11/27/2017 Status: COMPLETED Source: [place] 2:42 PM [facility] REPOSITORY HNO ID: [id number] Author: Lucy Lara Service: (none) Author Type: Shipmaster Type: Progress Notes Filed: 12/03/2017 2:26 PM Note Text: I have attempted to contact this patient by phone to return their call, schedule an appointment, discuss lab results, etc. Left message to call back. Patient needs to reschedule appointment with Dr. Sawyer. PROGRESS Observed: 11/27/2017 Status: COMPLETED Source: [place] 2:38 PM [facility] REPOSITORY HNO ID: [id number] Author: Lucy Lara Service: (none) Author Type: Shipmaster Type: Progress Notes Filed: 12/03/2017 2:26 PM Note Text: PHMA TEAMLET DOCUMENTATION Provider Action/FYI: Patient needs appointment Labs are ordered PSR Action/FYI: Teamlet has identified patient by name and date of . Team: Adelita Ratliff MA, Olga Newberry MA, Lucy Lara MA, JONNIE Lai, Dr. Vaibhav Sawyer, Mervat Washington PSR, ? Last Office Visit:11/12/2017 ? Next Office Visit: Visit date not found ? Last BP/Labs: Blood Pressure: Last 3 Encounter BP Readings: Date: BP: 11/01/2017 145/77 10/08/2017 140/60 09/25/2017 120/74 Lipids: Cholesterol, Total (mg/dL) Date Value 09/25/2014 148 07/27/2014 155 HDL Cholesterol (mg/dL) Date Value 09/25/2014 34 07/27/2014 34 LDL Cholesterol (mg/dL) Date Value 09/25/2014 81 07/27/2014 90 No patient outreach needed at this time Triglyceride (mg/dL) Date Value 09/25/2014 167 07/27/2014 156 HGB A1C: No results found for: HBA1C TSH: No results found for: TSH) Care Gap: CVD - Needs Lipid panel, has not had one in the last year. HTN - Last BP NOT under 140/90 Plan: ? Confirm PCP / Status ? Type of appointment needed: Follow-up CHILO with Provider Silverio ? Consultation Appointments: No patient outreach needed at this time ? Labs, HM and Immunization: Labs: CBC (Diff or PLT) Lipids CMP Lucy Lara MA CNPTOUTREACH Observed: 11/27/2017 Status: COMPLETED Source: [place] 12:00 AM [facility] REPOSITORY Patient Outreach (FAMPWS) TODD NAVA ([id number]) 1960 M Date Time Provider Department 11/27/17 LUCY LARA (ELISA) FAMPWS During your visit today, we recorded the following information about you: Lucy Lara MA 12/03/2017 2:26 PM Signed PHMA TEAMLET DOCUMENTATION Provider Action/FYI: Patient needs appointment Labs are ordered PSR Action/FYI: Teamlet has identified patient by name and date of . Team: Adelita Ratliff MA, Olga Newberry MA, Lucy Lara MA, JONNIE Lai, Dr. Vaibhav Sawyer, Mervat Washington PSR, ? Last Office Visit:11/12/2017 ? Next Office Visit: Visit date not found ? Last BP/Labs: Blood Pressure: Last 3 Encounter BP Readings: Date: BP: 11/01/2017 145/77 10/08/2017 140/60 09/25/2017 120/74 Lipids: Cholesterol, Total (mg/dL) Date Value 09/25/2014 148 07/27/2014 155 HDL Cholesterol (mg/dL) Date Value 09/25/2014 34 07/27/2014 34 LDL Cholesterol (mg/dL) Date Value 09/25/2014 81 07/27/2014 90 No patient outreach needed at this time Triglyceride (mg/dL) Date Value 09/25/2014 167 07/27/2014 156 HGB A1C: No results found for: HBA1C TSH: No results found for: TSH) Care Gap: CVD - Needs Lipid panel, has not had one in the last year. HTN - Last BP NOT under 140/90 Plan: ? Confirm PCP / Status ? Type of appointment needed: Follow-up CHILO with Provider Silverio ? Consultation Appointments: No patient outreach needed at this time ? Labs, HM and Immunization: Labs: CBC (Diff or PLT) Lipids CMP ELISA Scott MA 12/03/2017 2:26 PM Signed I have attempted to contact this patient by phone to return their call, schedule an appointment, discuss lab results, etc. Left message to call back. Patient needs to reschedule appointment with Dr. Sawyer. Allergies As of Date: 11/27/2017 Noted Allergy Reaction MORPHINE 11/18/2014 4 - Hives Date Reviewed: 11/01/2017 Reviewed by: Edith Naidu MA - Fully Assessed Reason for Visit: PHMA/Care Gap Outreach [[id number]] Prescriptions as of 11/27/2017 Sig: PREGABALIN 150 MG CAPSULE Take 2 capsules by mouth twic* OXYCODONE-ACETAMINOPHEN 10 MG* Take 1 tablet by mouth every * POLYETHYLENE GLYCOL 3350 17 G* Take 17 g by mouth once daily* DULOXETINE 60 MG CAPSULE,ANA* Take 1 capsule by mouth once * FLUTICASONE 50 MCG/ACTUATION * Use 2 Sprays in each nostril * APIXABAN 5 MG TABLET Take 1 tablet by mouth twice * LISINOPRIL 10 MG TABLET Take 1 tablet by mouth once d* SIMVASTATIN 20 MG TABLET Take 1 tablet by mouth once d* CITALOPRAM 20 MG TABLET Take 2 tablets by mouth once * ASPIRIN 81 MG TABLET Take one(1) tablet daily. Problem List As Of Date 11/27/2017 Noted Resolved Peripheral vascular disease (HCC) [I73.9] INVALID FOR* Tobacco Use Disorder [F17.200] INVALID FOR* More... Atherosclerosis of coronary artery [I25.10] INVALID FOR* More... Hyperlipidemia [E78.5] INVALID FOR* Embolism and Thrombosis of Arteries of Lower Ex*INVALID FOR* More... 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] INVALID FOR* Multiple excoriations [T07.XXXA] INVALID FOR* Neurodermatitis [L28.0] INVALID FOR* Neurotic excoriations [L98.1] INVALID FOR* Pruritus [L29.9] INVALID FOR* Folliculitis [L73.9] INVALID FOR* R/O Insect bites [W57.XXXA] INVALID FOR* Mite infestation [B88.9] INVALID FOR* Postinflammatory skin changes [R23.4] INVALID FOR* Dizzy [R42] INVALID FOR* Occlusion and stenosis of carotid artery withou*INVALID FOR* Depression [F32.9] INVALID FOR* Status post above knee amputation of left lower*INVALID FOR* Phantom limb syndrome (HCC) [G54.7] INVALID FOR* Neuropathic pain [M79.2] INVALID FOR* Neuroma of amputation stump, left lower extremi*INVALID FOR* Atherosclerosis of other type of bypass graft(s*INVALID FOR* Atherosclerotic heart disease of [place] coronar*INVALID FOR* Benign hypertension [I10] INVALID FOR* Chronic obstructive pulmonary disease, unspecif*INVALID FOR* Chronic total occlusion of artery of the extrem*INVALID FOR* CAFL (chronic airflow limitation) (HCC) [J44.9] INVALID FOR* Crushing injury [T14.8XXA] INVALID FOR* Dyslipidemia [E78.5] INVALID FOR* Enlarged prostate without lower urinary tract s*INVALID FOR* Nicotine dependence, cigarettes, uncomplicated *INVALID FOR* Paresthesia of skin [R20.2] INVALID FOR* Personal history of other venous thrombosis and*INVALID FOR* Presence of aortocoronary bypass graft [Z95.1] INVALID FOR* Tobacco dependence syndrome [F17.200] INVALID FOR* Lower limb ischemia [I99.8] INVALID FOR* Premature atrial contractions [I49.1] INVALID FOR* Ischemia of extremity [I99.8] INVALID FOR* More... Encounter Status:Closed by LUCY LARA on 12/03/17 RE-EVALUATION - PT (1) Observed: 11/21/2017 Status: F Source: [place] 7:34 AM [facility] REPOSITORY [facility] [address] [place] [address] Fax REEVALUATION / MEDICARE RECERTIFICATION PHYSICAL THERAPY MR#: [id number] Acct: [id number] Name: TODD NAVA Rep #: [id number] : 1960 57 From: Chaka Hunt DPT, OCS, CSCS Referring Dr.: Vaibhav Sawyer MD Status: REG RCR Insurance: MEDICARE PART A B MEDICAID Vaibhav Sawyer, It has been my pleasure to treat TODD NAVA over the last 46 visits for L AKA neuroma. Please see the progress note below for an update on the physical therapy plan of care! Subjective: Walking better. Made a full lap without stopping. Not walking much at home outside in yard. Walking at home holding onto childs with prosthesis. Will call prosthetitian to tweak and make prsothesis tighter. May need to have R foot amputated. Not sure when. Getting better with prosthesis but wants to walk outside. Currently in prosthesis all day. No AD needed in house, uses cane to get to shop. Did fall one time last night trying to sit in chair when could not see really well. Objective/Function: Walks with cane with decent gait pattern 200 feet without assistance. Walks without AD 100 feet with SBA. Not overly confident without AD and has wider BETO. Prosthesis fitting well and no pain with ambulation today. Ascends steps withotu rail but weak on R LE and Needs rail for functional safety. Saul raise on R I. Overall much better walking than initially at last recheck. In prosthesis most of day and starting to get around shop although has fallen in the shop. still appropriate to continue for gait in upper level situations dark, outdoors and dynamic balance on prosthesis. Plan Plan: 2x/week for 4 weeks for outdoor irregular surface gait, dynamic balance without AD, steps. Goals Goal 1:: Walk into and out of PT with cane or walker Mod I without pain Goal Time Frame: 4-6 Weeks Goal Progress: Goal Met Goal 2:: Ambulate in and out of PT without AD and with good gait pattern I. Goal Time Frame: 4-6 Weeks Goal Progress: 100 feet. Goal 3:: Up and down 6 stepswithout rail I Goal Time Frame: 4-6 Weeks Goal Progress: Min A Goal 4:: Walk with cane on grass and incline without AD mod I 60 feet Goal Time Frame: 4-6 Weeks Goal Progress: not yet, still approp. Goal 5:: FGA to diminish fall risk Goal Time Frame: 4-6 Weeks Goal Progress: progressing, still approp Anticipated Interventions Patient/Client Instruction: Educate patient on: Condition For the Purpose of:: To improve ability of physical actions for home/community/work/leisure, To improve gait and locomotor functions Functional Training to Include: Gait training Comments: transfer For the Purpose of:: To improve safety Please do not hesitate to contact me at [phone] by phone or if you have questions or concerns regarding this new plan of care! Sincerely, Chaka Hunt, DPT, OC <Electronically signed by Chaka HEARTT, OCS, CSCS> 11/21/17 0734 CC: Vaibhav Sawyer MD SHANIQUA Signed For Medicare only, by signing this I certify the plan of care. Physicians Signature Date PROGRESS Observed: 11/02/2017 Status: COMPLETED Source: [place] 10:48 AM [facility] REPOSITORY HNO ID: [id number] Author: Genoveva Reddy Service: (none) Author Type: Service Aide Type: Progress Notes Filed: 11/02/2017 10:48 AM Note Text: Radiology Service Progress Note PATIENT NAME: Todd Nava DATE OF SERVICE: November 02, 2017 TIME: 10:48 AM PATIENT IDENTITY VERIFICATION COMPLETED USING TWO (2) METHODS: Patient confirmed name verbally and Date of . PATIENT GENDER DATA: Male PATIENT RELEVANT IMPLANT DATA REVIEWED: Not Applicable RADIOLOGY DEPARTMENT: Ultrasound PERIPHERAL IV DATA: Not applicable SIGNED BY: GENOVEVA REDDY RDMS RVT November 02, 2017 10:48 AM US ABDOMEN COMPLETE Observed: 11/02/2017 Status: F Source: [place] 10:48 AM [facility] REPOSITORY * * *Final Report* * * DATE OF EXAM: Nov 02 2017 10:48AM WRU 1040 - US ABDOMEN COMPLETE / PROCEDURE REASON: multiple diagnoses * * * * Physician Interpretation * * * * COMPLETE ABDOMINAL ULTRASOUND HISTORY: Right upper quadrant pain Left upper quadrant pain TECHNIQUE: Ultrasound examination of the abdomen performed. Grayscale and color Doppler images. Images were obtained and stored in a permanent archive. COMPARISON: None RESULT: LIVER: The liver parenchyma is slightly increased in echogenicity and mildly heterogeneous. No focal hepatic lesions are seen. PANCREAS: The visualized pancreas is unremarkable although the tail was not well seen. GALLBLADDER: There is no cholelithiasis. There is no gallbladder wall thickening. There is no pericholecystic fluid. BILIARY DUCTAL SYSTEM: There is no intrahepatic biliary ductal dilatation. The common duct is normal caliber and measures 5 mm in diameter. SPLEEN: No ultrasound evidence of splenic abnormality. The spleen is normal size measuring 11.4 x 6.3 x 5.2 cm. KIDNEYS: The right kidney measures approximately 11.9 cm in length and the left kidney measures approximately 11.6 cm in length. Bilaterally, there is no hydronephrosis or calculus identified. AORTA AND IVC: The abdominal aorta is not aneurysmal measuring up to 2.3 cm in diameter. The visualized portion of the IVC appears normal caliber and patent. Proximal abdominal aorta was suboptimally visualized because of bowel gas. There is abdominal aortic atherosclerotic change visible. No ascites is seen. - IMPRESSION: No acute appearing findings. The liver parenchyma appearance is probably related to hepatic steatosis. Correlate with liver function tests. Clerk: JONATHAN Transcribe Date/Time: Nov 02 2017 11:04A Dictated by : DESIRE AMAYA MD This examination was interpreted and the report reviewed and electronically signed by: DESIRE AMAYA MD on Nov 02 2017 11:29AM EST [id number] [id number] PHYSICAL Observed: 11/01/2017 Status: COMPLETED Source: [place] 12:48 PM [facility] REPOSITORY HNO ID: [id number] Author: Yadira ([place]) Michael Service: (none) Author Type: Nurse Practitioner Type: HANDP Filed: 11/01/2017 4:57 PM Note Text: Todd Nava a 57 year old male who is a consultation requested by Irasema Parmar NP, for an opinion regarding hematochezia. My final recommendations will be communicated back to the requesting provider by way of shared Medical record. The patient has not been seen previously. The patient reports a family history of colon cancer in that his older sister had the disease. The patient is on Xeralto. He has been on it about 2 years. The patient was seen by Irasema on 10/08/17, leading to this consultation. That note has been reviewed and part as follows: On Sunday had 2 BM and had blood in toilet and on toilet paper when wiped. Stools have no changed in color, consistency, or caliber. Denies weight loss, medications changes, lightheadedness, dizziness, presyncope, syncope, fever, chills, SOB, dyspnea, abdominal pain, nausea, vomiting, diarrhea,constipation, hx of hemorrhoids, rectal itching, burning, pain or recent travels. Positive for GERD and sister who had colon cancer. Colonoscopy in 2011 with results below. On Xeralto for hx of lower extremity thrombosis, also takes 81 mg of ASA daily. Eating and drinking without difficulty. ? Visited [facility] earlier this month for rectal bleeding. Was given consult to GI, however he said he has been calling to get appointment and no one will call him back. The patient tells me that it's been Dr. Jose Carlos Sandoval's office and no one is calling him back. We'll see if we can get him an appointment while he's here today. Component Latest Ref Rng AND Units 10/08/2017 WBC 3.70 - 11.00 k/uL 12.66 (H) RBC 4.20 - 6.00 m/uL 4.62 Hemoglobin 13.0 - 17.0 g/dL 15.0 Hematocrit 39.0 - 51.0 % 43.5 MCV 80.0 - 100.0 fL 94.2 MCH 26.0 - 34.0 pG 32.5 MCHC 30.5 - 36.0 g/dL 34.5 RDW-CV 11.5 - 15.0 % 13.6 Platelet Count 150 - 400 k/uL 156 MPV 9.0 - 12.7 fL 11.4 Absolute nRBC <0.01 k/uL <0.01 The patient was seen by Dr. Jose Carlos Sandoval for upper endoscopy and colonoscopy 11/10/11 due to occult positive stool and lower abdominal pain. The procedure report has been reviewed and findings as follows: Impression: ?? ?- Rectal exam revealed hemorrhoids. ? - The entire examined colon is normal. This was biopsied FINAL DIAGNOSIS 1. Colon, random, biopsy (A) - Colonic mucosa with no diagnostic abnormality; no evidence of lymphocytic or collagenous colitis. Presenting complaint: The patient presents today reporting that he has had about three episodes of (painless) rectal bleeding. This usually is associated with hard stool. The last episode was back in September. None since. Having a bowel movement anywhere from daily, to up to once a week, depending on his diet. No black stool. The patient initially denies abdominal pain. He goes on to tell me that he has bilateral flank pain. Also getting harder and harder to pee. It stops and I have to push it through. I've sent a message to Dr. Sawyer. The patient sees him on 11/12/17. The patient reports phantom pain in the left lower extremity. Amputation 2 years ago. REVIEW OF SYSTEMS: GENERAL: No weight loss, malaise or fevers HEENT: Negative for frequent or significant headaches, No changes in hearing or vision, no nose bleeds or other nasal problems RESPIRATORY: Positive for COPD. CARDIOVASCULAR: Positive for peripheral vascular disease, hypertension, DVT of lower extremity GI: The patient states that his appetite has been adequate. He does not get hungry. There has been no nausea, no vomiting. He denies dysphagia and denies odynophagia. There has not been indigestion or heartburn. There has not been regurgitation. Bowel habits have been irregular. There has not been diarrhea. There has partially been constipation. The patient denies rectal bleeding. There has not been melena.Reports bilateral upper abdominal pain and mild flank pain. : No history of dysuria, frequency or incontinence, Positive for hesitancy the past several months. SKIN: Positive for lesions: scabbed lesions on upper extremities and right lower extremity. PSYCH: Negative for sleep disturbance, mood disorder and recent psychosocial stressors. HEMATOLOGY/LYMPHOLOGY: Taking Eliquis due to history of DVT ENDOCRINE:Negative for thyroid or diabetes. NEURO: SEE HPI All other reviewed and negative other than HPI. 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 Garcia as of 12-17 - Atherosclerotic heart disease of [place] coronary artery without angina pectoris 10/27/2015 - Chronic obstructive pulmonary disease, unspecified (HCC) 10/27/2015 - Coronary atherosclerosis of unspecified type of vessel, ak[place] or graft CABG 2000; follows with Dr Garcia - Crushing injury of right hand 1992 - Embolism and thrombosis of arteries of lower extremity (HCC) 08/04/2009 444.22 EMBOLISM AND THROMBOSIS OF ARTERIES OF L - HTN (hypertension) - Hyperlipidemia 10/30/2008 - Lower limb ischemia 05/11/2017 - Marijuana use NO CONTROLLED SUBSTANCES See visit 09/27. - Neuropathic pain 04/25/2016 - Nicotine dependence, cigarettes, uncomplicated 10/27/2015 - Other peripheral vascular disease(443.89) Multiple bypass procedures - Peripheral vascular disease (HCC) 04/17/2005 - Phantom limb syndrome (HCC) 04/25/2016 - Premature atrial contractions 05/12/2017 - Presence of aortocoronary bypass graft 10/27/2015 - Pure hypercholesterolemia - Status post above knee amputation of left lower extremity (HCC) 01/26/2016 - Tobacco dependence syndrome 01/17/2017 - Tobacco use disorder 10/30/2008 Half a pack a day as of 12-17 PAST SURGICAL HISTORY Procedure Laterality Date - ARTERY X-RAYS, ARM/LEG 05/17/05 - BALLN ANGIOPLASTY PERC,FEM-POP 11/02/05 - BALLN ANGIOPLASTY PERC,FEM-POP 11/02/05 - BALLN ANGIOPLASTY PERC,FEM-POP 06/12/06 - BALLN ANGIOPLASTY PERC,ILIAC 06/12/06 - CABG, ARTERY-VEIN, FOUR 2000 CABG, quadruple grafts - CONTRAST X-RAY EXAM OF AORTA 05/17/05 - Left [id number]-[id number] to nucnc-vtl-wymd popliteal artery bypass with arm vein. 08/02/2009 - PAST SURGICAL HISTORY OF Left 01/2017 Revision left leg amputation - PLACE CATH SUBSUBSELECT ART,ABD/PEL 05/17/05 - PLACE CATH SUBSUBSELECT ART,ABD/PEL 11/02/05 - PLACE CATH SUBSUBSELECT ART,ABD/PEL 06/12/06 - REVASCULARIZATION ILIAC ARTERY ANGIOP 1ST VSL 07-21-10 BILAT LEGS - REVASCULARIZATION ILIAC ARTERY ANGIOP 1ST VSL 07/05/12 R-EIA - REVASCULARIZATION ILIAC ARTERY ANGIOP 1ST VSL 11-18-14 LEFT - REVSC OPN/PRG FEM/POP W/ANGIOPLASTY UNI 07-21-10 LEFT LEG - REVSC OPN/PRG FEM/POP W/ANGIOPLASTY UNI 07/05/12 L-SFA - REVSC OPN/PRQ FEM/POP W/STNT/ANGIOP VSL 07-30-12 left - REVSC OPN/PRQ FEM/POP W/STNT/ANGIOP VS 11-18-14 RIGHT - REVSC OPN/PRQ TIB/MARLEY W/ANGIOPLASTY [facility] 08-03-10 LEFT - REVSC OPN/PRQ TIB/MARLEY W/ANGIOPLASTY [facility] 07-30-12 left - REVSC OPN/PRQ TIB/MARLEY W/ANGIOPLASTY UNI [facility] 08-03-10 LEFT - REVSC OPN/PRQ TIB/MARLEY W/ANGIOPLASTY UNI V[facility] 07-30-12 left FAMILY HISTORY Problem Relation Age of Onset - Breast Cancer Mother - Stroke Maternal Grandfather - Coronary Artery Disease Maternal Uncle - Stroke Paternal Grandfather - Other [OTHER] Brother crib - Heart Paternal Grandmother heart attacks - pneumonia [OTHER] Brother as an infant Current Outpatient Prescriptions: oxyCODONE-acetaminophen (PERCOCET 10) 10-325 mg tablet Take 1 tablet by mouth every 6 hours as needed for up to 30 days.Earliest Fill Date: 10/19/17 Disp: 120 tablet Rfl: 0 DULoxetine (CYMBALTA) 60 mg capsule Take 1 capsule by mouth once daily. Disp: 30 capsule Rfl: 5 fluticasone (FLONASE) 50 mcg/actuation nasal spray Use 2 Sprays in each nostril once daily. Rinse mouth after use. Disp: 1 Bottle Rfl: 2 pregabalin (LYRICA) 150 mg capsule Take 2 capsules by mouth twice daily for 90 days. Disp: 120 capsule Rfl: 2 apixaban (ELIQUIS) 5 mg tab tab(s) Take 1 tablet by mouth twice daily. Disp: 60 tablet Rfl: 5 lisinopril (ZESTRIL, PRINIVIL) 10 mg tablet Take 1 tablet by mouth once daily. Disp: 30 tablet Rfl: 11 simvastatin (ZOCOR) 20 mg tablet Take 1 tablet by mouth once daily. Disp: 30 tablet Rfl: 11 citalopram (CELEXA) 20 mg tablet Take 2 tablets by mouth once daily. Disp: 60 tablet Rfl: 11 ASPIRIN 81 MG TAB Take one(1) tablet daily. Disp: Rfl: 0 No current facility-administered medications for this visit. SOCIAL HISTORY: Patient is . He smokes 1/2 ppd as well as chews. He reports his alcohol use as rare. Prior cannabis use. PHYSICAL EXAMINATION: Blood pressure 145/77, pulse 65, height 172.7 cm (5' 8), weight 68.3 kg (150 lb 9.6 oz). General Appearance: Alert, oriented, in no acute distress. Skin: Positives: excoriations and scabbed lesions on arms and RLE. Head: Normocephalic, no masses, lesions or abnormalities. Eyes: Anicteric sclera. Oropharynx: Teeth in poor repair. Lips, mucosa, and tongue normal, oropharynx normal. Neck: Supple, no adenopathy; thyroid symmetric, normal size. Lungs: Lungs clear to auscultation. No wheezing, rhonchi, rales. Heart: RRR without murmur. Abdomen: Abdomen soft, non-tender. Bowel sounds normal. No masses, organomegaly. Extremities: No deformities or edema of RLQ. LLE prosthesis Impression: Altered bowel habits 2)upper abdominal pain 3)bright red rectal bleeding 4)family history of colon cancer Plan:Abdomen complete US. Miralax daily. Message sent to Dr. Sawyer regarding Urology consult. The patient requests Dr. Jose Carlos Sandoval for procedures, since he has performed his prior procedures. I have secured an appointment. Office notes will be faxed. I have personally interviewed and examined this patient. I have reviewed the information that the MA entered for this encounter. Greater than 25 minutes total time used this visit to review old chart, review new information, update current history and evaluate patient. A majority of the time was spent in discussion and counseling to formulate the plan. Yadira Rodriguez RN APRN.WIRE STRAIGHTENING MACHINE OPERATOR CNOV Observed: 11/01/2017 Status: COMPLETED Source: [place] 12:40 PM [facility] REPOSITORY [facility] TODD NAVA ([id number]) 1960 M Date Time Provider Department 11/01/17 12:40 PM YADIRA RODRIGUEZ ([place]) [facility] During your visit today, we recorded the following information about you: Pulse Blood pressure Weight Height 65/minute 145/77 68.3 kg 1.727 m Yadira Rodriguez RN APRN.WIRE STRAIGHTENING MACHINE OPERATOR 11/01/2017 4:57 PM Signed Todd Nava a 57 year old male who is a consultation requested by Irasema Parmar NP, for an opinion regarding hematochezia. My final recommendations will be communicated back to the requesting provider by way of shared Medical record. The patient has not been seen previously. The patient reports a family history of colon cancer in that his older sister had the disease. The patient is on Xeralto. He has been on it about 2 years. The patient was seen by Irasema on 10/08/17, leading to this consultation. That note has been reviewed and part as follows: On Sunday had 2 BM and had blood in toilet and on toilet paper when wiped. Stools have no changed in color, consistency, or caliber. Denies weight loss, medications changes, lightheadedness, dizziness, presyncope, syncope, fever, chills, SOB, dyspnea, abdominal pain, nausea, vomiting, diarrhea,constipation, hx of hemorrhoids, rectal itching, burning, pain or recent travels. Positive for GERD and sister who had colon cancer. Colonoscopy in 2011 with results below. On Xeralto for hx of lower extremity thrombosis, also takes 81 mg of ASA daily. Eating and drinking without difficulty. ? Visited [facility] earlier this month for rectal bleeding. Was given consult to GI, however he said he has been calling to get appointment and no one will call him back. The patient tells me that it's been Dr. Jose Carlos Sandoval's office and no one is calling him back. We'll see if we can get him an appointment while he's here today. Component Latest Ref Rng AND Units 10/08/2017 WBC 3.70 - 11.00 k/uL 12.66 (H) RBC 4.20 - 6.00 m/uL 4.62 Hemoglobin 13.0 - 17.0 g/dL 15.0 Hematocrit 39.0 - 51.0 % 43.5 MCV 80.0 - 100.0 fL 94.2 MCH 26.0 - 34.0 pG 32.5 MCHC 30.5 - 36.0 g/dL 34.5 RDW-CV 11.5 - 15.0 % 13.6 Platelet Count 150 - 400 k/uL 156 MPV 9.0 - 12.7 fL 11.4 Absolute nRBC <0.01 k/uL <0.01 The patient was seen by Dr. Jose Carlos Sandoval for upper endoscopy and colonoscopy 11/10/11 due to occult positive stool and lower abdominal pain. The procedure report has been reviewed and findings as follows: Impression: ?? ?- Rectal exam revealed hemorrhoids. ? - The entire examined colon is normal. This was biopsied FINAL DIAGNOSIS 1. Colon, random, biopsy (A) - Colonic mucosa with no diagnostic abnormality; no evidence of lymphocytic or collagenous colitis. Presenting complaint: The patient presents today reporting that he has had about three episodes of (painless) rectal bleeding. This usually is associated with hard stool. The last episode was back in September. None since. Having a bowel movement anywhere from daily, to up to once a week, depending on his diet. No black stool. The patient initially denies abdominal pain. He goes on to tell me that he has bilateral flank pain. Also getting harder and harder to pee. It stops and I have to push it through. I've sent a message to Dr. Sawyer. The patient sees him on 11/12/17. The patient reports phantom pain in the left lower extremity. Amputation 2 years ago. REVIEW OF SYSTEMS: GENERAL: No weight loss, malaise or fevers HEENT: Negative for frequent or significant headaches, No changes in hearing or vision, no nose bleeds or other nasal problems RESPIRATORY: Positive for COPD. CARDIOVASCULAR: Positive for peripheral vascular disease, hypertension, DVT of lower extremity GI: The patient states that his appetite has been adequate. He does not get hungry. There has been no nausea, no vomiting. He denies dysphagia and denies odynophagia. There has not been indigestion or heartburn. There has not been regurgitation. Bowel habits have been irregular. There has not been diarrhea. There has partially been constipation. The patient denies rectal bleeding. There has not been melena.Reports bilateral upper abdominal pain and mild flank pain. : No history of dysuria, frequency or incontinence, Positive for hesitancy the past several months. SKIN: Positive for lesions: scabbed lesions on upper extremities and right lower extremity. PSYCH: Negative for sleep disturbance, mood disorder and recent psychosocial stressors. HEMATOLOGY/LYMPHOLOGY: Taking Eliquis due to history of DVT ENDOCRINE:Negative for thyroid or diabetes. NEURO: SEE HPI All other reviewed and negative other than HPI. 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 Garcia as of 12-17 - Atherosclerotic heart disease of [place] coronary artery without angina pectoris 10/27/2015 - Chronic obstructive pulmonary disease, unspecified (HCC) 10/27/2015 - Coronary atherosclerosis of unspecified type of vessel, [place] or graft CABG 2000; follows with Dr Garcia - Crushing injury of right hand 1992 - Embolism and thrombosis of arteries of lower extremity (HCC) 08/04/2009 444.22 EMBOLISM AND THROMBOSIS OF ARTERIES OF L - HTN (hypertension) - Hyperlipidemia 10/30/2008 - Lower limb ischemia 05/11/2017 - Marijuana use NO CONTROLLED SUBSTANCES See visit 09/27. - Neuropathic pain 04/25/2016 - Nicotine dependence, cigarettes, uncomplicated 10/27/2015 - Other peripheral vascular disease(443.89) Multiple bypass procedures - Peripheral vascular disease (HCC) 04/17/2005 - Phantom limb syndrome (HCC) 04/25/2016 - Premature atrial contractions 05/12/2017 - Presence of aortocoronary bypass graft 10/27/2015 - Pure hypercholesterolemia - Status post above knee amputation of left lower extremity (HCC) 01/26/2016 - Tobacco dependence syndrome 01/17/2017 - Tobacco use disorder 10/30/2008 Half a pack a day as of 12-17 PAST SURGICAL HISTORY Procedure Laterality Date - ARTERY X-RAYS, ARM/LEG 05/17/05 - BALLN ANGIOPLASTY PERC,FEM-POP 11/02/05 - BALLN ANGIOPLASTY PERC,FEM-POP 11/02/05 - BALLN ANGIOPLASTY PERC,FEM-POP 06/12/06 - BALLN ANGIOPLASTY PERC,ILIAC 06/12/06 - CABG, ARTERY-VEIN, FOUR 2000 CABG, quadruple grafts - CONTRAST X-RAY EXAM OF AORTA 05/17/05 - Left ngkhz-yzm-dqii to jtswr-vya-guev popliteal artery bypass with arm vein. 08/02/2009 - PAST SURGICAL HISTORY OF Left 01/2017 Revision left leg amputation - PLACE CATH SUBSUBSELECT ART,ABD/PEL 05/17/05 - PLACE CATH SUBSUBSELECT ART,ABD/PEL 11/02/05 - PLACE CATH SUBSUBSELECT ART,ABD/PEL 06/12/06 - REVASCULARIZATION ILIAC ARTERY ANGIOP 1ST VSL 07-21-10 BILAT LEGS - REVASCULARIZATION ILIAC ARTERY ANGIOP 1ST VSL 07/05/12 R-EIA - REVASCULARIZATION ILIAC ARTERY ANGIOP 1ST VSL 11-18-14 LEFT - REVSC OPN/PRG FEM/POP W/ANGIOPLASTY UNI 07-21-10 LEFT LEG - REVSC OPN/PRG FEM/POP W/ANGIOPLASTY UNI 07/05/12 L-SFA - REVSC OPN/PRQ FEM/POP W/STNT/ANGIOP VSL 07-30-12 left - REVSC OPN/PRQ FEM/POP W/STNT/ANGIOP VSL 11-18-14 RIGHT - REVSC OPN/PRQ TIB/MARLEY W/ANGIOPLASTY UNI 08-03-10 LEFT - REVSC OPN/PRQ TIB/MARLEY W/ANGIOPLASTY UNI 07-30-12 left - REVSC OPN/PRQ TIB/MARLEY W/ANGIOPLASTY UNI EA VSL 08-03-10 LEFT - REVSC OPN/PRQ TIB/MARLEY W/ANGIOPLASTY UNI EA VSL 07-30-12 left FAMILY HISTORY Problem Relation Age of Onset - Breast Cancer Mother - Stroke Maternal Grandfather - Coronary Artery Disease Maternal Uncle - Stroke Paternal Grandfather - Other [OTHER] Brother crib - Heart Paternal Grandmother heart attacks - pneumonia [OTHER] Brother as an Current Outpatient Prescriptions: oxyCODONE-acetaminophen (PERCOCET 10) 10-325 mg tablet Take 1 tablet by mouth every 6 hours as needed for up to 30 days.Earliest Fill Date: 10/19/17 Disp: 120 tablet Rfl: 0 DULoxetine (CYMBALTA) 60 mg capsule Take 1 capsule by mouth once daily. Disp: 30 capsule Rfl: 5 fluticasone (FLONASE) 50 mcg/actuation nasal spray Use 2 Sprays in each nostril once daily. Rinse mouth after use. Disp: 1 Bottle Rfl: 2 pregabalin (LYRICA) 150 mg capsule Take 2 capsules by mouth twice daily for 90 days. Disp: 120 capsule Rfl: 2 apixaban (ELIQUIS) 5 mg tab tab(s) Take 1 tablet by mouth twice daily. Disp: 60 tablet Rfl: 5 lisinopril (ZESTRIL, PRINIVIL) 10 mg tablet Take 1 tablet by mouth once daily. Disp: 30 tablet Rfl: 11 simvastatin (ZOCOR) 20 mg tablet Take 1 tablet by mouth once daily. Disp: 30 tablet Rfl: 11 citalopram (CELEXA) 20 mg tablet Take 2 tablets by mouth once daily. Disp: 60 tablet Rfl: 11 ASPIRIN 81 MG TAB Take one(1) tablet daily. Disp: Rfl: 0 No current facility-administered medications for this visit. SOCIAL HISTORY: Patient is . He smokes 1/2 ppd as well as chews. He reports his alcohol use as rare. Prior cannabis use. PHYSICAL EXAMINATION: Blood pressure 145/77, pulse 65, height 172.7 cm (5' 8), weight 68.3 kg (150 lb 9.6 oz). General Appearance: Alert, oriented, in no acute distress. Skin: Positives: excoriations and scabbed lesions on arms and RLE. Head: Normocephalic, no masses, lesions or abnormalities. Eyes: Anicteric sclera. Oropharynx: Teeth in poor repair. Lips, mucosa, and tongue normal, oropharynx normal. Neck: Supple, no adenopathy; thyroid symmetric, normal size. Lungs: Lungs clear to auscultation. No wheezing, rhonchi, rales. Heart: RRR without murmur. Abdomen: Abdomen soft, non-tender. Bowel sounds normal. No masses, organomegaly. Extremities: No deformities or edema of RLQ. LLE prosthesis Impression: Altered bowel habits 2)upper abdominal pain 3)bright red rectal bleeding 4)family history of colon cancer Plan:Abdomen complete US. Miralax daily. Message sent to Dr. Sawyer regarding Urology consult. The patient requests Dr. Jose Carlos Sandoval for procedures, since he has performed his prior procedures. I have secured an appointment. Office notes will be faxed. I have personally interviewed and examined this patient. I have reviewed the information that the MA entered for this encounter. Greater than 25 minutes total time used this visit to review old chart, review new information, update current history and evaluate patient. A majority of the time was spent in discussion and counseling to formulate the plan. Yadira Rodriguez RN APRN.KHOI Rodriguez RN APRN.KHOI 11/01/2017 1:16 PM Addendum Start Miralax, taking a capful in your coffee every day. Please follow the instructions for the test that looks at your upper abdomen. (ultrasound) It will take a day or two after the test for us to get the results. Call [phone], and ask to speak to a nurse in GI, if you have any questions or concerns in the mean time. I will send a message to Dr. Sawyer about your urination problems. Referring Provider: IRASEMA PARMAR (WIRE STRAIGHTENING MACHINE OPERATOR) [[id number]] Allergies As of Date: 11/01/2017 Noted Allergy Reaction MORPHINE 11/18/2014 4 - Hives Date Reviewed: 11/01/2017 Reviewed by: Edith Naidu MA - Fully Assessed Reason for Visit: Consult [502] Primary Visit Diagnosis:Bilateral upper abdominal pain [R10.11, R10.12] Other Visit Diagnoses:Altered bowel habits [R19.4] Family history of colon cancer [Z80.0] Bright red rectal bleeding [K62.5] Order(s):US ABDOMEN COMPLETE [[id number]] Order #: [id number] FUTURE polyethylene glycol 3350 (MIRALAX, GLYCOLAX) 17 gram/dose powderTake 17 g by mouth once daily. Take one (1) capful in 8oz of liquid each day.Disp: 1 BottleRfl: 11 XR ABDOMEN 3V KUB W/OBLIQUES [[id number]] Order #: [id number] FUTURE Prescriptions as of 11/01/2017 Sig: POLYETHYLENE GLYCOL 3350 17 G* Take 17 g by mouth once daily* OXYCODONE-ACETAMINOPHEN 10 MG* Take 1 tablet by mouth every * DULOXETINE 60 MG CAPSULE,ANA* Take 1 capsule by mouth once * FLUTICASONE 50 MCG/ACTUATION * Use 2 Sprays in each nostril * PREGABALIN 150 MG CAPSULE Take 2 capsules by mouth twic* APIXABAN 5 MG TABLET Take 1 tablet by mouth twice * LISINOPRIL 10 MG TABLET Take 1 tablet by mouth once d* SIMVASTATIN 20 MG TABLET Take 1 tablet by mouth once d* CITALOPRAM 20 MG TABLET Take 2 tablets by mouth once * ASPIRIN 81 MG TABLET Take one(1) tablet daily. Problem List As Of Date 11/01/2017 Noted Resolved Peripheral vascular disease (HCC) [I73.9] INVALID FOR* Tobacco Use Disorder [F17.200] INVALID FOR* More... Atherosclerosis of coronary artery [I25.10] INVALID FOR* More... Hyperlipidemia [E78.5] INVALID FOR* Embolism and Thrombosis of Arteries of Lower Ex*INVALID FOR* More... 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] INVALID FOR* Multiple excoriations [T07.XXXA] INVALID FOR* Neurodermatitis [L28.0] INVALID FOR* Neurotic excoriations [L98.1] INVALID FOR* Pruritus [L29.9] INVALID FOR* Folliculitis [L73.9] INVALID FOR* R/O Insect bites [W57.XXXA] INVALID FOR* Mite infestation [B88.9] INVALID FOR* Postinflammatory skin changes [R23.4] INVALID FOR* Dizzy [R42] INVALID FOR* Occlusion and stenosis of carotid artery withou*INVALID FOR* Depression [F32.9] INVALID FOR* Status post above knee amputation of left lower*INVALID FOR* Phantom limb syndrome (HCC) [G54.7] INVALID FOR* Neuropathic pain [M79.2] INVALID FOR* Neuroma of amputation stump, left lower extremi*INVALID FOR* Atherosclerosis of other type of bypass graft(s*INVALID FOR* Atherosclerotic heart disease of [place] coronar*INVALID FOR* Benign hypertension [I10] INVALID FOR* Chronic obstructive pulmonary disease, unspecif*INVALID FOR* Chronic total occlusion of artery of the extrem*INVALID FOR* CAFL (chronic airflow limitation) (HCC) [J44.9] INVALID FOR* Crushing injury [T14.8XXA] INVALID FOR* Dyslipidemia [E78.5] INVALID FOR* Enlarged prostate without lower urinary tract s*INVALID FOR* Nicotine dependence, cigarettes, uncomplicated *INVALID FOR* Paresthesia of skin [R20.2] INVALID FOR* Personal history of other venous thrombosis and*INVALID FOR* Presence of aortocoronary bypass graft [Z95.1] INVALID FOR* Tobacco dependence syndrome [F17.200] INVALID FOR* Lower limb ischemia [I99.8] INVALID FOR* Premature atrial contractions [I49.1] INVALID FOR* Ischemia of extremity [I99.8] INVALID FOR* More... Other instructions from your clinician: Start Miralax, taking a capful in your coffee every day. Please follow the instructions for the test that looks at your upper abdomen. (ultrasound) It will take a day or two after the test for us to get the results. Call [phone], and ask to speak to a nurse in GI, if you have any questions or concerns in the mean time. I will send a message to Dr. Sawyer about your urination problems. Prescriptions ordered this encounter Disp Refills Start End POLYETHYLENE GLYCOL 3350 17 GRAM/DOS* 1 Charly* 11 11/01/2017 Route: ORAL Sig: Take 17 g by mouth once daily. Take one (1) capful in 8oz of liquid each day. Follow-up and Disposition History Recorded Encounter Status:Closed by YADIRA RODRIGUEZ CNP on 11/01/17 RE-EVALUATION - PT (1) Observed: 10/09/2017 Status: F Source: [place] 9:45 AM [facility] [place] REPOSITORY [facility] [address] [place] [address] Fax REEVALUATION / MEDICARE RECERTIFICATION PHYSICAL THERAPY MR#: [id number] Acct: [id number] Name: TODD NAVA Rep #: [id number] : 1960 57 From: Chaka Hunt DPT, OCS, CSCS Referring Dr.: Vaibhav Sawyer MD Status: REG RCR Insurance: MEDICARE PART A B MEDICAID Vaibhav Sawyer, It has been my pleasure to treat TODD NAVA over the last 39 visits for L AKA neuroma. Please see the progress note below for an update on the physical therapy plan of care! Subjective: A couple weeks ago, wheel of wheel chair hit him on L stump. It swelled up and ggot sensitive. Given pills 2x/day. Has other medical concerns with bleeding in the rectum and is being doctor for that. Had ear infection. R leg is up and down with pain as he walks on it more. distal end of stump very sensitive and cannot bear weight. Hasn't used prosthesis in two weeks because it is too painful. Saw doctor after bumped stump and thought he had a sensitive nerve. Has been using WC or crawling on floor for last two weeks. Doctor took x ray and no infection but took meds anyway. It is slowly improving as he can move his leg better.Comfortable at rest. Objective/Function: Stump ROM is good with 10 degrees of ext hip and others WFL. Strength in stump 4+/5 abd, ext, flexion. Stump is very tender distally and very little soft tissue present at distal end of femur. Maximally tender here buit better than last week according to patient. Walks with walker 10 feet today but very difficult to BW R wrist due to fusion and pain. Did not bring prosthesis or walker today. has platform for R UE at home but did not like it so took it off his walker and has not been ambulating.No isgns of excessive redness heat or swelling in stump. OVERALL, HAS HAD A SETBACK WITH PAIN TO STUMP AND DOCTORED ACCORDINGLY BUT HAS LIMITED AND CONTINUES TO LIMIT HIS VERTICAL MOBILITY. PT APPROPRIATE TO WORK BACK TO WALKING PAIN ALLOWS. Plan Plan: 1-3x/week for 4-6 weeks to work on enusring diminishing pain to stump with proper number of layers in prosthesis and WB through walker(with platform) and weaning back to less AD. Pt feels comfortable trying more layers at home while stump continues to heal but will call if problems. Will bring layers, walker, platform and prosthesis next visit forf management and when he can walk upright for any distance will increase to 2-3x/week for gait training. Goals Goal 1:: Walk into and out of PT with cane or walker Mod I without pain Goal Time Frame: 4-6 Weeks Goal Progress: NEW GOAL Goal 2:: Ambulate in and out of PT without AD and with good gait pattern I. Goal Time Frame: 4-6 Weeks Goal Progress: setback, still approp. Goal 3:: Up and down 6 stepswithout rail I Goal Time Frame: 4-6 Weeks Goal Progress: Not apporp now Goal 4:: Walk with cane on grass and incline without AD mod I 60 feet Goal Time Frame: 4-6 Weeks Goal Progress: not prgoress, not approp Goal 5:: FGA to diminish fall risk Goal Time Frame: 4-6 Weeks Goal Progress: not progress, not approp Anticipated Interventions Patient/Client Instruction: Educate patient on: Condition For the Purpose of:: To improve ability of physical actions for home/community/work/leisure, To improve gait and locomotor functions Functional Training to Include: Gait training Comments: transfer For the Purpose of:: To improve safety Please do not hesitate to contact me at [phone] by phone or if you have questions or concerns regarding this new plan of care! Sincerely, Chaka Hunt, SLYT, OC <Electronically signed by Chaka Hunt DPT, OCS, CSCS> 10/09/17 0945 CC: Vaibhav Sawyer MD EBShea Signed For Medicare only, by signing this I certify the plan of care. Physicians Signature Date CBC Collected: 10/08/2017 Status: F Source: [place] 1:55 PM [facility] REPOSITORY TYPE CODE TESTS RESULT OUT OF RANGE REFERENCE UNITS LAB WBC 3.70-11.00 k/uL High WBC 12.66 Result Comment: Less than optimal volume of specimen received and tested. LAB RBC 4.20-6.00 m/uL RBC 4.62 LAB HGB 13.0-17.0 g/dL Hemoglobin 15.0 LAB HCT 39.0-51.0 % Hematocrit 43.5 LAB MCV 80.0-100.0 fL MCV 94.2 LAB MCH 26.0-34.0 pG MCH 32.5 LAB MCHC 30.5-36.0 g/dL MCHC 34.5 LAB RDWCV 11.5-15.0 % RDW-CV 13.6 LAB PLTCT 150-400 k/uL Platelet Count 156 LAB MPV 9.0-12.7 fL MPV 11.4 LAB ABSNUC <0.01 k/uL Absolute nRBC <0.01 Performed By: #### CBC #### [facility] [address] [id number] PROGRESS Observed: 10/08/2017 Status: COMPLETED Source: [place] 1:13 PM [facility] REPOSITORY HNO ID: [id number] Author: Irasema (Khoi) Podlogar Service: (none) Author Type: Nurse Practitioner Type: Progress Notes Filed: 10/09/2017 7:36 AM Note Text: 10/08/2017 Patient presents with: Rectal Problem: states bowl full of blood on sunday each bowel movement no bms since SUBJECTIVE: This is a 57 year old that is here today for Above Complaints. On Sunday had 2 BM and had blood in toilet and on toilet paper when wiped. Stools have no changed in color, consistency, or caliber. Denies weight loss, medications changes, lightheadedness, dizziness, presyncope, syncope, fever, chills, SOB, dyspnea, abdominal pain, nausea, vomiting, diarrhea,constipation, hx of hemorrhoids, rectal itching, burning, pain or recent travels. Positive for GERD and sister who had colon cancer. Colonoscopy in 2011 with results below. On Xeralto for hx of lower extremity thrombosis, also takes 81 mg of ASA daily. Eating and drinking without difficulty. Visited [facility] earlier this month for rectal bleeding. Was given consult to GI, however he said he has been calling to get appointment and no one will call him back. [place] [facility] Gastrointestinal Endoscopy Patient Name: Todd Nava Procedure Date: 11/10/2011 7:54 AM Date of : 1960 Admit Type: Ambulatory Age: 51 Gender: Male Note Status: Point Of Care Specialist Override Procedure: ? Colonoscopy Indications: ? Lower abdominal pain Providers: ? Jose Carlos Sandoval MD Referring Physician: Jose Carlos Sandoval MD Medicines: ? Midazolam 5 mg IV, Meperidine 100 mg IV Complications: ? ? ? No immediate complications. Requesting Provider: Procedure: ? After I obtained informed consent, the scope was passed ? under direct vision. Throughout the procedure, the ? patient's blood pressure, pulse, and oxygen saturations ? were monitored continuously. The Colonoscope was ? introduced through the anus and advanced to the cecum, ? identified by appendiceal orifice AND ileocecal valve. The ? colonoscopy was performed without difficulty. The ? patient tolerated the procedure well. The quality of the ? bowel preparation was good. Findings: ?? ? The digital rectal exam was abnormal. Findings include hemorrhoids. ?? ? Pertinent negatives include normal sphincter tone. The digital rectal ?? ? exam was normal. Pertinent negatives include normal prostate (size, ?? ? shape, and consistency). The colon (entire examined portion) appeared ?? ? normal. Random biopsies were obtained with cold forceps for histology. Impression: ?- Rectal exam revealed hemorrhoids. ? - The entire examined colon is normal. This was biopsied Recommendation: ? ? ?- Use fiber, for example Citrucel, Fibercon, Konsyl or ? Metamucil. ? - Repeat colonoscopy in 5 years for screening purposes. ? - Telephone my office for pathology results in 1 week. ? - Discharge patient to home. MD Jose Carlos Olmedo MD Component Latest Ref Rng AND Units 11/02/2015 11/03/2015 05/11/2017 WBC 4.23 - 9.07 thou/cmm 13.9 (H) 10.0 (H) 9.64 (H) RBC 4.63 - 6.08 mil/cmm 3.73 (L) 3.61 (L) 4.50 (L) HGB 13.7 - 17.5 g/dL 12.0 (L) 11.6 (L) 14.5 Hematocrit 40.1 - 51.0 % 36.1 (L) 34.8 (L) 42.3 MCV 83.2 - 95.6 fl 96.8 (H) 96.4 (H) 94.0 MCH 25.7 - 32.2 pg 32.2 32.1 32.2 MCHC 32.3 - 36.5 % 33.2 33.3 34.3 RDW 11.6 - 14.4 % 14.0 14.1 13.5 RDW-SD 36.1 - 45.8 fl 49.6 (H) 49.5 (H) 46.5 (H) Platelet Count 141 - 365 thou/cmm 110 (L) 103 (L) 116 (L) MPV 8.7 - 12.0 fl 11.0 10.8 10.8 Seg Neutrophil % 61.1 Immature Grans % 0.40 Lymphocyte % 32.7 Monocyte % 5.4 Eosinophil % 0.0 Basophil % 0.4 Seg. Neut. # 1.78 - 5.38 thou/cmm 5.89 (H) Immature Grans # 0.00 - 0.05 thou/cmm 0.04 Lymphocyte # 0.84 - 2.85 thou/cmm 3.15 (H) Monocyte # 0.30 - 0.82 thou/cmm 0.52 Eosinophil # 0.04 - 0.54 thou/cmm 0.00 (L) Basophil # 0.01 - 0.08 thou/cmm 0.04 PAST MEDICAL HISTORY Diagnosis Date - Above knee amputation of left lower extremity (HCC) - Atherosclerosis of coronary artery 10/30/2008 4 V CABG in 2000: done at [facility] Seeing Dr. Garcia as of 12-17 - Atherosclerotic heart disease of [place] coronary artery without angina pectoris 10/27/2015 - Chronic obstructive pulmonary disease, unspecified (HCC) 10/27/2015 - Coronary atherosclerosis of unspecified type of vessel, [place] or graft CABG 2000; follows with Dr Garcia - Crushing injury of right hand 1992 - Embolism and thrombosis of arteries of lower extremity (HCC) 08/04/2009 444.22 EMBOLISM AND THROMBOSIS OF ARTERIES OF L - HTN (hypertension) - Hyperlipidemia 10/30/2008 - Lower limb ischemia 05/11/2017 - Marijuana use NO CONTROLLED SUBSTANCES See visit 09/27. 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 Rinse mouth after use. pregabalin (LYRICA) 150 mg capsule Take 2 capsules by mouth twice daily for 90 days. oxyCODONE-acetaminophen (PERCOCET 10) 10-325 mg tablet Take 1 tablet by mouth every 6 hours as needed for up to 30 days.Earliest Fill Date: 09/24/17 apixaban (ELIQUIS) 5 mg tab tab(s) Take 1 tablet by mouth twice daily. DULoxetine (CYMBALTA) 60 mg capsule Take 1 capsule by mouth once daily. lisinopril (ZESTRIL, PRINIVIL) 10 mg tablet Take 1 tablet by mouth once daily. simvastatin (ZOCOR) 20 mg tablet Take 1 tablet by mouth once daily. citalopram (CELEXA) 20 mg tablet Take 2 tablets by mouth once daily. ASPIRIN 81 MG TAB Take one(1) tablet daily. No current facility-administered medications for this visit. Medications and allergies reviewed by this provider. SOCIAL HISTORY Social History Marital status: Spouse name: Years of education: Number of children: Social History Main Topics Smoking status: Current Every Day Smoker Packs/day: 0.50 Years: 20.00 Types: Cigarettes Start date: 12/06/1975 Smokeless tobacco: Former User Types: Snuff Alcohol use: Yes 6.0 oz/week Comment: previously heavy drinker Drug use: No Sexual activity: No Other Topics Concern No BLOOD TRANSFUSIONS No CAFFEINE No OCCUPATIONAL EXPOSURE No HOBBY HAZARD No SLEEP CONCERN No STRESS CONCERN No WEIGHT CONCERN No DIET No BACK CARE No EXERCISE No BIKE HELMET No SEAT BELT No SELF EXAMS No REVIEW OF SYSTEMS GENERAL: No weight loss, malaise or fevers RESPIRATORY: See HPI CARDIOVASCULAR: See HPI GI: See HPI HEMATOLOGY/LYMPHOLOGY: Negative for prolonged bleeding, bruising easily or swollen nodes All other reviewed and negative other than HPI. OBJECTIVE: BP 140/60 (BP Site: Left Arm, BP Position: Sitting, BP Cuff Size: Regular Adult) Pulse 64 Resp 16 Wt 56.7 kg (125 lb) BMI 18.14 kg/m? . Vital signs reviewed by this provider. APPEARANCE Well appearing, alert, in no acute distress, well-hydrated, well nourished. HEART RRR with normal S1 and S2, no murmurs, no gallops, no JVD appreciated LUNG clear to auscultation ABDOMEN bowel sounds normoactive, no bruits, soft, non-tender, non-distended, without organomegaly or palpable masses, no tenderness to palpation RECTAL Anus normal, no anorectal masses, stool hemoccult positive, Quality check done and OK SKIN Skin color, texture, turgor normal, no suspicious rashes or lesions ASSESSMENT/PLAN: 1. Hematochezia - ICD9: 578.1, ICD10: K92.1 (primary diagnosis) - possibly polyps, anal fissure, medications, secondary to thrombocytopenia cancer vs unknown - no red flag exam findings - red flag symptoms discussed, patient verbalizes understanding - CBC - CONSULT TO GASTROENTEROLOGY - follow-up as scheduled with Dr. Sawyer 2. Thrombocytopenia (HCC) - ICD9: 287.5, ICD10: D69.6 - unclear etiology- -appears he has been this way for some time - will stop ASA today - CBC - will check platelets today and if low will confer with Dr. Sawyer regarding Irasema Parmar APRN.CNP Prescription instructions reviewed with patient as applicable. Patient advised if symptoms do not improve or if symptoms worsen sooner, to contact their primary care physician. Potential red flag symptoms discussed with the patient. Reviewed appropriate action plan to take if red flag symptoms occur. Patient agreeable to treatment plan. CNOV Observed: 10/08/2017 Status: COMPLETED Source: [place] 1:00 PM [facility] REPOSITORY [facility] TODD NAVA ([id number]) 1960 M Date Time Provider Department 10/08/17 1:00 PM IRASEMA PARMAR (KHOI) LUCIA During your visit today, we recorded the following information about you: Pulse Respiration Blood pressure Weight 64/minute 16/minute 140/60 56.7 kg Irasema Parmar APRN.CNP 10/09/2017 7:36 AM Signed 10/08/2017 Patient presents with: Rectal Problem: states bowl full of blood on sunday each bowel movement no bms since SUBJECTIVE: This is a 57 year old that is here today for Above Complaints. On Sunday had 2 BM and had blood in toilet and on toilet paper when wiped. Stools have no changed in color, consistency, or caliber. Denies weight loss, medications changes, lightheadedness, dizziness, presyncope, syncope, fever, chills, SOB, dyspnea, abdominal pain, nausea, vomiting, diarrhea,constipation, hx of hemorrhoids, rectal itching, burning, pain or recent travels. Positive for GERD and sister who had colon cancer. Colonoscopy in 2011 with results below. On Xeralto for hx of lower extremity thrombosis, also takes 81 mg of ASA daily. Eating and drinking without difficulty. Visited [facility] earlier this month for rectal bleeding. Was given consult to GI, however he said he has been calling to get appointment and no one will call him back. Ricki [facility] Gastrointestinal Endoscopy Patient Name: Todd Nava Procedure Date: 11/10/2011 7:54 AM Date of : 1960 Admit Type: Ambulatory Age: 51 Gender: Male Note Status: Point Of Care Specialist Override Procedure: ? Colonoscopy Indications: ? Lower abdominal pain Providers: ? Jose Carlos Sandoval MD Referring Physician: Jose Carlos Sandoval MD Medicines: ? Midazolam 5 mg IV, Meperidine 100 mg IV Complications: ? ? ? No immediate complications. Requesting Provider: Procedure: ? After I obtained informed consent, the scope was passed ? under direct vision. Throughout the procedure, the ? patient's blood pressure, pulse, and oxygen saturations ? were monitored continuously. The Colonoscope was ? introduced through the anus and advanced to the cecum, ? identified by appendiceal orifice AND ileocecal valve. The ? colonoscopy was performed without difficulty. The ? patient tolerated the procedure well. The quality of the ? bowel preparation was good. Findings: ?? ? The digital rectal exam was abnormal. Findings include hemorrhoids. ?? ? Pertinent negatives include normal sphincter tone. The digital rectal ?? ? exam was normal. Pertinent negatives include normal prostate (size, ?? ? shape, and consistency). The colon (entire examined portion) appeared ?? ? normal. Random biopsies were obtained with cold forceps for histology. Impression: ?- Rectal exam revealed hemorrhoids. ? - The entire examined colon is normal. This was biopsied Recommendation: ? ? ?- Use fiber, for example Citrucel, Fibercon, Konsyl or ? Metamucil. ? - Repeat colonoscopy in 5 years for screening purposes. ? - Telephone my office for pathology results in 1 week. ? - Discharge patient to home. MD Jose Carlos Olmedo MD Component Latest Ref Rng AND Units 11/02/2015 11/03/2015 05/11/2017 WBC 4.23 - 9.07 thou/cmm 13.9 (H) 10.0 (H) 9.64 (H) RBC 4.63 - 6.08 mil/cmm 3.73 (L) 3.61 (L) 4.50 (L) HGB 13.7 - 17.5 g/dL 12.0 (L) 11.6 (L) 14.5 Hematocrit 40.1 - 51.0 % 36.1 (L) 34.8 (L) 42.3 MCV 83.2 - 95.6 fl 96.8 (H) 96.4 (H) 94.0 MCH 25.7 - 32.2 pg 32.2 32.1 32.2 MCHC 32.3 - 36.5 % 33.2 33.3 34.3 RDW 11.6 - 14.4 % 14.0 14.1 13.5 RDW-SD 36.1 - 45.8 fl 49.6 (H) 49.5 (H) 46.5 (H) Platelet Count 141 - 365 thou/cmm 110 (L) 103 (L) 116 (L) MPV 8.7 - 12.0 fl 11.0 10.8 10.8 Seg Neutrophil % 61.1 Immature Grans % 0.40 Lymphocyte % 32.7 Monocyte % 5.4 Eosinophil % 0.0 Basophil % 0.4 Seg. Neut. # 1.78 - 5.38 thou/cmm 5.89 (H) Immature Grans # 0.00 - 0.05 thou/cmm 0.04 Lymphocyte # 0.84 - 2.85 thou/cmm 3.15 (H) Monocyte # 0.30 - 0.82 thou/cmm 0.52 Eosinophil # 0.04 - 0.54 thou/cmm 0.00 (L) Basophil # 0.01 - 0.08 thou/cmm 0.04 PAST MEDICAL HISTORY Diagnosis Date - Above knee amputation of left lower extremity (HCC) - Atherosclerosis of coronary artery 10/30/2008 4 V CABG in 2000: done at [facility] Seeing Dr. Garcia as of 12-17 - Atherosclerotic heart disease of [place] coronary artery without angina pectoris 10/27/2015 - Chronic obstructive pulmonary disease, unspecified (HCC) 10/27/2015 - Coronary atherosclerosis of unspecified type of vessel, [place] or graft CABG 2000; follows with Dr Garcia - Crushing injury of right hand 1992 - Embolism and thrombosis of arteries of lower extremity (HCC) 08/04/2009 444.22 EMBOLISM AND THROMBOSIS OF ARTERIES OF L - HTN (hypertension) - Hyperlipidemia 10/30/2008 - Lower limb ischemia 05/11/2017 - Marijuana use NO CONTROLLED SUBSTANCES See visit 09/27. 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 Rinse mouth after use. pregabalin (LYRICA) 150 mg capsule Take 2 capsules by mouth twice daily for 90 days. oxyCODONE-acetaminophen (PERCOCET 10) 10-325 mg tablet Take 1 tablet by mouth every 6 hours as needed for up to 30 days.Earliest Fill Date: 09/24/17 apixaban (ELIQUIS) 5 mg tab tab(s) Take 1 tablet by mouth twice daily. DULoxetine (CYMBALTA) 60 mg capsule Take 1 capsule by mouth once daily. lisinopril (ZESTRIL, PRINIVIL) 10 mg tablet Take 1 tablet by mouth once daily. simvastatin (ZOCOR) 20 mg tablet Take 1 tablet by mouth once daily. citalopram (CELEXA) 20 mg tablet Take 2 tablets by mouth once daily. ASPIRIN 81 MG TAB Take one(1) tablet daily. No current facility-administered medications for this visit. Medications and allergies reviewed by this provider. SOCIAL HISTORY Social History Marital status: Spouse name: Years of education: Number of children: Social History Main Topics Smoking status: Current Every Day Smoker Packs/day: 0.50 Years: 20.00 Types: Cigarettes Start date: 12/06/1975 Smokeless tobacco: Former User Types: Snuff Alcohol use: Yes 6.0 oz/week Comment: previously heavy drinker Drug use: No Sexual activity: No Other Topics Concern No BLOOD TRANSFUSIONS No CAFFEINE No OCCUPATIONAL EXPOSURE No HOBBY HAZARD No SLEEP CONCERN No STRESS CONCERN No WEIGHT CONCERN No DIET No BACK CARE No EXERCISE No BIKE HELMET No SEAT BELT No SELF EXAMS No REVIEW OF SYSTEMS GENERAL: No weight loss, malaise or fevers RESPIRATORY: See HPI CARDIOVASCULAR: See HPI GI: See HPI HEMATOLOGY/LYMPHOLOGY: Negative for prolonged bleeding, bruising easily or swollen nodes All other reviewed and negative other than HPI. OBJECTIVE: BP 140/60 (BP Site: Left Arm, BP Position: Sitting, BP Cuff Size: Regular Adult) Pulse 64 Resp 16 Wt 56.7 kg (125 lb) BMI 18.14 kg/m? . Vital signs reviewed by this provider. APPEARANCE Well appearing, alert, in no acute distress, well- hydrated, well nourished. HEART RRR with normal S1 and S2, no murmurs, no gallops, no JVD appreciated LUNG clear to auscultation ABDOMEN bowel sounds normoactive, no bruits, soft, non-tender, non-distended, without organomegaly or palpable masses, no tenderness to palpation RECTAL Anus normal, no anorectal masses, stool hemoccult positive, Quality check done and OK SKIN Skin color, texture, turgor normal, no suspicious rashes or lesions ASSESSMENT/PLAN: 1. Hematochezia - ICD9: 578.1, ICD10: K92.1 (primary diagnosis) - possibly polyps, anal fissure, medications, secondary to thrombocytopenia cancer vs unknown - no red flag exam findings - red flag symptoms discussed, patient verbalizes understanding - CBC - CONSULT TO GASTROENTEROLOGY - follow-up as scheduled with Dr. Saywer 2. Thrombocytopenia (HCC) - ICD9: 287.5, ICD10: D69.6 - unclear etiology- -appears he has been this way for some time - will stop ASA today - CBC - will check platelets today and if low will confer with Dr. Sawyer regarding Irasema Podlogar, TIMBER FRAMER HELPER.WIRE STRAIGHTENING MACHINE OPERATOR Prescription instructions reviewed with patient as applicable. Patient advised if symptoms do not improve or if symptoms worsen sooner, to contact their primary care physician. Potential red flag symptoms discussed with the patient. Reviewed appropriate action plan to take if red flag symptoms occur. Patient agreeable to treatment plan. Irasema Podlogar, TIMBER FRAMER HELPER.WIRE STRAIGHTENING MACHINE OPERATOR 10/08/2017 1:31 PM Signed Stop aspirin for now If you develop sever abdominal pain, bleeding that will not stop, feeling like you're going to pass out, difficulty breathing, or chest pain call Referring Provider: SELF [200] Allergies As of Date: 10/08/2017 Noted Allergy Reaction MORPHINE 11/18/2014 4 - Hives Date Reviewed: 10/08/2017 Reviewed by: Fátima Bo LPN - Fully Assessed Reason for Visit: Rectal Problem [93] Cmt: states boul full of blood on sunday each bowel movement no bm,s since Primary Visit Diagnosis:Hematochezia [K92.1] Other Visit Diagnosis:Thrombocytopenia (HCC) [D69.6] Order(s):CBC [SQCBC] Order #: [id number] FUTURE CONSULT TO GASTROENTEROLOGY [9040] Order #: [id number]: 1 Prescriptions as of 10/08/2017 Sig: FLUTICASONE 50 MCG/ACTUATION * Use 2 Sprays in each nostril * PREGABALIN 150 MG CAPSULE Take 2 capsules by mouth twic* OXYCODONE-ACETAMINOPHEN 10 MG* Take 1 tablet by mouth every * APIXABAN 5 MG TABLET Take 1 tablet by mouth twice * DULOXETINE 60 MG CAPSULE,ANA* Take 1 capsule by mouth once * LISINOPRIL 10 MG TABLET Take 1 tablet by mouth once d* SIMVASTATIN 20 MG TABLET Take 1 tablet by mouth once d* CITALOPRAM 20 MG TABLET Take 2 tablets by mouth once * ASPIRIN 81 MG TABLET Take one(1) tablet daily. Problem List As Of Date 10/08/2017 Noted Resolved Peripheral vascular disease (HCC) [I73.9] INVALID FOR* Tobacco Use Disorder [F17.200] INVALID FOR* More... Atherosclerosis of coronary artery [I25.10] INVALID FOR* More... Hyperlipidemia [E78.5] INVALID FOR* Embolism and Thrombosis of Arteries of Lower Ex*INVALID FOR* More... 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] INVALID FOR* Multiple excoriations [T07.XXXA] INVALID FOR* Neurodermatitis [L28.0] INVALID FOR* Neurotic excoriations [L98.1] INVALID FOR* Pruritus [L29.9] INVALID FOR* Folliculitis [L73.9] INVALID FOR* R/O Insect bites [W57.XXXA] INVALID FOR* Mite infestation [B88.9] INVALID FOR* Postinflammatory skin changes [R23.4] INVALID FOR* Dizzy [R42] INVALID FOR* Occlusion and stenosis of carotid artery withou*INVALID FOR* Depression [F32.9] INVALID FOR* Status post above knee amputation of left lower*INVALID FOR* Phantom limb syndrome ([facility]) [G54.7] INVALID FOR* Neuropathic pain [M79.2] INVALID FOR* Neuroma of amputation stump, left lower extremi*INVALID FOR* Atherosclerosis of other type of bypass graft(s*INVALID FOR* Atherosclerotic heart disease of [place] coronar*INVALID FOR* Benign hypertension [I10] INVALID FOR* Chronic obstructive pulmonary disease, unspecif*INVALID FOR* Chronic total occlusion of artery of the extrem*INVALID FOR* CAFL (chronic airflow limitation) ([facility]) [J44.9] INVALID FOR* Crushing injury [T14.8XXA] INVALID FOR* Dyslipidemia [E78.5] INVALID FOR* Enlarged prostate without lower urinary tract s*INVALID FOR* Nicotine dependence, cigarettes, uncomplicated *INVALID FOR* Paresthesia of skin [R20.2] INVALID FOR* Personal history of other venous thrombosis and*INVALID FOR* Presence of aortocoronary bypass graft [Z95.1] INVALID FOR* Tobacco dependence syndrome [F17.200] INVALID FOR* Lower limb ischemia [I99.8] INVALID FOR* Premature atrial contractions [I49.1] INVALID FOR* Ischemia of extremity [I99.8] INVALID FOR* More... Other instructions from your clinician: Stop aspirin for now If you develop sever abdominal pain, bleeding that will not stop, feeling like you're going to pass out, difficulty breathing, or chest pain call Encounter Status:Closed by PODLOGIRASEMA BAY CNP on 10/09/17 CNCO Observed: 10/08/2017 Status: COMPLETED Source: [place] 12:[address] [facility] OTHER [place] REPOSITORY Letter Text Genoveva Morillo APRN.KHOI Cardiac, Thoracic AND Air Saw Operator [place], [place] [address] [employer] Todd Nava Page 1 of October 08, 2017 Todd Nava [address] [facility] [address] 1960 Dear Todd Nava, We missed seeing you for your scheduled appointment with Genoveva Morillo CNP on 07/27/17. Our goal is to offer the best possible care to our patients, so we are concerned when you are unable to keep a scheduled appointment. Please call us at [phone] so that we can reschedule your appointment for a day and time that will work for you. If you find it difficult to keep your appointment, please notify our office at least 24 hours in advance so that we may reschedule your appointment. We are glad that you have chosen Cardiac, Thoracic AND Air Saw Operator for your cardiovascular needs and hope to continue serving you in the future. Sincerely, Genoveva Morillo CNP (Signed electronically to expedite mailing) PROGRESS Observed: 09/25/2017 Status: COMPLETED Source: [place] 11:[address] [facility] [place] REPOSITORY HNO ID: [id number] Author: Vaibhav Sawyer Service: (none) Author Type: Physician Type: Progress Notes Filed: 09/26/2017 4:38 PM Note Text: Chief Complaint Patient presents with: ED Follow-up: left leg-stump Ear Problem: wax HPI Todd Nava is a 57 year old male who presents here today for above complaints. Was in the [facility] ER yesterday for pain in the left stump that he has had for 3 days now. He denies any apparent injury. He had some swelling, wrapped the leg which helped some. He states that he is wearing his prosthetic and doing his PT for walking and gait. The prosthetic has been adjusted and feeling pretty good when on, does not feel like it is rubbing or loose. Has to go in periodically and have the knee part of the prosthetic adjusted. He uses Lyrica 150 mg 2 tablets BID and Percocet 10-325 mg 1-2 every 4-6 hours depending on pain. 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 Dr. Angelique Grijalva in [facility], surgeon that removed the leg. Has some difficulty hearing out of right ear. Has tried using debrox to soften the wax. He admits to having some sinus and head congestion, runny nose. Past medical history, appointments, medications, allergies reviewed. Previous Medical History PAST MEDICAL HISTORY Diagnosis Date - Above knee amputation of left lower extremity (HCC) - Atherosclerosis of coronary artery 10/30/2008 4 V CABG in 2000: done at [facility] Seeing Dr. Garcia as of 12-17 - Atherosclerotic heart disease of [place] coronary artery without angina pectoris 10/27/2015 - Chronic obstructive pulmonary disease, unspecified (HCC) 10/27/2015 - Coronary atherosclerosis of unspecified type of vessel, [place] or graft CABG 2000; follows with Dr Garcia - Crushing injury of right hand 1992 - Embolism and thrombosis of arteries of lower extremity (HCC) 08/04/2009 444.22 EMBOLISM AND THROMBOSIS OF ARTERIES OF L - HTN (hypertension) - Hyperlipidemia 10/30/2008 - Lower limb ischemia 05/11/2017 - Marijuana use NO CONTROLLED SUBSTANCES See visit 09/27. 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 08/02/2009 - PAST SURGICAL HISTORY OF Left 01/2017 Revision left leg amputation - PLACE CATH SUBSUBSELECT ART,ABD/PEL 05/17/05 - PLACE CATH SUBSUBSELECT ART,ABD/PEL 11/02/05 - PLACE CATH SUBSUBSELECT ART,ABD/PEL 06/12/06 - REVASCULARIZATION ILIAC ARTERY ANGIOP 1ST VSL 07-21-10 BILAT LEGS - REVASCULARIZATION ILIAC ARTERY ANGIOP 1ST VSL 07/05/12 R-EIA - REVASCULARIZATION ILIAC ARTERY ANGIOP 1ST VSL 11-18-14 LEFT - REVSC OPN/PRG FEM/POP W/ANGIOPLASTY [facility] 07-21-10 LEFT LEG - REVSC OPN/PRG FEM/POP W/ANGIOPLASTY [facility] 07/05/12 L-SFA - REVSC OPN/PRQ FEM/POP W/STNT/ANGIOP VSL 07-30-12 left - REVSC OPN/PRQ FEM/POP W/STNT/ANGIOP VS 11-18-14 RIGHT - REVSC OPN/PRQ TIB/MARLEY W/ANGIOPLASTY [facility] 08-03-10 LEFT - REVSC OPN/PRQ TIB/MARLEY W/ANGIOPLASTY [facility] 07-30-12 left - REVSC OPN/PRQ TIB/MARLEY W/ANGIOPLASTY [facility] 08-03-10 LEFT - REVSC OPN/PRQ TIB/MARLEY W/ANGIOPLASTY [facility] 07-30-12 left Family History FAMILY HISTORY Problem Relation Age of Onset - Breast Cancer Mother - Stroke Maternal Grandfather - Coronary Artery Disease Maternal Uncle - Stroke Paternal Grandfather - Other [OTHER] Brother crib - Heart Paternal Grandmother heart attacks - pneumonia [OTHER] Brother as an infant Patient Allergies ALLERGIES Allergen Reactions - Morphine Hives Current Medications Current Outpatient Prescriptions on File Prior to Visit: pregabalin (LYRICA) 150 mg capsule Take 2 capsules by mouth twice daily for 90 days. oxyCODONE-acetaminophen (PERCOCET 10) 10-325 mg tablet Take 1 tablet by mouth every 6 hours as needed for up to 30 days.Earliest Fill Date: 09/24/17 apixaban (ELIQUIS) 5 mg tab tab(s) Take 1 tablet by mouth twice daily. DULoxetine (CYMBALTA) 60 mg capsule Take 1 capsule by mouth once daily. lisinopril (ZESTRIL, PRINIVIL) 10 mg tablet Take 1 tablet by mouth once daily. simvastatin (ZOCOR) 20 mg tablet Take 1 tablet by mouth once daily. citalopram (CELEXA) 20 mg tablet Take 2 tablets by mouth once daily. ASPIRIN 81 MG TAB Take one(1) tablet daily. No current facility-administered medications on file prior to visit. Social History Social History Marital status: Spouse name: Years of education: Number of children: Social History Main Topics Smoking status: Current Every Day Smoker Packs/day: 0.50 Years: 20.00 Types: Cigarettes Start date: 12/06/1975 Smokeless status: Former User Types: Snuff Alcohol use: Yes 6.0 oz/week Comment: previously heavy drinker Drug use: No Sexual activity: No Other Topics Concern No BLOOD TRANSFUSIONS No CAFFEINE No OCCUPATIONAL EXPOSURE No HOBBY HAZARD No SLEEP CONCERN No STRESS CONCERN No WEIGHT CONCERN No DIET No BACK CARE No EXERCISE No BIKE HELMET No SEAT BELT No SELF EXAMS No EXAM: BP 120/74 Pulse 66 Resp 16 Wt 62.1 kg (137 lb) BMI 19.88 kg/m2 General Appearance: Well appearing, alert, in no acute distress, well-hydrated, well nourished. Ears: External ears normal, canals clear. Extremities: left stump; no redness, no swelling, pain on palpation to the scar tissue. Health Maintenance List HEPATITIS C SCREENING due on 2002 TETANUS due on 10/22/2018 LIPID SCREEN due on 09/26/2019 DIABETES SCREEN due on 05/16/2020 COLORECTAL CANCER SCREENING,SEE MODIFIER due on 11/09/2021 PROSTATE CANCER SCREENING DISCUSSION Completed ONE PNEUMOVAX PRIOR TO AGE 63 Completed INFLUENZA Completed Data reviewed None ASSESSMENT/PLAN: 1. Status post above knee amputation of left lower extremity (HCC) - ICD9: V49.76, ICD10: Z89.612 (primary diagnosis) Continue with Lyrica and Percocet If pain continues after a few weeks-refer back to surgeon 2. Phantom limb syndrome (HCC) - ICD9: 353.6, ICD10: G54.7 Continue with Lyrica and Percocet If pain continues after a few weeks-refer back to surgeon 3. Head congestion - ICD9: 478.19, ICD10: R09.81 Start Flonase Follow up in November as scheduled. Vaibhav Sawyer MD The documentation for this note was completed by Samanta Ratliff Ma acting as scribe for Vaibhav Sawyer MD. September 25, 2017 11:08 AM. CNOV Observed: 09/25/2017 Status: COMPLETED Source: [place] 11:00 AM [facility] REPOSITORY [facility] TODD NAVA Yani ([id number]) 1960 M Date Time Provider Department 09/25/17 11:00 AM VAIBHAV SAWYER During your visit today, we recorded the following information about you: Pulse Respiration Blood pressure Weight 66/minute 16/minute 120/74 62.1 kg Vaibhav Sawyer MD 09/26/2017 4:38 PM Signed Chief Complaint Patient presents with: ED Follow-up: left leg-stump Ear Problem: wax HPI Todd Nava is a 57 year old male who presents here today for above complaints. Was in the [facility] ER yesterday for pain in the left stump that he has had for 3 days now. He denies any apparent injury. He had some swelling, wrapped the leg which helped some. He states that he is wearing his prosthetic and doing his PT for walking and gait. The prosthetic has been adjusted and feeling pretty good when on, does not feel like it is rubbing or loose. Has to go in periodically and have the knee part of the prosthetic adjusted. He uses Lyrica 150 mg 2 tablets BID and Percocet 10-325 mg 1-2 every 4-6 hours depending on pain. 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 Dr. Angelique Grijalva in [facility], surgeon that removed the leg. Has some difficulty hearing out of right ear. Has tried using debrox to soften the wax. He admits to having some sinus and head congestion, runny nose. Past medical history, appointments, medications, allergies reviewed. Previous Medical History PAST MEDICAL HISTORY Diagnosis Date - Above knee amputation of left lower extremity (HCC) - Atherosclerosis of coronary artery 10/30/2008 4 V CABG in 2000: done at [facility] Seeing Dr. Garcia as of 12-17 - Atherosclerotic heart disease of [place] coronary artery without angina pectoris 10/27/2015 - Chronic obstructive pulmonary disease, unspecified (HCC) 10/27/2015 - Coronary atherosclerosis of unspecified type of vessel, [place] or graft CABG 2000; follows with Dr Garcia - Crushing injury of right hand 1992 - Embolism and thrombosis of arteries of lower extremity ([facility]) 08/04/2009 444.22 EMBOLISM AND THROMBOSIS OF ARTERIES OF L - HTN (hypertension) - Hyperlipidemia 10/30/2008 - Lower limb ischemia 05/11/2017 - Marijuana use NO CONTROLLED SUBSTANCES See visit 09/27. - Neuropathic pain 04/25/2016 - Nicotine dependence, cigarettes, uncomplicated 10/27/2015 - Other peripheral vascular disease(443.89) Multiple bypass procedures - Peripheral vascular disease (HCC) 04/17/2005 - Phantom limb syndrome (HCC) 04/25/2016 - Premature atrial contractions 05/12/2017 - Presence of aortocoronary bypass graft 10/27/2015 - Pure hypercholesterolemia - Status post above knee amputation of left lower extremity (HCC) 01/26/2016 - Tobacco dependence syndrome 01/17/2017 - Tobacco use disorder 10/30/2008 Half a pack a day as of 12-17 Previous Surgical History PAST SURGICAL HISTORY Procedure Laterality Date - ARTERY X-RAYS, ARM/LEG 05/17/05 - BALLN ANGIOPLASTY PERC,FEM-POP 11/02/05 - BALLN ANGIOPLASTY PERC,FEM-POP 11/02/05 - BALLN ANGIOPLASTY PERC,FEM-POP 06/12/06 - BALLN ANGIOPLASTY PERC,ILIAC 06/12/06 - CABG, ARTERY-VEIN, FOUR 2000 CABG, quadruple grafts - CONTRAST X-RAY EXAM OF AORTA 05/17/05 - Left rmsqz-myj-bzil to suysq-krk-ajbt popliteal artery bypass with arm vein. 08/02/2009 - PAST SURGICAL HISTORY OF Left 01/2017 Revision left leg amputation - PLACE CATH SUBSUBSELECT ART,ABD/PEL 05/17/05 - PLACE CATH SUBSUBSELECT ART,ABD/PEL 11/02/05 - PLACE CATH SUBSUBSELECT ART,ABD/PEL 06/12/06 - REVASCULARIZATION ILIAC ARTERY ANGIOP 1ST VSL 07-21-10 BILAT LEGS - REVASCULARIZATION ILIAC ARTERY ANGIOP 1ST VSL 07/05/12 R-EIA - REVASCULARIZATION ILIAC ARTERY ANGIOP 1ST VSL 11-18-14 LEFT - REVSC OPN/PRG FEM/POP W/ANGIOPLASTY UNI 07-21-10 LEFT LEG - REVSC OPN/PRG FEM/POP W/ANGIOPLASTY UNI 07/05/12 L-SFA - REVSC OPN/PRQ FEM/POP W/STNT/ANGIOP VS 07-30-12 left - REVSC OPN/PRQ FEM/POP W/STNT/ANGIOP VS 11-18-14 RIGHT - REVSC OPN/PRQ TIB/MARLYE W/ANGIOPLASTY UNI 08-03-10 LEFT - REVSC OPN/PRQ TIB/MARLEY W/ANGIOPLASTY UNI 07-30-12 left - REVSC OPN/PRQ TIB/MARLEY W/ANGIOPLASTY UNI [facility] 08-03-10 LEFT - REVSC OPN/PRQ TIB/MARLEY W/ANGIOPLASTY UNI [facility] 07-30-12 left Family History FAMILY HISTORY Problem Relation Age of Onset - Breast Cancer Mother - Stroke Maternal Grandfather - Coronary Artery Disease Maternal Uncle - Stroke Paternal Grandfather - Other [OTHER] Brother ANDquot;crib deathANDquot; - Heart Paternal Grandmother heart attacks - pneumonia [OTHER] Brother as an infant Patient Allergies ALLERGIES Allergen Reactions - Morphine Hives Current Medications Current Outpatient Prescriptions on File Prior to Visit: pregabalin (LYRICA) 150 mg capsule Take 2 capsules by mouth twice daily for 90 days. oxyCODONE-acetaminophen (PERCOCET 10) 10-325 mg tablet Take 1 tablet by mouth every 6 hours as needed for up to 30 days.Earliest Fill Date: 09/24/17 apixaban (ELIQUIS) 5 mg tab tab(s) Take 1 tablet by mouth twice daily. DULoxetine (CYMBALTA) 60 mg capsule Take 1 capsule by mouth once daily. lisinopril (ZESTRIL, PRINIVIL) 10 mg tablet Take 1 tablet by mouth once daily. simvastatin (ZOCOR) 20 mg tablet Take 1 tablet by mouth once daily. citalopram (CELEXA) 20 mg tablet Take 2 tablets by mouth once daily. ASPIRIN 81 MG TAB Take one(1) tablet daily. No current facility-administered medications on file prior to visit. Social History Social History Marital status: Spouse name: Years of education: Number of children: Social History Main Topics Smoking status: Current Every Day Smoker Packs/day: 0.50 Years: 20.00 Types: Cigarettes Start date: 12/06/1975 Smokeless status: Former User Types: Snuff Alcohol use: Yes 6.0 oz/week Comment: previously heavy drinker Drug use: No Sexual activity: No Other Topics Concern No BLOOD TRANSFUSIONS No CAFFEINE No OCCUPATIONAL EXPOSURE No HOBBY HAZARD No SLEEP CONCERN No STRESS CONCERN No WEIGHT CONCERN No DIET No BACK CARE No EXERCISE No BIKE HELMET No SEAT BELT No SELF EXAMS No EXAM: BP 120/74 Pulse 66 Resp 16 Wt 62.1 kg (137 lb) BMI 19.88 kg/m2 General Appearance: Well appearing, alert, in no acute distress, well-hydrated, well nourished. Ears: External ears normal, canals clear. Extremities: left stump; no redness, no swelling, pain on palpation to the scar tissue. Health Maintenance List HEPATITIS C SCREENING due on 2002 TETANUS due on 10/22/2018 LIPID SCREEN due on 09/26/2019 DIABETES SCREEN due on 05/16/2020 COLORECTAL CANCER SCREENING,SEE MODIFIER due on 11/09/2021 PROSTATE CANCER SCREENING DISCUSSION Completed ONE PNEUMOVAX PRIOR TO AGE 63 Completed INFLUENZA Completed Data reviewed None ASSESSMENT/PLAN: 1. Status post above knee amputation of left lower extremity (HCC) - ICD9: V49.76, ICD10: Z89.612 (primary diagnosis) Continue with Lyrica and Percocet If pain continues after a few weeks-refer back to surgeon 2. Phantom limb syndrome (HCC) - ICD9: 353.6, ICD10: G54.7 Continue with Lyrica and Percocet If pain continues after a few weeks-refer back to surgeon 3. Head congestion - ICD9: 478.19, ICD10: R09.81 Start Flonase Follow up in November as scheduled. Vaibhav Sawyer MD The documentation for this note was completed by Samanta Ratliff Ma acting as scribe for Vaibhav Sawyer MD. September 25, 2017 11:08 AM. Referring Provider: SELF [[id number]] Allergies As of Date: 09/25/2017 Noted Allergy Reaction MORPHINE 11/18/2014 4 - Hives Date Reviewed: 09/25/2017 Reviewed by: Samanta Ratliff Ma - Fully Assessed Reason for Visit: ED Follow-up [821] Cmt: left leg-stump Ear Problem [38] Cmt: wax Primary Visit Diagnosis:Status post above knee amputation of left lower extremity (HCC) [Z89.612] Other Visit Diagnoses:Phantom limb syndrome (HCC) [G54.7] Head congestion [R09.81] Order(s):fluticasone (FLONASE) 50 mcg/actuation nasal sprayUse 2 Sprays in each nostril once daily. Rinse mouth after use.Disp: 1 BottleRfl: 2 Prescriptions as of 09/25/2017 Sig: PREGABALIN 150 MG CAPSULE Take 2 capsules by mouth twic* OXYCODONE-ACETAMINOPHEN 10 MG* Take 1 tablet by mouth every * APIXABAN 5 MG TABLET Take 1 tablet by mouth twice * DULOXETINE 60 MG CAPSULE,ANA* Take 1 capsule by mouth once * LISINOPRIL 10 MG TABLET Take 1 tablet by mouth once d* SIMVASTATIN 20 MG TABLET Take 1 tablet by mouth once d* CITALOPRAM 20 MG TABLET Take 2 tablets by mouth once * ASPIRIN 81 MG TABLET Take one(1) tablet daily. FLUTICASONE 50 MCG/ACTUATION * Use 2 Sprays in each nostril * Problem List As Of Date 09/25/2017 Noted Resolved Peripheral vascular disease (HCC) [I73.9] INVALID FOR* Tobacco Use Disorder [F17.200] INVALID FOR* More... Atherosclerosis of coronary artery [I25.10] INVALID FOR* More... Hyperlipidemia [E78.5] INVALID FOR* Embolism and Thrombosis of Arteries of Lower Ex*INVALID FOR* More... 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] INVALID FOR* Multiple excoriations [T07.XXXA] INVALID FOR* Neurodermatitis [L28.0] INVALID FOR* Neurotic excoriations [L98.1] INVALID FOR* Pruritus [L29.9] INVALID FOR* Folliculitis [L73.9] INVALID FOR* R/O Insect bites [W57.XXXA] INVALID FOR* Mite infestation [B88.9] INVALID FOR* Postinflammatory skin changes [R23.4] INVALID FOR* Dizzy [R42] INVALID FOR* Occlusion and stenosis of carotid artery withou*INVALID FOR* Depression [F32.9] INVALID FOR* Status post above knee amputation of left lower*INVALID FOR* Phantom limb syndrome (HCC) [G54.7] INVALID FOR* Neuropathic pain [M79.2] INVALID FOR* Neuroma of amputation stump, left lower extremi*INVALID FOR* Atherosclerosis of other type of bypass graft(s*INVALID FOR* Atherosclerotic heart disease of [place] coronar*INVALID FOR* Benign hypertension [I10] INVALID FOR* Chronic obstructive pulmonary disease, unspecif*INVALID FOR* Chronic total occlusion of artery of the extrem*INVALID FOR* CAFL (chronic airflow limitation) (HCC) [J44.9] INVALID FOR* Crushing injury [T14.8XXA] INVALID FOR* Dyslipidemia [E78.5] INVALID FOR* Enlarged prostate without lower urinary tract s*INVALID FOR* Nicotine dependence, cigarettes, uncomplicated *INVALID FOR* Paresthesia of skin [R20.2] INVALID FOR* Personal history of other venous thrombosis and*INVALID FOR* Presence of aortocoronary bypass graft [Z95.1] INVALID FOR* Tobacco dependence syndrome [F17.200] INVALID FOR* Lower limb ischemia [I99.8] INVALID FOR* Premature atrial contractions [I49.1] INVALID FOR* Ischemia of extremity [I99.8] INVALID FOR* More... Prescriptions ordered this encounter Disp Refills Start End FLUTICASONE 50 MCG/ACTUATION NASAL S* 1 Charly* 2 09/25/2017 Route: EACH NOSTRIL Sig: Use 2 Sprays in each nostril once daily. Rinse mouth after use. Disposition: Return if symptoms worsen or fail to improve. Follow-up and Disposition History Recorded Encounter Status:Closed by VAIBHAV SAWYER MD on 09/26/17 EMERGENCY DEPARTMENT Observed: 09/23/2017 Status: F Source: [place] SUMMARY 8:25 PM [facility] [place] RE[place]ITORY [facility] Medical Records Department [address] [place] [address] Emergency Department Summary 09/23/171938 MR#: [id number] Acct: [id number] Name: TODD NAVA Rep #: [id number] : 1960 57 From: Goldy Nicholas PCP: Vaibhav Sawyer MD Status: REG ER - ER Visit Summary Date of Service: 09/23/17 Chief Complaint: Left stump pain History of Present Illness: The patient is a 57 M 2 day history worsening left stump pain. History of AKA. States has vascular disease with this tobacco history. No history of diabetes. Had infection with initial surgery 1-1/2 years ago. Additional surgery 4 months ago at [facility]. Followed by Dr. Angelique Grijalva. Has been using a prosthesis starting 3 months ago. Saw therapy on Sunday. Denies any injuries. No fevers. No drainage. He is also on oxycodone and Lyrica states he ran out today with last dose 10 hours ago. 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 He states he takes his medications when he has pain. He lost pain management privileges last year due to being positive for marijuana. States there is redness to the area when he stands, goes away when he sits down. Physical Examination: General: Alert and oriented 3, no acute distress HEENT: Normocephalic, atraumatic. Moist mucosa membranes Neck: supple, nontender. Cardiovascular: Regular rate and rhythm, no murmurs Respiratory: Normal breath sounds, symmetric, no distress Abdomen: Soft, nontender, nondistended Extremities: Left lower extremity: AKA. There is scarring distally, there is no drainage from the site. There is no fluctuance. There is no erythema or streaking. There is tenderness at the distal stump region around the scar. Neuro: no focal neurological deficits. Test Results: [] Emergency Department Course and Treatment: [] Treatment Plan: [] Disposition: [] Impression: [] This note was generated with [employer]ikon Asiaation software. It may contain incorrect words, spelling, and punctuation that were not noted in review of the chart prior to signing ED Disposition - Plan for ED Patient: Disposition: Home or Assisted Living Chief Complaint: Lower Extremity Injury Diagnosis: Pain of left lower extremity Prescriptions: Cephalexin [Keflex] 500 mg PO Q6 #40 capsule Referrals: Vaibhav Sawyer MD [Primary Care Provider] - 3-5 Days Additional Instructions: Discussed with your prosthesis company for reevaluation. Will cover for infection for your concerns with antibiotics. Follow-up with your doctor for continued prescriptions for pain medications. What to do if you have Problems For any increased pain, shortness of breath, bleeding, nausea or vomiting, chest pain, or any unexpected problems, contact your Primary Care Provider. Call [facility] ([phone]) or report to the closest Emergency Room. Call 911 if necessary. 09/23/172024 <Electronically signed by Goldy Nicholas> Date Goldy Nicholas Cosigner Signature (If Indicated): Date CC: Vaibhav Sawyer MD FEMUR MIN 2 VIEWS Observed: 09/23/2017 Status: F Source: [place] 7:39 PM [facility] [place] RE[place]ITORY [facility] Imaging Services [address] [place] [address] Femur Min 2 Views MR#: [id number] Acct: [id number] Name: TODD NAVA Rep #: [id number] : 1960 M 57 From: Alcides Centeno MD PCP: Vaibhav Sawyer MD Status: REG ER Study: Femur Min 2 Views Date of Exam: 09/23/17 Exam# [id number] Ordering Dr: Goldy Cline DO STUDY: X-RAY - LEFT FEMUR REASON FOR STUDY: Male, 57 years old. Pain. TECHNIQUE: Radiological exam, femur, minimum 2 views COMPARISON: None. FINDINGS: No acute fracture or dislocation. No significant degenerative changes. 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 There is no definite focal destructive process of the bones. There are heavily calcified vascular structures and a stent in the upper medial thigh. IMPRESSION: There is no definite acute abnormality. Electronically Signed: Alcides Centeno MD at 20:02 EDT , Service support , RAD/Femur Min 2 Views CC: Vaibhav Sawyer MD; Goldy Cline Clerk: Signed EMERGENCY DEPARTMENT Observed: 09/11/2017 Status: F Source: [place] SUMMARY 6:54 AM [facility] [place] REPOSITORY [facility] Medical Records Department [address] [facility] [place] [address] Emergency Department Summary 09/10/17 2210 MR#: [id number] Acct: [id number] Name: TODD NAVA Rep #: [id number] : 1960 57 From: Gera Bergeron MD PCP: Vaibhav Sawyer MD Status: DEP ER - ER Visit Summary Date of Service: 09/10/17 Chief Complaint: [] Blood in the stool History of Present Illness: The patient is a 57 M stated 2 hours ago he had a bowel movement that was solid and noticed there was some blood in the water. It was bright red. No history of diverticulosis or hemorrhoids. Last year he had a hard stool and had a similar bleeding episode that resolved on its own. His last colonoscopy was 5 years ago and was normal per patient. 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 He is on Eliquis for history of coronary artery disease status post remote triple bypass. Denies any symptoms currently. He felt a little bit lightheaded when he saw the blood that went away. Physical Examination: Vital signs reviewed General: Well-nourished well-developed Head: Normocephalic atraumatic Eyes: Pupils equal round and reactive to light extraocular movements intact ENT: TMs clear no hemotympanum no trauma Neck: Nontender full range of motion Cardiovascular: Regular rate rhythm no murmurs normal S1-S2 Respiratory: No distress clear to auscultation bilaterally chest nontender Abdomen: Soft nontender nondistended normal bowel sounds no masses Rectal no external hemorrhoids. Nontender. Gross negative. Back: Nontender no CVA tenderness Extremities: Nontender active range of motion 4 extremities no trauma. Left tyqhx-dyf-tahk amputation Skin: Normal color no trauma Neuro alert oriented cranial nerves II through XII intact normal strength sensation reflexes Test Results: [] Emergency Department Course and Treatment: [] Patient given IV fluid bolus. Lab work obtained. She is normal except platelets 113. Chemistries normal except chloride 109. Coags negative. Patient given IV fluids and feels asymptomatic. No further bleeding here. The patient is refusing admission. He understands he can return. He does not want to be admitted. He wants to go home and do stool softeners and see if this resolves on its own. I think this is reasonable. He is nontoxic with a normal hemoglobin. He will get be given GI referral. Treatment Plan: [] Disposition: [] Impression: [] Hematochezia This note was generated with SocialDefender dictation software. It may contain incorrect words, spelling, and punctuation that were not noted in review of the chart prior to signing ED Disposition - Plan for ED Patient: Chief Complaint: GI Bleed Referrals: Vaibhav Sawyer MD [Primary Care Provider] - What to do if you have Problems For any increased pain, shortness of breath, bleeding, nausea or vomiting, chest pain, or any unexpected problems, contact your Primary Care Provider. Call [facility] ([phone]) or report to the closest Emergency Room. Call 911 if necessary. 09/11/17 0654 <Electronically signed by Gera Bergeron MD> Date Gera Bergeron MD Cosigner Signature (If Indicated): Date CC: Vaibhav Sawyer MD DISCHARGE INSTRUCTION Observed: 09/11/2017 Status: F Source: [place] 6:54 AM [facility] [place] REPOSITORY [facility] Medical Records Department [address] [place] [address] Discharge Instruction 09/10/178 MR#: [id number] Acct: [id number] Name: TODD NAVA Rep #: [id number] : 1960 57 From: Gera Bergeron MD PCP: Vaibhav Sawyer MD Status: DEP ER ED Disposition - Plan for ED Patient: Disposition: Home or Assisted Living Chief Complaint: GI Bleed Instructions: ED Hematochezia Stable Referrals: Vaibhav Sawyer MD [Primary Care Provider] - Mau Michaud MD [STAFF PHYSICIAN] - What to do if you have Problems For any increased pain, shortness of breath, bleeding, nausea or vomiting, chest pain, or any unexpected problems, contact your Primary Care Provider. Call [facility] ([phone]) or report to the closest Emergency Room. Call 911 if necessary. 09/11/17 0654 <Electronically signed by Gera Bergeron MD> Date Gera Bergeron MD Cosigner Signature (If Indicated): Date CC: Vaibhav Sawyer MD CBC W/DIFF, AUTOMATED Collected: 09/10/2017 Status: F Source: [place] 10:10 PM [facility] [place] REPOSITORY TYPE CODE TESTS RESULT OUT OF RANGE REFERENCE UNITS LAB L100.1000 4.4-11.0 K/mm3 Normal WBC 10.0 LAB L100.1200 4.6-6.2 M/mm3 Normal RBC 4.64 LAB L100.1300 13.0-16.5 g/dl Normal HGB 15.3 LAB L100.1400 40-54 % Normal HCT 44.0 LAB L100.1500 80-94 fL High MCV 94.8 LAB L100.1600 27.0-32.0 pg High MCH 33.0 LAB L100.1700 32-36 g/gl Normal MCHC 34.8 LAB L100.1810 11.6-14.6 % Normal RDW CV 13.7 LAB L100.1820 35.1-43.9 fl High RDW SD 47.3 LAB L100.1900 150-450 K/mm3 Low PLT 113 LAB L100.2000 6.2-12.0 fl Normal MPV 10.7 LAB L100.2100 47-70 % High NEUT% 72.2 LAB L100.2200 19-41 % Normal LY% 20.7 LAB L100.2300 0-10 % Normal MONO% 6.4 LAB L100.2400 0-5 % Normal EO% 0.4 LAB L100.2500 0-1 % Normal BASO% 0.2 LAB L100.2550 0.0-0.9 % Normal IM GRAN % 0.100 Result Comment: IG% - Immature Granulocytes (promyelocytes, myelocytes and metamyelocytes) > 1% indicates that a LEFT SHIFT is Present. LAB L100.2620 2.0-7.7 X10 3/uL Normal Absolute Neut 7.2 LAB L100.2720 0.83-4.51 X10 3/ul Normal Absolute Lymph 2.06 Performed By: #### L100.0100 #### [facility] [address] [place], [address] BASIC METABOLIC Collected: 09/10/2017 Status: F Source: [place] PROFILE (BMP) 10:10 PM [facility] [place] REPOSITORY TYPE CODE TESTS RESULT OUT OF RANGE REFERENCE UNITS LAB L501.0100 74-106 mg/dL Normal GLU 89 Result Comment: Please note revised GLUCOSE reference range effective 2017. LAB L501.1000 7-18 mg/dL Normal BUN 13 LAB L501.1100 0.70-1.30 mg/dL Normal CREAT,SERUM 0.74 Result Comment: The validity of the calculated GFR AND GFRAA in patients over 70 years has not been determined. Clinical correlation is essential. LAB L501.1110 >60 mL/min Normal EST GFR 114 Result Comment: Non- GFR Calc LAB L501.1115 >60 mL/min Normal EST GFR - AA 138 Result Comment: GFR Calc LAB L501.1255 ml/min Normal Estimated CRCL 86.20 LAB L501.1300 10-20 RATIO Normal BUN/CRE 17.5 LAB L501.2200 8.5-10 mg/dL Low .1 CA 8.2 LAB L501.5300 136-14 mmol/L Normal 5 NA 143 LAB L501.5600 3.5-5. mmol/L Normal 1 K 3.9 LAB L501.5900 98-107 mmol/L High CL 109 LAB L501.6100 21.0-3 mmol/L Normal 2.0 CO2 30.0 LAB L501.6200 5-15 Low GAP 4 Performed By: #### L500.2500 #### [facility] [address] [place], [address] PROTHROMBIN TIME W/INR Collected: 09/10/2017 Status: F Source: [place] 10:10 PM [facility] [place] REPOSITORY TYPE CODE TESTS RESULT OUT OF RANGE REFERENCE UNITS LAB L300.4150 11.7-14.9 SECONDS Normal PROTIME 13.8 LAB L300.4200 Normal INR 1.1 Performed By: #### L300.3900, L300.4310 #### [facility] [address] [place], [address] PARTIAL THROMBOPLAST Collected: 09/10/2017 Status: F Source: [place] TIME 10:10 PM [facility] [place] REPOSITORY TYPE CODE TESTS RESULT OUT OF RANGE REFERENCE UNITS LAB L300.4310 24.1-36.2 Seconds Normal PTT 36.0 Performed By: #### L300.3900, L300.4310 #### [facility] [address] [facility] [place], [address] RE-EVALUATION - PT (1) Observed: 08/27/2017 Status: F Source: [place] 6:46 AM [facility] [place] REPOSITORY [facility] [address] [place] [address]. [address] [place], [place] [address] Fax REEVALUATION / MEDICARE RECERTIFICATION PHYSICAL THERAPY MR#: [id number] Acct: [id number] Name: TODD NAVA Rep #: [id number] : 1960 57 From: Chaka Hunt DPT, OCS, CSCS Referring Dr.: Vaibhav Sawyer MD Status: REG RCR Insurance: MEDICARE PART A B MEDICAID Vaibhav Sawyer, It has been my pleasure to treat TODD NAVA over the last 32 visits for Yani matos. Please see the progress note below for an update on the physical therapy plan of care! Subjective: Thinks he is getting better. Did two full laps without stopping. Can slowly pick things up off floor. R leg still hurts but stretching helps. Walking short distances without AD. Need more PT for grades and outside walking. Avoids shopping. 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 Has some balance work to do as he is wobbly. Has not had any falls to the ground but feels wobbly. Sleep is good. Objective/Function: Transfer to and from floor I without chair to push on. Tolerated FGA today for the first time. Up and dwn steps with R with ail and cane Mod I. Walks with cane mod I on firm surfaces. Without AD needs SBA as he is wobbly. Plan Plan: 2x/week for 4 weeks for gait on irregular surfaces, incline/decline as able and balance with turns and challengess. Goals Goal 1:: Tolerate FGA Goal Time Frame: 4-6 Weeks Goal Progress: Goal Met Goal 2:: Ambualte with Wh walker as main mobility method without pain. Goal Time Frame: 4-6 Weeks Goal Progress: - Goal 3:: Ambulate into and out of PT without AD with good gait pattern I. Goal Time Frame: 6-8 Weeks Goal Progress: Progressing Goal 4:: up and down 6 steps without rail I Goal Time Frame: 4-6 Weeks Goal Progress: Will need rail Goal 5:: Walk with cane on grass and incline without assistance 60 feet mod I. Goal Time Frame: 4-6 Weeks Goal Progress: NEW GOAL Goal 6:: FGA to diminish fall risk. Goal Time Frame: 4-6 Weeks Goal Progress: NEW GOAL Anticipated Interventions Patient/Client Instruction: Educate patient on: Condition For the Purpose of:: To decrease pain, To improve ability of physical actions for home/community/work/leisure, To improve gait and locomotor functions Therapeutic Exercise to Include: Strength training, Balance training, Flexibilty training, Gait and locomotor training For the Purpose of:: To decrease pain, To improve ability of physical actions for home/community/work/leisure, To improve gait and locomotor functions Please do not hesitate to contact me at [phone] by phone or if you have questions or concerns regarding this new plan of care! Sincerely, Chaka Hunt, DPT, OC <Electronically signed by Chaka Hunt DPT, OCS, CSCS> 08/27/17 0646 CC: Vaibhav Sawyer MD EBG Signed For Medicare only, by signing this I certify the plan of care. Physicians Signature Date PROGRESS Observed: 08/10/2017 Status: COMPLETED Source: [place] 2:[address] [facility] [place] REPOSITORY O ID: [id number] Author: Vaibhav Sawyer Service: (none) Author Type: Physician Type: Progress Notes Filed: 08/10/2017 2:51 PM Note Text: Chief Complaint Patient presents with: Medication Follow-up HPI Todd Nava is a 57 year old male who presents here today for medication follow up. Still smoking, admits to smoking a joint. Pain: still taking Percocet and lyrica. Is doing Physical therapy. This works for pain control most of the time; he did take extra pain meds due to right leg having increased pain Is using the prosthetic and is using a cane. Feels depressed at times; on cymbalta and celexa Hospitalized in May 2017; arteriogram showed disease in right leg; deciding about what to do with this Past medical history, appointments, medications, allergies reviewed. Previous Medical History PAST MEDICAL HISTORY Diagnosis Date - Above knee amputation of left lower extremity (HCC) - Atherosclerosis of coronary artery 10/30/2008 4 V CABG in 2000: done at [facility] Seeing Dr. Garcia as of 12-17 - Atherosclerotic heart disease of [place] coronary artery without angina pectoris 10/27/2015 - Chronic obstructive pulmonary disease, unspecified (HCC) 10/27/2015 - Coronary atherosclerosis of unspecified type of vessel, [place] or graft CABG 2000; follows with Dr Garcia - Crushing injury of right hand 1992 - Embolism and thrombosis of arteries of lower extremity (HCC) 08/04/2009 444.22 EMBOLISM AND THROMBOSIS OF ARTERIES OF L - HTN (hypertension) - Hyperlipidemia 10/30/2008 - Lower limb ischemia 05/11/2017 - Marijuana use NO CONTROLLED SUBSTANCES See visit 09/27. - Neuropathic pain 04/25/2016 - Nicotine dependence, cigarettes, uncomplicated 10/27/2015 - Other peripheral vascular disease(443.89) Multiple bypass procedures - Peripheral vascular disease ([facility]) 04/17/2005 - Phantom limb syndrome ([facility]) 04/25/2016 - Premature atrial contractions 05/12/2017 - Presence of aortocoronary bypass graft 10/27/2015 - Pure hypercholesterolemia - Status post above knee amputation of left lower extremity ([facility]) 01/26/2016 - Tobacco dependence syndrome 01/17/2017 - Tobacco use disorder 10/30/2008 Half a pack a day as of 12-17 Previous Surgical History PAST SURGICAL HISTORY Procedure Laterality Date - ARTERY X-RAYS, ARM/LEG 05/17/05 - BALLN ANGIOPLASTY PERC,FEM-POP 11/02/05 - BALLN ANGIOPLASTY PERC,FEM-POP 11/02/05 - BALLN ANGIOPLASTY PERC,FEM-POP 06/12/06 - BALLN ANGIOPLASTY PERC,ILIAC 06/12/06 - CABG, ARTERY-VEIN, FOUR 2000 CABG, quadruple grafts - CONTRAST X-RAY EXAM OF AORTA 05/17/05 - Left wbtxf-qba-ygjk to kkibh-iud-scpv popliteal artery bypass with arm vein. 08/02/2009 - PAST SURGICAL HISTORY OF Left 01/2017 Revision left leg amputation - PLACE CATH SUBSUBSELECT ART,ABD/PEL 05/17/05 - PLACE CATH SUBSUBSELECT ART,ABD/PEL 11/02/05 - PLACE CATH SUBSUBSELECT ART,ABD/PEL 06/12/06 - REVASCULARIZATION ILIAC ARTERY ANGIOP 1ST VSL 07-21-10 BILAT LEGS - REVASCULARIZATION ILIAC ARTERY ANGIOP 1ST VSL 07/05/12 R-EIA - REVASCULARIZATION ILIAC ARTERY ANGIOP 1ST VSL 11-18-14 LEFT - REVSC OPN/PRG FEM/POP W/ANGIOPLASTY UNI 07-21-10 LEFT LEG - REVSC OPN/PRG FEM/POP W/ANGIOPLASTY UNI 07/05/12 L-SFA - REVSC OPN/PRQ FEM/POP W/STNT/ANGIOP SM VSL 07-30-12 left - REVSC OPN/PRQ FEM/POP W/STNT/ANGIOP SM VSL 11-18-14 RIGHT - REVSC OPN/PRQ TIB/MARLEY W/ANGIOPLASTY UNI 08-03-10 LEFT - REVSC OPN/PRQ TIB/MARLEY W/ANGIOPLASTY UNI 07-30-12 left - REVSC OPN/PRQ TIB/MARLEY W/ANGIOPLASTY UNI EA VSL 08-03-10 LEFT - REVSC OPN/PRQ TIB/MARLEY W/ANGIOPLASTY UNI EA VSL 07-30-12 left Family History FAMILY HISTORY Problem Relation Age of Onset - Breast Cancer Mother - Stroke Maternal Grandfather - Coronary Artery Disease Maternal Uncle - Stroke Paternal Grandfather - Other [OTHER] Brother crib - Heart Paternal Grandmother heart attacks - pneumonia [OTHER] Brother as an infant Patient Allergies ALLERGIES Allergen Reactions - Morphine Hives Current Medications Current Outpatient Prescriptions on File Prior to Visit: oxyCODONE-acetaminophen (PERCOCET 10) 10-325 mg tablet Take 1 tablet by mouth every 6 hours as needed for up to 30 days.Earliest Fill Date: 07/25/17 pregabalin (LYRICA) 150 mg capsule Take 2 capsules by mouth twice daily for 90 days. apixaban (ELIQUIS) 5 mg tab tab(s) Take 1 tablet by mouth twice daily. DULoxetine (CYMBALTA) 60 mg capsule Take 1 capsule by mouth once daily. lisinopril (ZESTRIL, PRINIVIL) 10 mg tablet Take 1 tablet by mouth once daily. simvastatin (ZOCOR) 20 mg tablet Take 1 tablet by mouth once daily. citalopram (CELEXA) 20 mg tablet Take 2 tablets by mouth once daily. ASPIRIN 81 MG TAB Take one(1) tablet daily. No current facility-administered medications on file prior to visit. Social History Social History Marital status: Spouse name: Years of education: Number of children: Social History Main Topics Smoking status: Current Every Day Smoker Packs/day: 0.50 Years: 20.00 Types: Cigarettes Start date: 12/06/1975 Smokeless status: Former User Types: Snuff Alcohol use: Yes 6.0 oz/week Comment: previously heavy drinker Drug use: No Sexual activity: No Other Topics Concern No BLOOD TRANSFUSIONS No CAFFEINE No OCCUPATIONAL EXPOSURE No HOBBY HAZARD No SLEEP CONCERN No STRESS CONCERN No WEIGHT CONCERN No DIET No BACK CARE No EXERCISE No BIKE HELMET No SEAT BELT No SELF EXAMS No EXAM: BP 128/74 Pulse 74 Resp 14 Wt 70.3 kg (155 lb) BMI 22.5 kg/m2 General Appearance: Well appearing, alert, in no acute distress, well-hydrated, well nourished., s/p right leg AKA. Lungs: Lungs clear to auscultation. No wheezing, rhonchi, rales. Heart: RRR without murmur, gallop, or rubs. No ectopy. Extremities: mild tenderness prox right forearm. Ears: wax right ear Skin: chronic excoriations Health Maintenance List HEPATITIS C SCREENING due on 2002 COLORECTAL CANCER SCREENING,SEE MODIFIER due on 11/09/2016 TETANUS due on 10/22/2018 LIPID SCREEN due on 09/26/2019 DIABETES SCREEN due on 05/16/2020 PROSTATE CANCER SCREENING DISCUSSION Completed ONE PNEUMOVAX PRIOR TO AGE 63 Completed INFLUENZA Completed Data reviewed none ASSESSMENT/PLAN: 1. Peripheral vascular disease (HCC) - ICD9: 443.9, ICD10: I73.9 (primary diagnosis) 2. Benign hypertension - ICD9: 401.1, ICD10: I10 - good control - Continue current medication(s) - Goal of BP <140/90 3. Status post above knee amputation of left lower extremity (HCC) - ICD9: V49.76, ICD10: Z89.612 4. Atherosclerosis of [place] coronary artery of [place] heart without angina pectoris - ICD9: 414.01, ICD10: I25.10 5. Hyperlipidemia, unspecified hyperlipidemia type - ICD9: 272.4, ICD10: E78.5 - COMP METABOLIC PANEL - LIPID PANEL BASIC Continue current medications. Follow up in 3 months with labs prior Vaibhav Sawyer MD CNOV Observed: 08/10/2017 Status: COMPLETED Source: [place] 2:00 PM [facility] REPOSITORY [facility] TODD NAVA ([id number]) 1960 M IPA Date Time Provider Department 08/10/17 2:00 PM VAIBHAV SAWYER During your visit today, we recorded the following information about you: Pulse Respiration Blood pressure Weight 74/minute 14/minute 128/74 70.3 kg Vaibhav Sawyer MD 08/10/2017 2:51 PM Signed Chief Complaint Patient presents with: Medication Follow-up HPI Todd Nava is a 57 year old male who presents here today for medication follow up. Still smoking, admits to smoking a joint. Pain: still taking Percocet and lyrica. Is doing Physical therapy. This works for pain control most of the time; he did take extra pain meds due to right leg having increased pain Is using the prosthetic and is using a cane. Feels depressed at times; on cymbalta and celexa Hospitalized in May 2017; arteriogram showed disease in right leg; deciding about what to do with this Past medical history, appointments, medications, allergies reviewed. Previous Medical History PAST MEDICAL HISTORY Diagnosis Date - Above knee amputation of left lower extremity (HCC) - Atherosclerosis of coronary artery 10/30/2008 4 V CABG in 2000: done at [facility] Seeing Dr. Garcia as of 12-17 - Atherosclerotic heart disease of [place] coronary artery without angina pectoris 10/27/2015 - Chronic obstructive pulmonary disease, unspecified (HCC) 10/27/2015 - Coronary atherosclerosis of unspecified type of vessel, [place] or graft CABG 2000; follows with Dr Garcia - Crushing injury of right hand 1992 - Embolism and thrombosis of arteries of lower extremity (HCC) 08/04/2009 444.22 EMBOLISM AND THROMBOSIS OF ARTERIES OF L - HTN (hypertension) - Hyperlipidemia 10/30/2008 - Lower limb ischemia 05/11/2017 - Marijuana use NO CONTROLLED SUBSTANCES See visit 09/27. - Neuropathic pain 04/25/2016 - Nicotine dependence, cigarettes, uncomplicated 10/27/2015 - Other peripheral vascular disease(443.89) Multiple bypass procedures - Peripheral vascular disease (HCC) 04/17/2005 - Phantom limb syndrome (HCC) 04/25/2016 - Premature atrial contractions 05/12/2017 - Presence of aortocoronary bypass graft 10/27/2015 - Pure hypercholesterolemia - Status post above knee amputation of left lower extremity (HCC) 01/26/2016 - Tobacco dependence syndrome 01/17/2017 - Tobacco use disorder 10/30/2008 Half a pack a day as of 12-17 Previous Surgical History PAST SURGICAL HISTORY Procedure Laterality Date - ARTERY X-RAYS, ARM/LEG 05/17/05 - BALLN ANGIOPLASTY PERC,FEM-POP 11/02/05 - BALLN ANGIOPLASTY PERC,FEM-POP 11/02/05 - BALLN ANGIOPLASTY PERC,FEM-POP 06/12/06 - BALLN ANGIOPLASTY PERC,ILIAC 06/12/06 - CABG, ARTERY-VEIN, FOUR 2000 CABG, quadruple grafts - CONTRAST X-RAY EXAM OF AORTA 05/17/05 - Left hssps-feb-arvy to skedh-qcr-ptqg popliteal artery bypass with arm vein. 08/02/2009 - PAST SURGICAL HISTORY OF Left 01/2017 Revision left leg amputation - PLACE CATH SUBSUBSELECT ART,ABD/PEL 05/17/05 - PLACE CATH SUBSUBSELECT ART,ABD/PEL 11/02/05 - PLACE CATH SUBSUBSELECT ART,ABD/PEL 06/12/06 - REVASCULARIZATION ILIAC ARTERY ANGIOP 1ST VSL 07-21-10 BILAT LEGS - REVASCULARIZATION ILIAC ARTERY ANGIOP 1ST VSL 07/05/12 R-EIA - REVASCULARIZATION ILIAC ARTERY ANGIOP 1ST VSL 11-18-14 LEFT - REVSC OPN/PRG FEM/POP W/ANGIOPLASTY UNI 07-21-10 LEFT LEG - REVSC OPN/PRG FEM/POP W/ANGIOPLASTY UNI 07/05/12 L-SFA - REVSC OPN/PRQ FEM/POP W/STNT/ANGIOP VSL 07-30-12 left - REVSC OPN/PRQ FEM/POP W/STNT/ANGIOP VSL 11-18-14 RIGHT - REVSC OPN/PRQ TIB/MARLEY W/ANGIOPLASTY UNI 08-03-10 LEFT - REVSC OPN/PRQ TIB/MARLEY W/ANGIOPLASTY UNI 07-30-12 left - REVSC OPN/PRQ TIB/MARLEY W/ANGIOPLASTY UNI [facility] 08-03-10 LEFT - REVSC OPN/PRQ TIB/MARLEY W/ANGIOPLASTY UNI [facility] 07-30-12 left Family History FAMILY HISTORY Problem Relation Age of Onset - Breast Cancer Mother - Stroke Maternal Grandfather - Coronary Artery Disease Maternal Uncle - Stroke Paternal Grandfather - Other [OTHER] Brother ANDquot;crib deathANDquot; - Heart Paternal Grandmother heart attacks - pneumonia [OTHER] Brother as an Patient Allergies ALLERGIES Allergen Reactions - Morphine Hives Current Medications Current Outpatient Prescriptions on File Prior to Visit: oxyCODONE-acetaminophen (PERCOCET 10) 10-325 mg tablet Take 1 tablet by mouth every 6 hours as needed for up to 30 days.Earliest Fill Date: 07/25/17 pregabalin (LYRICA) 150 mg capsule Take 2 capsules by mouth twice daily for 90 days. apixaban (ELIQUIS) 5 mg tab tab(s) Take 1 tablet by mouth twice daily. DULoxetine (CYMBALTA) 60 mg capsule Take 1 capsule by mouth once daily. lisinopril (ZESTRIL, PRINIVIL) 10 mg tablet Take 1 tablet by mouth once daily. simvastatin (ZOCOR) 20 mg tablet Take 1 tablet by mouth once daily. citalopram (CELEXA) 20 mg tablet Take 2 tablets by mouth once daily. ASPIRIN 81 MG TAB Take one(1) tablet daily. No current facility-administered medications on file prior to visit. Social History Social History Marital status: Spouse name: Years of education: Number of children: Social History Main Topics Smoking status: Current Every Day Smoker Packs/day: 0.50 Years: 20.00 Types: Cigarettes Start date: 12/06/1975 Smokeless status: Former User Types: Snuff Alcohol use: Yes 6.0 oz/week Comment: previously heavy drinker Drug use: No Sexual activity: No Other Topics Concern No BLOOD TRANSFUSIONS No CAFFEINE No OCCUPATIONAL EXPOSURE No HOBBY HAZARD No SLEEP CONCERN No STRESS CONCERN No WEIGHT CONCERN No DIET No BACK CARE No EXERCISE No BIKE HELMET No SEAT BELT No SELF EXAMS No EXAM: BP 128/74 Pulse 74 Resp 14 Wt 70.3 kg (155 lb) BMI 22.5 kg/m2 General Appearance: Well appearing, alert, in no acute distress, well-hydrated, well nourished., s/p right leg AKA. Lungs: Lungs clear to auscultation. No wheezing, rhonchi, rales. Heart: RRR without murmur, gallop, or rubs. No ectopy. Extremities: mild tenderness prox right forearm. Ears: wax right ear Skin: chronic excoriations Health Maintenance List HEPATITIS C SCREENING due on 2002 COLORECTAL CANCER SCREENING,SEE MODIFIER due on 11/09/2016 TETANUS due on 10/22/2018 LIPID SCREEN due on 09/26/2019 DIABETES SCREEN due on 05/16/2020 PROSTATE CANCER SCREENING DISCUSSION Completed ONE PNEUMOVAX PRIOR TO AGE 63 Completed INFLUENZA Completed Data reviewed none ASSESSMENT/PLAN: 1. Peripheral vascular disease (HCC) - ICD9: 443.9, ICD10: I73.9 (primary diagnosis) 2. Benign hypertension - ICD9: 401.1, ICD10: I10 - good control - Continue current medication(s) - Goal of BP ANDlt;140/90 3. Status post above knee amputation of left lower extremity (HCC) - ICD9: V49.76, ICD10: Z89.612 4. Atherosclerosis of [place] coronary artery of [place] heart without angina pectoris - ICD9: 414.01, ICD10: I25.10 5. Hyperlipidemia, unspecified hyperlipidemia type - ICD9: 272.4, ICD10: E78.5 - COMP METABOLIC PANEL - LIPID PANEL BASIC Continue current medications. Follow up in 3 months with labs prior Vaibhav Sawyer MD Referring Provider: SELF [200] Allergies As of Date: 08/10/2017 Noted Allergy Reaction MORPHINE 11/18/2014 4 - Hives Date Reviewed: 08/10/2017 Reviewed by: Samanta Ratliff Ma - Fully Assessed Reason for Visit: Medication Follow-up [270] Primary Visit Diagnosis:Peripheral vascular disease (HCC) [I73.9] Other Visit Diagnoses:Benign hypertension [I10] Status post above knee amputation of left lower extremity (HCC) [Z89.612] Atherosclerosis of [place] coronary artery of [place] heart without angina pectoris [I25.10] Hyperlipidemia, unspecified hyperlipidemia type [E78.5] Order(s):COMP METABOLIC PANEL [SQCMP] Order #: [id number] FUTURE LIPID PANEL BASIC [SQLIPB] Order #: [id number] FUTURE Prescriptions as of 08/10/2017 Sig: OXYCODONE-ACETAMINOPHEN 10 MG* Take 1 tablet by mouth every * PREGABALIN 150 MG CAPSULE Take 2 capsules by mouth twic* APIXABAN 5 MG TABLET Take 1 tablet by mouth twice * DULOXETINE 60 MG CAPSULE,ANA* Take 1 capsule by mouth once * LISINOPRIL 10 MG TABLET Take 1 tablet by mouth once d* SIMVASTATIN 20 MG TABLET Take 1 tablet by mouth once d* CITALOPRAM 20 MG TABLET Take 2 tablets by mouth once * ASPIRIN 81 MG TABLET Take one(1) tablet daily. Problem List As Of Date 08/10/2017 Noted Resolved Peripheral vascular disease (HCC) [I73.9] INVALID FOR* Tobacco Use Disorder [F17.200] INVALID FOR* More... Atherosclerosis of coronary artery [I25.10] INVALID FOR* More... Hyperlipidemia [E78.5] INVALID FOR* Embolism and Thrombosis of Arteries of Lower Ex*INVALID FOR* More... 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] INVALID FOR* Multiple excoriations [T07.XXXA] INVALID FOR* Neurodermatitis [L28.0] INVALID FOR* Neurotic excoriations [L98.1] INVALID FOR* Pruritus [L29.9] INVALID FOR* Folliculitis [L73.9] INVALID FOR* R/O Insect bites [W57.XXXA] INVALID FOR* Mite infestation [B88.9] INVALID FOR* Postinflammatory skin changes [R23.4] INVALID FOR* Dizzy [R42] INVALID FOR* Occlusion and stenosis of carotid artery withou*INVALID FOR* Depression [F32.9] INVALID FOR* Status post above knee amputation of left lower*INVALID FOR* Phantom limb syndrome (HCC) [G54.7] INVALID FOR* Neuropathic pain [M79.2] INVALID FOR* Neuroma of amputation stump, left lower extremi*INVALID FOR* Atherosclerosis of other type of bypass graft(s*INVALID FOR* Atherosclerotic heart disease of [place] coronar*INVALID FOR* Benign hypertension [I10] INVALID FOR* Chronic obstructive pulmonary disease, unspecif*INVALID FOR* Chronic total occlusion of artery of the extrem*INVALID FOR* CAFL (chronic airflow limitation) (HCC) [J44.9] INVALID FOR* Crushing injury [T14.8XXA] INVALID FOR* Dyslipidemia [E78.5] INVALID FOR* Enlarged prostate without lower urinary tract s*INVALID FOR* Nicotine dependence, cigarettes, uncomplicated *INVALID FOR* Paresthesia of skin [R20.2] INVALID FOR* Personal history of other venous thrombosis and*INVALID FOR* Presence of aortocoronary bypass graft [Z95.1] INVALID FOR* Tobacco dependence syndrome [F17.200] INVALID FOR* Lower limb ischemia [I99.8] INVALID FOR* Premature atrial contractions [I49.1] INVALID FOR* Ischemia of extremity [I99.8] INVALID FOR* More... Disposition: Return in about 3 months (around 11/10/2017). 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 Our goal is to offer the best possible care to our patients, so we are concerned when you are unable to keep a scheduled appointment. Please call us at [phone] so that we can reschedule your appointment for a day and time that will work for you. If you find it difficult to keep your appointment, please notify our office at least 24 hours in advance so that we may reschedule your appointment. We are glad that you have chosen Card[facility] Thoracic [facility] for your cardiovascular needs and hope to continue serving you in the future. Sincerely, Genoveva Morillo WRAP TURNER-C (Signed electronically to expedite mailing) RE-EVALUATION - PT (1) Observed: 07/25/2017 Status: F Source: [place] 7:40 AM [facility] REPOSITORY [facility] Physical [facility] [address] [place], [place] [address] Fax REEVALUATION / MEDICARE RECERTIFICATION PHYSICAL THERAPY MR#: [id number] Acct: [id number] Name: TODD NAVA Rep #: [id number] : 1960 57 From: Chaka Hunt DPT, OCS, CSCS Referring Dr.: Vaibhav Sawyer MD Status: REG RCR Insurance: MEDICARE PART A B MEDICAID Vaibhav Sawyer, It has been my pleasure to treat TODD NAVA over the last 24 visits for L AKA neuroma. Please see the progress note below for an update on the physical therapy plan of care! Subjective: Had the flu for a week. Was not pretty. Did not get much of anything in. Walking at home with walk and without holding onto furniture. R calf has been painful most of the time and worse with walking. May have to have that amputated at some point. L phantom pain daily, stump is not bad. No exercises being done at home. No falls . Always feels like needs to have a hold of something at home to walk, doesn't trust legs. Wants more confidence with walker and R calf pain to get better. Objective/Function: Needs VC to ambulate with toe off on L to get prosthetic flexion, needs vc 33% of time...corrects immediately.Walks Mod I with walker but R leg tends to abd and cause wide BETO, can correct with VC. Makes same gait pattern without AD and is sBA for 200 feet today. Does 100 feet at a time limited by L calf pain and cramping. More safe without cane as he cannot use it in R hand due to dysfucntion there from previous injury. Able to ambulate ec, head turns but less stable and CGA needed. OVERALL, THE FLU HAS SET HIM BACK SOME. PT LACKS CONFIDENCE TO GET RID OF AD AND LEFT LEG ARTERIAL PROBLEMS LIMIT HIS DISTANCE. APPROPRIATE FOR CONTINUED PT FOR GAIT TRAINING. Plan Plan: 2x/week for 4 weeks... focus on narrow BETO confidence withotu AD and increasing distances as L leg pain allows. Focus on turns and cigar packer and picker object off floor and walkin and out of cones. Continue floor transfer. Goals Goal 1:: Tolerate FGA Goal Time Frame: 4-6 Weeks Goal Progress: NEW GOAL Goal 2:: Ambualte with Wh walker as main mobility method without pain. Goal Time Frame: 4-6 Weeks Goal Progress: Goal Met Goal 3:: Ambulate into and out of PT without AD with good gait pattern I. Goal Time Frame: 6-8 Weeks Goal Progress: Progressing Goal 4:: up and down 6 steps without rail I Goal Time Frame: 4-6 Weeks Goal Progress: Progressing Goal 5:: Wh walker and prosthesis at least 50% of mobility volume vs WC Goal Time Frame: 4-6 Weeks Goal Progress: Goal Met Goal 6:: Transfer off floor without chair support UE I easily Goal Time Frame: 4-6 Weeks Goal Progress: Progressing Anticipated Interventions Patient/Client Instruction: Educate patient on: Condition For the Purpose of:: To decrease pain, To improve ability of physical actions for home/community/work/leisure, To improve gait and locomotor functions Therapeutic Exercise to Include: Strength training, Balance training, Flexibilty training, Gait and locomotor training For the Purpose of:: To decrease pain, To improve ability of physical actions for home/community/work/leisure, To improve gait and locomotor functions Please do not hesitate to contact me at [phone] by phone or if you have questions or concerns regarding this new plan of care! Sincerely, Chaka Hunt, DPT, OC <Electronically signed by Chaka Hunt DPT, OCS, CSCS> 07/25/17 0740 CC: Vaibhav Sawyer MD EBG Signed For Medicare only, by signing this I certify the plan of care. Physicians Signature Date ALLERGIES ALLERGIES DATE TYPE / CODE NAME / CODE REACTION SEVERITY SOURCE 06/25/2018 Drug No Known Unknown [place] [facility] Allergy/416 Allergies/F0019 [facility] [id number](SNOM 92122(RXNORM) Repository ED CT) 11/18/2014 DRUG MORPHINE HIVES [facility] INGREDI/[address] [place] [id number](SNOM Repository ED CT) /[id number] MORPHINE [facility] 6([facility] CT) Repository ENCOUNTERS ENCOUNTERS ADMIT/DISCHARGE ACCOUNT NUMBER ADMITTING ENCOUNTER LOCATION SOURCE CLASS 07/01/2018/07/04/19 [id number] [place], Inpatient [place] [address] [place] Encounter [facility] ding:[facility] Repository : GCV838Vtu: 1 07/01/2018 [id number] [place], Ambulatory BMSBuilding: [place] BMS.[facility] Repository 07/01/2018 [id number] [place], Ambulatory BMSBuilding: [place] BMS.CF.[facility] Repository 07/01/2018 [id number] [place], Ambulatory BMSBuilding: [place] BMS.[facility] Repository 07/01/2018 [id number] [place], Ambulatory BMSBuilding: [place] BMS.CF.[facility] Repository 07/01/2018 [id number] [place], Ambulatory BMSBuilding: [place] BMS.[facility] Repository 07/01/2018 [id number] [place], Ambulatory BMSBuilding: [place] BMS.CF.[facility] Repository 07/01/2018 [id number] [place], Ambulatory BMSBuilding: [place] BMS.[facility] Repository 07/01/2018 [id number] [place], Ambulatory BMSBuilding: [place] BMS.CF.[facility] Repository 06/25/2018 [id number] Ambulatory [facility] ding:[facility] Repository 04/12/2018 [id number] Ambulatory [facility] ding:CT Repository 04/10/2018/04/11/20 [id number] Ambulatory [address] Repository 03/19/2018/03/19/20 [id number] Ambulatory [address] ding:SDCRoom Repository : AC04 03/11/2018/03/11/20 [id number] Ambulatory [address] Repository 03/09/2018/03/09/20 [id number] Emergency BBuilding:[address] Repository 03/06/2018 [id number] Ambulatory BMSBuilding: [place] BMS.CF.[facility] Repository 03/06/2018 [id number] Ambulatory [facility] ding:[facility] Repository 02/21/2018 [id number] Ambulatory BMSBuilding: [place] BMS.[facility] Repository 02/20/2018/02/21/20 [id number] Ambulatory BMSBuilding: [place] 18 BMS.[facility] [facility] 02/20/2018 [id number] Ambulatory BMSBuilding: [place] [facility]MS.[facility] Repository 02/19/2018 [id number] Ambulatory BMSBuilding: [place] BMS.[facility] Repository 02/06/2018 [id number] Ambulatory BMSBuilding: [place] BMS.[facility] Repository 01/23/2018/01/25/20 [id number] Ambulatory [address] Repository 01/19/2018/01/20/20 [id number] Ambulatory [address] Repository 01/19/2018/01/22/20 [id number] Ambulatory [address] Repository 12/19/2017/12/20/19 [id number] Ambulatory [address] ding:PT Repository 12/03/2017/12/04/19 [id number] Ambulatory BMSBuilding: [place] 18 BMS.[facility] Repository 11/13/2017 [id number] Ambulatory BMSBuilding: [place] BMS.[facility] Repository 11/02/2017/11/03/19 [id number] Ambulatory [address] Repository 11/01/2017/11/07/19 [id number] Ambulatory [address] Repository 10/08/2017/10/09/19 [id number] Ambulatory [address] Repository 10/08/2017/10/10/19 [id number] Ambulatory [address] Repository 09/25/2017/09/28/19 [id number] Ambulatory [address] Repository 09/23/2017/09/24/19 [id number] Emergency [address] ding:ED Repository 09/11/2017/09/12/19 [id number] Ambulatory [address] ding:PT Repository 09/10/2017/09/11/19 [id number] Emergency [address] ding:ED Repository 08/10/2017/08/14/19 [id number] Ambulatory [address] Repository 07/27/2017 [id number] Ambulatory [facility] MEDICAL Repository CENTERBuildi ng:AGVASACC PAYERS PAYERS ENCOUNTER GUARANTOR PAYER SUBSCRIBER SOURCE 07/01/2018 HANNAH L Primary HANNAH L [place] [id number] [place] Insurance:MEDICARE GARVERDOB: [place] [facility] [id number] Hospital [address]Pyq: (330) Number: Repository [id number] () [id number] Date:2018-07-01 07/01/2018 Secondary HANNAH L [place] Insurance:MEDICAIDPol GARVERDOB: [facility] ic Number: [id number] Hospital [id number] Repository Date:2018-07-01 07/01/2018 Tertiary NOT GIVENUNK [place] Insurance:SELF PAY [facility] Number: Effective Repository Date:2018-07-01 07/01/2018 HANNAH L Primary HANNAH L [place] [id number] [place] Insurance:MEDICAIDPol GARVERDOB: [place] icy Number: [id number] Hospital [address]Csz: 330) [id number] Repository [phone] () Date:2018-07-01 07/01/2018 Secondary HANNAH L [place] Insurance:MEDICARE GARVERDOB: [facility] [id number] Number: Repository [id number] Date:2018-07-01 07/01/2018 Tertiary NOT GIVENUNK [place] Insurance:SELF PAY [facility] Number: Effective Repository Date:2018-07-01 07/01/2018 HANNAH L Primary HANNAH L [place] [id number] [place] Insurance:MEDICAIDPol GARVERDOB: [place] icy Number: [id number] Hospital [address]Iak: 330 [id number] Repository [phone] () Date:2018-07-01 07/01/2018 Secondary HANNAH L [place] Insurance:MEDICARE GARVERDOB: [facility] [id number] Hospital Number: Repository [id number] Date:2018-07-01 07/01/2018 Tertiary NOT GIVENUNK [place] Insurance:SELF PAY [facility] Number: Effective Repository Date:2018-07-01 07/01/2018 HANNAH L Primary HANNAH L [place] [id number] [place] Insurance:MEDICARE GARVERDOB: [place] [facility] [id number] Hospital 39575Prm: (330) Number: Repository [phone] () [id number] Date:2018-07-01 07/01/2018 Secondary HANNAH L [place] Insurance:MEDICAIDPol GARVERDOB: [facility] ic Number: [id number] Hospital [id number] Repository Date:2018-07-01 07/01/2018 Tertiary NOT GIVENUNK [place] Insurance:SELF PAY [facility] Number: Effective Repository Date:2018-07-01 07/01/2018 HANNAH L Primary HANNAH L [place] [id number] [place] Insurance:MEDICARE GARVERDOB: [place] [facility] [id number] Hospital 00339Xwk: (330) Number: Repository [phone] () [id number] Date:2018-07-01 07/01/2018 Secondary HANNAH L [place] Insurance:MEDICAIDPol GARVERDOB: [facility] icy Number: [id number] Hospital [id number] Repository Date:2018-07-01 07/01/2018 Tertiary NOT GIVENUNK [place] Insurance:SELF PAY [facility] Number: Effective Repository Date:2018-07-01 07/01/2018 HANNAH L Primary HANNAH L [place] [id number] [place] Insurance:MEDICARE GARVERDOB: [place] [facility] [id number] Hospital 9[address]89Cqn: (330) Number: Repository [phone] () [id number] Date:2018-07-01 07/01/2018 Secondary HANNAH L [place] Insurance:MEDICAIDPol GARVERDOB: [facility] icy Number: [id number] Hospital [id number] Repository Date:2018-07-01 07/01/2018 Tertiary NOT GIVENUNK [place] Insurance:SELF PAY [facility] Number: Effective Repository Date:2018-07-01 07/01/2018 HANNAH L Primary HANNAH L [place] [id number] [place] Insurance:MEDICARE GARVERDOB: [place] [facility] [id number] Hospital 81769Ktn: (330) Number: Repository [phone] () [id number] Date:2018-07-01 07/01/2018 Secondary HANNAH L [place] Insurance:MEDICAIDPol GARVERDOB: [facility] ic Number: [id number] Hospital [id number] Repository Date:2018-07-01 07/01/2018 Tertiary NOT GIVENUNK [place] Insurance:SELF PAY [facility] Number: Effective Repository Date:2018-07-01 07/01/2018 HANNAH L Primary HANNAH L [place] [id number] [place] Insurance:MEDICARE GARVERDOB: [place] [facility] [id number] Hospital [address]24Fym: (330) Number: Repository [phone] () [id number] Date:2018-07-01 07/01/2018 Secondary HANNAH L [place] Insurance:MEDICAIDPol GARVERDOB: [facility] Number: [id number] Hospital [id number] Repository Date:2018-07-01 07/01/2018 Tertiary NOT GIVENUNK [place] Insurance:SELF PAY [facility] Number: Effective Repository Date:2018-07-01 07/01/2018 HANNAH L Primary HANNAH L [place] [id number] [place] Insurance:MEDICARE GARVERDOB: [place] [facility] [id number] Hospital 49499Sse: (330) Number: Repository [phone] () [id number] Date:2018-07-01 07/01/2018 Secondary HANNAH L [place] Insurance:MEDICAIDPol GARVERDOB: [facility] icy Number: [id number] Hospital [id number] Repository Date:2018-07-01 07/01/2018 Tertiary NOT GIVENUNK [place] Insurance:SELF PAY [facility] Number: Effective Repository Date:2018-07-01 06/25/2018 HANNAH L Primary HANNAH L [place] [id number] EGRRI Insurance:MEDICARE GARVERDOB: [place] [facility] [id number] Hospital 56515Yke: (330) Number: Repository [phone] () [id number] Date:2018-05-15 06/25/2018 Secondary NOT GIVENUNK [place] Insurance:SELF PAY [facility] Number: Effective Repository Date:2018-05-15 04/12/2018 HANNAH L Primary HANNAH L [place] [id number] [place] Insurance:MEDICARE GARVERDOB: [place] [facility] [id number] Hospital 58822Osb: (330) Number: Repository [phone] () [id number] Date:2018-04-08 04/12/2018 Secondary HANNAH L [place] Insurance:MEDICAIDPol GARVERDOB: [facility] Number: [id number] Hospital [id number] Repository Date:2018-04-08 04/12/2018 Tertiary NOT GIVENUNK [place] Insurance:SELF PAY [facility] Number: Effective Repository Date:2018-04-08 03/19/2018 HANNAH L Primary HANNAH L [place] [id number] [place] Insurance:MEDICARE G[place]DOB: [place] [facility] [id number] Hospital 38476Ovn: (330) Number: Repository [phone] () [id number] Date:2018-01-24 03/19/2018 Secondary HANNAH L [place] Insurance:MEDICAIDPol GARVERDOB: [facility] ic Number: [id number] Hospital [id number] Repository Date:2018-01-24 03/19/2018 Tertiary NOT GIVENUNK [place] Insurance:SELF PAY [facility] Number: Effective Repository Date:2018-01-24 03/09/2018 HANNAH L Primary HANNAH L [facility] GARVERDOB: Insurance:MEDICARE GARVERDOB: [facility] [id number] [facility] Number: [id number] Repository [facility] [facility], [id number] [place], [place] [address]Iyp: Date:2018-03-09 [place] [address]Hlx: [id number] () Name:[facility]ER[facility]serrat ()Tel: (162) Administrators LLCTB [phone] () [address] [place] [address]CF: 03/06/2018 HANNAH L Primary HANNAH L [place] [id number] [place] Insurance:MEDICARE GARVERDOB: [place] [facility] [id number] Hospital [address]Yql: 330) Number: Repository [phone] () [id number] Date:2018-02-20 03/06/2018 Secondary HANNAH L [place] Insurance:MEDICAIDPol GARVERDOB: [facility] ic Number: [id number] Hospital [id number] Repository Date:2018-02-20 03/06/2018 Tertiary NOT GIVENUNK [place] Insurance:SELF PAY [facility] Number: Effective Repository Date:2018-03-06 03/06/2018 HANNAH L Primary HANNAH L [place] [id number] [place] Insurance:MEDICARE GARVERDOB: [place] [facility] [id number] Hospital [address]41Rge: (330) Number: Repository [phone] () [id number] Date:2018-02-20 03/06/2018 Secondary HANNAH L [place] Insurance:MEDICAIDPol GARVERDOB: [facility] ic Number: [id number] Hospital [id number] Repository Date:2018-02-20 03/06/2018 Tertiary NOT GIVENUNK [place] Insurance:SELF PAY [facility] Number: Effective Repository Date:2018-02-20 02/21/2018 TODD L Primary TODD L [place] [id number] [place] Insurance:MEDICARE GAR[place]DOB: [place] [facility] [id number] Hospital 448[address]Usy: (330) Number: Repository [phone] () [id number] Date:2018-02-01 02/21/2018 Secondary TODD L [place] Insurance:MEDICAIDPol GARVERDOB: [facility] icy Number: [id number] Hospital [id number] Repository Date:2018-02-01 02/21/2018 Tertiary NOT GIVENUNK [place] Insurance:SELF PAY [facility] Number: Effective Repository Date:2018-02-01 02/20/2018 HANNAH L Primary HANNAH L [place] [id number] [place] Insurance:MEDICARE GARVERDOB: [place] [facility] [id number] [id number]: (330) Number: Repository [phone] () [id number] Date:2018-02-01 02/20/2018 Secondary HANNAH L [place] Insurance:MEDICAIDPol GARVERDOB: [facility] ic Number: [id number] Hospital [id number] Repository Date:2018-02-01 02/20/2018 Tertiary NOT GIVENUNK [place] Insurance:SELF PAY [facility] Number: Effective Repository Date:2018-02-20 02/20/2018 TODD L Primary NOT GIVENUNK [place] [id number] [place] Insurance:SELF PAY [facility] [address]Nay: (330) Number: Effective Repository [phone] () Date:2018-02-20 02/19/2018 TODD L Primary NOT GIVENUNK [place] [id number] [place] Insurance:SELF PAY [facility] 70714Mpw: (330) Number: Effective Repository [phone] () Date:2018-02-19 02/06/2018 TODD L Primary TODD L [place] [id number] [place] Insurance:MEDICARE GARVERDOB: [place] [facility] [id number] Ville [id number]: (330) Number: Repository [phone] () [id number] Date:2018-01-30 02/06/2018 Secondary TODD L [place] Insurance:MEDICAIDPol GARVERDOB: [facility] icy Number: [id number] Hospital [id number] Repository Date:2018-01-30 02/06/2018 Tertiary NOT GIVENUNK [place] Insurance:SELF PAY [facility] Number: Effective Repository Date:2018-01-30 12/19/2017 TODD L Primary TODD L [place] [id number] [place] Insurance:MEDICARE GARVERDOB: [place] [facility] [id number] Hospital 16662Nha: (330) Number: Repository [phone] () [id number] Date:1999-11-10 12/19/2017 Secondary TODD L [place] Insurance:MEDICAIDPol GARVERDOB: [facility] icy Number: [id number] Hospital [id number] Repository Date:2017-09-09 12/19/2017 Tertiary NOT GIVENUNK [place] Insurance:SELF PAY [facility] Number: Effective Repository Date:2017-09-14 12/03/2017 TODD L Primary TODD L [place] [id number] [place] Insurance:MEDICARE GARVERDOB: [place] [facility] [id number] Hospital 42991Zyb: (330) Number: Repository [phone] () [id number] Date:2017-11-23 12/03/2017 Secondary TODD L [place] Insurance:MEDICAIDPol GARVERDOB: [facility] icy Number: [id number] Hospital [id number] Repository Date:2017-11-23 12/03/2017 Tertiary NOT GIVENUNK [place] Insurance:SELF PAY [facility] Number: Effective Repository Date:2017-12-03 11/13/2017 TODD L Primary TODD L [place] [id number] [place] Insurance:MEDICARE GARVERDOB: [place] [facility] [id number] Hospital [address]76[address]Kew: (330) Number: Repository [phone] () [id number] Date:2017-11-01 11/13/2017 Secondary TODD L [place] Insurance:MEDICAIDPol GARVERDOB: [facility] icy Number: [id number] Hospital [id number] Repository Date:2017-11-01 11/13/2017 Tertiary NOT GIVENUNK [place] Insurance:SELF PAY [facility] Number: Effective Repository Date:2017-11-02 09/23/2017 TODD L Primary TODD L [place] [id number] [place] Insurance:MEDICARE GARVERDOB: [place] [facility] [id number] Hospital 568[address]Owa: (330) Number: Repository [phone] () [id number] Date:2017-09-23 09/23/2017 Secondary TODD L [place] Insurance:MEDICAIDPol GARVERDOB: [facility] Number: [id number] Hospital [id number] Repository Date:2017-09-23 09/23/2017 Tertiary NOT GIVENUNK [place] Insurance:SELF PAY [facility] Number: Effective Repository Date:2017-09-23 09/11/2017 TODD L Primary TODD L [place] [id number] [place] Insurance:MEDICARE GARVERDOB: [place] [facility] [id number] Hospital 019[address]Iwm: (330) Number: Repository [phone] () [id number] Date:1999-11-10 09/11/2017 Secondary TODD L [place] Insurance:MEDICAIDPol GARVERDOB: [facility] Number: [id number] Hospital [id number] Repository Date:2017-03-11 09/11/2017 Tertiary NOT GIVENUNK [place] Insurance:SELF PAY [facility] Number: Effective Repository Date:2017-03-26 09/10/2017 TODD L Primary TODD L [place] [id number] [place] Insurance:MEDICARE GARVERDOB: [place] [facility] [id number] Hospital 82067Lwm: (330) Number: Repository [phone] () [id number] Date:2017-09-10 09/10/2017 Secondary TODD L [place] Insurance:MEDICAIDPol GARVERDOB: [facility] Number: [id number] Hospital [id number] Repository Date:2017-09-10 09/10/2017 Tertiary NOT GIVENUNK [place] Insurance:SELF PAY [facility] Number: Effective Repository Date:2017-09-10 07/27/2017 TODD Lomeli Primary TODD [facility] GARVERDOB: Insurance:[facility]IC[facility] [id number] AND BPolicy Number: [id number] Repository [place], [id number] [place] [address]Hvn: Date: () 07/27/2017 Secondary TODD [facility] Insurance:[facility] MEDICAIDPolicy [id number] Repository Number: [id number] Date:
== END 2018-07-04 12:55 | disposition home or self-care (01) | DRG 871 ==
LOC: ED 11:28 → PCU 14:06 → ICU 14:14 → PCU 07-03 09:54
PROVIDERS: Admitting Provider Hospitalist; Emergency Provider Emergency Medicine; Family Provider Family Medicine; PCP Family Medicine; Visit Provider Student in an Organized Health Care Education/Training Program
DX: A40.3 Sepsis due to Streptococcus pneumoniae (principal); J13 Pneumonia due to Streptococcus pneumoniae; R65.20 Severe sepsis without septic shock; E87.2 Acidosis; I25.10 Atherosclerotic heart disease of native coronary artery without angina pectoris; Z89.612 Acquired absence of left leg above knee; E78.5 Hyperlipidemia, unspecified; I73.9 Peripheral vascular disease, unspecified; Z95.1 Presence of aortocoronary bypass graft; F17.210 Nicotine dependence, cigarettes, uncomplicated; E87.6 Hypokalemia; I10 Essential (primary) hypertension; I65.23 Occlusion and stenosis of bilateral carotid arteries
CPT/HCPCS: 36415; 71046; 80048; 81001; 83605; 85025; 85610; 87040; 87070; 87077; 87086; 87088; 87186; 87205; 93005; 94640; 94667; 94668; 97162; 97165; 97530; 99285; 99406; J7030; J7050; A4216

== ENCOUNTER → 2018-07-30 09:09 | Outpatient (CLI) | payer MEDICARE, SELFPAY ==
[2018-07-01 15:00] VITALS: BMI 20.4
== END ==
PROVIDERS: Family Provider Family Medicine; PCP Family Medicine; Referring Provider Otolaryngology; Visit Provider Otolaryngology
DX: Z53.9 Procedure and treatment not carried out, unspecified reason (principal)

== ENCOUNTER 2018-08-29 18:32 | Emergency (ER) | payer MEDICARE, MEDICAID, SELFPAY ==
[2018-08-29 18:32] VITALS: BMI 21.7
[2018-08-29 18:34] VITALS: BP 153/76; PULSE 66; RESP 15; TEMP 36.8; O2SAT 98; BMI 19.8
[2018-08-29] MEDS: Acetaminophen 500 MG Tablet 1000 MG PO (19:08)
[2018-08-29] MEDS: BACITRACIN 15 GM Tube 1 APPLIC TOPICAL (19:08)
--- NOTE | 2018-08-29 19:20 | RAD_ITS ---
STUDY: X-RAY CHEST REASON FOR EXAM: Male, 58 years old. Cough, shortness of breath. TECHNIQUE: PA and lateral views of the chest. COMPARISON: Upright AP and lateral chest x-ray on 3 films July 01, 2018. FINDINGS: There is hyperinflation of the lungs, suggesting obstructive lung disease. No acute infiltrate. The left base density and pleural reaction seen on prior study have cleared. Normal size heart. Sternal cerclage wires and vascular clips are present from a prior sternotomy and coronary artery bypass graft procedure (CABG). Normal mediastinum and jefry. Normal visualized pulmonary arteries. There is stable atherosclerotic calcification of the aortic arch. There are stable degenerative changes of the visualized thoracic spine. 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 There is no demonstrated abnormality of the visualized soft tissue structures of the upper abdomen. RAD/Chest PA and Lateral IMPRESSION: 1. Prior median sternotomy and CABG. Heart size and pulmonary vascular pattern are normal. 2. Hyperexpanded, suggesting obstructive pulmonary disease. The left base infiltrate and pleural effusion seen on prior study have cleared. No new infiltrate. Electronically Signed: Real Cha MD at 19:55 EDT , Service support ,
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
[2018-08-29 19:59] VITALS: PULSE 62; RESP 18; O2SAT 99
== END 2018-08-29 20:02 | disposition home or self-care (01) ==
LOC: ED 19:05
PROVIDERS: Emergency Provider Emergency Medicine; Family Provider Family Medicine; PCP Family Medicine
DX: T20.24XA Burn of second degree of nose (septum), initial encounter (principal); T20.26XA Burn of second degree of forehead and cheek, initial encounter; T20.22XA Burn of second degree of lip(s), initial encounter; X08.8XXA Exposure to other specified smoke, fire and flames, initial encounter; Z99.81 Dependence on supplemental oxygen; J44.9 Chronic obstructive pulmonary disease, unspecified; F17.210 Nicotine dependence, cigarettes, uncomplicated; Y93.89 Activity, other specified; Y92.009 Unspecified place in unspecified non-institutional (private) residence as the place of occurrence of the external cause; Y99.8 Other external cause status
CPT/HCPCS: 71046; 99283

== ENCOUNTER → 2018-12-02 | Outpatient (CLI) | payer MEDICARE, MEDICAID, SELFPAY ==
--- NOTE | 2018-12-02 14:16 | ART_ITS ---
Reason For Study: Claudication Procedure A bilateral lower extremity continuous wave Doppler with analog waveform analysis,segmental pressures,and ankle brachial indexes without exercise. Left Segmental Pressures Left brachial= 159mmHg. Right Segmental Pressures Right brachial= 158mmHg. Right thigh = 113mmHg. Right calf = 85mmHg. Right posterior tibial artery = 63mmHg. Right dorsalis pedis artery = 80mmHg. Right digit = 28 mmHg. The right dorsalis pedis waveforms are monophasic. The right posterior tibial artery waveforms are monophasic. Indices The right ankle brachial index by the dorsalis pedis is 0.50. The right ankle brachial index by the posterior tibial artery is 0.40. The right digital-brachial index is 0.18. Interpretation Summary Findings suggest occlusion of right lower extremity bypass graft with findings well within the range of vascular claudication bordering upon rest pain. Severely abnormal digitial index consistent with severe disease. Findings have deteriorated since 05/07/12. Ordering Physician: Jose Carlos Sandoval Referring Physician: MD Silverio Marco Performed By: Azalea Jiménez RVT
== END | disposition home or self-care (01) ==
LOC: CVS 13:43
PROVIDERS: Family Provider Family Medicine; PCP Family Medicine; Referring Provider Surgery; Visit Provider Surgery
DX: I73.9 Peripheral vascular disease, unspecified (principal)
CPT/HCPCS: 93923

== ENCOUNTER 2018-12-14 11:04 | Emergency (ER) | payer MEDICARE, MEDICAID, SELFPAY ==
[2018-12-14 10:24] VITALS: BMI 19.8
[2018-12-14 11:05] VITALS: BP 147/66; PULSE 76; RESP 18; TEMP 36.1; O2SAT 98; BMI 20.2
--- NOTE | 2018-12-14 11:56 | CT_ITS ---
STUDY: CT ABDOMEN AND PELVIS WITH CONTRAST REASON FOR EXAM: Male, 58 years old. Abdominal pain for 3 weeks RADIATION DOSAGE (If Supplied By Facility): CTDIvol = ( 12.75 ) mGy, DLP = ( 936.92 ) mGycm TECHNIQUE: Transaxial images were obtained from the dome of the diaphragm to the symphysis pubis without oral contrast. 100 IV Isovue 300 was administered. Sagittal and coronal images were reconstructed. Individualized dose optimization techniques were used for this CT. COMPARISON: 09/04/2014, incomplete dataset FINDINGS: The visualized lung bases are unremarkable. The visualized portions of the heart are within normal limits. Normal liver. Normal gallbladder and extrahepatic biliary system. Normal spleen. Normal pancreas. Normal bilateral adrenal glands. Normal right kidney. Nonobstructing calculi at the posterior left kidney stable. Normal visualized stomach. Fluid-filled small bowel but no bowel wall thickening or dilation identified. Moderate fecal retention of the right colon extending to the splenic flexure. The appendix is visualized and appears normal. Extensive atherosclerosis of the abdominal aorta, and iliofemoral arteries. Bilateral iliac artery stents are identified. There is a right femoral bypass graft. There appears to be occluded stent in the right superficial femoral artery, unchanged. The inferior mesenteric artery appears to be occluded. Calcific atherosclerosis at the origin of the celiac axis and mesenteric artery with moderate length stenosis involving the superior mesenteric artery (severe). There is moderate stenosis of the celiac axis. Degree of stenosis appears to be worse since the prior CTA. Left femoral bypass graft appears to be occluded, new since the prior study. Normal inferior vena cava. Normal retroperitoneum. Normal urinary bladder. Normal abdominal wall. There are diffuse degenerative changes of the visualized lumbar spine. CT/Abdomen/Pelvis W IV Cont ONLY IMPRESSION: 1. Fluid filled mid to distal bowel suggestive of diarrheal disease/enteritis. No evidence of obstruction. 2. 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 BLAISE is occluded. Recommend correlation with clinical history and exam for possibility of chronic mesenteric ischemia. 3. Left femoral bypass graft appears to be occluded, new since the prior study, incompletely imaged. 4. Additional stable chronic changes, as above. Electronically Signed: Macario Porras MD at 13:17 EDT , Service support ,
[2018-12-14] MEDS: 0.9% Normal Saline 1,000 ML 1000 ML IV (12:02)
[2018-12-14 12:04] LABS: Absolute Lymphocyte Count 1.67 X10^3/ul (0.83-4.51); Absolute Neutrophil Count 11.2 X10^3/uL (2.0-7.7); Basophil# 0.01 X10^3/uL; Basophil% 0.1 % (0-1); Eosinophil# 0.04 X10^3/uL; Eosinophils% 0.3 % (0-5); Hematocrit 42.7 % (40-54); Hemoglobin 14.5 g/dl (13.0-16.5); Lymphocyte # 1.67 X10^3/ul (4.0); Mean Corpuscular Hgb 31.3 pg (27.0-32.0); Mean Platelet Vol. 11.1 fl (6.2-12.0); Monocyte# 0.99 X10^3/uL; Monocyte% 7.1 % (0-10); Neutrophil # 11.15 X10^3/uL (2.7-7.7); Neutrophil % 80.2 % (47-70); Platelet Count 157 K/mm3 (150-450); RBC Distribution Width CV 14.1 % (11.6-14.6); RBC Distribution Width SD 46.5 fl (35.1-43.9); Red Blood Count 4.64 M/mm3 (4.6-6.2); White Blood Count 13.9 K/mm3 (4.4-11.0)
[2018-12-14 12:09] LABS: POSITIVE COUNT NO; POSITIVE DIFFERENTIAL NO; POSITIVE MORPHOLOGY NO
[2018-12-14 12:19] LABS: ALB/GLOB Ratio 0.9 RATIO (0.9-2.4); AST(SGOT) 17 U/L (15-37); Alanine Aminotransfer ALT/SGPT 12 U/L (16-61); Albumin, Serum 3.3 g/dL (3.2-5.0); Alkaline Phosphatase 88 U/L (45-117); Anion Gap 3 (5-15); BUN 9 mg/dL (7-18); BUN/Creat Ratio 13.9 RATIO (10-20); Calcium,Total 8.4 mg/dL (8.5-10.1); Chloride 109 mmol/L (98-107); Creatinine, Serum 0.65 mg/dL (0.70-1.30); EST Glomerular Filtration Rate 134 mL/min (>60); Est Glom Filt Rate - Afr Amer 162 mL/min (>60); Estimated Creatinine Clearance 106.32 ml/min; Globulin 3.8 g/dL (2.2-4.2); Glucose 142 mg/dL (74-106); Lipase 345 U/L (73-393); Potassium 4.3 mmol/L (3.5-5.1); Protein, Total 7.1 g/dL (6.4-8.2); Sodium Level 139 mmol/L (136-145)
--- NOTE | 2018-12-14 12:21 | ED.DCSUM_ITS ---
History of Present Illness Chief Complaint: Abd Pain Informant: Patient Onset: Weeks Narrative: Patient presents to the ED with reports that he has been experiencing generalized abdominal pain for the last 3 weeks. He localizes the pain most to the left lower quadrant and states it wraps around to his left lumbar region. He does report associated diarrhea. He has approximately 4-5 episodes of diarrhea daily. He states this is alleviated when he does not eat as much. He denies any nausea, vomiting, fever, or chills. He did see his general surgeon today, Dr. Sandoval, who evaluated the patient and offered either outpatient laboratory studies and scan versus referral to the emergency department. Patient elected to be seen in the emergency department. Patient was seen by his PCP 1.5 weeks ago for the symptoms and prescribed Bentyl. He states that this does alleviate his symptoms. He does have a history of end-stage vascular disease. Past Medical History - Allergies and Home Meds Allergies/Adverse Reactions: Allergies No Known Allergies Allergy (Verified 12/14/18 11:05) Primary Care Physician: Marco Sawyer MD [Primary Care Provider] - Jose Carlos Sandoval MD [STAFF PHYSICIAN] - Surgical History: coronary bypass surgery, - - Left above-knee amputation. Smoking Status: Current every day smoker - Family History Maternal Family History: Family History (Last Reviewed 12/14/18 @ 10:20 by Joanie Pond) Mother Breast cancer Family History: Reports: Cancer Paternal Family History: Family History (Last Reviewed 12/14/18 @ 10:20 by Joanie Pond) Mother Breast cancer Family History: Reports: No pertinent history Review of Systems General: Denies: Chills, Fever, Sweats Eyes: Denies: Visual changes - bilaterally, Diplopia ENT: Denies: Rhinorrhea, Sore throat Cardiovascular: Denies: Chest pain, Palpitations Respiratory: Denies: Dyspnea, Cough, Dyspnea on exertion Gastrointestinal: Reports: Abdominal pain, Nausea, Vomiting, Diarrhea. Denies: Melena, Hematochezia Genitourinary: Denies: Dysuria, Hematuria, Frequency Musculoskeletal: Denies: Back pain, Extremity Pain Skin: Denies: Rash, Wounds Neurological: Denies: Headache, Weakness, Numbness Physical Exam Vital Signs/Narrative: Vital Signs Temp Pulse Resp BP Pulse Ox 12/14/18 11:05 97.0 F L 76 18 147/66 H 98 General: Well nourished, Well developed, No Acute Distress Head: Normocephalic, Atraumatic Eyes: Perrl, EOMI ENT: Moist mucous membranes, No rhinorrhea Neck: Supple, Nontender Cardiovascular: Regular rate, Regular rhythm, No murmurs Respiratory: No distress, CTA bilaterally, Chest nontender Abdomen: Soft, Nondistended, Normal bowel sounds, Tender - Left lower quadrant. Negative for: Guarding, Rebound tenderness, Rovsig's sign, Cunningham's sign Back: Nontender, Normal Inspection Extremities: Nontender, No edema Skin: Normal color, No rash Neurological: Alert, Oriented x3, Cranial nerves II-XII grossly intact, Normal Strength, Normal Sensation Psychological: Normal affect, Normal Mood Diagnostic/Tx/Re-eval - Medical Decision Making Patient presents to the ED with a 3-week history of abdominal pain and diarrhea. This morning, he saw his general surgeon, Dr. Sandoval who offered either out patient testing referral to the ED. Patient elected to be seen in the emergency department. Upon arrival, he appears well nontoxic. His abdomen is very soft and nontender. He was given a liter of IV fluids. CBC indicates a leukocytosis of 13.9 but is otherwise unremarkable. CMP and lipase are unremarkable. CT abdomen/pelvis with IV contrast indicates Fluid filled mid to distal bowel suggestive of diarrheal disease/enteritis. 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 BLAISE is occluded. Recommend correlation with clinical history and exam for possibility of chronic mesenteric ischemia. Left femoral bypass graft appears to be occluded, new since the prior study, incompletely imaged. I did discuss the patient's case with on-call general surgeon, Dr. Mariscal who evaluated the patient in the emergency department. He feels patient can contact Dr. Sandoavl on Sunday. He feels patient is going to require referral to a tertiary facility. Patient will continue his Bentyl at home as needed. He was educated on signs/symptoms to return to the ED. He is provided discharge instructions. He was agreeable to plan. ED Disposition - Plan for ED Patient: Disposition: Home or Assisted Living Diagnosis: Chronic mesenteric ischemia Instructions: ABDOMINAL PAIN, Unkown Cause, (Male) Referrals: Marco Sawyer MD [Primary Care Provider] - Jose Carlos Sandoval MD [STAFF PHYSICIAN] - Additional Instructions: Contact Dr. Sandoval's office first thing on Sunday!
--- NOTE | 2018-12-14 14:06 | NURSING ---
DR ANGULO PAGED
[2018-12-14] MEDS: Morphine 4 MG/ML Syringe IV (14:07)
[2018-12-14 14:09] VITALS: PULSE 80; RESP 16
[2018-12-14 14:49] VITALS: BP 162/66; PULSE 63; RESP 16
--- NOTE | 2018-12-14 14:54 | PCM.PN.SRG ---
Subjective: HANNAH NAVA, is a 58 M who presents to Dr. Sandoval's office today for surgical opinion regarding abdominal pain. Patient states that he has not seen any other care provider regarding this problem. He states that he contacted Dr. Sawyer's office but by patient report was told that he was on vacation. It is not clear to me as to what kind of information the patient may have provided. The patient states that for 3 weeks he has had a low left mid abdominal achy pain that radiates to the mid abdomen. He sometimes has had diarrhea. His appetite is been decreased. Says that he is been slightly diaphoretic. He feels slightly better because he was able to force a bowel movement this morning. He does not recall when he had previous colonoscopy. He denies history of colon polyps or colon cancer. States he has not had any previous surgery on his abdomen. He has been a lifelong cigarette smoker. He has had extensive bilateral lower extremity peripheral vascular occlusive disease. He has had remote vein bypass procedures which eventually failed. He then had PTFE. He then had arm vein inserted on the left. He then had failure and gangrene requiring amputation. His most recent findings suggest that his long-term patent right femoropopliteal vein bypass has occluded. He has ongoing ischemic issues on the right for which she is been referred to tertiary center. In the emergency department a CT scan of his abdomen and pelvis was obtained pertinent findings showed: IMPRESSION: 1. Fluid filled mid to distal bowel suggestive of diarrheal disease/enteritis. No evidence of obstruction. 2. Worsening stenosis of the superior mesenteric artery since 2015. Moderate stenosis of the celiac axis stable. BLAISE is occluded. Recommend correlation with clinical history and exam for possibility of chronic mesenteric ischemia. 3. Left femoral bypass graft appears to be occluded, new since the prior study, incompletely imaged. 4. Additional stable chronic changes, as above. At the present time when I came to evaluate him he was not complaining of any abdominal pain. Objective: Abdomen is soft nontender nondistended normal active bowel sounds no rebound guarding or peritoneal signs are identified. - Physical Exam Vital Signs Temp Pulse Resp BP Pulse Ox 97.0 F L 63 16 162/66 H 98 12/14/18 11:05 12/14/18 14:49 12/14/18 14:49 12/14/18 14:49 12/14/18 11:05 Oxygen Delivery Method Room Air Weight: 137 lb 2.04 oz Body Mass Index (BMI) 20.2 Laboratory Tests Past 24 Hrs 12/14/18 12/14/18 11:50 11:50 WBC 13.9 H RBC 4.64 Hgb 14.5 Hct 42.7 MCV 92.0 MCH 31.3 MCHC 34.0 RDW 14.1 RDW Differential 46.5 H Plt Count 157 MPV 11.1 Immature Gran % (Auto) 0.300 Neut % (Auto) 80.2 H Lymph % (Auto) 12.0 L [place] % (Auto) 7.1 Eos % (Auto) 0.3 Baso % (Auto) 0.1 Absolute Neuts (auto) 11.2 H Absolute Lymphs (auto) 1.67 Total Counted Not Reportable Sodium 139 Potassium 4.3 Chloride 109 H Carbon Dioxide 27.0 Anion Gap 3 L BUN 9 Creatinine 0.65 L Estim Creat Clear Calc 106.32 Est GFR (MDRD) Af Amer 162 Est GFR (MDRD) Non-Af 134 BUN/Creatinine Ratio 13.9 Glucose 142 H Calcium 8.4 L Total Bilirubin 0.30 AST 17 ALT 12 L Alkaline Phosphatase 88 Total Protein 7.1 Albumin 3.3 Globulin 3.8 Albumin/Globulin Ratio 0.9 Lipase 345 Medical Necessity - Tobacco Use Smoking Status: Current every day smoker Assessment/Plan All Active Problems (Last Reviewed 12/14/18 @ 10:20 by Joanie Pond) Abdominal pain (Acute) I believe this patient is safe to be discharged home. He will follow back up in the office to find out when he will have a referral to a tertiary center. This appears to be worsening of old chronic vascular disease. I have called Dr. Sandoval and have discussed the case with him and he is in agreement.
== END 2018-12-14 14:50 | disposition home or self-care (01) ==
PROVIDERS: Emergency Provider Physician Assistant; Family Provider Family Medicine; PCP Family Medicine
DX: K55.1 Chronic vascular disorders of intestine (principal); F17.200 Nicotine dependence, unspecified, uncomplicated
CPT/HCPCS: 74177; 80053; 83690; 85025; 96361; 96374; 99285; J7030; Q9967; A4216

== ENCOUNTER 2018-12-20 20:00 | Emergency (ER) | payer MEDICARE, MEDICAID, SELFPAY ==
[2018-12-20 20:02] VITALS: BP 141/68; PULSE 79; RESP 20; TEMP 36.7; O2SAT 96; BMI 20.5
--- NOTE | 2018-12-20 21:33 | ED.RN ---
+pedal pulse in right foot. left leg is amputated above knee.
--- NOTE | 2018-12-20 21:34 | ED.VISSUMM ---
- ER Visit Summary Date of Service: 12/20/18 Chief Complaint: Acute on chronic claudication of right lower extremity. History of Present Illness: The patient is a 58 M. Of prior arterial clot causing the left above the knee amputation. He has known peripheral arterial disease. He arterial study done earlier this week showing worsening disease in his right leg. He has also known coronary disease with a prior quadruple bypass. And he currently is on Eliquis. He sees Dr. Jose Carlos Sandoval for his vascular disease. Patient states he is having worsening symptoms with exertion and ambulation that causes him pain in his leg that sounds like claudication pain at times numbness. Currently symptom-free. He denies any chest pain, abdominal pain or shortness of breath currently. He also has a known history of mesenteric ischemia. Physical Examination: Well-appearing older male. Vital signs stable afebrile. He does look septic or toxic. He is in no distress. Currently he is not having symptoms nor is he having leg pain. HEENT exam poor dentition otherwise unremarkable. Smells smoke. Neck nontender. Lungs clear to auscultation. Heart regular rhythm no murmur. Abdomen soft nontender. No peritoneal signs. Nondistended. No signs of obstruction. Extremities moves all 4. He has an [id number]-[id number] amputation on the left. He has a prosthesis on the left. His right leg he has a palpable femoral pulse. He has no calf tenderness or edema. His right foot is neurovascular intact with motor strength, sensation and range of motion. His right foot is warm to touch. And he does have cap refill. I had the nurse Doppler and he has a dopplerable right dorsalis pedis pulse. Neurologically he is awake and alert. Test Results: Recent labs are reviewed. I also reviewed his recent vascular study from the last week. Emergency Department Course and Treatment: The patient currently has a pulse and no symptoms. He has appointment to see vascular surgeons at the [facility] January 10. I did explain to him he had to quit smoking. Continue his Eliquis. Not do heavy exertion. And follow-up with Dr. Navarro to see if they can work to get his [facility] vascular surgery appointment moved up. I have no doubt this patient has significant disease but he does not have an acute ischemic leg at this time that he would need transfer. He wants me to transferring to [facility] which I explained to him he does not need emergent surgery. Treatment Plan: Discharge to home. Continue his Eliquis. No heavy exertion. Follow-up with the [facility] to get his appointment moved up more recently than the scheduled January 10 day. Disposition: Discharge Impression: Acute on chronic right lower extremity claudication. History of peripheral arterial disease. Tobacco abuse. This note was generated with [employer] dictation software. It may contain incorrect words, spelling, and punctuation that were not noted in review of the chart prior to signing ED Disposition - Plan for ED Patient: Referrals: Marco Sawyer MD [Primary Care Provider] -
--- NOTE | 2018-12-20 21:38 | ED.DEP ---
ED Disposition - Plan for ED Patient: Disposition: Home or Assisted Living Diagnosis: Peripheral vascular occlusive disease Instructions: Smoking and Peripheral Arterial Disease (PAD) Referrals: Jose Carlos Sandoval MD [STAFF PHYSICIAN] - As soon as possible Additional Instructions: Follow-up with Dr. Jose Carlos Sandoval see if you and him can work to get your vascular surgery appointment the [facility] moved up from January 10 to something much sooner. Continue your Eliquis. No heavy exertion because that would just make the claudication and pain in your leg and circulation problem worse. Stop smoking.
== END 2018-12-20 21:52 | disposition home or self-care (01) ==
PROVIDERS: Emergency Provider Emergency Medicine; Family Provider Family Medicine; PCP Family Medicine
DX: I73.9 Peripheral vascular disease, unspecified (principal); I25.10 Atherosclerotic heart disease of native coronary artery without angina pectoris; I10 Essential (primary) hypertension; Z89.612 Acquired absence of left leg above knee; Z95.1 Presence of aortocoronary bypass graft; Z79.02 Long term (current) use of antithrombotics/antiplatelets; Z72.0 Tobacco use
CPT/HCPCS: 99282

== ENCOUNTER 2019-04-05 20:46 | Observation (INO) | payer MEDICARE, MEDICAID, SELFPAY ==
[2019-04-05 20:47] VITALS: BP 161/63; PULSE 84; RESP 15; TEMP 36.8; O2SAT 98; BMI 17.6
--- NOTE | 2019-04-05 21:57 | ED.VISSUMM ---
- ER Visit Summary Date of Service: 04/05/19 Chief Complaint: Diarrhea History of Present Illness: The patient is a 59 M of ADD, hypertension, prior CABG, femoral bypass and left wswya-pyj-gyik amputation. Patient had chronic left-sided abdominal pain for 3 months. He had a recent colonoscopy at the [facility] facility. That was about a week and a half ago on a . He said initially was doing well and since it developed some diarrhea. Denies vomiting. Denies fever. Patient states he did biopsies and placed him on prednisone after the colonoscopy. He denies any fever or chills. He said the pain really has not changed. No dysuria. Physical Examination: Older male no acute distress. Vital signs stable afebrile. Patient does not look septic or toxic. H EENT exam unremarkable. Neck nontender no lymphadenopathy. Lungs clear to auscultation bilaterally. Heart regular rhythm no murmur. Abdomen soft. Nondistended. Normal bowel sounds. Mild left lower quadrant tenderness he states this is been there for months. Right upper right lower quadrant unremarkable. No signs of obstruction. No peritoneal signs. Patient is moving all 4 extremities. He does have a left ogbdr-kmp-[id number] amputation. Right calf nontender no edema. Neurologically is awake and alert with no focal motor deficits. Test Results: [] Emergency Department Course and Treatment: Patient treated with a liter normal saline. Screening labs are being obtained. With IV morphine and Zofran for pain. This pain is chronic and no different than he has had for months. An extensive work-up at the [facility]. Treatment Plan: Patient will be turned over to the overnight physician. Labs are pending. I suspect he will be able to be discharged to home. Disposition: Discharge Impression: Generalized weakness Diarrhea status post colonoscopy History of prior CABG and fem pop bypass This note was generated with [employer] dictation software. It may contain incorrect words, spelling, and punctuation that were not noted in review of the chart prior to signing ED Disposition - Plan for ED Patient: Referrals: Marco Sawyer MD [Primary Care Provider] -
[2019-04-05 22:11] LABS: Absolute Lymphocyte Count 1.09 X10^3/uL (0.83-4.51); Basophil# 0.01 X10^3/uL; Basophil% 0.1 % (0-1); Hematocrit 34.5 % (40-54); Hemoglobin 11.2 g/dL (13.0-16.5); Lymphocyte # 1.09 X10^3/ul (4.0); Mean Corp Hgb Conc 32.5 g/dL (32-36); Mean Corpuscular Hgb 28.1 pg (27.0-32.0); Mean Corpuscular Volume 86.5 fL (80-94); Mean Platelet Vol. 10.2 fl (6.2-12.0); Monocyte# 0.42 X10^3/uL; Monocyte% 3.1 % (0-10); NRBC Flagged by Analyzer 0 % (0-5); Neutrophil # 12.02 X10^3/uL (2.7-7.7); Neutrophil % 88.2 % (47-70); Platelet Count 292 K/mm3 (150-450); RBC Distribution Width CV 14.1 % (11.6-14.6); RBC Distribution Width SD 44.6 fl (35.1-43.9); Red Blood Count 3.99 M/mm3 (4.6-6.2); White Blood Count 13.6 K/mm3 (4.4-11.0)
[2019-04-05] MEDS: Ondansetron 4 MG/2 ML Vial IV (22:20)
[2019-04-05] MEDS: 0.9% Normal Saline 1,000 ML 1000 ML IV (22:20)
[2019-04-05] MEDS: morphine 8 MG/ML Syringe 6 MG IV (22:20)
[2019-04-05 22:25] LABS: Anion Gap 8 (5-15); BUN 18 mg/dL (7-18); BUN/Creat Ratio 28.4 RATIO (10-20); Calcium,Total 8.7 mg/dL (8.5-10.1); Chloride 101 mmol/L (98-107); Creatinine, Serum 0.63 mg/dL (0.70-1.30); EST Glomerular Filtration Rate 137 mL/min (>60); Est Glom Filt Rate - Afr Amer 165 mL/min (>60); Estimated Creatinine Clearance 91.64 ml/min; Glucose 150 mg/dL (74-106); Potassium 2.8 mmol/L (3.5-5.1); Sodium Level 140 mmol/L (136-145)
--- NOTE | 2019-04-05 22:55 | EKG12_ITS ---
Test Reason : WEAKNESS Blood Pressure : / mmHG Vent. Rate : 066 BPM Atrial Rate : 066 BPM P-R Int : 144 ms QRS Dur : 108 ms QT Int : 530 ms P-R-T Axes : 073 076 073 degrees QTc Int : 555 ms Normal sinus rhythm Possible Left atrial enlargement Prolonged QT Abnormal ECG Confirmed by KATYA OVIEDO, JUSTIN ([id number]), medical editor MARISOL MATTHEWS ([id number]) on 04/08/2019 11:22:47 AM Referred By: RAAD Confirmed By:JUSTIN ALDANA MD
--- NOTE | 2019-04-05 22:57 | PCM.HP.STD ---
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 His diarrhea started about 7 days ago. Nine days ago he had colonoscopy. Reportedly he had a colonoscopy because of right-sided abdominal pain and because it was time for him to have a routine colonoscopy since the last colonoscopy before this current one was 10 years ago. Before colonoscopy he had mild diarrhea even before the colon prep. He reported that biopsy was taken from the colonoscopy. Because biopsy of the colon showed an infection he was started on a 14 days taper of prednisone. He reported he is still on the taper dose of prednisone. Patient reports nausea without vomiting. Reportedly he became nauseous; lightheaded; and had a shaking spell and passed out. He passed out 2 times on the day of presentation. At the emergency department patient was found to have low potassium of 2.8. Of note patient went to [facility] emergency department about 3 days ago and had a CT of his abdomen done. Past Medical History Past Medical History (Chronic Problems): Chronic Problems (Last Reviewed 04/06/19 @ 00:36 by Berhane Arce MD) Hypertrophy of nasal turbinates (Chronic) Nasal septal deviation (Chronic) Nasal deformity (Chronic) Bilateral carotid artery stenosis (Chronic) Right > Left Ischemia of right lower extremity (Chronic) Hyperlipidemia (Chronic) Peripheral vascular occlusive disease (Chronic) Atherosclerosis of coronary artery of [place] heart without angina pectoris (Chronic) CABG x 4 UMANZOR Sequential -D1 and D2, SVG-Cx, SVG-RCA 06/17/2001 H/O coronary artery bypass surgery (Chronic 06/17/01) CABG x 4 UMANZOR Sequential -D1 and D2, SVG-Cx, SVG-RCA 06/17/2001 @ [facility] Hypertension (Chronic) Tobacco dependence syndrome (Chronic) Medical History: Medical History (Last Reviewed 04/06/19 @ 00:41 by Berhane Arce MD) Abdominal pain (Acute) R10.9 Bilateral carotid artery stenosis (Chronic) I65.23 Right > Left Ischemia of right lower extremity (Chronic) I99.8 Hyperlipidemia (Chronic) E78.5 Peripheral vascular occlusive disease (Chronic) I73.9 Atherosclerosis of coronary artery of [place] heart without angina pectoris (Chronic) I25.10 CABG x 4 UMANZOR Sequential -D1 and D2, SVG-Cx, SVG-RCA 06/17/2001 Hypertension (Chronic) I10 Tobacco dependence syndrome (Chronic) F17.200 COPD (chronic obstructive pulmonary disease) J44.9 Crushing injury of arm, right S47.1XXA Crushing injury (Inactive) T14.8 Infected open wound (Inactive) T14.8XXA, L08.9 Superficial bacterial infection of skin (Inactive) L08.9, B96.89 Allergies No Known Allergies Allergy (Verified 04/05/19 20:52) Home Medications: Ambulatory Orders Medication Instructions Recorded Citalopram [Celexa] 40 mg PO DAILY 09/28/14 Lisinopril [Zestril] 10 mg PO DAILY 09/28/14 Gabapentin [Neurontin] 600 mg PO 4X/DAY #120 tab 11/10/15 Oxycodone HCl/Acetaminophen 1 - 2 tab PO Q6H PRN PRN 09/23/17 [Percocet 10-325 mg Tablet] Pregabalin [Lyrica] 150 mg PO TID 09/23/17 duloxetine 60 mg capsule,delayed 60 mg PO DAILY 12/03/17 release Apixaban [Eliquis] 5 mg PO BID 07/01/18 Aspirin [Aspir 81] 81 mg PO DAILY 07/01/18 Hydrocodone/Acetaminophen 1 ea PO Q6H PRN PRN 07/01/18 [Hydrocodon-Acetaminophen 5-325] Metoprolol Tartrate [Lopressor 50 mg PO BID 07/01/18 (beta nanette)] Simvastatin 20 mg PO DAILY 07/01/18 Surgical History: Surgical History (Last Reviewed 04/06/19 @ 00:41 by Berhane Arce MD) H/O coronary artery bypass surgery (Chronic) Onset Date: 06/17/01 Z95.1 CABG x 4 UMANZOR Sequential -D1 and D2, SVG-Cx, SVG-RCA 06/17/2001 @ [facility] History of angioplasty of peripheral vessel Z98.62 History of femoropopliteal bypass Onset Date: 06/2001 Z98.890 History of left lower extremity amputation Onset Date: 11/01/15 Z89.612 Above the knee Hx of tonsillectomy (Inactive) Z90.89 hx of APLL (Inactive) Right leg Surgical History: coronary bypass surgery, - - Left above-knee amputation. Psychiatric History: Depression Lives: Alone Smoking Status: Current every day smoker Tobacco Use: Cigarettes - *Family History Maternal Family History: Family History (Last Reviewed 04/06/19 @ 00:41 by Berhane Arce MD) Mother Breast cancer History Items: Cancer Paternal Family History: Family History (Last Reviewed 04/06/19 @ 00:41 by Berhane Arce MD) Mother Breast cancer History Items: No pertinent history Review of Systems Constitutional: Denies: Chills, Fever, Weight Change HEENT: Denies: Head Aches, Sinus Congestion, Sinus Drainage Cardiovascular: Reports: Light Headedness, Syncope. Denies: Chest Pain, Palpitations Respiratory: Denies: Cough, Shortness of breath at rest, Sputum production Gastrointestinal: Reports: Abdominal Pain, Diarrhea, Nausea. Denies: Vomiting Genitourinary: Denies: Dysuria Musculoskeletal: Denies: Joint Pain, Joint Tenderness Skin: Denies: Rash, Wounds Neurological: Denies: Numbness, Tingling, Focal weakness Psychiatric: Denies: Anxiety, Depression, Homicidal Ideations, Suicidal Ideations Hematologic/ Lymphatic: Denies: Easy Bruising, Easy Bleeding VTE Information - Inpt Only VTE Present on Admission: No VTE Mechan Device Prophylaxis: None VTE Pharm Prophylaxis ordered?: No Reason prophylaxis not ordered:: Treatment Not Indicated - On home Eliquis which will be continued. Patient Problems: Active and Suspected Problems (Last Reviewed 04/06/19 @ 00:36 by Berhane Arce MD) Syncope (Acute) - Physical Exam Vitals/I&O's: Vital Signs Temp Pulse Resp BP Pulse Ox 98.3 F 84 15 161/63 H 98 04/05/19 20:47 04/05/19 20:47 04/05/19 20:47 04/05/19 20:47 04/05/19 20:47 Oxygen Delivery Method Room Air Weight: 52.617 kg Body Mass Index (BMI) 17.6 General: Alert, Oriented x3, Cooperative HEENT: Atraumatic, PERRLA, EOMI, Normocephalic Neck: Supple, No JVD, Negative Carotid Bruits Lungs: Clear to auscultation, Normal air movement Cardiovascular: Regular rate, No murmurs Abdomen: Bowel Sounds Present, Soft, Tender Extremities: No edema, Capillary Refill Less than 3 Seconds, - - Jozto-myn-mxlt amputation of the left leg. Skin: No rashes, No breakdown Musculoskeletal: No Tenderness to Palpation of Joints or Extremities Neurological: Cranial nerves II-XII grossly intact Psych/Mental Status: Normal Affect, Appropriate Laboratory Results 04/05/19 22:00: WBC 13.6 H, RBC 3.99 L, Hgb 11.2 L, Hct 34.5 L, MCV 86.5, MCH 28.1, MCHC 32.5, RDW Std Deviation 44.6 H, RDW Coeff of Max 14.1, Plt Count 292, MPV 10.2, Immature Gran % (Auto) 0.600, Neut % (Auto) 88.2 H, Lymph % (Auto) 8.0 L, [place] % (Auto) 3.1, Eos % (Auto) 0.0, Baso % (Auto) 0.1, Absolute Neuts (auto) 12.0 H, Absolute Lymphs (auto) 1.09, Nucleated RBC % 0 04/05/19 22:00: Sodium 140, Potassium 2.8 L, Chloride 101, Carbon Dioxide 31.0, Anion Gap 8, BUN 18, Creatinine 0.63 L, Estim Creat Clear Calc 91.64, Est GFR (MDRD) Af Amer 165, Est GFR (MDRD) Non-Af 137, BUN/Creatinine Ratio 28.4 H, Glucose 150 H, Calcium 8.7 Assessment/Plan All Active Problems (Last Reviewed 04/06/19 @ 00:36 by Berhane Arce MD) Syncope (Acute) Abdominal pain (Acute) The patient is a 59 year old M with a significant history of CAD status post CABG; peripheral vascular disease; 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 Syncope Likely secondary to hypovolemia from diarrhea. Diagnoses include cardiac dysrhythmia especially as patient has hypokalemia of potassium 2.8 and prolonged QTC. Avoid QTC prolongation drugs. Check magnesium level. Check orthostatic pressure. We will get a surface echo. Hypokalemia On presentation his potassium was 2.8. Received 40 mg of potassium at the emergency department. We will start patient on lactated Ringer's. We will give additional 40 mEq of potassium IV and start patient on potassium 40 mEq p.o. twice daily. Trend BMP. Abdominal pain with diarrhea. Patient is unclear how much of prednisone he takes. We will start him on prednisone 20 mg daily recommend checking with his PCP Dr. Marco Sawyer to find out the plan from the endoscopist. Obtain results of CT abdomen from hospital emergency department. Peripheral artery disease Eliquis continued. Tobacco abuse Patient is trying to cut down on smoking. Now he smokes about 3 sticks of cigarettes per day. Counseled. DVT Prophylaxis Not indicated since patient is on Eliquis; Eliquis continued. Code Visit OBSV E&M: 70099 Initial observation care L3
[2019-04-05 23:05] VITALS: BP 173/61; PULSE 64; RESP 18; O2SAT 99
--- NOTE | 2019-04-05 23:23 | ED.VISSUMM ---
- ER Visit Summary Date of Service: 04/05/19 Chief Complaint: [Addendum to initial dictation by Dr. Greg Wetzel] History of Present Illness: The patient is a 59 M [presents to the emergency department with abdominal pain that has had for over 3 months. Patient had recent colonoscopy about 10 days ago. Patient was seen 3 days ago at [facility] for the same complaint and he tells me he had a CAT scan at that time. Planes of frequent diarrhea. Patient complains of weight loss. He complains of generalized weakness. Patient also tells me that he is passed out x2 today and he has been lightheaded. Patient denies any chest pain.] Physical Examination: [HEENT-PERRLA, EOMI. Cranial nerves II through XII grossly intact. TMs clear. Mucous membranes moist. No adenopathy. Cardiovascular-regular rate and rhythm without murmur or ectopy Lungs-clear to auscultation, chest wall stable without crepitus or subcu emphysema Abdomen-normoactive bowel sounds, soft, nontender, no rebound or rigidity, no peritoneal signs. Extremities-intact ?4, normal range of motion, normal pulses. Patient has a left [id number] amputation.] Test Results: [CBC with differential obtained showed a white blood cell count of 13.6, hemoglobin 11, hematocrit 34.5, platelets 292. Chemistry showed a sodium 140, potassium 2.8, chloride 101, CO2 31, glucose 150, BUN 18, creatinine 0.63. EKG obtained showed a sinus rhythm with a ventricular rate of 66 bpm with no acute ST segment changes.] Emergency Department Course and Treatment: [Patient was given normal saline 1 L. Patient was given 40 mill equivalents of potassium chloride. I ordered to have patient's records from [facility] fax to the ER. Patient case was discussed with hospitalist will evaluate patient for admission] Treatment Plan: [Admit] Disposition: [Admit] Impression: [Syncope Hypokalemia Chronic abdominal pain Diarrhea] This note was generated with [employer] software. It may contain incorrect words, spelling, and punctuation that were not noted in review of the chart prior to signing ED Disposition - Plan for ED Patient: Referrals: Marco Sawyer MD [Primary Care Provider] -
[2019-04-06] VITALS (13 sets, daily range): BP systolic 126–189; BP diastolic 43–67; PULSE 58–76; RESP 16–20; TEMP 36.7–36.8; O2SAT 95–100; BMI 15.2
[2019-04-06 01:01] LABS: Magnesium 1.6 mg/dL (1.6-2.6)
[2019-04-06] MEDS: Lactated Ringers 1,000 ML 100 ML IV (01:26)
[2019-04-06] MEDS: Potassium Chloride 10mEq/100mL 10 MEQ/100 ML IV.SOLN. 100 MEQ IV BOLUS ×4 (01:49→04:43)
[2019-04-06] MEDS: MELATONIN 3 MG TABLET PO (01:55)
[2019-04-06] MEDS: Metoprolol Tartrate 50 MG Tablet PO ×2 (02:06→08:58)
[2019-04-06] MEDS: oxyCODONE 5 MG Tablet 10 MG PO (06:04)
[2019-04-06] MEDS: Pregabalin 75 MG Capsule 150 MG PO (06:13)
[2019-04-06] MEDS: Magnesium Sulfate 4gm/100mL 4 GM/100 ML IV.SOLN. IV (06:18)
[2019-04-06 07:18] LABS: Absolute Lymphocyte Count 1.89 X10^3/uL (0.83-4.51); Absolute Neutrophil Count 9.4 X10^3/uL (2.0-7.7); Basophil# 0.02 X10^3/uL; Basophil% 0.2 % (0-1); Eosinophil# 0.02 X10^3/uL; Eosinophils% 0.2 % (0-5); Hematocrit 27.6 % (40-54); Hemoglobin 9.1 g/dL (13.0-16.5); Lymphocyte # 1.89 X10^3/ul (4.0); Lymphocyte % 15.5 % (19-41); Mean Corpuscular Hgb 28.1 pg (27.0-32.0); Mean Corpuscular Volume 85.2 fL (80-94); Mean Platelet Vol. 10.6 fl (6.2-12.0); Monocyte# 0.78 X10^3/uL; Monocyte% 6.4 % (0-10); NRBC Flagged by Analyzer 0 % (0-5); Neutrophil # 9.42 X10^3/uL (2.7-7.7); Neutrophil % 77.1 % (47-70); Platelet Count 197 K/mm3 (150-450); RBC Distribution Width CV 14.4 % (11.6-14.6); RBC Distribution Width SD 44.5 fl (35.1-43.9); Red Blood Count 3.24 M/mm3 (4.6-6.2); White Blood Count 12.2 K/mm3 (4.4-11.0)
[2019-04-06 07:39] LABS: Anion Gap 4 (5-15); BUN 12 mg/dL (7-18); BUN/Creat Ratio 28.4 RATIO (10-20); Calcium,Total 7.8 mg/dL (8.5-10.1); Chloride 108 mmol/L (98-107); Creatinine, Serum 0.42 mg/dL (0.70-1.30); EST Glomerular Filtration Rate 218 mL/min (>60); Est Glom Filt Rate - Afr Amer 264 mL/min (>60); Glucose 90 mg/dL (74-106); Potassium 3.4 mmol/L (3.5-5.1); Sodium Level 142 mmol/L (136-145)
[2019-04-06] MEDS: DULoxetine Hcl 60 MG Capsule PO (08:56)
[2019-04-06] MEDS: Lisinopril 10 MG Tablet PO (08:57)
[2019-04-06] MEDS: predniSONE 20 MG Tablet PO (08:58)
[2019-04-06] MEDS: APIXABAN 5 MG TABLET PO (08:59)
[2019-04-06] MEDS: Citalopram 40 MG TABLET PO (08:59)
[2019-04-06] MEDS: Aspirin E.C. 81 MG Tablet PO (08:59)
--- NOTE | 2019-04-06 10:50 | DCINST_ITS ---
- Discharge Diagnoses Current Active Problems: Current Active and Chronic Problems (Last Reviewed 04/06/19 @ 00:41 by Berhane Arce MD) Syncope (Acute) You will use the following diet at home:: No restrictions Discharge Activity: Return to Normal Activity Call your doctor if you observe: Shortness of breath, Dizziness, Fainting spells, Chest pain Additional Instructions: You will need repeat BMP to check potassium in 2-3 days which you will complete with PCP. Follow up with PCP early next week. Continue home prednisone regimen as previously prescribed for colitis. Allergies/Adverse Reactions: Allergies No Known Allergies Allergy (Verified 04/05/19 20:52) Medications to take at Discharge Citalopram [Celexa] 40 mg PO DAILY 09/28/14 Lisinopril [Zestril] 10 mg PO DAILY 09/28/14 Gabapentin [Neurontin] 600 mg PO 4X/DAY #120 tab 11/10/15 Oxycodone HCl/Acetaminophen [Percocet 10-325 mg Tablet] 1 - 2 tab PO Q6H PRN PRN 09/23/17 Pregabalin [Lyrica] 150 mg PO TID 09/23/17 duloxetine 60 mg capsule,delayed release 60 mg PO DAILY 12/03/17 Apixaban [Eliquis] 5 mg PO BID 07/01/18 Aspirin [Aspir 81] 81 mg PO DAILY 07/01/18 Hydrocodone/Acetaminophen [Hydrocodon-Acetaminophen 5-325] 1 ea PO Q6H PRN PRN 07/01/18 Metoprolol Tartrate [Lopressor (beta nanette)] 50 mg PO BID 07/01/18 Simvastatin 20 mg PO DAILY 07/01/18 Primary Care Physician: Marco Sawyer MD [Primary Care Provider] - Please follow up with your Primary Care Physician in: 3 Days Test Results: Test results from this visit will be discussed in further detail at your follow- up appointment, if applicable. Please Follow Up With: Primary GI When: 1 Week Proposed Discharge Date: 04/06/19
--- NOTE | 2019-04-06 10:54 | DS.PCM_ITS ---
Discharge Date and Diagnosis Date of Admission: 04/05/19 Date of Discharge: 04/06/19 - Primary Discharge Diagnosis Active and Suspected Problems (Last Reviewed 04/06/19 @ 00:41 by Berhane Arce MD) 1. Reported syncope, orthostatic hypotension as a result of hypovolemia related to diarrhea 2. Hypokalemia 3. Recent diagnosis colitis 4. CAD status post CABG 5. Peripheral vascular disease 6. Hypertension 7. Hyperlipidemia 8. Status post left thotf-qul-jsli amputation 9. Depression/anxiety 10. Severe protein calorie malnutrition - Secondary Discharge Diagnosis Chronic Problems (Last Reviewed 04/06/19 @ 00:41 by Berhane Arce MD) Hypertrophy of nasal turbinates (Chronic) Nasal septal deviation (Chronic) Nasal deformity (Chronic) Bilateral carotid artery stenosis (Chronic) Right > Left Ischemia of right lower extremity (Chronic) Hyperlipidemia (Chronic) Peripheral vascular occlusive disease (Chronic) Atherosclerosis of coronary artery of [place] heart without angina pectoris (Chronic) CABG x 4 UMANZOR Sequential -D1 and D2, SVG-Cx, SVG-RCA 06/17/2001 H/O coronary artery bypass surgery (Chronic 06/17/01) CABG x 4 UMANZOR Sequential -D1 and D2, SVG-Cx, SVG-RCA 06/17/2001 @ [facility] Hypertension (Chronic) Tobacco dependence syndrome (Chronic) Hospital Course and Treatment Operations: None Procedures: None Summary of Care Provided: The patient is a 59 year old M admitted 04/05/2019 due to diarrhea. 1. Reported syncope, orthostatic hypotension as a result of hypovolemia related to diarrhea-initial orthostatic vitals positive. Repeat orthostatic vitals following fluids negative. No arrhythmias reported on telemetry. Patient denies further symptoms during admission. Patient had echocardiogram February 2018 which showed an EF of 60%. He also underwent stress test February 2018 which was negative for ischemia. Follow-up with primary care physician in 3 to 5 days. 2. Hypokalemia-replaced per protocol. Recommend repeat BMP in 3 days by PCP. 3. Recent diagnosis colitis-continue home prednisone regimen and outpatient follow-up with GI. 4. CAD status post CABG-continue aspirin, statin, beta-kayla. 5. Peripheral vascular disease-continue aspirin, statin, Eliquis. 6. Hypertension-stable, continue home lisinopril, metoprolol regimen. 7. Hyperlipidemia-continue statin regimen. 8. Status post left vtbtm-hpv-hruq amputation 9. Depression/anxiety-continue home citalopram, duloxetine regimen. 10. Severe protein calorie malnutrition-nutrition consult during admission. Patient reports recent weight loss. Follow-up with primary care physician. Patient seen and examined prior to discharge. Physical assessment as noted below. Patient is stable for discharge with follow up recommendations as noted above. This patient was seen by [facility] under the supervision of Dr. Prince. - Physical Exam Vitals/I&O's: Vital Signs Temp Pulse Resp BP Pulse Ox 98.2 F 58 L 16 147/67 H 98 04/06/19 08:47 04/06/19 08:58 04/06/19 08:47 04/06/19 08:47 04/06/19 08:47 Oxygen Delivery Method Room Air Weight: 100 lb 1.438 oz Body Mass Index (BMI) 15.2 Orthostatic Vital Signs Start: 04/06/19 01:58 Freq: q24h Status: Active Protocol: Activity Type Activity Date Activity User E-Sign Co-Sign Detail Recorded Client Recorded Date Recorded By Document 04/06/19 01:58 MAB [id number] 04/06/19 02:03 MAB 04/06/19 01:58 Orthostatic Vitals Standing -Blood Pressure (90/60-120/80) 145/59 H -Extremity Use Left Arm -Pulse Rate (60-100) 76 Sitting -Blood Pressure (90/60-120/80) 145/62 H -Extremity Use Left Arm -Pulse Rate (60-100) 75 Lying -Blood Pressure (90/60-120/80) 180/52 H -Extremity Use Left Arm -Pulse Rate (60-100) 62 Intake and Output for Last 24 Hours 04/04/19 04/05/19 04/06/19 23:59 23:59 23:59 Intake Total 1979 Balance 1979 General: Alert, Oriented x3, Cooperative HEENT: Atraumatic, PERRLA, EOMI, Normocephalic Neck: Supple, No JVD, Negative Carotid Bruits Lungs: Clear to auscultation, Normal air movement Cardiovascular: Regular rate, Regular Rhythm, Normal S1, Normal S2, No murmurs Abdomen: Bowel Sounds Present, Soft, Non Tender, Non-Distended Extremities: No clubbing, No cyanosis, No edema, Capillary Refill Less than 3 Seconds, - - Left AKA Skin: No rashes, No breakdown, - - Multiple scabbed abrasions secondary to picking bilateral upper extremities. Musculoskeletal: No Tenderness to Palpation of Joints or Extremities, Cachexia, Muscle Wasting Neurological: Cranial nerves II-XII grossly intact, Neuro grossly intact Psych/Mental Status: Normal Affect, Appropriate Laboratory Results 04/05/19 22:00: WBC 13.6 H, RBC 3.99 L, Hgb 11.2 L, Hct 34.5 L, MCV 86.5, MCH 28.1, MCHC 32.5, RDW Std Deviation 44.6 H, RDW Coeff of Max 14.1, Plt Count 292, MPV 10.2, Immature Gran % (Auto) 0.600, Neut % (Auto) 88.2 H, Lymph % (Auto) 8.0 L, [place] % (Auto) 3.1, Eos % (Auto) 0.0, Baso % (Auto) 0.1, Absolute Neuts (auto) 12.0 H, Absolute Lymphs (auto) 1.09, Nucleated RBC % 0 04/05/19 22:00: Sodium 140, Potassium 2.8 L, Chloride 101, Carbon Dioxide 31.0, Anion Gap 8, BUN 18, Creatinine 0.63 L, Estim Creat Clear Calc 91.64, Est GFR (MDRD) Af Amer 165, Est GFR (MDRD) Non-Af 137, BUN/Creatinine Ratio 28.4 H, Glucose 150 H, Calcium 8.7 04/05/19 22:05: Magnesium 1.6 04/06/19 06:25: WBC 12.2 H, RBC 3.24 L, Hgb 9.1 L, Hct 27.6 L, MCV 85.2, MCH 28.1, MCHC 33.0, RDW Std Deviation 44.5 H, RDW Coeff of Max 14.4, Plt Count 197, MPV 10.6, Immature Gran % (Auto) 0.600, Neut % (Auto) 77.1 H, Lymph % (Auto) 15.5 L, [place]irt % (Auto) 6.4, Eos % (Auto) 0.2, Baso % (Auto) 0.2, Absolute Neuts (auto) 9.4 H, Absolute Lymphs (auto) 1.89, Nucleated RBC % 0 04/06/19 06:25: Sodium 142, Potassium 3.4 L, Chloride 108 H, Carbon Dioxide 30.0, Anion Gap 4 L, BUN 12, Creatinine 0.42 L, Estim Creat Clear Calc 118.60, Est GFR (MDRD) Af Amer 264, Est GFR (MDRD) Non-Af 218, BUN/Creatinine Ratio 28.4 H, Glucose 90, Calcium 7.8 L Current Medications Acetaminophen (Tylenol) 650 mg PO Q6H PRN PRN PRN Reason: Pain Score 1-3/Temp > 100.7 F Apixaban (Eliquis) 5 mg PO BID [facility] Last Admin: 04/06/19 08:59 Dose: 5 mg Documented by: Aspirin (Ecotrin) 81 mg PO DAILY [facility] Last Admin: 04/06/19 08:59 Dose: 81 mg Documented by: Atorvastatin Calcium (Lipitor) 10 mg PO QHS [facility] Citalopram Hydrobromide (Celexa) 40 mg PO DAILY [facility] Last Admin: 04/06/19 08:59 Dose: 40 mg Documented by: Dextrose (D50w Syringe) 0 gm IV X1 PRN; Protocol PRN Reason: Hypoglycemia Duloxetine HCl (Cymbalta) 60 mg PO DAILY [facility] Last Admin: 04/06/19 08:56 Dose: 60 mg Documented by: Glucagon () 1 mg IM .X1 PRN PRN Reason: Hypoglycemia Lactated Ringer's () 1,000 mls @ 100 mls/hr IV .Q10H [facility] Stop: 04/06/19 20:39 Last Admin: 04/06/19 01:26 Dose: 100 mls/hr Documented by: Sodium Chloride () 250 mls @ 15 mls/hr IV .[id number] PRN PRN Reason: Saline Flush Last Infusion: 04/06/19 06:18 Dose: 0 mls/hr Documented by: Lisinopril (Zestril) 10 mg PO DAILY [facility] Last Admin: 04/06/19 08:57 Dose: 10 mg Documented by: Melatonin (Melatonin) 3 mg PO QHS PRN PRN PRN Reason: SLEEP Last Admin: 04/06/19 01:55 Dose: 3 mg Documented by: Metoprolol Tartrate (Lopressor (Beta Kayla)) 50 mg PO BID [facility] Last Admin: 04/06/19 08:58 Dose: 50 mg Documented by: Nutritional Formula (Lactose Free) (Ensure Enlive) 120 ml PO 4X/DAY [facility] Last Admin: 04/06/19 08:55 Dose: 120 ml Documented by: Ondansetron HCl (Zofran) 4 mg IV Q8H PRN PRN PRN Reason: NAUSEA/VOMITING Oxycodone HCl (Oxyir) 10 mg PO Q6H PRN PRN PRN Reason: Pain Score 6-10/10 Last Admin: 04/06/19 06:04 Dose: 10 mg Documented by: Potassium Chloride (K-Dur) 40 meq PO BIDCM [facility] Last Admin: 04/06/19 08:59 Dose: 40 meq Documented by: Prednisone () 20 mg PO DAILY@0800 [facility] Last Admin: 04/06/19 08:58 Dose: 20 mg Documented by: Pregabalin (Lyrica) 150 mg PO TID [facility] Last Admin: 04/06/19 06:13 Dose: 150 mg Documented by: Prochlorperazine Edisylate (Compazine Iv) 5 mg IV Q6H PRN PRN PRN Reason: NAUSEA/VOMITING Sodium Chloride () 10 - 40 ml IV UD PRN PRN Reason: SALINE FLUSH Discharge Diet: No Restrictions Discharge Activity: Return to Normal Activity Call your doctor if you observe: Shortness of breath, Dizziness, Fainting spells, Chest pain Home Medications: Medications to take at Discharge Citalopram [Celexa] 40 mg PO DAILY 09/28/14 Lisinopril [Zestril] 10 mg PO DAILY 09/28/14 Gabapentin [Neurontin] 600 mg PO 4X/DAY #120 tab 11/10/15 Oxycodone HCl/Acetaminophen [Percocet 10-325 mg Tablet] 1 - 2 tab PO Q6H PRN PRN 09/23/17 Pregabalin [Lyrica] 150 mg PO TID 09/23/17 duloxetine 60 mg capsule,delayed release 60 mg PO DAILY 12/03/17 Apixaban [Eliquis] 5 mg PO BID 07/01/18 Aspirin [Aspir 81] 81 mg PO DAILY 07/01/18 Hydrocodone/Acetaminophen [Hydrocodon-Acetaminophen 5-325] 1 ea PO Q6H PRN PRN 07/01/18 Metoprolol Tartrate [Lopressor (beta kayla)] 50 mg PO BID 07/01/18 Simvastatin 20 mg PO DAILY 07/01/18 Primary Care Physician: Marco Sawyer MD [Primary Care Provider] - Please follow up with your Primary Care Physician in: 3 Days Please Follow Up With: Primary GI When: 1 Week Disposition: Home Minutes spent on discharge:: 35 Patient Condition:: Stable Medical Necessity - Tobacco Use Smoking Status: Current every day smoker Tobacco Use: Cigarettes Meaningful Use Info Meaningful Use Diagnoses (Choose all that apply): None applicable
== END 2019-04-06 14:37 | disposition home or self-care (01) ==
LOC: ED 21:16 → PCU 23:58
PROVIDERS: Admitting Provider Hospitalist; Emergency Provider Emergency Medicine; Family Provider Family Medicine; PCP Family Medicine; Visit Provider Internal Medicine
DX: I95.1 Orthostatic hypotension (principal); K52.9 Noninfective gastroenteritis and colitis, unspecified; E87.6 Hypokalemia; E43 Unspecified severe protein-calorie malnutrition; E78.5 Hyperlipidemia, unspecified; I73.9 Peripheral vascular disease, unspecified; F41.9 Anxiety disorder, unspecified; F32.9 Major depressive disorder, single episode, unspecified; I10 Essential (primary) hypertension; I25.10 Atherosclerotic heart disease of native coronary artery without angina pectoris; G89.29 Other chronic pain; F17.210 Nicotine dependence, cigarettes, uncomplicated; J44.9 Chronic obstructive pulmonary disease, unspecified; Z68.1 Body mass index [BMI] 19.9 or less, adult; Z89.612 Acquired absence of left leg above knee; Z79.899 Other long term (current) drug therapy; Z79.01 Long term (current) use of anticoagulants; Z79.82 Long term (current) use of aspirin; Z95.1 Presence of aortocoronary bypass graft
CPT/HCPCS: 36415; 80048; 83735; 85025; 93005; 96361; 96374; 96375; 97802; 99218; 99285; 99406; J7030; J7050; J7120; A4216; G0378; J2405

== ENCOUNTER 2019-04-14 16:02 | Inpatient (IN) | payer MEDICARE, MEDICAID, SELFPAY ==
[2019-04-06 00:04] VITALS: BMI 15.2
[2019-04-14] VITALS (9 sets, daily range): BP systolic 149–191; BP diastolic 55–74; PULSE 65–81; RESP 14–21; TEMP 36.3–37; O2SAT 97–99; BMI 15.0; BMI 14.4
--- NOTE | 2019-04-14 17:23 | EKG12_ITS ---
Test Reason : SOB Blood Pressure : / mmHG Vent. Rate : 070 BPM Atrial Rate : 070 BPM P-R Int : 136 ms QRS Dur : 094 ms QT Int : 462 ms P-R-T Axes : 072 075 082 degrees QTc Int : 498 ms Normal sinus rhythm Nonspecific ST & T Wave Abnormality Abnormal ECG Confirmed by VEE OVIEDO, MIGUELITO ([id number]), book or script editor MARISOL MATTHEWS ([id number]) on 04/16/2019 11:08:18 AM Referred By: Miguelito Lopez Confirmed By:MIGUELITO BAXTER MD
--- NOTE | 2019-04-14 17:24 | ED.VIS.GEN ---
History of Present Illness Chief Complaint: General Illness Detail of Chief Complaint: Dehydration, diarrhea Informant: Patient, Family Onset: Today Narrative: Patient was recently admitted to the hospital with diarrhea, dehydration, hypokalemia, syncope. Patient states that he was given medication to help control his diarrhea upon discharge. Last 3 days he is felt well and been able to eat. He stopped the antidiarrhea medicine today but is been having diarrhea again all day and feels very drained. He states he felt lightheaded and had a near syncopal episode. No fever or chills has been noted. Past Medical History - Allergies and Home Meds Allergies/Adverse Reactions: Allergies No Known Allergies Allergy (Verified 04/14/19 16:05) Primary Care Physician: Marco Sawyer MD [Primary Care Provider] - Prior records reviewed: Yes Past Medical History: - - Reviewed Surgical History: coronary bypass surgery, - - Left above-knee amputation. Lives: Spouse/ Significant Other Smoking Status: Current every day smoker - Family History Maternal Family History: Family History (Last Reviewed 04/06/19 @ 00:41 by Berhane Arce MD) Mother Breast cancer Family History: Reports: Cancer Paternal Family History: Family History (Last Reviewed 04/06/19 @ 00:41 by Berhane Arce MD) Mother Breast cancer Family History: Reports: No pertinent history Review of Systems General: Denies: Chills, Fever Eyes: Denies: Visual changes - bilaterally ENT: Denies: Bilateral ear pain Cardiovascular: Denies: Chest pain Respiratory: Denies: Dyspnea, Cough Gastrointestinal: Reports: Abdominal pain, Diarrhea Musculoskeletal: Denies: Back pain Skin: Denies: Rash Neurological: Denies: Headache Physical Exam Vital Signs/Narrative: Vital Signs Temp Pulse Resp BP Pulse Ox 04/14/19 16:03 97.4 F L 81 21 H 149/74 H 99 Inital Vital Signs reviewed: Yes General: Well nourished, Well developed Head: Normocephalic ENT: Moist mucous membranes Cardiovascular: Regular rate, Regular rhythm Respiratory: No distress, CTA bilaterally Abdomen: Soft, Tender - Mild diffuse tenderness palpation., Hypoactive bowel sounds. Negative for: Guarding, Rebound tenderness Extremities: Nontender Skin: Normal color Neurological: Alert, Oriented x3 Psychological: Normal affect Diagnostic/Tx/Re-eval Impressions Abdomen/Pelvis CT 04/14/19 18:38 IMPRESSION: 1. Mildly thick-walled colon consistent with infectious or inflammatory colitis. 2. Pseudofeces pattern in the small bowel suspicious for reduced motility. 3. Ectatic aorta with chronic dissection. Electronically Signed: Radha Morse MD at 19:39 EST Tel , Service support , 04/14/19 18:38 Abdomen/Pelvis without Cont [CT] Stat Laboratory Results 04/14/19 04/14/19 04/14/19 18:00 18:00 19:20 WBC 29.5 H RBC 4.24 L Hgb 12.1 L Hct 35.9 L MCV 84.7 MCH 28.5 MCHC 33.7 RDW Std Deviation 48.1 H RDW Coeff of Max 16.2 H Plt Count 294 MPV 11.1 Immature Gran % (Auto) 0.700 Neut % (Auto) 95.2 H Lymph % (Auto) 2.2 L [place] % (Auto) 1.6 Eos % (Auto) 0.1 Baso % (Auto) 0.2 Absolute Neuts (auto) 28.2 H Absolute Lymphs (auto) 0.64 L Nucleated RBC % 0 Differential Comment Platelet Estimate ADEQUATE RBC Morphology NORM C+C Sodium 136 Potassium 3.5 Chloride 99 Carbon Dioxide 31.0 Anion Gap 6 BUN 15 Creatinine 0.61 L Estim Creat Clear Calc 80.77 Est GFR (MDRD) Af Amer 173 Est GFR (MDRD) Non-Af 143 BUN/Creatinine Ratio 24.7 H Glucose 122 H Calcium 9.0 Total Bilirubin 0.60 Direct Bilirubin 0.08 AST 22 ALT 18 Alkaline Phosphatase 100 Total Protein 6.9 Albumin 2.9 L Globulin 4.0 Lipase 66 L Urine Color Yellow Urine Clarity Sl. Cloudy Urine pH 6.5 Ur Specific [place] 1.015 Urine Protein 30 H Urine Glucose (UA) Normal Urine Ketones Negative Urine Occult Blood 10 H Urine Nitrite Negative Urine Bilirubin 1 H Urine Urobilinogen 1 H Ur Leukocyte Esterase Negative Urine RBC 0 SEEN Urine WBC 0 SEEN Ur Squamous Epith Cells 0 SEEN Urine Bacteria 0 SEEN Urine Mucus 0 SEEN - EKG Initial EKG Interpretation: Sinus Rhythm - Sinus at 70. T wave flattening noted. - Medical Decision Making Patient was initially given morphine, Zofran. Initial IV was lost and patient initially declined any further attempts. Upon completion of blood work white blood cell count was noted to be significantly elevated. This is a new change when compared to recent labs. Patient does tell me he is on prednisone, but this seems excessively elevated to be contributed just to steroids. CT scan was performed and shows evidence of colitis, inflammatory versus infectious. Another IV line was able to be established and patient be given Cipro and Flagyl. I have ordered stool studies. Patient will be admitted overnight for observation, hydration, and repeat labs. ED Disposition - Plan for ED Patient: Disposition: Acute Care Hospital [facility] Diagnosis: Colitis Referrals: Macro Sawyer MD [Primary Care Provider] -
[2019-04-14 18:17] LABS: Absolute Lymphocyte Count 0.64 X10^3/uL (0.83-4.51); Absolute Neutrophil Count 28.2 X10^3/uL (2.0-7.7); Basophil# 0.05 X10^3/uL; Basophil% 0.2 % (0-1); Eosinophil# 0.03 X10^3/uL; Eosinophils% 0.1 % (0-5); Hematocrit 35.9 % (40-54); Hemoglobin 12.1 g/dL (13.0-16.5); Lymphocyte # 0.64 X10^3/ul (4.0); Lymphocyte % 2.2 % (19-41); Mean Corp Hgb Conc 33.7 g/dL (32-36); Mean Corpuscular Hgb 28.5 pg (27.0-32.0); Mean Corpuscular Volume 84.7 fL (80-94); Mean Platelet Vol. 11.1 fl (6.2-12.0); Monocyte# 0.47 X10^3/uL; Monocyte% 1.6 % (0-10); NRBC Flagged by Analyzer 0 % (0-5); Neutrophil # 28.15 X10^3/uL (2.7-7.7); Neutrophil % 95.2 % (47-70); POSITIVE DIFFERENTIAL YES; Platelet Count 294 K/mm3 (150-450); RBC Distribution Width CV 16.2 % (11.6-14.6); RBC Distribution Width SD 48.1 fl (35.1-43.9); Red Blood Count 4.24 M/mm3 (4.6-6.2); White Blood Count 29.5 K/mm3 (4.4-11.0)
[2019-04-14] MEDS: Loperamide 2 MG Capsule 4 MG PO (18:19)
[2019-04-14] MEDS: Ondansetron ODT 4 MG Tablet PO (18:19)
[2019-04-14] MEDS: Morphine 4 MG/ML Syringe IM (18:19)
[2019-04-14 18:32] LABS: Differential Indicated SCAN CRITERIA MET
[2019-04-14 18:37] LABS: AST(SGOT) 22 U/L (15-37); Alanine Aminotransfer ALT/SGPT 18 U/L (16-61); Albumin, Serum 2.9 g/dL (3.2-5.0); Alkaline Phosphatase 100 U/L (45-117); Anion Gap 6 (5-15); BUN 15 mg/dL (7-18); BUN/Creat Ratio 24.7 RATIO (10-20); Bilirubin, Direct 0.08 mg/dL (0.00-0.30); Chloride 99 mmol/L (98-107); Creatinine, Serum 0.61 mg/dL (0.70-1.30); EST Glomerular Filtration Rate 143 mL/min (>60); Est Glom Filt Rate - Afr Amer 173 mL/min (>60); Estimated Creatinine Clearance 80.77 ml/min; Glucose 122 mg/dL (74-106); Lipase 66 U/L (73-393); Potassium 3.5 mmol/L (3.5-5.1); Protein, Total 6.9 g/dL (6.4-8.2); Sodium Level 136 mmol/L (136-145)
--- NOTE | 2019-04-14 18:38 | CT_ITS ---
STUDY: CT ABDOMEN AND PELVIS WITHOUT CONTRAST REASON FOR EXAM: Male, 59 years old. Evaluate cramping. Difficulty eating. RADIATION DOSAGE (If Supplied By Facility): CTDIvol = ( 6.04 ) mGy, DLP = ( 280.86 ) mGycm TECHNIQUE: Transaxial images were obtained from the dome of the diaphragm to the symphysis pubis without oral contrast, and without intravenous contrast. Sagittal and coronal images were reconstructed. Individualized dose optimization techniques were used for this CT. COMPARISON: 12/14/2018. FINDINGS: Lung bases are clear. Heart size is normal. The liver is unremarkable. The gallbladder is unremarkable. The spleen and pancreas are unremarkable. The adrenal glands are normal. The kidneys are unremarkable. No stones or hydronephrosis. Abdominal aorta is ectatic, measuring up to 2.7 cm. Intimal calcification is consistent with chronic dissection. There is no free fluid, free air, or organized collection. Mild wall thickening and distention of the transverse colon. Multiple loops of minimally dilated small bowel with pseudofeces pattern. No evidence of distal obstructing lesion. Normal appendix. Urinary bladder is unremarkable. Normal abdominal wall. Normal osseous structures. CT/Abdomen/Pelvis without Cont IMPRESSION: 1. Mildly thick-walled colon consistent with infectious or inflammatory colitis. 2. Pseudofeces pattern in the small bowel suspicious for reduced motility. 3. Ectatic aorta with chronic dissection. Electronically Signed: Radha Morse MD at 19:39 EST Tel , Service support ,
[2019-04-14 18:51] LABS: Platelet Estimate ADEQUATE (ADEQ); Red Cell Morphology NORM C+C NORMAL (NORM C&C)
[2019-04-14 19:26] LABS: Bacteria 0 SEEN /hpf (None Seen); Mucous, Urine 0 SEEN /hpf (<or=2+); Red Blood Cells-Urine 0 SEEN /hpf (0-5); Squamous Epithelial Cells - UA 0 SEEN /hpf (0-5); White Blood Cells 0 SEEN /hpf (0-5)
[2019-04-14 19:28] LABS: Color, Urine Yellow (Yellow); Glucose, Dipstick Normal (Normal); Ketone-Dipstick Negative (Negative); Leukocyte Esterase-Dipstick Negative /ul (Negative); Nitrite-Dipstick Negative (Negative); Occult Blood-Urine 10 /ul (Negative); Protein-Dipstick 30 mg/dl (Negative); Specific Gravity, Urine 1.015 (1.002-1.030); Urine Clarity Sl. Cloudy (Clear); Urine Urobilinogen 1 mg/dl (Normal); Urine pH 6.5 (5.0 - 8.0)
[2019-04-14 19:37] LABS: Urine Bilirubin Dipstick 1 mg/dL (Negative)
[2019-04-14] MEDS: 0.9% Normal Saline 1,000 ML 200 ML IV (20:40)
[2019-04-14] MEDS: Morphine 4 MG/ML Syringe IV ×2 (21:23→23:57)
[2019-04-14] MEDS: proMETHazine 25 MG/ML Syringe 6.25 MG IV (21:24)
--- NOTE | 2019-04-14 21:27 | PCM.HP.STD ---
Problem List (1) Colitis Status: Acute (2) Abdominal pain Status: Acute Qualifiers: Abdominal location: left lower quadrant Qualified Code(s): R10.32 - Left lower quadrant pain (3) Atherosclerosis of coronary artery of [place] heart without angina pectoris Status: Chronic Comment: CABG x 4 UMANZOR Sequential -D1 and D2, SVG-Cx, SVG-RCA 06/17/2001 (4) H/O coronary artery bypass surgery Status: Chronic Comment: CABG x 4 UMANZOR Sequential -D1 and D2, SVG-Cx, SVG-RCA 06/17/2001 @ [facility] (5) Hypertension Status: Chronic (6) Tobacco dependence syndrome Status: Chronic History of Present Illness Date of Admission: 04/14/19 Chief Complaint: abdominal pain, diarrhea The patient is a 59 year old male patient with a past medical history of coronary artery disease, smoking, history of crush injury remotely presents to the emergency room with abdominal pain and diarrhea. The patient was discharged less than a week ago for similar complaint and had been doing better for the past 3 days however he stopped taking his antidiarrheal medication. Symptoms resumed and he came to the emergency room feeling very sick. Current white blood cell count is 29,500, hemoglobin 12.1, hematocrit 35, platelets 294, sodium 136, potassium 3.5, chloride 99, bicarb 31, BUN 15, creatinine 0.61, glucose 122, UA negative, CT abdomen, chronic ectatic aorta and colon wall thickened due to colitis. The patient was initiated on ciprofloxacin and Flagyl and IV fluids and will be admitted to general medical floor for observation. Past Medical History Past Medical History (Chronic Problems): Chronic Problems (Last Reviewed 04/06/19 @ 00:41 by Berhane Arce MD) Hypertrophy of nasal turbinates (Chronic) Nasal septal deviation (Chronic) Nasal deformity (Chronic) Bilateral carotid artery stenosis (Chronic) Right > Left Ischemia of right lower extremity (Chronic) Hyperlipidemia (Chronic) Peripheral vascular occlusive disease (Chronic) Atherosclerosis of coronary artery of [place] heart without angina pectoris (Chronic) CABG x 4 UMANZOR Sequential -D1 and D2, SVG-Cx, SVG-RCA 06/17/2001 H/O coronary artery bypass surgery (Chronic 06/17/01) CABG x 4 UMANZOR Sequential -D1 and D2, SVG-Cx, SVG-RCA 06/17/2001 @ [facility] Hypertension (Chronic) Tobacco dependence syndrome (Chronic) Medical History: Medical History (Last Reviewed 04/06/19 @ 00:41 by Berhane Arce MD) Abdominal pain (Acute) R10.9 Bilateral carotid artery stenosis (Chronic) I65.23 Right > Left Ischemia of right lower extremity (Chronic) I99.8 Hyperlipidemia (Chronic) E78.5 Peripheral vascular occlusive disease (Chronic) I73.9 Atherosclerosis of coronary artery of [place] heart without angina pectoris (Chronic) I25.10 CABG x 4 UMANZOR Sequential -D1 and D2, SVG-Cx, SVG-RCA 06/17/2001 Hypertension (Chronic) I10 Tobacco dependence syndrome (Chronic) F17.200 COPD (chronic obstructive pulmonary disease) J44.9 Crushing injury of arm, right S47.1XXA Crushing injury (Inactive) T14.8 Infected open wound (Inactive) T14.8XXA, L08.9 Superficial bacterial infection of skin (Inactive) L08.9, B96.89 Allergies No Known Allergies Allergy (Verified 04/14/19 16:05) Home Medications: Ambulatory Orders Medication Instructions Recorded Citalopram [Celexa] 40 mg PO DAILY 09/28/14 Lisinopril [Zestril] 10 mg PO DAILY 09/28/14 Gabapentin [Neurontin] 600 mg PO 4X/DAY #120 tab 11/10/15 Oxycodone HCl/Acetaminophen 1 - 2 tab PO Q6H PRN PRN 09/23/17 [Percocet 10-325 mg Tablet] Pregabalin [Lyrica] 150 mg PO TID 09/23/17 duloxetine 60 mg capsule,delayed 60 mg PO DAILY 12/03/17 release Apixaban [Eliquis] 5 mg PO BID 07/01/18 Aspirin [Aspir 81] 81 mg PO DAILY 07/01/18 Hydrocodone/Acetaminophen 1 ea PO Q6H PRN PRN 07/01/18 [Hydrocodon-Acetaminophen 5-325] Metoprolol Tartrate [Lopressor 50 mg PO BID 07/01/18 (beta nanette)] Simvastatin 20 mg PO DAILY 07/01/18 Prednisone 20 mg DAILY 04/14/19 Surgical History: Surgical History (Last Reviewed 04/06/19 @ 00:41 by Berhane Arce MD) H/O coronary artery bypass surgery (Chronic) Onset Date: 06/17/01 Z95.1 CABG x 4 UMANZOR Sequential -D1 and D2, SVG-Cx, SVG-RCA 06/17/2001 @ [facility] History of angioplasty of peripheral vessel Z98.62 History of femoropopliteal bypass Onset Date: 06/2001 Z98.890 History of left lower extremity amputation Onset Date: 11/01/15 Z89.612 Above the knee Hx of tonsillectomy (Inactive) Z90.89 hx of APLL (Inactive) Right leg Surgical History: coronary bypass surgery, - - Left above-knee amputation. Psychiatric History: Depression Lives: Spouse/ Significant Other Smoking Status: Current every day smoker - *Family History Maternal Family History: Family History (Last Reviewed 04/06/19 @ 00:41 by Berhane Arce MD) Mother Breast cancer History Items: Cancer Paternal Family History: Family History (Last Reviewed 04/06/19 @ 00:41 by Berhane Arce MD) Mother Breast cancer History Items: No pertinent history Review of Systems Constitutional: Reports: Weakness. Denies: Chills, Fever, Weight Change HEENT: Denies: Head Aches, Sinus Congestion, Sinus Drainage Cardiovascular: Denies: Chest Pain, Palpitations Respiratory: Denies: Cough, Shortness of breath at rest, Sputum production Gastrointestinal: Reports: Abdominal Pain, Diarrhea, Nausea. Denies: Vomiting Genitourinary: Denies: Dysuria Musculoskeletal: Denies: Joint Pain, Joint Tenderness Skin: Denies: Rash, Wounds Neurological: Denies: Numbness, Tingling, Focal weakness Psychiatric: Denies: Anxiety, Depression, Homicidal Ideations, Suicidal Ideations Hematologic/ Lymphatic: Denies: Easy Bruising, Easy Bleeding VTE Information - Inpt Only VTE Present on Admission: No VTE Mechan Device Prophylaxis: None VTE Pharm Prophylaxis ordered?: Yes Patient Problems: Active and Suspected Problems (Last Reviewed 04/06/19 @ 00:41 by Berhane Arce MD) Colitis (Acute) - Physical Exam Vitals/I&O's: Vital Signs Temp Pulse Resp BP Pulse Ox 98.1 F 78 17 191/59 H 97 04/14/19 21:00 04/14/19 21:00 04/14/19 21:00 04/14/19 21:00 04/14/19 21:00 Oxygen Delivery Method Room Air Weight: 99 lb Body Mass Index (BMI) 15.0 General: Alert, Oriented x3, Cooperative HEENT: Atraumatic, Normocephalic Neck: Supple Lungs: Clear to auscultation, Normal air movement Cardiovascular: Regular rate, Normal S1, Normal S2, No murmurs Abdomen: Soft, Hypoactive Bowel Sounds, Tender - LLQ Extremities: No edema Skin: No rashes Musculoskeletal: No Tenderness to Palpation of Joints or Extremities, - - left aka Neurological: Neuro grossly intact Psych/Mental Status: Normal Affect, Appropriate Laboratory Results 04/14/19 18:00: WBC 29.5 H, RBC 4.24 L, Hgb 12.1 L, Hct 35.9 L, MCV 84.7, MCH 28.5, MCHC 33.7, RDW Std Deviation 48.1 H, RDW Coeff of Max 16.2 H, Plt Count 294, MPV 11.1, Immature Gran % (Auto) 0.700, Neut % (Auto) 95.2 H, Lymph % (Auto) 2.2 L, [place] % (Auto) 1.6, Eos % (Auto) 0.1, Baso % (Auto) 0.2, Absolute Neuts (auto) 28.2 H, Absolute Lymphs (auto) 0.64 L, Nucleated RBC % 0, Differential Comment , Platelet Estimate ADEQUATE, RBC Morphology NORM C+C 04/14/19 18:00: Sodium 136, Potassium 3.5, Chloride 99, Carbon Dioxide 31.0, Anion Gap 6, BUN 15, Creatinine 0.61 L, Estim Creat Clear Calc 80.77, Est GFR (MDRD) Af Amer 173, Est GFR (MDRD) Non-Af 143, BUN/Creatinine Ratio 24.7 H, Glucose 122 H, Calcium 9.0, Total Bilirubin 0.60, Direct Bilirubin 0.08, AST 22, ALT 18, Alkaline Phosphatase 100, Total Protein 6.9, Albumin 2.9 L, Globulin 4.0, Lipase 66 L 04/14/19 19:20: Urine Color Yellow, Urine Clarity Sl. Cloudy, Urine pH 6.5, Ur Specific [place] 1.015, Urine Protein 30 H, Urine Glucose (UA) Normal, Urine Ketones Negative, Urine Occult Blood 10 H, Urine Nitrite Negative, Urine Bilirubin 1 H, Urine Urobilinogen 1 H, Ur Leukocyte Esterase Negative, Urine RBC 0 SEEN, Urine WBC 0 SEEN, Ur Squamous Epith Cells 0 SEEN, Urine Bacteria 0 SEEN, Urine Mucus 0 SEEN Current Medications Sodium Chloride () 1,000 mls @ 150 mls/hr IV .Q6H40M [facility] Last Admin: 04/14/19 18:16 Dose: Not Given Documented by: Sodium Chloride () 1,000 mls @ 200 mls/hr IV .Q5H [facility] Last Admin: 04/14/19 20:40 Dose: 200 mls/hr Documented by: Ciprofloxacin (Cipro) 400 mg in 200 mls @ 200 mls/hr IV X1 ONE Stop: 04/14/19 22:05 Metronidazole (Flagyl) 500 mg in 100 mls @ 100 mls/hr IV X1 ONE Stop: 04/14/19 22:05 Assessment/Plan All Active Problems (Last Reviewed 04/06/19 @ 00:41 by Berhane Arce MD) Colitis (Acute) Syncope (Acute) Abdominal pain (Acute) Chronic Problems (Last Reviewed 04/06/19 @ 00:41 by Berhane Arce MD) Hypertrophy of nasal turbinates (Chronic) Nasal septal deviation (Chronic) Nasal deformity (Chronic) Bilateral carotid artery stenosis (Chronic) Right > Left Ischemia of right lower extremity (Chronic) Hyperlipidemia (Chronic) Peripheral vascular occlusive disease (Chronic) Atherosclerosis of coronary artery of [place] heart without angina pectoris (Chronic) CABG x 4 UMANZOR Sequential -D1 and D2, SVG-Cx, SVG-RCA 06/17/2001 H/O coronary artery bypass surgery (Chronic 06/17/01) CABG x 4 UMANZOR Sequential -D1 and D2, SVG-Cx, SVG-RCA 06/17/2001 @ [facility] Hypertension (Chronic) Tobacco dependence syndrome (Chronic) Plan 1. Abdominal pain with diarrhea?colitis, admit for observation to general medical floor, start ciprofloxacin and Flagyl, IV normal saline at 100 cc/h, repeat CBC BMP in the morning, Zofran as needed for nausea, low-dose morphine as needed for pain,c-diff pending 2. Hyperlipidemia?continue current medications 3. Tobacco use disorder?nicotine patch per request 4. DVT prophylaxis?low molecular weight heparin? 5. Hypertension?continue current medication Code Visit OBSV E&M: 60601 Initial observation care L2
[2019-04-14] MEDS: Ciprofloxacin 400 MG/200 ML BAG 200 MG IV (21:38)
[2019-04-14] MEDS: metroNIDAZOLE 500 MG/100 ML BAG 100 MG IV (21:48)
[2019-04-14] MEDS: Gabapentin 600 MG Tablet PO (23:11)
[2019-04-14] MEDS: APIXABAN 5 MG TABLET PO (23:11)
[2019-04-14] MEDS: Metoprolol Tartrate 50 MG Tablet PO (23:11)
[2019-04-14] MEDS: 0.9% Normal Saline 1,000 ML 100 ML IV (23:11)
[2019-04-14] MEDS: Famotidine 20 MG Tablet PO (23:57)
[2019-04-15] VITALS (7 sets, daily range): BP systolic 155–196; BP diastolic 64–83; PULSE 64–77; RESP 16–18; TEMP 36.3–36.9; O2SAT 98–100
[2019-04-15] MEDS: metroNIDAZOLE 500 MG/100 ML BAG 100 MG IV ×2 (05:30→13:54)
[2019-04-15] MEDS: Morphine 4 MG/ML Syringe IV ×2 (06:57→10:23)
[2019-04-15] MEDS: Ciprofloxacin 400 MG/200 ML BAG 200 MG IV (10:21)
[2019-04-15] MEDS: Citalopram 40 MG TABLET PO (10:21)
[2019-04-15] MEDS: predniSONE 20 MG Tablet PO (10:21)
[2019-04-15] MEDS: Gabapentin 600 MG Tablet PO ×4 (10:22→22:29)
[2019-04-15] MEDS: APIXABAN 5 MG TABLET PO ×2 (10:22→22:29)
[2019-04-15] MEDS: Metoprolol Tartrate 50 MG Tablet PO ×2 (10:22→22:29)
[2019-04-15] MEDS: DULoxetine Hcl 60 MG Capsule PO (10:22)
[2019-04-15] MEDS: Lisinopril 10 MG Tablet PO ×2 (10:22→19:22)
[2019-04-15] MEDS: 0.9% Normal Saline 1,000 ML 100 ML IV (10:26)
--- NOTE | 2019-04-15 12:01 | PN_ITS ---
<Husam Noel - Last Filed: 04/15/19 12:01> Patient Problems: Active and Suspected Problems (Last Reviewed 04/06/19 @ 00:41 by Berhane Arce MD) Colitis (Acute) Subjective: No BM since admission. Some diffuse abdominal pain. No nausea/vomiting. He does drink from a well and has chickens. No fever/chills. No dizziness/LH. He has recently been on abx, he is not sure which, He states he had a colonoscopy 2 weeks ago in [facility] and does not know what was found. He was told he did not have cdiff and denies a hx of this. - Physical Exam Vitals/I&O's: Vital Signs Temp Pulse Resp BP Pulse Ox 97.3 F L 64 16 155/65 H 99 04/15/19 10:09 04/15/19 10:22 04/15/19 10:09 04/15/19 10:09 04/15/19 10:09 Oxygen Delivery Method Room Air Weight: 94 lb 12.78 oz Body Mass Index (BMI) 14.4 Intake and Output for Last 24 Hours 04/13/19 04/14/19 04/15/19 23:59 23:59 23:59 Intake Total 933.33 / 933.33 1161.17 / 1161.17 Output Total 0 / 0 450 / 450 Balance 933.33 / 933.33 711.17 / 711.17 General: Alert, Oriented x3, Cooperative HEENT: Atraumatic, PERRLA, EOMI, Normocephalic Neck: Supple, No JVD, Negative Carotid Bruits Lungs: Clear to auscultation, Normal air movement Cardiovascular: Regular rate, No murmurs Abdomen: Bowel Sounds Present, Soft, Tender - LLQ with guarding. Extremities: No edema, Capillary Refill Less than 3 Seconds Skin: No rashes, No breakdown Musculoskeletal: No Tenderness to Palpation of Joints or Extremities Neurological: Cranial nerves II-XII grossly intact Psych/Mental Status: Normal Affect, Appropriate, Alert and oriented to time, place, person, mood and affect Laboratory Results 04/14/19 18:00: WBC 29.5 H, RBC 4.24 L, Hgb 12.1 L, Hct 35.9 L, MCV 84.7, MCH 28.5, MCHC 33.7, RDW Std Deviation 48.1 H, RDW Coeff of Max 16.2 H, Plt Count 294, MPV 11.1, Immature Gran % (Auto) 0.700, Neut % (Auto) 95.2 H, Lymph % (Auto) 2.2 L, [place] % (Auto) 1.6, Eos % (Auto) 0.1, Baso % (Auto) 0.2, Absolute Neuts (auto) 28.2 H, Absolute Lymphs (auto) 0.64 L, Nucleated RBC % 0, Differential Comment , Platelet Estimate ADEQUATE, RBC Morphology NORM C+C 04/14/19 18:00: Sodium 136, Potassium 3.5, Chloride 99, Carbon Dioxide 31.0, Anion Gap 6, BUN 15, Creatinine 0.61 L, Estim Creat Clear Calc 80.77, Est GFR (MDRD) Af Amer 173, Est GFR (MDRD) Non-Af 143, BUN/Creatinine Ratio 24.7 H, Glucose 122 H, Calcium 9.0, Total Bilirubin 0.60, Direct Bilirubin 0.08, AST 22, ALT 18, Alkaline Phosphatase 100, Total Protein 6.9, Albumin 2.9 L, Globulin 4.0, Lipase 66 L 04/14/19 19:20: Urine Color Yellow, Urine Clarity Sl. Cloudy, Urine pH 6.5, Ur Specific [place] 1.015, Urine Protein 30 H, Urine Glucose (UA) Normal, Urine Ketones Negative, Urine Occult Blood 10 H, Urine Nitrite Negative, Urine Bilirubin 1 H, Urine Urobilinogen 1 H, Ur Leukocyte Esterase Negative, Urine RBC 0 SEEN, Urine WBC 0 SEEN, Ur Squamous Epith Cells 0 SEEN, Urine Bacteria 0 SEEN, Urine Mucus 0 SEEN Current Medications Apixaban (Eliquis) 5 mg PO BID [facility] Last Admin: 04/15/19 10:22 Dose: 5 mg Documented by: Atorvastatin Calcium (Lipitor) 10 mg PO DAILY@2200 [facility] Citalopram Hydrobromide (Celexa) 40 mg PO DAILY [facility] Last Admin: 04/15/19 10:21 Dose: 40 mg Documented by: Duloxetine HCl (Cymbalta) 60 mg PO DAILY [facility] Last Admin: 04/15/19 10:22 Dose: 60 mg Documented by: Gabapentin (Neurontin) 600 mg PO 4X/DAY [facility] Last Admin: 04/15/19 10:22 Dose: 600 mg Documented by: Sodium Chloride () 1,000 mls @ 100 mls/hr IV .Q10H [facility] Last Infusion: 04/15/19 10:27 Dose: 0 mls/hr Documented by: Ciprofloxacin (Cipro) 400 mg in 200 mls @ 200 mls/hr IV Q12 [facility] Last Admin: 04/15/19 10:21 Dose: 200 mls/hr Documented by: Metronidazole (Flagyl) 500 mg in 100 mls @ 100 mls/hr IV Q8 [facility] Last Infusion: 04/15/19 06:31 Dose: Infused Documented by: Sodium Chloride () 250 mls @ 15 mls/hr IV .[id number] PRN PRN Reason: Saline Flush Last Infusion: 04/15/19 07:00 Dose: 0 mls/hr Documented by: Lisinopril (Zestril) 10 mg PO DAILY [facility] Last Admin: 04/15/19 10:22 Dose: 10 mg Documented by: Metoprolol Tartrate (Lopressor (Beta Kayla)) 50 mg PO BID [facility] Last Admin: 04/15/19 10:22 Dose: 50 mg Documented by: Morphine Sulfate () 1 mg IV Q2H PRN PRN PRN Reason: Pain Score 6-10/10 Ondansetron HCl (Zofran) 4 mg IV Q6H PRN PRN PRN Reason: NAUSEA/VOMITING Oxycodone HCl (Oxyir) 5 mg PO Q4H PRN PRN PRN Reason: Pain Score 6-10/10 Prednisone () 20 mg PO DAILYCM [facility] Last Admin: 04/15/19 10:21 Dose: 20 mg Documented by: Sodium Chloride () 10 - 40 ml IV UD PRN PRN Reason: SALINE FLUSH Medical Necessity - Tobacco Use Smoking Status: Current every day smoker Assessment/Plan All Active Problems (Last Reviewed 04/06/19 @ 00:41 by Berhane Arce MD) Colitis (Acute) Syncope (Acute) Abdominal pain (Acute) 1. Colitis - type unclear. See CT scan. No BM since admission. Ongoing LLQ tenderness/guarding. Significant leukocytosis. If he has BM will send C diff, enteric panel, O&P, lactoferrin. Continue IVF + supportive care. + Recent abx use. UA negative. + well water and chickens. No foreign travel. Continue empiric cipro / flagyl. 2. CAD with prior CABG - lisinopril, lopressor, statin 3. HTN - mildly elevated, suspect 2/2 pain 4. Hx COPD + Tobacco use - prn aerosols, no exacerbation 5. Crush injury, chronic pain - Cymbalta, norco, lyrica, gabapentin 6. Depression- celexa. 7. Severe protein calorie malnutrition - dietary consult 8. Left knee AKA 9. PVD - eliquis, aspirin, statin DVT ppx: eliquis This patient was seen by Husam Noel PA-C under the supervision of Dr. Paul <Pierre Paul - Last Filed: 04/15/19 14:19> Subjective: Seen and examined. Agree with the above note. Patient was admitted with diffuse abdominal pain which started bandlike around the umbilicus region. No nausea or vomiting. Had diarrhea, liquid consistency but no blood. Had colonoscopy about 2 weeks ago in [place]. The patient was last admitted in April 05 for syncope secondary to hypovolemia's with orthostatic hypotension. He had diarrhea at that time too with recent diagnosis of colitis and on home prednisone. Patient was not discharged on antibiotic. - Physical Exam Vitals/I&O's: Vital Signs Temp Pulse Resp BP Pulse Ox 97.3 F L 64 16 155/65 H 99 04/15/19 10:09 04/15/19 10:22 04/15/19 10:09 04/15/19 10:09 04/15/19 10:09 Oxygen Delivery Method Room Air Weight: 94 lb 12.78 oz Body Mass Index (BMI) 14.4 Intake and Output for Last 24 Hours 04/13/19 04/14/19 04/15/19 23:59 23:59 23:59 Intake Total 933.33 / 933.33 1481.17 / 1481.17 Output Total 0 / 0 975 / 975 Balance 933.33 / 933.33 506.17 / 506.17 General: Alert, Oriented x3, Cooperative HEENT: Atraumatic, PERRLA, EOMI, Normocephalic Neck: Supple, No JVD, Negative Carotid Bruits Lungs: Clear to auscultation, Normal air movement, No rhonchi, No wheeze, No rales Cardiovascular: Regular rate, Regular Rhythm, Normal S1, Normal S2, No murmurs Abdomen: Bowel Sounds Present, Soft, Non-Distended, Tender - LLQ with guarding. Tenderness over left lower quadrant predominantly but over right lower quadrant. Extremities: No edema, Capillary Refill Less than 3 Seconds Skin: No rashes, No breakdown Musculoskeletal: No Tenderness to Palpation of Joints or Extremities, Arthritic Changes, Muscle Wasting, - - Left above-knee amputation with mild to moderate muscle atrophy. Prosthesis did not fit secondary to muscle atrophy. Neurological: Cranial nerves II-XII grossly intact, Deep Tendon Reflexes 2+/4 and Symmetrical, Neuro grossly intact Psych/Mental Status: Normal Affect, Appropriate Laboratory Results 04/14/19 18:00: WBC 29.5 H, RBC 4.24 L, Hgb 12.1 L, Hct 35.9 L, MCV 84.7, MCH 28.5, MCHC 33.7, RDW Std Deviation 48.1 H, RDW Coeff of Max 16.2 H, Plt Count 294, MPV 11.1, Immature Gran % (Auto) 0.700, Neut % (Auto) 95.2 H, Lymph % (Auto) 2.2 L, [place] % (Auto) 1.6, Eos % (Auto) 0.1, Baso % (Auto) 0.2, Absolute Neuts (auto) 28.2 H, Absolute Lymphs (auto) 0.64 L, Nucleated RBC % 0, Differential Comment , Platelet Estimate ADEQUATE, RBC Morphology NORM C+C 04/14/19 18:00: Sodium 136, Potassium 3.5, Chloride 99, Carbon Dioxide 31.0, Anion Gap 6, BUN 15, Creatinine 0.61 L, Estim Creat Clear Calc 80.77, Est GFR (MDRD) Af Amer 173, Est GFR (MDRD) Non-Af 143, BUN/Creatinine Ratio 24.7 H, Glucose 122 H, Calcium 9.0, Total Bilirubin 0.60, Direct Bilirubin 0.08, AST 22, ALT 18, Alkaline Phosphatase 100, Total Protein 6.9, Albumin 2.9 L, Globulin 4.0, Lipase 66 L 04/14/19 19:20: Urine Color Yellow, Urine Clarity Sl. Cloudy, Urine pH 6.5, Ur Specific [place] 1.015, Urine Protein 30 H, Urine Glucose (UA) Normal, Urine Ketones Negative, Urine Occult Blood 10 H, Urine Nitrite Negative, Urine Bilirubin 1 H, Urine Urobilinogen 1 H, Ur Leukocyte Esterase Negative, Urine RBC 0 SEEN, Urine WBC 0 SEEN, Ur Squamous Epith Cells 0 SEEN, Urine Bacteria 0 SEEN, Urine Mucus 0 SEEN Current Medications Apixaban (Eliquis) 5 mg PO BID [facility] Last Admin: 04/15/19 10:22 Dose: 5 mg Documented by: Atorvastatin Calcium (Lipitor) 10 mg PO DAILY@2200 [facility] Citalopram Hydrobromide (Celexa) 40 mg PO DAILY [facility] Last Admin: 04/15/19 10:21 Dose: 40 mg Documented by: Duloxetine HCl (Cymbalta) 60 mg PO DAILY [facility] Last Admin: 04/15/19 10:22 Dose: 60 mg Documented by: Gabapentin (Neurontin) 600 mg PO 4X/DAY [facility] Last Admin: 04/15/19 13:55 Dose: 600 mg Documented by: Sodium Chloride () 1,000 mls @ 100 mls/hr IV .Q10H [facility] Last Infusion: 04/15/19 11:25 Dose: 100 mls/hr Documented by: Ciprofloxacin (Cipro) 400 mg in 200 mls @ 200 mls/hr IV Q12 [facility] Last Infusion: 04/15/19 11:25 Dose: Infused Documented by: Metronidazole (Flagyl) 500 mg in 100 mls @ 100 mls/hr IV Q8 [facility] Last Admin: 04/15/19 13:54 Dose: 100 mls/hr Documented by: Sodium Chloride () 250 mls @ 15 mls/hr IV .[id number] PRN PRN Reason: Saline Flush Last Infusion: 04/15/19 07:00 Dose: 0 mls/hr Documented by: Lisinopril (Zestril) 10 mg PO DAILY [facility] Last Admin: 04/15/19 10:22 Dose: 10 mg Documented by: Metoprolol Tartrate (Lopressor (Beta Kayla)) 50 mg PO BID [facility] Last Admin: 04/15/19 10:22 Dose: 50 mg Documented by: Morphine Sulfate () 1 mg IV Q2H PRN PRN PRN Reason: Pain Score 6-10/10 Last Admin: 04/15/19 13:55 Dose: 1 mg Documented by: Nutritional Formula (Lactose Free) (Ensure Enlive) 120 ml PO 4X/DAY [facility] Last Admin: 04/15/19 14:07 Dose: 120 ml Documented by: Ondansetron HCl (Zofran) 4 mg IV Q6H PRN PRN PRN Reason: NAUSEA/VOMITING Oxycodone HCl (Oxyir) 5 mg PO Q4H PRN PRN PRN Reason: Pain Score 6-10/10 [facility] Admin: 04/15/19 10:21 Dose: 20 mg Documented by: Sodium Chloride () 10 - 40 ml IV UD PRN PRN Reason: SALINE FLUSH Assessment/Plan This patient was seen in conjunction with Husam DE LA CRUZ. I have independently interviewed and examined the patient and reviewed pertinent history, examination findings, laboratory and plan of management. I have reviewed the note and agree with the documented findings with the few additional points. In brief, patient is admitted for 59-year-old gentleman was admitted with diarrhea and abdominal pain mostly secondary to colitis: Patient did not had fever chills, tachycardia but a significant leukocytosis 29.5 thousand. Patient also on prednisone before leukocytosis minimally reactive. Patient did not had bowel movement since admission therefore stool tests not done although ordered. CT abdomen was done shows mildly thick-walled colon consistent with infectious or inflammatory colitis. Pseudo-feces pattern in the small bowel suspicious of reduced mortality. On IV Cipro and Flagyl. Patient also history of coronary artery disease and peripheral arterial disease. Patient had left above-knee amputation secondary to peripheral arterial disease with moderate muscle atrophy. Other comorbidities include COPD with current every day tobacco use, smoking. Chronic pain, depression and severe protein calorie malnutrition. I have discussed my assessment with Husam DE LA CRUZ and orders have been reviewed. Clinical Impression(s) from Imaging Studies Abdomen/Pelvis CT 04/14/19 18:38 IMPRESSION: 1. Mildly thick-walled colon consistent with infectious or inflammatory colitis. 2. Pseudofeces pattern in the small bowel suspicious for reduced motility. 3. Ectatic aorta with chronic dissection. Code Visit Inpatient E&M: 34706 Subs Hosp L2
[2019-04-15] MEDS: Morphine 2 MG/ML Syringe 1 MG IV (13:55)
--- NOTE | 2019-04-15 14:29 | CASEMGMT ---
RN CM Assessment Introduced role of RN CM to patient. Patient sitting up in [facility] and agreed to s/w this automatic typewriter inspector for assessment. Patient during assessment concerned with why this automatic typewriter inspector needing to know this information, automatic typewriter inspector explained again purpose of assessment and role for care coordination needs.? Patient is alert, oriented and able?to participate in RN CM Assessment. ?Care providers, pharmacy, and demographics verified. Patient appeared to lack interest or engagement in conversation and appeared to be unknowledgeable regarding his past medical condition- stating has a breathing machine when he had [place] but denies home oxygen, not sure if it is a CPAP or when it is supposed to be used, states does not use it. Presentation: Recently admitted for diarrhea, dehydration, hypokalemia, syncope and Dc'd with medication to control diarrhea. Last few days felt well and able to eat, he stopped the antidiarrhea medicine yesterday(day presented to ER) but was having diarrhea all day and felt drained, lightheaded and near syncope. Admit Dx: Colitis Re-Admit: No, Admitted OBS 04/05-04/06/19 for Syncope, Weakness, Hypokalemia Barriers/Issues: Forgetful or knowledge deficit regarding past medical condition/care, appears with slight flat affect or disinterest during assessment. PCP: Marco Sawyer Specialists: None Preferred Pharmacy: [facility] Insurance: [employer], [facility] Rx Benefit:?Yes ?LNOK: Sig. Other Komal Ibrahim LW/HPOA: None, declines offered information or services on this admission. Notified can return as an Outpatient to complete with dept. Living Arrangements:? Lives with Sig. Other in a home, 2 steps to enter. ADL?s: Independent with ADLs, used to ambulate with Prosthesis- h/o LLE amputation but states since he has lost weight it does not fit and has been in WC for approx 3 months. Transportation: Patient drives DME: WC, FWW, Cane, Breathing machine??? HHC: None SNF: None Goal: Unsure as he wants to fell better before going home. Not sure about SNF or HHC and would have to s/w his sig. other regarding plan of care/goals. DC PLAN: TBD. Ema Montero RNCM
[2019-04-15] MEDS: oxyCODONE 5 MG Tablet PO ×2 (19:22→22:29)
[2019-04-15] MEDS: Ciprofloxacin 500 MG Tablet PO (22:29)
[2019-04-15] MEDS: metroNIDAZOLE 500 MG Tablet PO (22:29)
[2019-04-15] MEDS: Atorvastatin Calcium 10 MG Tablet PO (22:29)
[2019-04-16] VITALS (13 sets, daily range): BP systolic 163–197; BP diastolic 70–78; PULSE 71–98; RESP 16–24; TEMP 35.7–36.7; O2SAT 96–99
[2019-04-16] MEDS: oxyCODONE 5 MG Tablet PO ×3 (03:16→19:59)
[2019-04-16 05:46] LABS: Absolute Lymphocyte Count 1.06 X10^3/uL (0.83-4.51); Absolute Neutrophil Count 24.7 X10^3/uL (2.0-7.7); Basophil# 0.03 X10^3/uL; Basophil% 0.1 % (0-1); Eosinophil# 0.08 X10^3/uL; Eosinophils% 0.3 % (0-5); Hematocrit 34.8 % (40-54); Hemoglobin 11.4 g/dL (13.0-16.5); Lymphocyte # 1.06 X10^3/ul (4.0); Lymphocyte % 3.9 % (19-41); Mean Corp Hgb Conc 32.8 g/dL (32-36); Mean Corpuscular Hgb 27.9 pg (27.0-32.0); Mean Corpuscular Volume 85.1 fL (80-94); Mean Platelet Vol. 11.2 fl (6.2-12.0); Monocyte# 1.13 X10^3/uL; Monocyte% 4.2 % (0-10); NRBC Flagged by Analyzer 0 % (0-5); Neutrophil # 24.67 X10^3/uL (2.7-7.7); POSITIVE DIFFERENTIAL YES; Platelet Count 251 K/mm3 (150-450); RBC Distribution Width CV 16.7 % (11.6-14.6); Red Blood Count 4.09 M/mm3 (4.6-6.2); White Blood Count 27.1 K/mm3 (4.4-11.0)
[2019-04-16] MEDS: metroNIDAZOLE 500 MG Tablet PO ×2 (05:55→15:41)
[2019-04-16 06:03] LABS: Differential Indicated SCAN CRITERIA MET
[2019-04-16] MEDS: Ketorolac 10 MG Tablet PO (06:27)
[2019-04-16 08:17] LABS: Anion Gap 8 (5-15); BUN 14 mg/dL (7-18); BUN/Creat Ratio 36.1 RATIO (10-20); Calcium,Total 8.7 mg/dL (8.5-10.1); Chloride 99 mmol/L (98-107); Creatinine, Serum 0.39 mg/dL (0.70-1.30); EST Glomerular Filtration Rate 241 mL/min (>60); Est Glom Filt Rate - Afr Amer 291 mL/min (>60); Estimated Creatinine Clearance 120.98 ml/min; Glucose 144 mg/dL (74-106); Potassium 2.9 mmol/L (3.5-5.1); Sodium Level 138 mmol/L (136-145)
[2019-04-16] MEDS: predniSONE 20 MG Tablet PO (09:04)
[2019-04-16] MEDS: Ciprofloxacin 500 MG Tablet PO (09:04)
[2019-04-16] MEDS: DULoxetine Hcl 60 MG Capsule PO (09:04)
[2019-04-16] MEDS: APIXABAN 5 MG TABLET PO (09:04)
[2019-04-16] MEDS: Gabapentin 600 MG Tablet PO (09:04)
[2019-04-16] MEDS: Metoprolol Tartrate 50 MG Tablet PO (09:05)
[2019-04-16] MEDS: Citalopram 40 MG TABLET PO (09:05)
[2019-04-16 09:08] LABS: Magnesium 2.1 mg/dL (1.6-2.6); Phosphorus 2.5 mg/dL (2.5-4.9)
[2019-04-16] MEDS: Lisinopril 20 MG Tablet PO (10:23)
--- NOTE | 2019-04-16 10:42 | PN_ITS ---
Patient Problems: Active and Suspected Problems (Last Reviewed 04/16/19 @ 13:23 by Kandis Cantor PA-C) Colitis (Acute) Subjective: Patient having abdominal pain. No fever or chills. Did not had bowel movement since admission therefore stool sample was not collected. Could not get IV access because of right upper extremity correction injury and peripheral vascular disease. Labs reviewed. K2.9. Surgeon Dr. Sandoval was called and discussed with him. Vitals/I&O's: Vital Signs Temp Pulse Resp BP Pulse Ox 98.0 F 79 16 163/78 H 96 04/16/19 03:17 04/16/19 03:17 04/16/19 03:17 04/16/19 03:17 04/16/19 03:17 Oxygen Delivery Method Room Air Weight: 94 lb 12.78 oz Body Mass Index (BMI) 14.4 Intake and Output for Last 24 Hours 04/14/19 04/15/19 04/16/19 23:59 23:59 23:59 Intake Total 933.33 / 933.33 2847.00 / 2847.00 Output Total 0 / 0 1475 / 1475 400 / 400 Balance 933.33 / 933.33 1372.00 / 1372.00 -400 / -400 General: Alert, Oriented x3, Cooperative HEENT: Atraumatic, PERRLA, EOMI, Normocephalic Neck: Supple, No JVD, Negative Carotid Bruits Lungs: Clear to auscultation, No rhonchi, No wheeze, No rales, Diminished Cardiovascular: Regular rate, Regular Rhythm, Normal S1, Normal S2, No murmurs Abdomen: Bowel Sounds Present, Soft, Guarding, Tender - Mild tenderness in left lower quadrant Extremities: No edema, Capillary Refill Less than 3 Seconds Skin: No rashes, No breakdown Musculoskeletal: No Tenderness to Palpation of Joints or Extremities, Arthritic Changes, Muscle Wasting, - - Left above-knee amputation Neurological: Cranial nerves II-XII grossly intact, Deep Tendon Reflexes 2+/4 and Symmetrical, Neuro grossly intact Psych/Mental Status: Normal Affect, Appropriate Laboratory Results 04/16/19 05:30: WBC 27.1 H, RBC 4.09 L, Hgb 11.4 L, Hct 34.8 L, MCV 85.1, MCH 27.9, MCHC 32.8, RDW Std Deviation 51.0 H, RDW Coeff of Max 16.7 H, Plt Count 251, MPV 11.2, Immature Gran % (Auto) 0.500, Neut % (Auto) 91.0 H, Lymph % (Auto) 3.9 L, [place] % (Auto) 4.2, Eos % (Auto) 0.3, Baso % (Auto) 0.1, Absolute Neuts (auto) 24.7 H, Absolute Lymphs (auto) 1.06, Nucleated RBC % 0 04/16/19 05:30: Sodium 138, Potassium 2.9 L, Chloride 99, Carbon Dioxide 31.0, Anion Gap 8, BUN 14, Creatinine 0.39 L, Estim Creat Clear Calc 120.98, Est GFR (MDRD) Af Amer 291, Est GFR (MDRD) Non-Af 241, BUN/Creatinine Ratio 36.1 H, Glucose 144 H, Calcium 8.7 Current Medications Apixaban (Eliquis) 5 mg PO BID [facility] Last Admin: 04/15/19 22:29 Dose: 5 mg Documented by: Atorvastatin Calcium (Lipitor) 10 mg PO DAILY@2200 [facility] Last Admin: 04/15/19 22:29 Dose: 10 mg Documented by: Ciprofloxacin HCl (Cipro) 500 mg PO BID [facility] Last Admin: 04/15/19 22:29 Dose: 500 mg Documented by: Citalopram Hydrobromide (Celexa) 40 mg PO DAILY [facility] Last Admin: 04/15/19 10:21 Dose: 40 mg Documented by: Duloxetine HCl (Cymbalta) 60 mg PO DAILY [facility] Last Admin: 04/15/19 10:22 Dose: 60 mg Documented by: Gabapentin (Neurontin) 600 mg PO 4X/DAY [facility] Last Admin: 04/15/19 22:29 Dose: 600 mg Documented by: Sodium Chloride () 1,000 mls @ 100 mls/hr IV .Q10H [facility] Last Admin: 04/16/19 05:12 Dose: Not Given Documented by: Sodium Chloride () 250 mls @ 15 mls/hr IV .[id number] PRN PRN Reason: Saline Flush Last Infusion: 04/15/19 15:30 Dose: 0 mls/hr Documented by: Lisinopril (Zestril) 20 mg PO DAILY [facility] Metoprolol Tartrate (Lopressor (Beta Kayla)) 50 mg PO BID [facility] Last Admin: 04/15/19 22:29 Dose: 50 mg Documented by: Metronidazole (Flagyl) 500 mg PO TID [facility] Last Admin: 04/16/19 05:55 Dose: 500 mg Documented by: Nutritional Formula (Lactose Free) (Ensure Enlive) 120 ml PO 4X/DAY [facility] Last Admin: 04/15/19 22:57 Dose: Not Given Documented by: Ondansetron HCl (Zofran) 4 mg IV Q6H PRN PRN PRN Reason: NAUSEA/VOMITING Oxycodone HCl (Oxyir) 5 - 10 mg PO Q4H PRN PRN PRN Reason: moderate and severe pain Last Admin: 04/16/19 03:16 Dose: 10 mg Documented by: Potassium Chloride (Potassium Chl Soln) 40 meq PO Q3H [facility] Stop: 04/16/19 14:46 [facility]one () [facility] Last Admin: 04/15/19 10:21 Dose: 20 mg Documented by: Sodium Chloride () 10 - 40 ml IV UD PRN PRN Reason: SALINE FLUSH Medical Necessity - Tobacco Use Smoking Status: Current every day smoker Assessment/Plan All Active Problems (Last Reviewed 04/16/19 @ 13:23 by Kandis Cantor PA-C) Colitis (Acute) Syncope (Acute) Abdominal pain (Acute) patient is a 29-year-old gentleman with multiple comorbidities including coronary artery status post CABG, peripheral arterial disease and crush injury was admitted for 59-year-old gentleman was admitted with diarrhea and abdominal pain mostly secondary to colitis: Patient did not had fever chills, tachycardia but a significant leukocytosis 29.5 thousand. Patient also on prednisone before leukocytosis therefore reactive. CT abdomen was done shows mildly thick-walled colon consistent with infectious or inflammatory colitis. Pseudo-feces pattern in the small bowel suspicious of reduced mortality. On IV Cipro and Flagyl. 1. Possible infectious colitis ischemic colitis rule out C. difficile-If he has BM will send C diff, enteric panel, O&P, lactoferrin. 04/15/2019: + Recent abx use. UA negative.continue empiric cipro / flagyl. 04/16/2019 : Multiple attempts for IV line access unsuccessful therefore midline ordered. Patient needs IV fluid and antibiotics. Because of unsuccessful IV access, IV antibiotics was switched to oral antibiotics last night. Midline ordered. Overall, it seems patient has ischemic colitis with multiple ulc erations from transverse colon to sigmoid colon. Patient had colonoscopy about 2 weeks ago in [facility]. Colonoscopy report from [facility] reviewed. Reported as preparation of the colon poor. Patchy area of moderately friable mucosa with no bleeding in sigmoid colon, descending colon and transverse colon and ascending colon biopsied. Multiple ulcers in sigmoid colon, descending colon and transverse colon ascending colon biopsied. Surgeon Dr. Jose Carlos Sandoval called for a consult to help in comanagement. CT abdomen was ordered. 2. Hypokalemia: Potassium is being replaced. Magnesium and phosphorus are normal. CAD with prior CABG - lisinopril, lopressor, statin 3. HTN -blood pressure elevated. Hydralazine 25 mg 3 times daily 3 times daily added 4. COPD + Tobacco use - prn aerosols, no exacerbation 5. Crush injury, chronic pain - Cymbalta, norco, lyrica, gabapentin 6. Depression- celexa. 7. Severe protein calorie malnutrition - dietary consult. On Ensure. 8. Left knee AKA 9. PVD - eliquis, aspirin, statin DVT ppx: eliquis Clinical Impression(s) from Imaging Studies Abdomen/Pelvis CT 04/14/19 18:38 IMPRESSION: 1. Mildly thick-walled colon consistent with infectious or inflammatory colitis. 2. Pseudofeces pattern in the small bowel suspicious for reduced motility. 3. Ectatic aorta with chronic dissection. Laboratory Results 04/16/19 05:30: WBC 27.1 H, RBC 4.09 L, Hgb 11.4 L, Hct 34.8 L, MCV 85.1, MCH 27.9, MCHC 32.8, RDW Std Deviation 51.0 H, RDW Coeff of Max 16.7 H, Plt Count 251, MPV 11.2, Immature Gran % (Auto) 0.500, Neut % (Auto) 91.0 H, Lymph % (Auto) 3.9 L, [place] % (Auto) 4.2, Eos % (Auto) 0.3, Baso % (Auto) 0.1, Absolute Neuts (auto) 24.7 H, Absolute Lymphs (auto) 1.06, Nucleated RBC % 0 04/16/19 05:30: Sodium 138, Potassium 2.9 L, Chloride 99, Carbon Dioxide 31.0, Anion Gap 8, BUN 14, Creatinine 0.39 L, Estim Creat Clear Calc 120.98, Est GFR (MDRD) Af Amer 291, Est GFR (MDRD) Non-Af 241, BUN/Creatinine Ratio 36.1 H, Glu cose 144 H, Calcium 8.7 04/16/19 05:30: Magnesium 2.1 04/16/19 05:30: Phosphorus 2.5 Code Visit Inpatient E&M: 35219 Subs Hosp L2
--- NOTE | 2019-04-16 11:09 | CON.PCM_ITS ---
Problem List (1) Colitis Status: Acute (2) Abdominal pain Status: Acute Qualifiers: Abdominal location: left lower quadrant Qualified Code(s): R10.32 - Left lower quadrant pain Reason for Consult Date of Consultation: 04/16/19 Reason for Consultation: Abdominal pain. Recently diagnosed colitis. History of Present Illness: Patient is a 59 y/o M who presents with chronic abdominal pain which has become worse over the last 2 weeks and continued diarrhea. He h as a history of ADD, hypertension, prior CABG, femoral bypass, left knee amputation and chronic left- sided abdominal pain. ?He recently had a colonoscopy at [facility] on 03/24/19 which demonstrated:- Preparation of the colon was poor. ? - Friability with no bleeding in the sigmoid ? colon, in the descending colon, in the transverse ? colon and in the ascending colon. Biopsied. ? - Multiple ulcers in the sigmoid colon, in the ? descending colon, in the transverse colon and in ? the ascending colon. Biopsied. Pathology demonstrated patchy active colitis with ulceration. It was recommended the patient follow-up in 8 weeks. Patient called back into the GI office noting abdominal pain and diarrhea on 03/31/19. ?He was placed on long prednisone taper for 3 months after colonoscopy given his diarrhea and inflammatory changes. It was recommended the patient obtain a TPMT test in order to start Imuran for treatment. An IBD differential was also going to be ordered to determine if patient has Crohn's or ulcerative colitis. Patient had not scheduled a follow-up at this point. Diarrhea and abdominal pain worsened on April 04 and was seen in the emergency department at [facility] on April 05. He also had a syncopal episode at home.?He was seen approximately on April 02 of [facility] for the same complaint and had a CT of his abdomen and pelvis completed. ?No results of those are in his record at this time. ?He notes recent unintentional weight loss, fatigue and weakness. ?States he's been slightly lightheaded.?That has continued even after discharge from the hospital. ?Denies any chest pain, shortness of breath or difficulty breathing. ? He was instructed to continue all of his current medications. ?He was hydrated overnight and then discharged on April 06. ?While in the emergency room it was noted that his white blood cell count was 13.6. ?On repeat on 04-06-19 WBC was?12.2. ? Patient was evaluated by his PCP on 04/11/19. Patient states he continued to have abdominal pain, diarrhea however it remained constant. Patient has continued on his prednisone taper. He notes he was told by someone to try Imodium, which he did and this helped his diarrhea to stop. He stopped taking the Imodium on Sunday. He noted the diarrhea and abdominal pain resumed on Sunday which brought him into the ED. Recommendations from his PCP were to obtain a CBC, CMP, sed rate and tox screen. Results showed WBC of 27.98, Hgb 12.0, Hct 37.9, Plt 302. Potassium at 3.0. Urine was positive for Cannabinoids. Per PCP, patient will be referred to pain management for further chronic pain management. He will no longer be prescribed Percocet. Patient was also placed on Bactrim DS for 7 days by his PCP. Patient denies nausea, vomiting. He notes lack of appetite. He states his weight loss has maybe been around 45 pounds. Patient is on Eliquis BID for history of DVT's, arterial vascular disease, previous CABG x 4 vessel. PCP is who monitors Eliquis. He is an above the knee left lower extremity amputee. Patient states today his abdominal pain is worse. He continues to deny nausea, vomiting. He has not had a bowel movement since admission. It was noted that the patient had Imodium in the ED. WBC 29.5 --> 27.1, Hgb 12.1 --> 11.4, Hct 35.9 --> 34.8, Plt 295 --> 251. Potassium 2.9. CT scan of the abdomen/pelvis w/o contrast demonstrated: IMPRESSION: 1. Mildly thick-walled colon consistent with infectious or inflammatory colitis. 2. Pseudofeces pattern in the small bowel suspicious for reduced motility. 3. Ectatic aorta with chronic dissection. Past Medical History Past Medical History (Chronic Problems): Chronic Problems (Last Reviewed 04/16/19 @ 13:23 by Kandis Cantor PA-C) Hypertrophy of nasal turbinates (Chronic) Nasal septal deviation (Chronic) Nasal deformity (Chronic) Bilateral carotid artery stenosis (Chronic) Right > Left Ischemia of right lower extremity (Chronic) Hyperlipidemia (Chronic) Peripheral vascular occlusive disease (Chronic) Atherosclerosis of coronary artery of [place] heart without angina pectoris (Chronic) CABG x 4 UMANZOR Sequential -D1 and D2, SVG-Cx, SVG-RCA 06/17/2001 H/O coronary artery bypass surgery (Chronic 06/17/01) CABG x 4 UMANZOR Sequential -D1 and D2, SVG-Cx, SVG-RCA 06/17/2001 @ [facility] Hypertension (Chronic) Tobacco dependence syndrome (Chronic) Medical History: Medical History (Last Reviewed 04/16/19 @ 13:23 by Kandis Cantor PA-C) Abdominal pain (Acute) R10.9 Bilateral carotid artery stenosis (Chronic) I65.23 Right > Left Ischemia of right lower extremity (Chronic) I99.8 Hyperlipidemia (Chronic) E78.5 Peripheral vascular occlusive disease (Chronic) I73.9 Atherosclerosis of coronary artery of [place] heart without angina pectoris (Chronic) I25.10 CABG x 4 UMANZOR Sequential -D1 and D2, SVG-Cx, SVG-RCA 06/17/2001 Hypertension (Chronic) I10 Tobacco dependence syndrome (Chronic) F17.200 COPD (chronic obstructive pulmonary disease) J44.9 Crushing injury of arm, right S47.1XXA Crushing injury (Inactive) T14.8 Infected open wound (Inactive) T14.8XXA, L08.9 Superficial bacterial infection of skin (Inactive) L08.9, B96.89 Allergies No Known Allergies Allergy (Verified 04/14/19 16:05) Home Medications: Ambulatory Orders Medication Instructions Recorded Citalopram [Celexa] 40 mg PO DAILY 09/28/14 Lisinopril [Zestril] 10 mg PO DAILY 09/28/14 Gabapentin [Neurontin] 600 mg PO 4X/DAY #120 tab 11/10/15 Oxycodone HCl/Acetaminophen 1 - 2 tab PO Q6H PRN PRN 09/23/17 [Percocet 10-325 mg Tablet] Pregabalin [Lyrica] 150 mg PO TID 09/23/17 duloxetine 60 mg capsule,delayed 60 mg PO DAILY 12/03/17 release Apixaban [Eliquis] 5 mg PO BID 07/01/18 Aspirin [Aspir 81] 81 mg PO DAILY 07/01/18 Hydrocodone/Acetaminophen 1 ea PO Q6H PRN PRN 07/01/18 [Hydrocodon-Acetaminophen 5-325] Metoprolol Tartrate [Lopressor 50 mg PO BID 07/01/18 (beta kayla)] Simvastatin 20 mg PO DAILY 07/01/18 Prednisone 20 mg DAILY 04/14/19 Surgical History: Surgical History (Last Reviewed 04/16/19 @ 13:23 by Kandis Cantor PA-C) H/O coronary artery bypass surgery (Chronic) Onset Date: 06/17/01 Z95.1 CABG x 4 UMANZOR Sequential -D1 and D2, SVG-Cx, SVG-RCA 06/17/2001 @ [facility] History of angioplasty of peripheral vessel Z98.62 History of femoropopliteal bypass Onset Date: 06/2001 Z98.890 History of left lower extremity amputation Onset Date: 11/01/15 Z89.612 Above the knee Hx of tonsillectomy (Inactive) Z90.89 hx of APLL (Inactive) Right leg Surgical History: coronary bypass surgery, - - Left above-knee amputation. Psychiatric History: Depression Lives: Spouse/ Significant Other Smoking Status: Current every day smoker Drugs: Marijuana - *Family History Maternal Family History: Family History (Last Reviewed 04/16/19 @ 13:23 by Kandis Cantor PA-C) Mother Breast cancer History Items: Cancer Paternal Family History: Family History (Last Reviewed 04/16/19 @ 13:23 by Kandis Cantor PA-C) Mother Breast cancer History Items: No pertinent history Review of Systems Constitutional: Reports: Anorexia, Weight Change, Fatigue HEENT: Denies: Head Aches, Sinus Congestion, Sinus Drainage Cardiovascular: Denies: Chest Pain, Palpitations Respiratory: Denies: Cough, Shortness of breath at rest, Sputum production Gastrointestinal: Reports: Abdominal Pain, Diarrhea. Denies: Nausea, Vomiting Genitourinary: Denies: Dysuria Musculoskeletal: Reports: Muscle pain. Denies: Joint Pain, Joint Tenderness Skin: Denies: Rash, Wounds Neurological: Reports: Balance problems Psychiatric: Reports: Depression Hematologic/ Lymphatic: Reports: Anemia, Easy Bruising, Easy Bleeding Patient Problems: Active and Suspected Problems (Last Reviewed 04/16/19 @ 13:23 by Kandis Cantor PA-C) Colitis (Acute) - Physical Exam Vitals/I&O's: Vital Signs Temp Pulse Resp BP Pulse Ox 96.2 F L 71 16 167/70 H 99 04/16/19 09:15 04/16/19 09:15 04/16/19 09:15 04/16/19 09:15 04/16/19 09:15 Oxygen Delivery Method Room Air Weight: 94 lb 12.78 oz Body Mass Index (BMI) 14.4 Intake and Output for Last 24 Hours 04/14/19 04/15/19 04/16/19 23:59 23:59 23:59 Intake Total 933.33 / 933.33 2847.00 / 2847.00 Output Total 0 / 0 1475 / 1475 400 / 400 Balance 933.33 / 933.33 1372.00 / 1372.00 -400 / -400 General: Alert, Oriented x3, Cooperative, - - Cachetic appearance. Skin is hanging HEENT: Atraumatic, PERRLA, EOMI, Normocephalic Neck: Supple, No JVD, Negative Carotid Bruits Lungs: Clear to auscultation, Normal air movement Cardiovascular: Regular rate, No murmurs Abdomen: Soft, Hypoactive Bowel Sounds, Guarding, Rebound Tenderness, Tender - LLQ most severe pain however discomfort in the lower pelvic region Extremities: No edema, Capillary Refill Less than 3 Seconds, - - Left above the knee amputation Skin: No rashes, No breakdown Musculoskeletal: Cachexia Neurological: Neuro grossly intact Psych/Mental Status: Appropriate, Depressed Laboratory Results 04/16/19 05:30: WBC 27.1 H, RBC 4.09 L, Hgb 11.4 L, Hct 34.8 L, MCV 85.1, MCH 27.9, MCHC 32.8, RDW Std Deviation 51.0 H, RDW Coeff of Max 16.7 H, Plt Count 251, MPV 11.2, Immature Gran % (Auto) 0.500, Neut % (Auto) 91.0 H, Lymph % (Auto) 3.9 L, [place] % (Auto) 4.2, Eos % (Auto) 0.3, Baso % (Auto) 0.1, Absolute Neuts (auto) 24.7 H, Absolute Lymphs (auto) 1.06, Nucleated RBC % 0 04/16/19 05:30: Sodium 138, Potassium 2.9 L, Chloride 99, Carbon Dioxide 31.0, Anion Gap 8, BUN 14, Creatinine 0.39 L, Estim Creat Clear Calc 120.98, Est GFR (MDRD) Af Amer 291, Est GFR (MDRD) Non-Af 241, BUN/Creatinine Ratio 36.1 H, Glucose 144 H, Calcium 8.7 04/16/19 05:30: Magnesium 2.1 04/16/19 05:30: Phosphorus 2.5 Current Medications Apixaban (Eliquis) 5 mg PO BID COUNTS INCLUDE 234 BEDS AT THE [facility] Last Admin: 04/16/19 09:04 Dose: 5 mg Documented by: Atorvastatin Calcium (Lipitor) 10 mg PO DAILY@2200 COUNTS INCLUDE 234 BEDS AT THE [facility] Last Admin: 04/15/19 22:29 Dose: 10 mg Documented by: Ciprofloxacin HCl (Cipro) 500 mg PO BID COUNTS INCLUDE 234 BEDS AT THE [facility] Last Admin: 04/16/19 09:04 Dose: 500 mg Documented by: Citalopram Hydrobromide (Celexa) 40 mg PO DAILY COUNTS INCLUDE 234 BEDS AT THE [facility] Last Admin: 04/16/19 09:05 Dose: 40 mg Documented by: Duloxetine HCl (Cymbalta) 60 mg PO DAILY COUNTS INCLUDE 234 BEDS AT THE [facility] Last Admin: 04/16/19 09:04 Dose: 60 mg Documented by: Gabapentin (Neurontin) 600 mg PO 4X/DAY COUNTS INCLUDE 234 BEDS AT THE [facility] Last Admin: 04/16/19 09:04 Dose: 600 mg Documented by: Sodium Chloride () 1,000 mls @ 100 mls/hr IV .Q10H COUNTS INCLUDE 234 BEDS AT THE [facility] Last Admin: 04/16/19 05:12 Dose: Not Given Documented by: Sodium Chloride () 250 mls @ 15 mls/hr IV .[id number] PRN PRN Reason: Saline Flush Last Infusion: 04/15/19 15:30 Dose: 0 mls/hr Documented by: Lisinopril (Zestril) 20 mg PO DAILY COUNTS INCLUDE 234 BEDS AT THE [facility] Last Admin: 04/16/19 10:23 Dose: 20 mg Documented by: Metoprolol Tartrate (Lopressor (Beta Kayla)) 50 mg PO BID COUNTS INCLUDE 234 BEDS AT THE [facility] Last Admin: 04/16/19 09:05 Dose: 50 mg Documented by: Metronidazole (Flagyl) 500 mg PO TID COUNTS INCLUDE 234 BEDS AT THE [facility] Last Admin: 04/16/19 05:55 Dose: 500 mg Documented by: Nutritional Formula (Lactose Free) (Ensure Enlive) 120 ml PO 4X/DAY COUNTS INCLUDE 234 BEDS AT THE [facility] Last Admin: 04/16/19 09:09 Dose: Not Given Documented by: Ondansetron HCl (Zofran) 4 mg IV Q6H PRN PRN PRN Reason: NAUSEA/VOMITING Oxycodone HCl (Oxyir) 5 - 10 mg PO Q4H PRN PRN PRN Reason: moderate and severe pain Last Admin: 04/16/19 09:05 Dose: 10 mg Documented by: Potassium Chloride (Potassium Chl Soln) 40 meq PO Q3H COUNTS INCLUDE 234 BEDS AT THE [facility] Stop: 04/16/19 15:01 Last Admin: 04/16/19 10:20 Dose: 40 meq Documented by: Prednisone () 20 mg PO DAILYCM COUNTS INCLUDE 234 BEDS AT THE [facility] Last Admin: 04/16/19 09:04 Dose: 20 mg Documented by: Sodium Chloride () 10 - 40 ml IV UD PRN PRN Reason: SALINE FLUSH Assessment/Plan All Active Problems (Last Reviewed 04/16/19 @ 13:23 by Kandis Cantor PA-C) Colitis (Acute) Syncope (Acute) Abdominal pain (Acute) I am seeing this patient in conjunction with Dr. Sandoval. Impression: Worsening chronic abdominal pain. Actively being treated for colitis by GI. Ill appearing. Plan: Patient discussed with Dr. Sandoval. Plan for CT of the abdomen/pelvis with contrast looking for ischemic colitis. Dr. Sandoval has discussed with the patient about performing a total colectomy with Melody pouch or ileostomy. This procedure comes with very high risks for the patient due to his nutrition and other comorbidities. If consideration of total colectomy, patient may need tertiary referral. I personally spoke with [facility] to determine the specific plan in place for this patient. It was relayed to me that he was to continue his prednisone taper, obtain TPMT testing in order to place patient on Imuran. Patient was supposed to call into the office to schedule a follow-up which has not been scheduled. Patient is currently receiving Cipro and Flagyl orally. Patient has had the opportunity to ask and have questions answered. Thank you for allowing us to participate in this patient's care. Code Visit Office Visits / Consults: [id number] IP Consult L4
--- NOTE | 2019-04-16 11:28 | CT_ITS ---
STUDY: CT ABDOMEN AND PELVIS WITH CONTRAST REASON FOR EXAM: Male, 59 years old. Diffuse abdominal pain. Pancolitis due to C. difficile. RADIATION DOSAGE (If Supplied By Facility): CTDIvol = ( 11.70 ) mGy, DLP = ( 353.10 ) mGycm TECHNIQUE: Transaxial images were obtained from the dome of the diaphragm to the symphysis pubis with oral contrast. IV/Oral Isovue 300 100mL was administered. Sagittal and coronal images were reconstructed. Individualized dose optimization techniques were used for this CT. COMPARISON: Comparison is made with prior study April 14, 2019. FINDINGS: The visualized lung bases are unremarkable. The visualized portions of the heart are within normal limits. Normal liver. Normal gallbladder and extrahepatic biliary system. Normal spleen. Normal pancreas. Normal bilateral adrenal glands. Normal right kidney. 1 cm cyst in the lower pole of the left kidney. Normal visualized stomach. There are multiple mildly dilated small bowel loops. Fluid is also seen in the rectum and colon. There is gaseous distention of the transverse colon. No significant bowel wall thickening is seen. Small lymph nodes are seen within the mesentery in the right lower quadrant The appendix is visualized and appears normal. There is diffuse atherosclerotic calcification of the abdominal aorta and major visceral vessels. Dense calcification at the origin of the celiac artery and superior mesenteric artery. The atherosclerosis extends into the branches of the superior mesenteric artery. Compromised blood flow should be excluded. The inferior mesenteric artery is patent. Dilated distal aorta measuring 2.7 cm. Normal inferior vena cava. Normal retroperitoneum. Normal urinary bladder. Normal abdominal wall. Normal osseous structures. CT/Abdomen/Pelvis WITH Contrast IMPRESSION: Fluid-filled mildly distended small bowel loops. Fluid is seen within the right hemicolon. There is distention of the transverse colon. No evidence of bowel wall thickening. Extensive atherosclerosis of the aorta and visceral branches especially the celiac artery and superior mesenteric artery. Vascular compromise Electronically Signed: Fer Motta, at 15:40 EST , Service support ,
--- NOTE | 2019-04-16 12:17 | PCM.PN.BLA ---
Progress Note I have reviewed and concur with the consultation note provided by JONO Arias. I have interviewed and examined the patient Mr. Cole. The patient claims to have had significant abdominal pain for 3 months. He had a colonoscopy done via the [facility] March 24, 2019 where barragan colitis was identified. Despite the severity of this process he was offered a GI follow-up at 8 weeks. On April 14, 2019 when he was hospitalized here he had a noncontrasted CT suggesting bowel wall thickening of the transverse colon. I was consulted today by and a written copy of my surgical consult will be charting. The patient is not currently febrile but he is diaphoretic. Claims that he has severe constant abdominal pain. He has not moved his bowels since he was hospitalized 2 days ago. He did take an [id number] Imodium-like product because of the severity of his previous diarrhea. Enrrique appears far more frail emaciated weak and older than stated age than what I have previously seen. His abdomen is somewhat soft. He does have guarding in the left lower quadrant. I am not detecting a rigid abdomen. No mass. Bowel sounds are infrequent and nonspecific My primary concern is one of a diffuse ischemic colitis. The patient states however that since he had his left below-knee amputation because of intractable peripheral vascular disease that he was placed on Eliquis. He states that he has been taking that medication.. As noted above the CT scan that was obtained was uncontrasted. I recommend that we obtain a CT abdomen pelvis with oral and IV contrast. This patient has a long history of systemic vascular disease Unfortunately we do not have gastroenterology on site. I recommend contacting gastroenterology for a more clear understanding as to how actually they think this patient should be treated. I have significant concerns regarding this patient's long-term prognosis. I have discussed with him the potential need for a total colectomy. This distresses him greatly which is why I think a more maximal gastroenterology care is appropriate Jose Carlos Sandoval M.D., F.A.C.S. STROKE Vital Signs/Narrative: Vital Signs Temp Pulse Resp BP Pulse Ox 04/16/19 09:15 96.2 F L 71 16 167/70 H 99 04/16/19 09:05 80 04/16/19 09:00 80
[2019-04-16] MEDS: Morphine 4 MG/ML Syringe IV ×2 (13:10→16:01)
[2019-04-16] MEDS: 0.9% Saline Lock 10 ML Syringe IV ×4 (13:10→16:01)
[2019-04-16] MEDS: 0.9% Normal Saline 1,000 ML 100 ML IV (15:40)
--- NOTE | 2019-04-16 17:42 | PN_ITS ---
Progress Note I have reviewed the patient's clinical findings and history and updated CT imaging To summarize the patient has been having abdominal pain for at least 3 months. Approximately 2 weeks ago is when the pain became very severe. To try to evaluate his situation on December 14, [address] scan of the abdomen pelvis. Interpretation was that there was increased stenosis of the SMA at that time from a previous examination dated 2014. There is felt to be at least moderate celiac artery stenosis and an occluded BLAISE. The patient's left femoral- popliteal bypass was occluded. The patient has systemic vascular disease has had a history of bilateral lower extremity bypass procedures and endovascular interventions and eventuated with a left below-knee amputation. He has coronary stents in place. He is a chronic lifelong cigarette smoker. On his most recent CT scan done without contrast April 14, 2019 it was felt that he had bowel wall thickening of the transverse colon. There was a suggestion of chronic aortic dissection with ectasia. On a repeat CT scan with contrast performed today. There is distention of the transverse colon. The descending and sigmoid colon appear to be more normal in diameter. There is felt to be significant calcific disease of the SMA and celiac. On review the BLAISE is likely occluded. The patient had a colonoscopy at an outside facility as noted in the consultation. Barragan colitis was identified. The patient was initiated on steroids per gastroenterology. The patient has developed significant le ukocytosis currently at 27,000 with a left shift. He is tender to palpation left lower quadrant with guarding. He has had significant diarrhea and very significant weight loss and inanition. Based upon the patient's chronic history of systemic vascular disease and 3- month history of abdominal pain despite previous unremarkable CT of the colon and now with barragan colitis and significant deterioration within the past 2 weeks I do believe that it is at least reasonable to consider mesenteric ischemia as a potential etiology. He is not currently having any diarrhea so it is less likely to be C. difficile colitis. He is not responding to gastroenterology recommended medical treatment. For these reasons I do believe that tertiary level referral and consultation for both consideration of recurrent involvement of gastroenterology as well as consideration for more detailed mesenteric vascular inspection would be pertinent. The patient instructs me that although he is been here for 3 days th at he is no better on the medical treatment and in constant pain. I do not believe that he would well tolerate a total abdominal colectomy. He appears to be progressively failing and I do believe that efforts to evaluate mesenteric blood flow at this point would be pertinent. I certainly very much appreciate any and all kind tertiary care level assistance. Jose Carlos Sandoval M.D., F.A.C.S. STROKE Vital Signs/Narrative: Vital Signs Temp Pulse Resp BP Pulse Ox 04/16/19 16:00 80 99 04/16/19 15:45 96.8 F L 80 16 196/77 H 99
[2019-04-16] MEDS: HYDROmorphone 1 MG/ML Syringe 2 MG IV (18:03)
[2019-04-16] MEDS: hydrALAZINE 20 MG/ML Vial 10 MG IV (18:22)
[2019-04-16] MEDS: Nitroglycerin Oint 1 INCH PACKET TRANSDERM. (20:22)
--- NOTE | 2019-04-16 20:40 | DS.PCM_ITS ---
Discharge Date and Diagnosis Date of Admission: 04/14/19 Date of Discharge: 04/16/19 - Primary Discharge Diagnosis Active and Suspected Problems (Last Reviewed 04/16/19 @ 13:23 by Kandis Cantor PA-C) Colitis (Acute) - Secondary Discharge Diagnosis Chronic Problems (Last Reviewed 04/16/19 @ 13:23 by Kandis Cantor PA-C) Hypertrophy of nasal turbinates (Chronic) Nasal septal deviation (Chronic) Nasal deformity (Chronic) Bilateral carotid artery stenosis (Chronic) Right > Left Ischemia of right lower extremity (Chronic) Hyperlipidemia (Chronic) Peripheral vascular occlusive disease (Chronic) Atherosclerosis of coronary artery of [place] heart without angina pectoris (Chronic) CABG x 4 UMANZOR Sequential -D1 and D2, SVG-Cx, SVG-RCA 06/17/2001 H/O coronary artery bypass surgery (Chronic 06/17/01) CABG x 4 UMANZOR Sequential -D1 and D2, SVG-Cx, SVG-RCA 06/17/2001 @ [facility] Hypertension (Chronic) Tobacco dependence syndrome (Chronic) Hospital Course and Treatment Imaging Results: 04/16/19 11:28 CT Abd [Abdomen/Pelvis WITH Contrast] [CT] Urgent Operations: None Summary of Care Provided: patient is a 29-year-old gentleman with multiple comorbidities including coronary artery status post CABG, peripheral arterial disease and crush injury was admitted for 59-year-old gentleman was admitted with diarrhea and abdominal pain mostly secondary to colitis: Patient did not had fever chills, tachycardia but a significant leukocytosis 29.5 thousand. Patient also on prednisone before leukocytosis therefore reactive. CT abdomen was done shows mildly thick-walled colon consistent with infectious or inflammatory colitis. Pseudo-feces pattern in the small bowel suspicious of reduced mortality. On IV Cipro and Flagyl. [] 1. Possible i ischemic colitis, less likely C. difficile-If he has BM will send C diff, enteric panel, O&P, lactoferrin. 04/15/2019: + Recent abx use. UA negative.continue empiric cipro / flagyl. 04/16/2019 : Multiple attempts for IV line access unsuccessful therefore midline ordered. Patient needs IV fluid and antibiotics. Because of unsuccessful IV access, IV antibiotics was switched to oral antibiotics last night. Midline ordered. Overall, it seems patient has ischemic colitis with multiple ulcerations from transverse colon to sigmoid colon. Patient had colonoscopy about 2 weeks ago in [place] through [facility] system. Colonoscopy report from [facility] reviewed. Reported as preparation of the colon poor. Patchy area of moderately friable mucosa with no bleeding in sigmoid colon, descending colon and transverse colon and ascending colon biopsied. Multiple ulcers in sigmoid colon, descending colon and transverse colon ascending colon biopsied. Surgeon Dr. Jose Carlos Sandoval called for a consult to help in comanagement. Patient did not had bowel movement after admission. CT abdomen was ordered. Repeat CT abdomen with oral and IV contrast reported as diffuse atherosclerotic calcification of the abdominal aorta and major visceral vessels. Dense calcification at the origin of celiac artery and superior mesenteric artery. Atherosclerosis extending to branches of superior mesenteric artery and compromised blood flow should be excluded. Inferior mesenteric artery is patent. Surgeon Dr. Jose Carlos Sandoval suggested transfer to tertiary care facility. Patient prefers to [facility] as he was treated in the past. Transfer line called. Discussed with the surgeon Dr. Buchanan and he was not convinced that patient needs surgical opinion in about CT finding. I further requested our surgeon Dr. Jose Carlos Sandoval to talk to him and he did talk to him. Furthermore, Dr. Buchanan refused to take under surgical service and then called hospitalist to transfer line Dr. Ramírez who accepted the patient. [facility] for possible mesenteric ischemia. 2. Hypokalemia: Potassium is being replaced. Magnesium and phosphorus are normal. CAD with prior CABG - lisinopril, lopressor, statin 3. HTN -blood pressure elevated. Hydralazine 25 mg 3 times daily 3 times daily added 4. COPD + Tobacco use - prn aerosols, no exacerbation 5. Crush injury, chronic pain - Cymbalta, norco, lyrica, gabapentin 6. Depression- celexa. 7. Severe protein calorie malnutrition - dietary consult. On Ensure. 8. Left knee AKA 9. PVD - eliquis, aspirin, statin DVT ppx: eliquis Clinical Impression(s) from Imaging Studies Abdomen/Pelvis CT 04/14/19 18:38 IMPRESSION: 1. Mildly thick-walled colon consistent with infectious or inflammatory colitis. 2. Pseudofeces pattern in the small bowel suspicious for reduced motility. 3. Ectatic aorta with chronic dissection. Electronically Signed: Radha Morse MD at 19:39 EST Tel , Service support , Abdomen/Pelvis CT 04/16/19 11:28 IMPRESSION: Fluid-filled mildly distended small bowel loops. Fluid is seen within the right hemicolon. There is distention of the transverse colon. No evidence of bowel wall thickening. Extensive atherosclerosis of the aorta and visceral branches especially the celiac artery and superior mesenteric artery. Vascular compromise Subjective: Please see progress note on the same date 04/16/2019. Patient continued to have pain and required 4 mg morphine in the 3 hours but is still complaining of 8/10 and then got better with Dilaudid 2 mg IV. - Physical Exam Vitals/I&O's: Vital Signs Temp Pulse Resp BP Pulse Ox 96.8 F L 80 16 196/77 H 99 04/16/19 15:45 04/16/19 16:00 04/16/19 15:45 04/16/19 15:45 04/16/19 16:00 Oxygen Delivery Method Room Air Weight: 94 lb 12.78 oz Body Mass Index (BMI) 14.4 Intake and Output for Last 24 Hours 04/14/19 04/15/19 04/16/19 23:59 23:59 23:59 Intake Total 933.33 / 933.33 2847.00 / 2847.00 440 / 440 Output Total 0 / 0 1475 / 1475 550 / 550 Balance 933.33 / 933.33 1372.00 / 1372.00 -110 / -110 Laboratory Results 04/16/19 05:30: WBC 27.1 H, RBC 4.09 L, Hgb 11.4 L, Hct 34.8 L, MCV 85.1, MCH 27.9, MCHC 32.8, RDW Std Deviation 51.0 H, RDW Coeff of Max 16.7 H, Plt Count 251, MPV 11.2, Immature Gran % (Auto) 0.500, Neut % (Auto) 91.0 H, Lymph % (Auto) 3.9 L, Blair % (Auto) 4.2, Eos % (Auto) 0.3, Baso % (Auto) 0.1, Absolute Neuts (auto) 24.7 H, Absolute Lymphs (auto) 1.06, Nucleated RBC % 0 04/16/19 05:30: Sodium 138, Potassium 2.9 L, Chloride 99, Carbon Dioxide 31.0, Anion Gap 8, BUN 14, Creatinine 0.39 L, Estim Creat Clear Calc 120.98, Est GFR (MDRD) Af Amer 291, Est GFR (MDRD) Non-Af 241, BUN/Creatinine Ratio 36.1 H, Glucose 144 H, Calcium 8.7 04/16/19 05:30: Magnesium 2.1 04/16/19 05:30: Phosphorus 2.5 Current Medications Acetaminophen (Tylenol) 650 mg PO Q6H PRN PRN PRN Reason: Pain Score 1-3 /Temp>100.7 Apixaban (Eliquis) 5 mg PO BID [facility] Last Admin: 04/16/19 09:04 Dose: 5 mg Documented by: Atorvastatin Calcium (Lipitor) 10 mg PO DAILY@2200 [facility] Last Admin: 04/15/19 22:29 Dose: 10 mg Documented by: Ciprofloxacin HCl (Cipro) 500 mg PO BID [facility] Last Admin: 04/16/19 09:04 Dose: 500 mg Documented by: Citalopram Hydrobromide (Celexa) 40 mg PO DAILY [facility] Last Admin: 04/16/19 09:05 Dose: 40 mg Documented by: Duloxetine HCl (Cymbalta) 60 mg PO DAILY [facility] Last Admin: 04/16/19 09:04 Dose: 60 mg Documented by: Gabapentin (Neurontin) 600 mg PO 4X/DAY [facility] Last Admin: 04/16/19 14:00 Dose: Not Given Documented by: Hydralazine HCl (Apresoline Iv) 10 mg IV Q4H PRN PRN PRN Reason: SBP>180, DBP>100 Hydralazine HCl (Apresoline) 50 mg PO TID [facility] Sodium Chloride () 1,000 mls @ 100 mls/hr IV .Q10H [facility] Last Admin: 04/16/19 15:40 Dose: 100 mls/hr Documented by: Lisinopril (Zestril) 20 mg PO DAILY [facility] Last Admin: 04/16/19 10:23 Dose: 20 mg Documented by: Metoprolol Tartrate (Lopressor (Beta Kayla)) 50 mg PO BID [facility] Last Admin: 04/16/19 09:05 Dose: 50 mg Documented by: Metronidazole (Flagyl) 500 mg PO TID [facility] Last Admin: 04/16/19 15:41 Dose: 500 mg Documented by: Morphine Sulfate () 4 mg IV Q3H PRN PRN PRN Reason: Pain Score 6-10/10 Last Admin: 04/16/19 16:01 Dose: 4 mg Documented by: Nutritional Formula (Lactose Free) (Ensure Enlive) 120 ml PO 4X/DAY [facility] Last Admin: 04/16/19 13:17 Dose: Not Given Documented by: Ondansetron HCl (Zofran) 4 mg IV Q6H PRN PRN PRN Reason: NAUSEA/VOMITING Oxycodone HCl (Oxyir) 5 - 10 mg PO Q4H PRN PRN PRN Reason: moderate and severe pain Last Admin: 04/16/19 09:05 Dose: 10 mg Documented by: Prochlorperazine Edisylate (Compazine Iv) 5 mg IV Q6H PRN PRN PRN Reason: Nausea/Vomiting Sodium Chloride () 10 - 40 ml IV UD PRN PRN Reason: SALINE FLUSH Last Admin: 04/16/19 16:01 Dose: 10 ml Documented by: Home Medications: Medications to take at Discharge Citalopram [Celexa] 40 mg PO DAILY 09/28/14 Lisinopril [Zestril] 10 mg PO DAILY 09/28/14 Gabapentin [Neurontin] 600 mg PO 4X/DAY #120 tab 11/10/15 Oxycodone HCl/Acetaminophen [Percocet 10-325 mg Tablet] 1 - 2 tab PO Q6H PRN PRN 09/23/17 Pregabalin [Lyrica] 150 mg PO TID 09/23/17 duloxetine 60 mg capsule,delayed release 60 mg PO DAILY 12/03/17 Apixaban [Eliquis] 5 mg PO BID 07/01/18 Aspirin [Aspir 81] 81 mg PO DAILY 07/01/18 Hydrocodone/Acetaminophen [Hydrocodon-Acetaminophen 5-325] 1 ea PO Q6H PRN PRN 07/01/18 Metoprolol Tartrate [Lopressor (beta kayla)] 50 mg PO BID 07/01/18 Simvastatin 20 mg PO DAILY 07/01/18 Prednisone 20 mg DAILY 04/14/19 Primary Care Physician: Marco Sawyer MD [Primary Care Provider] - Medical Necessity - Tobacco Use Smoking Status: Current every day smoker Meaningful Use Info Meaningful Use Diagnoses (Choose all that apply): None applicable Code Visit Inpatient E&M: 62041 Disch Hosp
--- NOTE | 2019-04-16 21:00 | NURSING ---
Report called to Denise Ron RN at [facility] for transfer of pt.
--- NOTE | 2019-04-16 21:55 | NURSING ---
[facility] here to transport pt. with glasses and belongings to [facility]. Pt. awake and alert, no distress noted.
== END 2019-04-16 21:50 | disposition short-term general hospital (02) | DRG 393 ==
LOC: ED 21:15 → PCU 22:21
PROVIDERS: Admitting Provider Family Medicine; Emergency Provider Emergency Medicine; Family Provider Family Medicine; PCP Family Medicine; Referring Provider Family Medicine; Visit Provider Internal Medicine
DX: K55.9 Vascular disorder of intestine, unspecified (principal); E43 Unspecified severe protein-calorie malnutrition; Z68.1 Body mass index [BMI] 19.9 or less, adult; E87.6 Hypokalemia; Z95.1 Presence of aortocoronary bypass graft; I25.10 Atherosclerotic heart disease of native coronary artery without angina pectoris; I10 Essential (primary) hypertension; F17.210 Nicotine dependence, cigarettes, uncomplicated; J44.9 Chronic obstructive pulmonary disease, unspecified; G89.29 Other chronic pain; F32.9 Major depressive disorder, single episode, unspecified; I73.9 Peripheral vascular disease, unspecified; Z89.612 Acquired absence of left leg above knee; I65.23 Occlusion and stenosis of bilateral carotid arteries; E78.5 Hyperlipidemia, unspecified; I99.8 Other disorder of circulatory system; Z79.82 Long term (current) use of aspirin; Z79.899 Other long term (current) drug therapy; Z79.891 Long term (current) use of opiate analgesic; W23.0XXA Caught, crushed, jammed, or pinched between moving objects, initial encounter; Z79.02 Long term (current) use of antithrombotics/antiplatelets; Z23 Encounter for immunization
CPT/HCPCS: 36415; 74176; 74177; 80048; 80076; 81001; 83690; 83735; 84100; 85025; 93005; 97161; 97802; 99285; 99406; G0008; J7030; J7050; Q9967; 90686; A4216; J0744; J2405